=== PATIENT | male | born 1955 | race Caucasian/White ===

== ENCOUNTER 2019-11-26 07:44 | Outpatient (CLI) | payer MEDICARE, SELFPAY ==
--- NOTE | ~2019-11-26 | US_ITS ---
EXAMINATION: US soft tissue abdomen DATE: 11/26/2019 08:52 INDICATION: Right lower quadrant localized swelling. TECHNIQUE: Multiple ultrasound grayscale images of the abdomen were obtained. COMPARISON: CT abdomen and pelvis 11/23/2016 FINDINGS: There is no abdominal wall mass or hernia in the patient's area of concern in the right lower quadran t. IMPRESSION: 1. No abnormal mass or hernia in the patient's area of concern in the right lower quadrant. Reviewed, dictated and finalized at location A. IMPRESSION: 1. No abnormal mass or hernia in the patient's area of concern in the right lo wer quadrant.
== END 2019-11-26 07:45 | disposition home or self-care (01) ==
PROVIDERS: PCP Family Medicine; Visit Provider Family Medicine
DX: R22.9 Localized swelling, mass and lump, unspecified (principal)
CPT/HCPCS: 76705

== ENCOUNTER 2020-06-16 07:50 | Outpatient (CLI) | payer MEDICARE, SELFPAY ==
--- NOTE | 2020-06-21 17:30 | P.PCNPFT_ITS ---
PFT Interpretation PFT Interpretation: DOS: 06/16/2020 REQUESTING: Gracie Vazquez NP REASON FOR TESTING: Dyspnea PULMONARY FUNCTION TESTS The data is reliable and reproducible. Spirometry: FEV1 is 86%, normal. FVC is 92%, normal. Decreased FEV1%. The FEF25- 75% is decreased at 48%, and there is no response to bronchodilator. Lung volumes: TLC 108%, normal. RV is mildly increased 122% consistent with air trapping. increasd airway resistance. Diffusion: DLCO is 80%, normal. Flow volume loop: Scooping of the expiratory limb, small overall size. IMPRESSION: Mild ventilatory impairment, severe in the small airways, with mild air trapping, and increased airway resistance. normal diffusion. No change with response to bronchodilator. Lack of response to bronchodilator should not preclude use if clinically indicated. Carly Call MD
== END 2020-06-16 07:51 | disposition home or self-care (01) ==
PROVIDERS: PCP Family Medicine; Visit Provider Nurse Practitioner Family
DX: R06.00 Dyspnea, unspecified (principal); R94.2 Abnormal results of pulmonary function studies
CPT/HCPCS: 94060; 94726; 94729

== ENCOUNTER 2020-06-17 07:42 | Outpatient (CLI) | payer MEDICARE, SELFPAY ==
--- NOTE | 2020-06-17 07:49 | EST_ITS ---
Patient Info Name: Abel Sommer Age: 64 years : 1955 Gender: Male Ht: 70 in Wt: 200 lbs BSA: 2.14 m2 HR: 56 bpm Exam Date: 06/17/2020 8:43 AM [facility] Patient Status: Outpatient Admit Date: 06/17/2020 Staff Ordering Physician: Aaron Cadet DO Dry Sander: GABRIELLA Attending Provider: Aaron Cadet DO Referring Physician: Helio ELLISON; Exam Type: CA stress echo Study Info Indications R06.00 - Dyspnea, unspecified Treadmill exercise stress echocardiogram is performed. Summary 1. 1. Negative Kayode exercise stress test for ischemic ST changes by ECG criteria. 2. 2. Good functional capacity, achieving 10 METs of workload. 3. 3. Baseline hypertension. 4. 4. Appropriate HR response to exercise. 5. 5. Appropriate HR recovery at 1 minute post exercise. 6. 6. Negative stress echocardiogram for ischemia by wall motion analysis. 7. 7. Patient informed of the above results. Stress Echo Findings Left Ventricle Appropriate increase in LV endocardial thickening with systole. Appropriate augmentation of contractility with systole. No wall motion abnormality. Left Ventricle Normal LV systolic function, no wall motion abnormality. Protocol: Kayode Stress ECG Details Stage: REST Duration (min): 6 min : 3 sec Speed (mph): 0.0 Grade (%): 0 HR (bpm): 59 SBP (mmHg): 146 DBP (mmHg): 90 METS: --- Stage: REST Duration (min): 23 min : 21 sec Speed (mph): 0.0 Grade (%): 0 HR (bpm): 60 SBP (mmHg): 146 DBP (mmHg): 90 METS: --- Stage: STAGE 1 Duration (min): 1 min : 0 sec Speed (mph): 1.7 Grade (%): 10 HR (bpm): 96 SBP (mmHg): 146 DBP (mmHg): 90 METS: --- Stage: STAGE 1 Duration (min): 2 min : 0 sec Speed (mph): 1.7 Grade (%): 10 HR (bpm): 97 SBP (mmHg): 146 DBP (mmHg): 90 METS: --- Stage: STAGE 1 Duration (min): 3 min : 0 sec Speed (mph): 1.7 Grade (%): 10 HR (bpm): 95 SBP (mmHg): 185 DBP (mmHg): 69 METS: --- Stage: STAGE 2 Duration (min): 1 min : 0 sec Speed (mph): 2.5 Grade (%): 12 HR (bpm): 102 SBP (mmHg): 185 DBP (mmHg): 69 METS: --- Stage: STAGE 2 Duration (min): 2 min : 0 sec Speed (mph): 2.5 Grade (%): 12 HR (bpm): 110 SBP (mmHg): 188 DBP (mmHg): 69 METS: --- Stage: STAGE 2 Duration (min): 3 min : 0 sec Speed (mph): 2.5 Grade (%): 12 HR (bpm): 115 SBP (mmHg): 188 DBP (mmHg): 69 METS: --- Stage: STAGE 3 Duration (min): 1 min : 0 sec Speed (mph): 3.4 Grade (%): 14 HR (bpm): 124 SBP (mmHg): 216 DBP (mmHg): 74 METS: --- Stage: STAGE 3 Duration (min): 2 min : 0 sec Speed (mph): 3.4 Grade (%): 14 HR (bpm): 132 SBP (mmHg): 216 DBP (mmHg): 74 METS: --- Stage: STAGE 3 Duration (min): 2 min : 1 sec Speed (mph): 0.0 Grade (%): 0 HR (bpm): 132 SBP (mmHg): 216 DBP (mmHg): 74 MET
--- NOTE | 2020-06-17 07:49 | ECHO_ITS ---
Patient Info Name: Abel Sommer Age: 64 years : 1955 Gender: Male Ht: 70 in Wt: 200 lbs BSA: 2.14 m2 HR: 56 bpm Heart Rhythm: Sinus Rhythm Exam Date: 06/17/2020 8:04 AM Exam Location: [facility] Patient Status: Outpatient Admit Date: 06/17/2020 Staff Ordering Physician: Aaron Cadet DO Loftsman: Gege Ballesteros RDCS Attending Provider: Aaron Cadet DO Referring Physician: Helio ELLISON; Exam Type: CA echo doppler color flow Study Info Indications R06.00 - Dyspnea, unspecified Complete two-dimensional, color flow and Doppler transthoracic echocardiogram is performed. Summary 1. Complete two-dimensional, color flow and Doppler transthoracic echocardiogram is performed. 2. Left ventricular chamber dimension is normal. 3. Ventricular septum is sigmoid shaped. No LVOT obstruction. 4. Left ventricular systolic function is normal, estimated at 60-65%. 5. There is mildly increased left ventricular wall thickness. 6. The left ventricular diastolic function is grade I diastolic dysfunction. 7. E/e' 16 is elevated. 8. Global longitudinal strain is abnormal at -12.8%. 9. Left atrial chamber dimension is mildly enlarged. 10. There is mild aortic valve sclerosis. 11. There is mild to moderate aortic valve regurgitation. 12. There is trace mitral valve regurgitation. 13. There is mild tricuspid valve regurgitation. 14. No pulmonary hypertension, estimated pulmonary arterial systolic pressure is 34 mmHg. 15. The aortic root size at the sinus of Valsalva is moderately dilated at 4.5 cm. Left Ventricle Ventricular septum is sigmoid shaped. No LVOT obstruction. E/e' 16 is elevated. Global longitudinal strain is abnormal at -12.8%. Left ventricular chamber dimension is normal. Left ventricular systolic function is normal, estimated at 60-65%. There is mildly increased left ventricular wall thickness. The left ventricular diastolic function is grade I diastolic dysfunction. Right Ventricle Right ventricular chamber dimension is normal. Right ventricular systolic function is normal. Left Atria Left atrial chamber dimension is mildly enlarged. Right Atria Right atrial chamber dimension is normal. Aortic Valve The aortic valve is trileaflet. There is mild aortic valve sclerosis. There is no aortic valve stenosis. There is mild to moderate aortic valve regurgitation. Pulmonic Valve There is no pulmonic regurgitation. Mitral Valve There is no mitral valve stenosis. There is trace mitral valve regurgitation. Tricuspid Valve There is mild tricuspid valve regurgitation. No pulmonary hypertension, estimated pulmonary arterial systolic pressure is 34 mmHg. Pericardium/Pleural There is no pericardial effusion. Inferior Vena Cava Normal inferior vena cava with >50% collapse upon inspiration consistent with normal right atrial pressure, 5 mmHg. Aorta The aortic root size at the sinus of Valsalva is moderately dilated at 4.5 cm. Left Ventricular Outflow Tract Name Value Normal LVOT 2D LVOT Diameter 2.0 cm LVOT Doppler LVOT Peak Gradient 3 mmHg LV
== END 2020-06-17 07:43 | disposition home or self-care (01) ==
PROVIDERS: PCP Family Medicine; Visit Provider Internal Medicine Cardiovascular Disease
DX: R06.00 Dyspnea, unspecified (principal); I35.1 Nonrheumatic aortic (valve) insufficiency; I36.1 Nonrheumatic tricuspid (valve) insufficiency
CPT/HCPCS: 93306; 93351

== ENCOUNTER 2020-07-01 14:38 | Outpatient (CLI) | payer MEDICARE, SELFPAY ==
--- NOTE | ~2020-07-01 | CT_ITS ---
EXAMINATION: CTA chest PE protocol EXAM DATE: 07/01/2020 15:35 INDICATION: Dyspnea on exertion. TECHNIQUE: Spiral CTA of the chest (pulmonary arteries) was performed with 100 cc Omnipaque 350 intr avenous contrast injection. Images were acquired during the pulmonary arterial phase. Coronal maxi mum intensity projection 3D-reconstructions were created by the technologist on dedicated workstation . Axial, coronal and sagittal reformatted images were reviewed. The dose-length product (DLP) for t his examination was 595.17 mGy-cm. The exposure was tailored according to patient size (auto mA exp osure control), and iterative reconstruction (ASIR) was used as additional dose reduction technique. Comparison is made to prior examination from 09/14/2014. FINDINGS: Pulmonary arteries are well opacified and without intraluminal filling defects. The aortic root measures 4.2 cm, mildly dilated, but not appreciably changed compared to 2013. The ascending ao rta measures 3.8 cm, normal in caliber. No thoracic aortic dissection. The lungs are clear. There are no pleural or pericardial effusions. Tracheobronchial tree is patent. There is no mediastinal , hilar or axillary lymphadenopathy. There is no pneumothorax. Heart normal in size. There is m ild coronary arterial calcification, arterial sclerosis. Mild colonic diverticulosis. Multiple mild thoracic compression fractures with sizable Schmorl's nodes at superior endplates. IMPRESSION: 1. Limited segmental evaluation, but no pulmonary emboli are suspected. 2. Mildly dilated aortic root at 4.2 cm, stable. Reviewed, dictated and finalized at location A.
[2020-07-01 15:18] LABS: Estimated Glomerular Filt Rate 55
== END 2020-07-01 14:39 | disposition home or self-care (01) ==
LOC: ANHIMG 14:42
PROVIDERS: PCP Family Medicine; Visit Provider Internal Medicine Cardiovascular Disease
DX: R06.00 Dyspnea, unspecified (principal)
CPT/HCPCS: 71275; Q9967

== ENCOUNTER 2021-11-28 14:32 | Emergency (ER) | payer MEDICARE, SELFPAY ==
--- NOTE | ~2021-11-28 | XR_ITS ---
EXAMINATION: XR knee LT min 4V DATE: 11/28/2021 15:11 INDICATION: Left knee injury. TECHNIQUE: 5 views of left knee were obtained. COMPARISON: None. FINDINGS: Bone alignment is normal. No fracture. There is moderate osteoarthritis of medial compartme nt and mild osteoarthritis of lateral and patellofemoral compartments. No knee joint effusion. There is a loose body in suprapatellar bursa. IMPRESSION: 1. Moderate left knee osteoarthritis. 2. Loose body in suprapatellar bursa. Reviewed, dictated and finalized at location A.
[2021-11-28 14:35] VITALS: BP 148/71; PULSE 77; RESP 15; TEMP 36.6; O2SAT 98
--- NOTE | 2021-11-28 14:52 | ED.FALL ---
HPI - Fall General Chief Complaint: Extremity Injury, Lower Stated Complaint: L knee pain/injury Time Seen by Provider: 11/28/21 14:47 Source: RN notes reviewed History of Present Illness HPI Narrative: Patient presents emergency department from home via EMS for left knee pain. Patient states just prior to arrival he had slipped on some wet mud on the ground and fell to the ground he states that he is feeling her head or his left knee pop he said pain in his left knee since that time he notes deformity when he tries to bend it he denies striking his head or loss of consciousness he denies any other injury at this time he denies any numbness or tingling in the extremities denies any ankle or hip pain Related Data Home Medications Medication Instructions Recorded Confirmed metformin 1,000 mg tablet 1,000 mg PO BID 11/11/19 10/10/21 simvastatin 40 mg tablet 40 mg PO QPM tablet 11/11/19 10/10/21 testosterone 6 pump TRANSDERM QAM gm 11/11/19 10/10/21 levothyroxine 88 mcg tablet 88 mcg PO DAILY 04/05/21 10/10/21 pantoprazole 40 mg tablet,delayed 40 mg PO DAILY tablet 10/10/21 10/10/21 release Allergies Allergy/AdvReac Type Severity Reaction Status Date / Time No Known Allergies Allergy Verified 10/10/21 11:27 Review of Systems Review of Systems: Gen.: Denies fevers or chills Eyes: Denies eye pain or visual change ENT: Denies congestion Respiratory: Denies shortness of breath or cough CV: Denies chest pain GI: Denies abdominal pain nausea, emesis or diarrhea Musculoskeletal: See HPI Neuro: Denies numbness, tingling, weakness or focal weakness Skin: Denies rash Except as documented, all other systems reviewed and negative [facility] Past Medical History Medical History Biceps muscle tear s/p repair 1999 Chronic neck pain Environmental allergies Erectile dysfunction NIESHA (generalized anxiety disorder) GERD without esophagitis Gout History of non-Hodgkin's lymphoma History of pituitary tumor Hyperlipidemia Hypertension Hypogonadism in male Hypopituitarism Hypothyroidism (acquired) Insomnia Seizure Type 2 diabetes mellitus Surgical History Surgical History History of rotator cuff surgery right 2000 History of tonsillectomy when he was 9 years Status post transsphenoidal pituitary resection 01/31 [place] teeth removed (Unknown) Family History Family History Mother Asthma Father Family history of alcoholism Grandparent Acute myocardial infarction Other Diabetes mellitus Social History Social History Second hand tobacco smoke exposure: No Smoking end date: 09/17/88 Alcohol intake: current Alcohol use details: Rarely Substance use: never Substance use type: does not use Gender identity (if verbalized by the patient): Male Spiritual care concerns: Yes Agree to blood products: Yes Exam Narrative: APPEARANCE: No acute distress, nontoxic, resting in bed Eyes: EOMI HEENT: Normocephalic, atraumatic, RESPIRATORY: No respiratory distress MUSCULOSKELETAl: The left knee has no tenderness over the anterior medial lateral posterior knee, no tenderness of the right ankle or hip., Dorsalis pedis pulse 2+, with flexion of the left knee patient with deformity over the superior patellar region and unable to extend the lower extremity at the knee NEURO: Awake and alert. Following commands, speech normal, no focal deficits SKIN:: Warm, dry. Normal Color no rash or lesions Course Course Emergency Course: Discussed with Dr. Christy presentation work-up suspects quadricep tendon rupture request patient placed in knee immobilizer with follow-up as an outpatient may walk with crutches or walker Discussed with patient results of workup and diagnosis. Discussed need for f
[2021-11-28 16:08] VITALS: BP 157/72; PULSE 74; RESP 20; TEMP 36.6; O2SAT 98
== END 2021-11-28 16:33 | disposition home or self-care (01) ==
PROVIDERS: Emergency Provider Emergency Medicine; PCP Family Medicine
DX: S76.112A Strain of left quadriceps muscle, fascia and tendon, initial encounter (principal); E78.5 Hyperlipidemia, unspecified; I10 Essential (primary) hypertension; E23.0 Hypopituitarism; E03.9 Hypothyroidism, unspecified; K21.9 Gastro-esophageal reflux disease without esophagitis; M10.9 Gout, unspecified; Z79.84 Long term (current) use of oral hypoglycemic drugs; Z87.891 Personal history of nicotine dependence; M17.12 Unilateral primary osteoarthritis, left knee; W01.0XXA Fall on same level from slipping, tripping and stumbling without subsequent striking against object, initial encounter
CPT/HCPCS: 73564; 99283

== ENCOUNTER → 2022-02-28 00:18 | Outpatient (CLI) | payer MEDICARE, SELFPAY ==
[2022-02-28 16:55] LABS: SARS-CoV-2 RNA PCR Negative
== END ==
PROVIDERS: PCP Nurse Practitioner Family; Visit Provider Nurse Practitioner Family
DX: R68.89 Other general symptoms and signs (principal); Z20.822 Contact with and (suspected) exposure to COVID-19
CPT/HCPCS: C9803; U0003; U0005

== ENCOUNTER → 2023-05-28 14:17 | Outpatient (CLI) | payer MEDICARE, SELFPAY ==
--- NOTE | ~2023-05-28 | XR_ITS ---
Left Knee Technique: AP, lateral, and sunrise views were obtained. Clinical History: Pain Findings: There is a probable large bipartite patella rather than patellar fracture. Questionable giovanni ency at the medial femoral condyle which could reflect an osteochondral lesion. There is a large join t effusion with a 1 cm loose body at the suprapatellar region. Impression: Probable bipartite patella, less likely patellar fracture. Suspected osteochondral lesion at the medial femoral condyle. MR imaging should be strongly considered to better evaluate for osteochondral lesion, as well as to a ssess for acute patellar injury. Large joint effusion with 1 cm loose body. Reviewed, dictated and finalized at location . Impression: Probable bipartite patella, less likely patellar fracture. Suspected osteochondral lesion at the medial femoral condyle. MR imaging should be strongly considered to better evaluate for osteochondral l esion, as well as to assess for acute patellar injury. Large joint effusion with 1 cm loose body.
== END ==
PROVIDERS: PCP Family Medicine; Visit Provider Family Medicine
DX: M79.89 Other specified soft tissue disorders (principal); M25.462 Effusion, left knee
CPT/HCPCS: 73564

== ENCOUNTER → 2023-06-01 09:24 | Outpatient (CLI) | payer MEDICARE, SELFPAY ==
--- NOTE | ~2023-06-01 | MR_ITS ---
MRI of the left knee Clinical history: Pain Technique: Coronal proton density and proton density-weighted images, sagittal proton-density and T2 fat-sat images, and axial proton-density fat-saturated images were acquired. Findings: Anterior and posterior cruciate ligaments are intact. Medial collateral ligament and the la teral collateral ligament complex are intact. Popliteus tendon is intact with marked tendinosis near its femoral insertion. There is complex tearing of the posterior horn and body of the medial meniscus. There is irregular fr aying/tearing of the posterior horn of the lateral meniscus. There is a longitudinally oriented, minimally displaced fracture through the lateral aspect of the pa tella (coronal images 3-4). There is no significant marrow edema present, and the age of this fractur e is somewhat indeterminate. There is high-grade chondromalacia the medial femoral condyle, with subjacent subchondral reactive ma rrow edema. No king osteochondral lesion/fragment evident.. There is focal mild chondromalacia of th e lateral femoral condyle. There is patchy mild chondromalacia patella. There is high-grade chondroma lacia focally at the central aspect of the femoral trochlea. There is probable postoperative change of the distal quadriceps tendon. Patellar tendon is intact. Large joint effusion is present with moderate multiseptated Cardoso's cyst. Impression: Longitudinally oriented, minimally displaced fracture through the lateral aspect of the patella, as d etailed above. No significant marrow edema present. Correlate clinically estimated age of the fractur e. Patchy tricompartmental chondromalacia, as detailed above. Complex tearing extensively involving the posterior horn and body of the medial meniscus. Probable mild irregular fraying/tearing of the posterior horn of the lateral meniscus. Large joint effusion with moderate Cardoso's cyst. Postoperative changes the distal quadriceps tendon. Reviewed, dictated and finalized at location M. Impression: Longitudinally oriented, minimally displaced fracture through the lateral aspec t of the patella, as detailed above. No significant marrow edema present. Corre late clinically estimated age of the fracture. Patchy tricompartmental chondromalacia, as detailed above. Complex tearing extensively involving the posterior horn and body of the medial meniscus. Probable mild irregular fraying/tearing of the posterior horn of the lateral me niscus. Large joint effusion with moderate Cardoso's cyst. Postoperative changes the distal quadriceps tendon.
== END ==
PROVIDERS: Visit Provider Family Medicine
DX: M25.462 Effusion, left knee (principal); S83.232A Complex tear of medial meniscus, current injury, left knee, initial encounter; X58.XXXA Exposure to other specified factors, initial encounter
CPT/HCPCS: 73721

== ENCOUNTER 2023-08-24 08:04 | Outpatient (CLI) | payer MEDICARE, SELFPAY ==
--- NOTE | 2023-08-24 08:00 | ECG_ITS ---
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
== END 2023-08-24 08:05 | disposition home or self-care (01) ==
PROVIDERS: PCP Family Medicine; Visit Provider Orthopaedic Surgery
DX: I10 Essential (primary) hypertension (principal); Z01.818 Encounter for other preprocedural examination; I45.10 Unspecified right bundle-branch block
CPT/HCPCS: 93005

== ENCOUNTER 2023-08-29 02:07 | Day surgery (SDC) | payer MEDICARE, SELFPAY ==
--- NOTE | 2023-08-23 12:13 | PM.IMHP ---
H&P: HPI History of Present Illness Date/Time: 08/23/23 12:13 Chief Complaint: Medial meniscal tear left knee. Narrative: Patient a twisting injury to his knee is that pain on the left knee primarily medially. He has mechanical symptoms of catching locking and pain. And has been unresponsive to conservative treatment to date. Review of Systems Musculoskeletal: Musculoskeletal: Reports arthralgias and Reports joint swelling PMFSH Past Medical History Medical History Biceps muscle tear s/p repair 1999 Chronic neck pain Environmental allergies Erectile dysfunction NIESHA (generalized anxiety disorder) GERD without esophagitis Gout History of non-Hodgkin's lymphoma History of pituitary tumor Hyperlipidemia Hypertension Hypogonadism in male Hypopituitarism Hypothyroidism (acquired) Insomnia Seizure Type 2 diabetes mellitus Surgical History Surgical History H/O left knee surgery (~11/2021) Quadriceps tendon rupture repair History of rotator cuff surgery (~1999) right 2000 History of tonsillectomy (~1963) when he was 9 years Status post transsphenoidal pituitary resection (~01/2017) 01/31 [place] teeth removed (Unknown) Family History Family History Mother Asthma Father Family history of alcoholism Grandparent Acute myocardial infarction Other Diabetes mellitus Social History Social History Social History: Caffeine-iced tea Smoking status: Former smoker Second hand tobacco smoke exposure: No Smoking end date: 09/17/79 Alcohol intake: current Alcohol use details: Rarely Substance use: never Substance use type: does not use Lack of Transportation: No Lack of Food: Never True Current Housing: I Have Housing Concerned About Future Housing: No Difficulty Paying Gas/Electric Bills: No Difficulty Paying for Meds: No Currently Unemployed: No Education: High School Diploma/GED Difficulty w/ Childcare or Family Care: No Living arrangements: with family Occupation/Education: retired Gender identity (if verbalized by the patient): Male Sexual Orientation (if Verbalized by the Patient): Straight or Heterosexual Spiritual care concerns: Yes Agree to blood products: Yes Meds Home Medications and Allergies Home Medications Medication Instructions Recorded Confirmed Type simvastatin 40 mg tablet 40 mg PO QPM 11/11/19 08/08/23 History testosterone 10 mg/0.5 6 pump transdermal QAM 11/11/19 08/08/23 History gram/actuation transdermal gel pump prednisone 5 mg tablet 5 mg PO DAILY #90 tabs 09/09/20 08/08/23 Rx allopurinol 100 mg tablet 100 mg PO DAILY #100 tabs 06/22/22 08/08/23 Rx fluticasone propionate 50 1 spray intranasal BID #48 mL 06/22/22 08/08/23 Rx mcg/actuation nasal spray,suspension lisinopril 40 mg tablet 40 mg PO DAILY #100 tabs 12/25/22 08/08/23 Rx tizanidine 4 mg capsule 4 mg PO TID PRN muscle spasticity 12/29/22 08/08/23 Rx #30 caps hydroxyzine HCl 25 mg tablet 25 mg PO TID PRN anxiety #100 tabs 02/13/23 08/08/23 Rx pantoprazole 40 mg tablet,delayed 40 mg PO BID #180 tabs 04/16/23 08/08/23 Rx release levothyroxine 75 mcg tablet 75 mcg PO DAILY #30 tabs 04/19/23 08/08/23 Rx sitagliptin phosphate 50 mg tablet 50 mg PO DAILY #30 tabs 04/19/23 08/08/23 Rx (Januvia) albuterol sulfate 90 mcg/actuation 2 puff inhalation Q4H PRN 06/13/23 08/08/23 Rx aerosol inhaler shortness of breath or wheezing #8.5 grams trazodone 100 mg tablet 100 mg PO QHS #90 tabs 07/02/23 08/08/23 Rx prednisone 10 mg tablet 10 mg PO BID #20 tabs 07/11/23 08/08/23 Rx sildenafil 100 mg tablet (Viagra) 100 mg PO DAILY PRN sexual 07/17/23 08/08/23 Rx activity #30 tabs fenofibrate 160 mg tablet 160 mg PO DAILY #90 tabs 08/03/23 08/08/23 Rx
--- NOTE | 2023-08-23 13:42 | PC.NURSE ---
Report to the Outpatient Waiting Room, entrance under the green pavilion located off [facility], at time __0600 on date __08/29/23 . Planned Procedure Time: _0730 . Time changes happen often and if your time is changed the preop area will call you the afternoon before. - You and your visitor will be asked to self-screen and do not enter if you have any COVID symptoms. - A mask is optional within the hospital at this time. Patients may have clear liquids (water, carbonated beverages, clear teas, apple juice) until 3 hours prior to surgery(4:30 AM) with a maximum of 20 ounces. - No food from midnight until time of surgery - Take the following medications with a SIP of water the morning of surgery: ___LEVOTHYROXINE,PREDNISONE, DO NOT STOP ANY OF YOUR OTHER PRESCRIPTION MEDICATIONS PRIOR TO SURGERY ?EXCEPT THE FOLLOWING Medications to discontinue per physician __ALL VITAMINS 3 DAYS PRE OP LAST DOSE 08/25/23 Please no make-up, nail [place]rit[place] islander, hairspray, perfume, deodorant, or body powder the day of surgery. No jewelry (including any body piercings) or valuables the day of surgery, leave them at home. Please take a shower or bath the night before, or the morning of, surgery with an antibacterial soap. Wear comfortable, loose fitting clothing. Children are encouraged to wear pajamas. - Jewelry must be removed prior to entering the operating room. Rings and piercings that are not removed may be cut off. - The hospital will not accept responsibility for valuables. - Please leave all valuables, including medications, at home the day of surgery. If you are going home after surgery, a licensed tractor sweeper driver must drive you home. - NO public transportation without another adult if you receive anesthesia. - We recommend that an adult stay with you for 24 hours following discharge. - We also recommend that you do not drive, make important decision, drink alcoholic beverages, or take any drugs that were not prescribed by your health care provider for at least 24 hours after your discharge time. For Pediatric surgeries, we recommend two adults accompany the child home. Follow any additional instructions given to you from your surgeon. If you or anyone in your household have experienced Covid symptoms in the past week, please notify your surgeon or the nurse liaison at the phone number below for possible testing. Telephone instructions given to _PATIENT and asked if any additional questions and then verbalized understanding. Patient advised to call surgeon office or pre surgery nurse liaison [phone] if any additional questions.
[2023-08-23 13:53] VITALS: BMI 25.9
[2023-08-29] VITALS (8 sets, daily range): BP systolic 98–140; BP diastolic 58–77; PULSE 48–64; RESP 10–20; TEMP 36.3–36.4; O2SAT 96–100
[2023-08-29] MEDS: ACETAMINOPHEN 500 MG TABLET 1000 MG PO (06:36)
[2023-08-29] MEDS: KETOROLAC 15 MG/ML VIAL (*BKC) IV PUSH (06:36)
[2023-08-29 06:38] LABS: Glucose Point of Care 86 mg/dl (65-105)
--- NOTE | 2023-08-29 06:42 | WPDANESEPPF ---
Anes - Initial Pre Proc Eval Procedure: Operation Date: 08/29/23 07:30 Proposed Procedures p Left Knee Arthroscopy with Partial Medial Meniscectomy - Sanya Christy MD Date/Time: 08/29/23 06:42 Surgeon: Sanya Christy MD Pre Op Diagnosis: Lt Medial Meniscus Tear Patient Data Age: 67 Gender: M Height: 1.79 m Weight: 83.05 kg Allergies Allergy/AdvReac Type Severity Reaction Status Date / Time covid vaccine Allergy Other Uncoded 08/23/23 13:19 Home Medications Medication Instructions Recorded Confirmed Type testosterone 10 mg/0.5 6 pump transdermal QAM 11/11/19 08/23/23 History gram/actuation transdermal gel pump prednisone 5 mg tablet 5 mg PO DAILY #90 tabs 09/09/20 08/23/23 Rx allopurinol 100 mg tablet 100 mg PO DAILY #100 tabs 06/22/22 08/23/23 Rx lisinopril 40 mg tablet 40 mg PO DAILY #100 tabs 12/25/22 08/23/23 Rx tizanidine 4 mg capsule 4 mg PO TID PRN muscle spasticity 12/29/22 08/23/23 Rx #30 caps pantoprazole 40 mg tablet,delayed 40 mg PO BID #180 tabs 04/16/23 08/23/23 Rx release levothyroxine 75 mcg tablet 75 mcg PO DAILY #30 tabs 04/19/23 08/23/23 Rx sitagliptin phosphate 50 mg tablet 50 mg PO DAILY #30 tabs 04/19/23 08/23/23 Rx (Januvia) albuterol sulfate 90 mcg/actuation 2 puff inhalation Q4H PRN 06/13/23 08/23/23 Rx aerosol inhaler shortness of breath or wheezing #8.5 grams trazodone 100 mg tablet 100 mg PO QHS #90 tabs 07/02/23 08/23/23 Rx sildenafil 100 mg tablet (Viagra) 100 mg PO DAILY PRN sexual 07/17/23 08/23/23 Rx activity #30 tabs cetirizine 10 mg tablet (Zyrtec) 10 mg PO DAILY 08/23/23 08/23/23 History fluticasone propionate 50 1 spray intranasal PRN PRN Allergy 08/23/23 08/23/23 History mcg/actuation nasal Symptoms spray,suspension hydroxyzine HCl 25 mg tablet 25 mg PO PRN PRN anxiety 08/23/23 08/23/23 History multivit,Ca,min-iron 8 mg-folic 1 tablet PO DAILY 08/23/23 08/23/23 History acid 200 mcg-lycopene 600 mcg tablet (Centrum Men) Laboratory Tests 08/29/23 06:32 POC Capillary Glucose 86 mg/dl (65-105) Patient hx anesthesia problems: none Family hx anesthesia problems: none Results Review: All pre-operative results and documents have been reviewed as part of the pre-operative evaluation. [facility] Past Medical History Medical History Biceps muscle tear s/p repair 1999 Chronic neck pain Environmental allergies Erectile dysfunction NIESHA (generalized anxiety disorder) GERD without esophagitis Gout History of non-Hodgkin's lymphoma History of pituitary tumor Hyperlipidemia Hypertension Hypogonadism in male Hypopituitarism Hypothyroidism (acquired) Insomnia Seizure Type 2 diabetes mellitus Surgical History Surgical History H/O left knee surgery (~11/2021) Quadriceps tendon rupture repair History of rotator cuff surgery (~1999) right 2000 History of tonsillectomy (~1963) when he was 9 years Status post transsphenoidal pituitary resection (~01/2017) 01/31 [place] teeth removed (Unknown) Family History Family History Mother Asthma Father Family history of alcoholism Grandparent Acute myocardial infarction Other Diabetes mellitus Social History Social History Social History: Caffeine-iced tea Smoking packs per day: 1.5 Smoking cigarettes per day: 30.0 Years smoked: 30 Smoking pack-years: 45.00 Smoking status: Former smoker Tobacco type: cigarettes Second hand tobacco smoke exposure: No Smoking end date: 09/17/79 Alcohol intake: current Alcohol use details: Rarely Substance use: never Substance use type: does not use Lack of Transportation: No Lack of Food: Never True Current Housing: I Have Housing Concerned About Future Shobha
--- NOTE | 2023-08-29 06:59 | WPDHPUPDATE1 ---
History and Physical Update Update Date/Time: 08/29/23 06:59 History and Physical has been reviewed, including an updated exam of the patient. There are NO changes in the patient's condition. Risks, benefits, and alternatives have been discussed and questions answered. Patient agrees to proceed with procedure.
[2023-08-29] MEDS: ceFAZolin 2 GM/D5W 50 ML 2 GM/50 ML BAG IVPB (07:27)
[2023-08-29] MEDS: LIDO 1%/EPINEPHRINE 1:100,000 20 ML VIAL INFILTRATE (07:49)
--- NOTE | 2023-08-29 08:00 | W.PM.PROC2 ---
Procedure Note - Detailed Date of Procedure 08/29/23 Pre-op Diagnosis Left Medial Meniscus Tear Post-op Diagnosis Same Procedure Performed Arthroscopy partial medial meniscectomy Surgeon Sanya Christy MD Anesthesia General Description of Procedure Patient brought to operating room #7, and a general anesthetic was administered. The knee was steriley prepped and draped in the usual manner. Standard portals were used. Superior medial portal was used for the outflow cannula, inferior lateral portal was used for the scope, inferior medial portal was used for the instruments. Arthroscopy was performed, the patellar femoral joint showed degenerative changes. The medial compartment showed a complex tear. The lateral compartment showed fraying. The ACL was intact. Using baskets and mariana the meniscal tear was trimmed back to a stable base so the nothing further could be pulled into the joint. Any loose or delaminated fragments were gently trimmed to a stable base. At this point the instruments were withdrawn, sutures placed and patient left the operating room in satisfactory condition. I purposely stayed away from the quad repair that he has had previously. Estimated Blood Loss 10 Drains No Packing No Pathology None sent Complications No immediate complications Condition Stable Disposition PACU [facility] Billing Surgery - Charge Forward: Surgery Billing (CPT 74017 Arthroscopy partial menisectomy medial)
[2023-08-29] MEDS: LACTATED RINGERS 1,000 ML 30 ML IV CONT (08:07)
[2023-08-29] MEDS: oxyCODONE HCL (*CRX) 5 MG TAB IR PO (09:14)
== END 2023-08-29 09:58 | disposition home or self-care (01) ==
PROVIDERS: PCP Family Medicine; Visit Provider Orthopaedic Surgery
PROC: (CPT 29870; principal; 2023-08-29 07:30)
DX: S83.232A Complex tear of medial meniscus, current injury, left knee, initial encounter (principal); X50.0XXA Overexertion from strenuous movement or load, initial encounter; K21.9 Gastro-esophageal reflux disease without esophagitis; F41.1 Generalized anxiety disorder; I10 Essential (primary) hypertension; E78.5 Hyperlipidemia, unspecified; M10.9 Gout, unspecified; E03.9 Hypothyroidism, unspecified; E23.0 Hypopituitarism; E11.9 Type 2 diabetes mellitus without complications; Z79.890 Hormone replacement therapy; Z85.72 Personal history of non-Hodgkin lymphomas; Z79.84 Long term (current) use of oral hypoglycemic drugs; Z79.51 Long term (current) use of inhaled steroids; Z87.891 Personal history of nicotine dependence
CPT/HCPCS: 29881; 82948; 93005; A9270; J0690; J1100; J1170; J1885; J2250; J2405; J2704; J3010; J7120

== ENCOUNTER → 2023-09-05 07:38 | Outpatient (CLI) | payer MEDICARE, SELFPAY ==
--- NOTE | ~2023-09-05 | US_ITS ---
Renal-Bladder ultrasound Clinical History: Abnormal renal function Technique: Real-time sonographic imaging of the kidneys and urinary bladder was performed. Findings: The right kidney measures 10.8 cm in length and the left kidney measures 11.3 cm. There is no hydronephrosis or renal calculus identified. Renal cortical echogenicity is within normal limits. No renal mass lesion is identified. The urinary bladder is partially distended at the time of this exam. No intraluminal echoes are ident ified. No abnormal wall thickening is seen. Impression: Unremarkable ultrasound of the kidneys and urinary bladder. Reviewed, dictated and finalized at location M. E WORKER Impression: Unremarkable ultrasound of the kidneys and urinary bladder.
== END ==
PROVIDERS: PCP Family Medicine; Visit Provider Internal Medicine Nephrology
DX: R94.4 Abnormal results of kidney function studies (principal)
CPT/HCPCS: 76775

== ENCOUNTER 2023-09-05 11:43 | Inpatient (IN) | payer MEDICARE, SELFPAY ==
[2023-09-05] VITALS (36 sets, daily range): BP systolic 116–169; BP diastolic 40–131; PULSE 65–76; RESP 12–21; TEMP 36.9–38; O2SAT 87–100
--- NOTE | ~2023-09-05 | CT_ITS ---
CT scan of the left knee CLINICAL HISTORY: Pain and swelling, 1 week status post meniscus repair TECHNIQUE: Following intravenous administration of 100 cc of Omnipaque 350 contrast, axial imaging of the left knee was performed. Sagittal and coronal reformatted images were constructed. Dose reductio n technique was used on this scan by utilizing automated exposure control and iterative reconstructio n technique. The dose-length product (DLP) was 613.36 mGy-cm. Correlation made with MRI of the knee dated 06/01/2023 Findings: There is a longitudinally oriented fracture through the lateral aspect of the patella, whic h correlates with that seen on prior MR, however there is now significantly increased distraction of the fracture fragments by approximately 1.5 cm. No other fracture or dislocation seen. There is probable mild medial compartment narrowing with probable focal subchondral cystic change in the medial femoral condyle. Lateral and patellofemoral compartments appear preserved. There is large joint effusion with probable mild enhancement of the synovial lining, no definite path ologic synovial thickening. Distal quadriceps tendon is grossly intact. Patellar tendon is intact. Sm all Cardoso's cyst present. IMPRESSION: Longitudinally oriented fracture of the lateral aspect of the patella. This correlates with the fract ure seen on prior MR from 06/01/2023, however there is significantly increased distraction of the frac ture fragments as compared to that exam, now with distraction of 1.5 cm. Correlate for reinjury. Large joint effusion with small Cardoso's cyst. Mild to moderate degenerative change of the medial compartment. Reviewed, dictated and finalized at [facility]. CIPAL GIFTS OFFICER IMPRESSION: Longitudinally oriented fracture of the lateral aspect of the patella. This cor relates with the fracture seen on prior MR from 06/01/2023, however there is sig nificantly increased distraction of the fracture fragments as compared to that exam, now with distraction of 1.5 cm. Correlate for reinjury. Large joint effusion with small Cardoso's cyst. Mild to moderate degenerative change of the medial compartment.
--- NOTE | ~2023-09-05 | US_ITS ---
EXAMINATION: US venous doppler [facility] DATE: 09/05/2023 22:42 INDICATION: Left lower limb pain. TECHNIQUE: Grayscale ultrasound images without and with compression and Doppler ultrasound images of the left lower extremity veins were obtained. COMPARISON: None. FINDINGS: The visualized portions of left common femoral vein, profunda (deep) femoral vein, femoral vein, popl iteal vein, peroneal veins, posterior tibial veins, and greater saphenous vein outflow are patent. IMPRESSION: 1. No deep venous thrombosis. Reviewed, dictated and finalized at location E. OPERATOR
--- NOTE | ~2023-09-05 | XR_ITS ---
EXAMINATION: XR chest PICC line DATE: 09/07/2023 11:34 INDICATION: PICC line placement TECHNIQUE: frontal view of the chest was obtained. COMPARISON: Chest radiograph dated 10/08/2017 FINDINGS: Right upper extremity peripherally inserted central venous catheter (PICC) tip at the caudal superio r vena cava. Minimal atelectasis at the right costophrenic angle. No other airspace opacities, pulmon rafat edema, pleural effusion or pneumothorax. The cardiomediastinal silhouette is normal. Suture ancho rs at the right humeral head likely related to prior rotator cuff repair. IMPRESSION: 1. Right PICC line tip at the caudal superior vena cava. 2. Minimal right basilar atelectasis. No other acute cardiopulmonary disease. Reviewed, dictated and finalized at location A. NT PROJECT COORDINATOR
--- NOTE | ~2023-09-05 | US_ITS ---
EXAMINATION: US knee asp inj w image LT DATE: 09/05/2023 20:15 INDICATION: Large left knee joint effusion post recent surgery TECHNIQUE: The procedure including the risks and benefits was discussed with the patient. Risks discu ssed included bleeding and infection. The patient understood the risks and agreed to proceed. The sk in overlying the lateral side of the suprapatellar pouch of the left knee was prepped and draped in u sual sterile fashion. Anesthetic was administered with 1% lidocaine subcutaneously. An 18 gauge nee dle was advanced into the suprapatellar pouch. 55 mL of cloudy yellowish fluid was aspirated from the knee. The needle was removed and the entry site was cleaned and dressed. Post procedure ultrasound demonstrated no hemorrhage. FINDINGS: Ultrasound images demonstrate the aspiration needle within the large left knee joint effusi on. Final images demonstrate the needle prior to withdrawal within the decompressed suprapatellar meagan ch. IMPRESSION: 1. Successful Ultrasound-guided left knee joint aspiration. Reviewed, dictated and finalized at location A. CAL BILLING COORDINATOR
[2023-09-05 12:27] LABS: Basophils Absolute Auto 0.1 K/mm3 (0.0-0.1); Basophils Percent Auto 0.4 % (0.2-1.2); Eosinophils Absolute Auto 0.1 K/mm3 (0-0.3); Eosinophils Percent Auto 0.5 % (0-4.4); Hematocrit 38.9 % (42.0-52.0); Hemoglobin 12.5 g/dL (14.0-18.0); Immature Granulocyte Absolute 0.23 K/mm3 (0.00-0.031); Immature Granulocyte Percent A 1.9 % (0-0.5); Immature Platelet Fraction Pct 4.1 % (0.9-11.2); Lymphocytes Absolute Auto 0.89 K/mm3 (0.9-3.2); Lymphocytes Percent Auto 7.3 % (18.3-44.2); Mean Corpuscular HGB Conc 32.1 g/dl (32-36); Mean Corpuscular Hemoglobin 30.5 pg (26-34); Mean Corpuscular Volume 94.9 fl (80-100); Mean Platelet Volume 10.1 fl (7.4-10.4); Monocytes Absolute Auto 0.7 K/mm3 (0.1-0.6); Neutrophils Absolute Auto 10.3 K/mm3 (1.3-6.7); Neutrophils Percent Auto 83.9 % (45.5-73.1); Platelet Count Result 132 k/mm3 (150-375); White Blood Count 12.2 K/mm3 (4.5-10.0)
[2023-09-05 12:39] LABS: Alanine Aminotransferase 30 U/L (6-50); Albumin Level 4.8 g/dL (3.5-5.1); Alkaline Phosphatase 50 U/L (38-126); Anion Gap 11 mmol/L (8-16); Aspartate Amino Transferase 41 U/L (17-59); Bilirubin,Total 0.9 mg/dL (0.2-1.3); Blood Urea Nitrogen 23 mg/dL (9-20); Calcium 9.3 mg/dL (8.4-10.2); Carbon Dioxide 25 mmol/L (22-30); Chloride 96 mmol/L (98-107); Estimated Glomerular Filt Rate 60; Glucose 125 mg/dL (65-110); Potassium 3.9 mmol/L (3.4-5.0); Sodium 132 mmol/L (137-145)
--- NOTE | 2023-09-05 13:10 | ED.EXTPRO ---
HPI - Extremity Problem General Chief complaint: Extremity Problem,Nontraumatic Stated complaint: post op complications Time Seen by Provider: 09/05/23 12:10 History of Present Illness HPI Narrative: 67-year-old male presented to emergency department for evaluation of worsening left knee pain. Patient reports last Sunday he did have meniscus repair by Dr. Christy. Patient reports he was having some minor pain yesterday, denies any falls or injuries but states when he woke up this morning he had significant worsening of the left leg swelling and pain. Related Data Home Medications Medication Instructions Recorded Confirmed testosterone 10 mg/0.5 6 pump transdermal QAM 11/11/19 09/05/23 gram/actuation transdermal gel pump cetirizine 10 mg tablet (Zyrtec) 10 mg PO DAILY 08/23/23 09/05/23 fluticasone propionate 50 1 spray intranasal PRN PRN Allergy 08/23/23 09/05/23 mcg/actuation nasal Symptoms spray,suspension hydroxyzine HCl 25 mg tablet 25 mg PO PRN PRN anxiety 08/23/23 09/05/23 multivit,Ca,min-iron 8 mg-folic 1 tablet PO DAILY 08/23/23 09/05/23 acid 200 mcg-lycopene 600 mcg tablet (Centrum Men) Allergies Allergy/AdvReac Type Severity Reaction Status Date / Time COVID-19 (SARS-CoV-2) Allergy Unknown FLU Verified 09/05/23 18:16 vaccine, elsy SYMPTOMS Review of Systems Review of Systems: All systems reviewed & are unremarkable except as noted in HPI and below PMFSH Past Medical History Medical History Chronic neck pain Environmental allergies Erectile dysfunction GERD without esophagitis Gout History of non-Hodgkin's lymphoma (2007) History of pituitary tumor (2016) Hyperlipidemia Hypertension Hypogonadism in male Hypopituitarism Hypothyroidism (acquired) Insomnia Seizure Type 2 diabetes mellitus Surgical History Surgical History History of repair of right rotator cuff (1999) History of tonsillectomy (1963) Status post arthroscopic partial medial meniscectomy of right knee (08/29/23) Status post tendon repair Repair left quadriceps tendon rupture 12/06. Repair biceps tendon tear. Status post transsphenoidal pituitary resection (01/2017) [place] teeth removed (Unknown) Family History Family History Mother Asthma Father Family history of alcoholism Grandparent Acute myocardial infarction Other Diabetes mellitus Social History Social History (Updated 09/05/23 @ 20:15 by Shanita Huang PA-C) Social History: Surrogate medical decision maker: Katharina Sommer, jami. Code status: Smoking packs per day: 1.5 Smoking cigarettes per day: 30.0 Years smoked: 45 Smoking pack-years: 67.50 Smoking status: Former smoker Tobacco type: cigarettes Second hand tobacco smoke exposure: Yes Smoking end date: 09/17/79 Alcohol intake: never Alcohol use details: Rarely Substance use: never Substance use type: does not use Do You Feel Safe in your Home?: Yes Lack of Transportation: No Lack of Food: Never True Current Housing: I Have Housing Concerned About Future Housing: No Difficulty Paying Gas/Electric Bills: No Difficulty Paying for Meds: No Currently Unemployed: No Education: High School Diploma/GED Difficulty w/ Childcare or Family Care: No Living arrangements: with family Occupation/Education: retired Spiritual care concerns: No Agree to blood products: Yes Exam Narrative: APPEARANCE: Well appearing, no pain, no distress, well-nourished. HEAD: normocephalic, atraumatic. EYES: PERRLA/EOMI, conjunctivae clear. NOSE: Normal no drainage EARS:TMS clear with good light reflex. THROAT: Pharynx clear, no exudate. NECK: Supple. No adenopathy, no masses. RESPIRATORY: Airway patent, respirations nonlabored. Clear to auscultation bilaterally, no rales, rhonchi, wh
[2023-09-05] MEDS: HYDROmorphone HCL INJ (*CRX) 1 MG/ML SYR IV PUSH ×4 (13:11→22:31)
[2023-09-05 13:28] LABS: Prothrombin Time 13.1 Seconds (11.1-14.7)
[2023-09-05 13:29] LABS: Partial Thromboplastin Time 25.9 SECONDS (22.3-36.8)
[2023-09-05 14:05] LABS: CRP 2.5 mg/dL (<1.0)
[2023-09-05 14:18] LABS: Erythrocyte Sedimentation Rate 12 mm/hr (0-20)
--- NOTE | 2023-09-05 15:13 | PC.NURSE ---
per ultrasound interventional radiologist is behind. states will be awhile until they can do the joint aspiration.
[2023-09-05] MEDS: ACETAMINOPHEN 500 MG TABLET 1000 MG PO (16:00)
[2023-09-05] MEDS: SODIUM CHLORIDE 0.9% IV 1,000 ML 125 ML IV CONT ×2 (16:00→18:27)
--- NOTE | 2023-09-05 17:29 | PM.IMHP ---
H&P: HPI History of Present Illness Date/Time: 09/05/23 18:30 Chief Complaint: Left knee pain and swelling following surgery last week. Narrative: This is a very pleasant 67-year-old gentleman with hypertension, hyperlipidemia, hypothyroidism, gastroesophageal reflux disease, arthritis, type 2 diabetes mellitus, pituitary tumor status post transsphenoidal resection, and non-Hodgkin lymphoma in 2007 who presented to the emergency department via private vehicle from home for evaluation of left knee pain and swelling following surgery last week. The patient provides the following history. He had an arthroscopic partial medial meniscectomy on 08/29/[address] Christy and he had been doing well up until yesterday when he developed minor pain of the knee. This morning he awoke with significant pain and swelling in the left knee and he came in for evaluation. He describes a pretty severe, deep aching pain in the anterior knee and up the thigh posteriorly. He denies fall and trauma to the area. He has known history of MRSA. Appetite has been okay and he denies nausea and vomiting. He denies chills and sweats. Temperature in the ED was 100.4? with stable vital signs. Labs were significant for WBC count of 12.2, hemoglobin 12.5, platelet 132, sodium 132, chloride 96, BUN 23, glucose 125, CRP 2.5. CT of the left knee showed a longitudinally oriented fracture of the lateral aspect of the patella with significantly increased distraction of the fracture fragments compared to prior exam and a large joint effusion with small Cardoso's cyst. He is status post arthrocentesis per Interventional Radiology and he has been started on vancomycin and Dr. Christy's request. He is being admitted in this setting for further treatment and orthopedic consultation. Review of Systems Review of Systems: 12 systems were reviewed and are negative except for as per HPI. [facility] Past Medical History Medical History Chronic neck pain Environmental allergies Erectile dysfunction GERD without esophagitis Gout History of non-Hodgkin's lymphoma (2008) History of pituitary tumor (2017) Hyperlipidemia Hypertension Hypogonadism in male Hypopituitarism Hypothyroidism (acquired) Insomnia Seizure Type 2 diabetes mellitus Surgical History Surgical History History of repair of right rotator cuff (1999) History of tonsillectomy (1963) Status post arthroscopic partial medial meniscectomy of right knee (08/29/23) Status post tendon repair Repair left quadriceps tendon rupture 12/06. Repair biceps tendon tear. Status post transsphenoidal pituitary resection (01/2017) [place] teeth removed (Unknown) Family History Family History Mother Asthma Father Family history of alcoholism Grandparent Acute myocardial infarction Other Diabetes mellitus Social History Social History (Updated 09/05/23 @ 20:15 by Shanita Huang PA-C) Social History: Surrogate medical decision maker: Katharina Sommer, jami. Code status: Smoking packs per day: 1.5 Smoking cigarettes per day: 30.0 Years smoked: 45 Smoking pack-years: 67.50 Smoking status: Former smoker Tobacco type: cigarettes Second hand tobacco smoke exposure: Yes Smoking end date: 09/17/79 Alcohol intake: never Alcohol use details: Rarely Substance use: never Substance use type: does not use Do You Feel Safe in your Home?: Yes Lack of Transportation: No Lack of Food: Never True Current Housing: I Have Housing Concerned About Future Housing: No Difficulty Paying Gas/Electric Bills: No Difficulty Paying for Meds: No Currently Unemployed: No Education: High School Diploma/GED Difficulty w/ Childcare or Family Care: No Living arrangements: with family Occupation/Education: retired Spiritual care concerns: N
--- NOTE | 2023-09-05 17:58 | ADMGEN ---
This patient, Abel Sommer Jr., was admitted to Medical Room 251-01. Patient/family oriented to hospital policies and general routines including ID bracelet, bed and alarms, visiting hours, pain management, procedures, bathroom and other care routines, personal items, smoking policy, room service/diet, and visiting hours. Information on how to activate the Rapid Response Team has been discussed. Patient/Family are encouraged to report perceived risks to care and to ask questions if they do not understand what they are told or what they should do.
[2023-09-05] MEDS: VANCOMYCIN 2,000 MG/NS 500 ML 2,000 MG/500 ML BAG 250 MG IVPB (18:32)
[2023-09-05 20:48] LABS: Appearance Synovial Fluid Cloudy (Clear); Color Synovial Fluid Yellow (Colorless); Source Synovial Fluid Synovial fluid
[2023-09-05 20:49] LABS: Monocytes Synovial Fluid 8 %; Neutrophils Synovial Fluid 92 % (0-25)
[2023-09-05 20:52] LABS: Crystals Synovial Fluid None Seen (None Seen)
[2023-09-05] MEDS: PANTOPRAZOLE 40 MG TABLET PO (21:03)
[2023-09-05] MEDS: traZODone HCL 50 MG TABLET 100 MG PO (21:03)
[2023-09-05 21:09] LABS: Glucose Point of Care 94 mg/dl (65-105)
[2023-09-06] VITALS (11 sets, daily range): BP systolic 118–167; BP diastolic 54–84; PULSE 66–98; RESP 16–23; TEMP 36.5–37.4; O2SAT 92–100
[2023-09-06] MEDS: HYDROcodone/acetaminophen (*CRX) 5-325 MG TABLET 1 TAB PO (02:14)
[2023-09-06] MEDS: SODIUM CHLORIDE 0.9% IV 1,000 ML 125 ML IV CONT ×2 (03:16→12:01)
[2023-09-06 04:54] LABS: Hematocrit 33.5 % (42.0-52.0); Hemoglobin 11.3 g/dL (14.0-18.0); Mean Corpuscular HGB Conc 33.7 g/dl (32-36); Mean Corpuscular Hemoglobin 31.2 pg (26-34); Mean Corpuscular Volume 92.5 fl (80-100); Mean Platelet Volume 10.6 fl (7.4-10.4); Platelet Count Result 101 k/mm3 (150-375); Red Blood Count 3.62 M/mm3 (4.6-6.20); White Blood Count 8.4 K/mm3 (4.5-10.0)
[2023-09-06 05:07] LABS: Anion Gap 6 mmol/L (8-16); Blood Urea Nitrogen 20 mg/dL (9-20); Calcium 8.3 mg/dL (8.4-10.2); Carbon Dioxide 24 mmol/L (22-30); Chloride 97 mmol/L (98-107); Estimated Glomerular Filt Rate > 60; Glucose 81 mg/dL (65-110); Magnesium 1.6 mg/dL (1.6-2.3); Potassium 4.1 mmol/L (3.4-5.0); Sodium 127 mmol/L (137-145)
[2023-09-06] MEDS: LEVOTHYROXINE SODIUM 75 MCG TABLET PO (05:57)
--- NOTE | 2023-09-06 07:23 | PM.CNOR ---
Assessment and Plan Assessment and plan (1) Effusion of knee: Code(s): M25.469 - Effusion, unspecified knee Status: Acute Assessment and Plan: Patient has increased dramatically true swelling of the left knee status post arthroscopy. He was doing well until 2 days ago. He did has had some fevers and chills. Is not a lot of erythema about the knee at this time. We will wait for cultures however he may very well need to have his knee washed out discussed. He has not been running a temperature in the hospital. His Gram stain shows white blood cells but no organisms. No cultures are available at this time. His sed rate is normal. However he does have a number of a large number of white cells. Will consider arthroscopic I & D, discussed. History of Present Illness HPI Consult date: 09/06/23 Chief complaint: Left Knee Effusion, Septic Knee Narrative: Patient had arthroscopic intervention left knee August 29, 2023 he did well until 2 days ago in the knee started hurt swell. He denies any falls on the knee. Review of Systems Musculoskeletal: Musculoskeletal: Reports arthralgias and Reports joint swelling PMFSH Past Medical History Medical History Chronic neck pain Environmental allergies Erectile dysfunction GERD without esophagitis Gout History of non-Hodgkin's lymphoma (2007) History of pituitary tumor (2016) Hyperlipidemia Hypertension Hypogonadism in male Hypopituitarism Hypothyroidism (acquired) Insomnia Seizure Type 2 diabetes mellitus Surgical History Surgical History History of repair of right rotator cuff (1999) History of tonsillectomy (1963) Status post arthroscopic partial medial meniscectomy of right knee (08/29/23) Status post tendon repair Repair left quadriceps tendon rupture 12/06. Repair biceps tendon tear. Status post transsphenoidal pituitary resection (01/2017) [place] teeth removed (Unknown) Family History Family History Mother Asthma Father Family history of alcoholism Grandparent Acute myocardial infarction Other Diabetes mellitus Social History Social History (Updated 09/05/23 @ 20:15 by Shanita Huang PA-C) Social History: Surrogate medical decision maker: Katharina Sommer, son. Code status: Smoking packs per day: 1.5 Smoking cigarettes per day: 30.0 Years smoked: 45 Smoking pack-years: 67.50 Smoking status: Former smoker Tobacco type: cigarettes Second hand tobacco smoke exposure: Yes Smoking end date: 09/17/79 Alcohol intake: never Alcohol use details: Rarely Substance use: never Substance use type: does not use Do You Feel Safe in your Home?: Yes Lack of Transportation: No Lack of Food: Never True Current Housing: I Have Housing Concerned About Future Housing: No Difficulty Paying Gas/Electric Bills: No Difficulty Paying for Meds: No Currently Unemployed: No Education: High School Diploma/GED Difficulty w/ Childcare or Family Care: No Living arrangements: with family Occupation/Education: retired Spiritual care concerns: No Agree to blood products: Yes Meds Home Medications and Allergies Home Medications Medication Instructions Recorded Confirmed Type testosterone 10 mg/0.5 6 pump transdermal QAM 11/11/19 09/05/23 History gram/actuation transdermal gel pump prednisone 5 mg tablet 5 mg PO DAILY #90 tabs 09/09/20 09/05/23 Rx allopurinol 100 mg tablet 100 mg PO DAILY #100 tabs 06/22/22 09/05/23 Rx lisinopril 40 mg tablet 40 mg PO DAILY #100 tabs 12/25/22 09/05/23 Rx tizanidine 4 mg capsule 4 mg PO TID PRN muscle spasticity 12/29/22 09/05/23 Rx #30 caps pantoprazole 40 mg tablet,delayed 40 mg PO BID #180 tabs 04/16/23 09/05/23 Rx release levothyroxine 75 mcg tablet 75 mcg PO DAILY #30 tabs 04/19/23
--- NOTE | 2023-09-06 07:33 | PM.CNOR ---
History of Present Illness HPI Consult date: 09/06/23 Chief complaint: Left Knee Effusion, Septic Knee PMFSH Past Medical History Medical History Chronic neck pain Environmental allergies Erectile dysfunction GERD without esophagitis Gout History of non-Hodgkin's lymphoma (2007) History of pituitary tumor (2016) Hyperlipidemia Hypertension Hypogonadism in male Hypopituitarism Hypothyroidism (acquired) Insomnia Seizure Type 2 diabetes mellitus Surgical History Surgical History History of repair of right rotator cuff (1999) History of tonsillectomy (1963) Status post arthroscopic partial medial meniscectomy of right knee (08/29/23) Status post tendon repair Repair left quadriceps tendon rupture 12/06. Repair biceps tendon tear. Status post transsphenoidal pituitary resection (01/2017) [place] teeth removed (Unknown) Family History Family History Mother Asthma Father Family history of alcoholism Grandparent Acute myocardial infarction Other Diabetes mellitus Social History Social History (Updated 09/05/23 @ 20:15 by Shanita Huang PA-C) Social History: Surrogate medical decision maker: Katharina Sommer, jami. Code status: Smoking packs per day: 1.5 Smoking cigarettes per day: 30.0 Years smoked: 45 Smoking pack-years: 67.50 Smoking status: Former smoker Tobacco type: cigarettes Second hand tobacco smoke exposure: Yes Smoking end date: 09/17/79 Alcohol intake: never Alcohol use details: Rarely Substance use: never Substance use type: does not use Do You Feel Safe in your Home?: Yes Lack of Transportation: No Lack of Food: Never True Current Housing: I Have Housing Concerned About Future Housing: No Difficulty Paying Gas/Electric Bills: No Difficulty Paying for Meds: No Currently Unemployed: No Education: High School Diploma/GED Difficulty w/ Childcare or Family Care: No Living arrangements: with family Occupation/Education: retired Spiritual care concerns: No Agree to blood products: Yes Meds Home Medications and Allergies Home Medications Medication Instructions Recorded Confirmed Type testosterone 10 mg/0.5 6 pump transdermal QAM 11/11/19 09/05/23 History gram/actuation transdermal gel pump prednisone 5 mg tablet 5 mg PO DAILY #90 tabs 09/09/20 09/05/23 Rx allopurinol 100 mg tablet 100 mg PO DAILY #100 tabs 06/22/22 09/05/23 Rx lisinopril 40 mg tablet 40 mg PO DAILY #100 tabs 12/25/22 09/05/23 Rx tizanidine 4 mg capsule 4 mg PO TID PRN muscle spasticity 12/29/22 09/05/23 Rx #30 caps pantoprazole 40 mg tablet,delayed 40 mg PO BID #180 tabs 04/16/23 09/05/23 Rx release levothyroxine 75 mcg tablet 75 mcg PO DAILY #30 tabs 04/19/23 09/05/23 Rx sitagliptin phosphate 50 mg tablet 50 mg PO DAILY #30 tabs 04/19/23 09/05/23 Rx (Januvia) albuterol sulfate 90 mcg/actuation 2 puff inhalation Q4H PRN 06/13/23 09/05/23 Rx aerosol inhaler shortness of breath or wheezing #8.5 grams trazodone 100 mg tablet 100 mg PO QHS #90 tabs 07/02/23 09/05/23 Rx sildenafil 100 mg tablet (Viagra) 100 mg PO DAILY PRN sexual 07/17/23 09/05/23 Rx activity #30 tabs cetirizine 10 mg tablet (Zyrtec) 10 mg PO DAILY 08/23/23 09/05/23 History fluticasone propionate 50 1 spray intranasal PRN PRN Allergy 08/23/23 09/05/23 History mcg/actuation nasal Symptoms spray,suspension hydroxyzine HCl 25 mg tablet 25 mg PO PRN PRN anxiety 08/23/23 09/05/23 History multivit,Ca,min-iron 8 mg-folic 1 tablet PO DAILY 08/23/23 09/05/23 History acid 200 mcg-lycopene 600 mcg tablet (Centrum Men) hydrocodone 5 mg-acetaminophen 325 1 tablet PO HS PRN pain #30 tabs 08/29/23 09/05/23 Rx mg tablet Allergies Allergy/AdvReac Type Severity Reaction Status Date / Time COVID-19 (SARS-CoV-2
[2023-09-06 07:47] LABS: Glucose Point of Care 85 mg/dl (65-105)
[2023-09-06] MEDS: predniSONE 5 MG TABLET PO (10:31)
[2023-09-06 11:51] LABS: Glucose Point of Care 68 mg/dl (65-105)
[2023-09-06] MEDS: DEXTROSE 50% 25 GM/50 ML SYRINGE IV PUSH ×2 (11:56→15:00)
[2023-09-06 12:19] LABS: Glucose Point of Care 107 mg/dl (65-105)
--- NOTE | 2023-09-06 13:57 | WPDANESEPPF ---
Anes - Initial Pre Proc Eval Procedure: Operation Date: 09/06/23 15:30 Proposed Procedures p Arthroscopic Washout Left Knee - Sanya Christy MD Date/Time: 09/06/23 13:57 Surgeon: Christine Phillips MD Pre Op Diagnosis: Left Knee Effusion, Septic Knee Patient Data Age: 67 Gender: M Height: Weight: 90.2 kg Last Vital Signs Temp 37.4 C 09/06/23 03:15 Pulse 66 09/06/23 03:15 Resp 16 09/06/23 03:15 BP 119/57 L 09/06/23 03:15 Pulse Ox 97 09/06/23 03:15 O2 Del Method Room Air 09/06/23 10:30 Allergies Allergy/AdvReac Type Severity Reaction Status Date / Time COVID-19 (SARS-CoV-2) Allergy Unknown FLU Verified 09/05/23 18:16 vaccine, elsy SYMPTOMS Home Medications Medication Instructions Recorded Confirmed Type testosterone 10 mg/0.5 6 pump transdermal QAM 11/11/19 09/05/23 History gram/actuation transdermal gel pump prednisone 5 mg tablet 5 mg PO DAILY #90 tabs 09/09/20 09/05/23 Rx allopurinol 100 mg tablet 100 mg PO DAILY #100 tabs 06/22/22 09/05/23 Rx lisinopril 40 mg tablet 40 mg PO DAILY #100 tabs 12/25/22 09/05/23 Rx tizanidine 4 mg capsule 4 mg PO TID PRN muscle spasticity 12/29/22 09/05/23 Rx #30 caps pantoprazole 40 mg tablet,delayed 40 mg PO BID #180 tabs 04/16/23 09/05/23 Rx release levothyroxine 75 mcg tablet 75 mcg PO DAILY #30 tabs 04/19/23 09/05/23 Rx sitagliptin phosphate 50 mg tablet 50 mg PO DAILY #30 tabs 04/19/23 09/05/23 Rx (Januvia) albuterol sulfate 90 mcg/actuation 2 puff inhalation Q4H PRN 06/13/23 09/05/23 Rx aerosol inhaler shortness of breath or wheezing #8.5 grams trazodone 100 mg tablet 100 mg PO QHS #90 tabs 07/02/23 09/05/23 Rx sildenafil 100 mg tablet (Viagra) 100 mg PO DAILY PRN sexual 07/17/23 09/05/23 Rx activity #30 tabs cetirizine 10 mg tablet (Zyrtec) 10 mg PO DAILY 08/23/23 09/05/23 History fluticasone propionate 50 1 spray intranasal PRN PRN Allergy 08/23/23 09/05/23 History mcg/actuation nasal Symptoms spray,suspension hydroxyzine HCl 25 mg tablet 25 mg PO PRN PRN anxiety 08/23/23 09/05/23 History multivit,Ca,min-iron 8 mg-folic 1 tablet PO DAILY 08/23/23 09/05/23 History acid 200 mcg-lycopene 600 mcg tablet (Centrum Men) hydrocodone 5 mg-acetaminophen 325 1 tablet PO HS PRN pain #30 tabs 08/29/23 09/05/23 Rx mg tablet Laboratory Tests 09/05/23 09/05/23 09/05/23 12:16 12:19 19:37 WBC RBC Hgb Hct MCV MCH MCHC RDW Plt Count MPV ESR 12 mm/hr (0-20) Sodium Potassium Chloride Carbon Dioxide Anion Gap BUN Creatinine Estim Creat Clear Calc Estimated GFR Glucose POC Capillary Glucose Calcium Magnesium C-Reactive Protein 2.5 H mg/dL (<1.0) Synovial Source Synovial fluid Synovial Color Yellow (Colorless) Synovial Appearance Cloudy A (Clear) Synovial RBC < 2000 H /uL (0-0) Synovial Nuc Cells 39272 H /uL (0-200) Synovial Neutrophils 92 H % (0-25) Synovial Monocytes 8 % Synovial Crystals None seen (None Seen) Synovial Glucose Pending Synovial Total Protein Pending 09/05/23 09/06/23 09/06/23 21:02 04:29 07:43 WBC 8.4 K/mm3 (4.5-10.0) RBC 3.62 L M/mm3 (4.6-6.20) Hgb 11.3 L g/dL (14.0-18.0) Hct 33.5 L % (42.0-52.0) MCV 92.5 fl (80-100) MCH 31.2 pg (26-34) MCHC 33.7 g/dl (32-36) RDW 15.0 H % (11.5-14.5) Plt Count 101 L k/mm3 (150-375) MPV 10.6 H fl (7.4-10.4) ESR Sodium 127 L mmol/L (137-145) Potassium 4.1 mmol/L (3.4-5.
--- NOTE | 2023-09-06 14:14 | PM.IMPN ---
Progress Note: A&P Assessment and Plan (1) Postoperative infection of knee: Code(s): T81.49XA - Infection following a procedure, other surgical site, initial encounter; M00.9 - Pyogenic arthritis, unspecified Status: Acute Assessment and Plan: Postoperative day 7 status post right partial medial meniscectomy as detailed in HPI. Status post arthrocentesis per interventional radiology. Gram stain and culture are pending. Continue empiric vancomycin and add ceftriaxone pending Gram stain. I&D with ortho Dr. Christy this afternoon scheduled for 15:30 (2) Hypertension: Qualifiers: Hypertension type: essential hypertension Qualified Code(s): I10 - Essential (primary) hypertension Code(s): I10 - Essential (primary) hypertension Status: Acute Assessment and Plan: Blood pressures were reviewed and they have been stable. Continue lisinopril 40 mg daily. (3) Type 2 diabetes mellitus: Qualifiers: Diabetes mellitus custodial insulin use: without custodial use Diabetes mellitus complication status: without complication Qualified Code(s): E11.9 - Type 2 diabetes mellitus without complications Code(s): E11.9 - Type 2 diabetes mellitus without complications Status: Acute Assessment and Plan: Hemoglobin A1c was 5.4% in April 2023. Continue sitagliptin. Initiate sliding scale insulin, Accu-Cheks, and hypoglycemic protocol. 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 Continue levothyroxine and prednisone 5 mg daily. Subjective Date/time seen: 09/06/23 14:14 Interval history: Patient lying in bed, in discomfort but no acute distress this morning. Dr. Christy with ortho is following. Arthrocentesis done yesterday, cultures on fluid pending. He will be going for an I&D this afternoon. Continue vancomycin and Rocephin for AB coverage for the time being. Review of Systems Review of Systems: All systems reviewed & are unremarkable except as noted in HPI and below Exam Narrative: General: Well-developed, nontoxic-appearing gentleman in the semi-[place] position in bed. HEENT: PERRL, EOMI. Neck: Supple. Respiratory: Lungs are clear to auscultation bilaterally. Cardiovascular: RRR with S1-S2. Gastrointestinal: Abdomen is soft, nontender, and nondistended with positive bowel sounds. No organomegaly. Skin: Warm and dry. No rash or lesions other than left knee incisions. Musculoskeletal: Left knee is swollen. Arthrocentesis site is intact. The swelling extends up the distal thigh. The area is warm and tender to touch. Extremities: No cyanosis, clubbing, or edema. Radial and pedal pulses intact. Neurological: A&Ox3. Cranial nerves 2-12 are grossly intact. No gross focal deficits to casual conversation. Psychiatric: Pleasant and cooperative with normal mood and affect. Judgment and insight intact. Objective Data Vital Signs Vital Signs: Vital Signs - 24 hr 09/05/23 14:15 09/05/23 14:16 09/05/23 14:30 Temperature Pulse Rate Respiratory Rate Blood Pressure 143/68 H Pulse Oximetry 94 95 95 Oxygen Delivery 09/05/23 14:31 09/05/23 14:45 09/05/23 14:46 Temperature Pulse Rate Respiratory Rate Blood Pressure 153/73 H 143/76 H Pulse Oximetry 94 94 95 Oxygen Delivery 09/05/23 15:00 09/05/23 15:01 09/05/23 15:37 Temperature 100.4 F H Pulse Rate Respiratory Rate 16 Blood Pressure 129/65 125/61 Pulse Oximetry 98 98 Oxygen Delivery 09/05/23 15:16 09/05/23 15:31 09/05/23 15:46 Temperature Pulse Rate Respiratory Rate Blood Pressure 116/43 L 125/61 128/64 Pulse Oximetry Oxygen Delivery 09/05/23 16:01 09/05/23 16:16 09/05/23 16:31 Temperature Pulse Rate Respiratory Rate Blood Pressure 135/69 141/116 H 119/46 L
[2023-09-06 14:57] LABS: Glucose Point of Care 70 mg/dl (65-105)
--- NOTE | 2023-09-06 14:59 | WPDHPUPDATE1 ---
History and Physical Update Update Date/Time: 09/06/23 14:59 History and Physical has been reviewed, including an updated exam of the patient. There are NO changes in the patient's condition. Risks, benefits, and alternatives have been discussed and questions answered. Patient agrees to proceed with procedure.
[2023-09-06] MEDS: LACTATED RINGERS 1,000 ML 30 ML IV CONT (15:00)
--- NOTE | 2023-09-06 16:00 | SUR.OPER ---
STAT AEROBIC/ANAEROBIC CX SENT (2 SPECIMENS) ROUTINE AEROBIC/ANAEROBIC CX SENT (1 SPECIMEN) LAB NOTIFIED OF SPECIMENS BEING SENT TO THEM, ONE STAT AND ONE ROUTINE. DELIVERED TO LAB PER ROSI, PCT.
[2023-09-06] MEDS: LIDO 1%/EPINEPHRINE 1:100,000 50 ML VIAL INFILTRATE (16:08)
--- NOTE | 2023-09-06 16:08 | W.PM.PROC2 ---
Procedure Note - Detailed Date of Procedure 09/06/23 Pre-op Diagnosis Left Knee Effusion, Septic Knee Post-op Diagnosis Same Procedure Performed Arthroscopy, debridement, synovectomy Surgeon Sanya Christy MD Anesthesia General Indications Septic arthritisi Description of Procedure Patient brought to operating room 7. General anesthetic was administered. He was sterilely prepped and draped in the usual manner. Cultures were taken from the superiormedial portal. The only place look red was a superior medial portal which was purulent cultures taken I then inserted the outflow cannula the purulent type fluid appeared come out the cultures were taken of this as well. This is the inflow cannula placed in the inferomedial inferolateral portal and the instrument placed inferomedial portal. 6 liters of fluid were the did the washer the knee is doing a synovectomy to remove any loose delaminated her any debris. That there is into the procedure the knee looked fairly clean. At this point is which is drawn 4 sutures placed to the superomedial area and 1 in each of the others and then a sterile dressing and Bryan wrap were applied patient tolerated procedure well left the operating room satisfactory condition. Estimated Blood Loss 50 Urine Output 300 Drains No Packing No Complications No immediate complications Condition Stable Disposition PACU [facility] Billing Surgery - Charge Forward: Surgery Billing (63682 CPT arthroscopic symovectomy)
[2023-09-06] MEDS: fentaNYL CITRATE INJ (*CRX) 100 MCG/2 ML VIAL 25 MCG IV PUSH ×6 (16:25→16:50)
[2023-09-06 16:37] LABS: Glucose Point of Care 103 mg/dl (65-105)
--- NOTE | 2023-09-06 17:39 | SUR.PHASEI ---
171-pt states he will make call to his son to update-offered to call son, pt states no, he will call him later.
[2023-09-06 17:42] LABS: Glucose Point of Care 141 mg/dl (65-105)
[2023-09-06] MEDS: lisinopriL 20 MG TABLET 40 MG PO (19:00)
[2023-09-06] MEDS: LORATADINE 10 MG TABLET PO (19:01)
[2023-09-06] MEDS: PANTOPRAZOLE 40 MG TABLET PO (19:01)
[2023-09-06] MEDS: allopurinoL 100 MG TABLET PO (19:01)
[2023-09-06] MEDS: THERAPEUTIC MULTIVITAMINS/MINERALS TAB (*BKC) 1 TABLET PO (19:01)
[2023-09-06 20:30] LABS: Glucose Point of Care 218 mg/dl (65-105)
[2023-09-06] MEDS: traZODone HCL 50 MG TABLET 100 MG PO (21:50)
[2023-09-07 05:55] LABS: Glucose Point of Care 149 mg/dl (65-105)
[2023-09-07 06:20] LABS: Anion Gap 7 mmol/L (8-16); Blood Urea Nitrogen 15 mg/dL (9-20); Calcium 9.1 mg/dL (8.4-10.2); Carbon Dioxide 25 mmol/L (22-30); Chloride 96 mmol/L (98-107); Estimated Glomerular Filt Rate > 60; Glucose 170 mg/dL (65-110); Potassium 4.7 mmol/L (3.4-5.0); Sodium 128 mmol/L (137-145)
[2023-09-07 06:26] LABS: Basophils Percent Auto 0.1 % (0.2-1.2); Hematocrit 33.5 % (42.0-52.0); Hemoglobin 11.5 g/dL (14.0-18.0); Immature Granulocyte Absolute 0.08 K/mm3 (0.00-0.031); Lymphocytes Absolute Auto 0.23 K/mm3 (0.9-3.2); Lymphocytes Percent Auto 2.8 % (18.3-44.2); Mean Corpuscular HGB Conc 34.3 g/dl (32-36); Mean Corpuscular Hemoglobin 31.3 pg (26-34); Mean Platelet Volume 10.5 fl (7.4-10.4); Monocytes Absolute Auto 0.6 K/mm3 (0.1-0.6); Monocytes Percent Auto 6.8 % (2.6-8.5); Neutrophils Absolute Auto 7.4 K/mm3 (1.3-6.7); Neutrophils Percent Auto 89.3 % (45.5-73.1); Platelet Count Result 123 k/mm3 (150-375); Red Blood Count 3.68 M/mm3 (4.6-6.20); Red Cell Distribution Width 14.4 % (11.5-14.5); White Blood Count 8.3 K/mm3 (4.5-10.0)
[2023-09-07] MEDS: LEVOTHYROXINE SODIUM 75 MCG TABLET PO (07:01)
--- NOTE | 2023-09-07 07:10 | PM.PNORT ---
Progress Note: A&P Assessment and Plan (1) Septic arthritis: Code(s): M00.9 - Pyogenic arthritis, unspecified Status: Acute Assessment and Plan: Septic arthritis. Awaiting cultures. Difficult IV access. Will need longer term antibiotics. ?6 weeks. Subjective Subjective Date/Time Seen: 09/07/23 07:10 Post Op day: 1 Principal diagnosis: Septic arthritis Interval history: S/P I&D with synovectomy. Review of Systems Musculoskeletal: Musculoskeletal: Reports arthralgias and Reports joint swelling Exam Narrative: Pain better. Much improved. Objective Data Vital Signs Vital Signs: Vital Signs - 24 hr 09/06/23 10:30 09/06/23 14:35 09/06/23 16:17 Temperature 98.4 F 97.7 F Pulse Rate 66 98 Respiratory Rate 18 18 Blood Pressure 148/64 H 143/83 H Pulse Oximetry 96 98 Oxygen Delivery Room Air Simple Face Mask Oxygen Flow Rate 6 09/06/23 16:30 09/06/23 16:45 09/06/23 17:00 Temperature Pulse Rate 84 92 77 Respiratory Rate 19 23 H 16 Blood Pressure 159/83 H 167/78 H 151/78 H Pulse Oximetry 96 100 92 Oxygen Delivery Simple Face Mask Room Air Room Air Oxygen Flow Rate 6 09/06/23 17:15 09/06/23 17:34 09/06/23 17:47 Temperature 98.4 F 98.1 F Pulse Rate 84 77 77 Respiratory Rate 18 17 17 Blood Pressure 118/54 L 148/76 H 160/79 H Pulse Oximetry 97 95 97 Oxygen Delivery Room Air Oxygen Flow Rate 09/06/23 18:28 09/06/23 19:11 09/06/23 20:00 Temperature 98.2 F 98.6 F Pulse Rate 78 70 Respiratory Rate 17 20 Blood Pressure 152/84 H 151/69 H Pulse Oximetry 98 97 Oxygen Delivery Room Air Oxygen Flow Rate Intake/Output Intake/Output: Intake & Output 09/04/23 09/05/23 09/06/23 09/07/23 23:59 23:59 23:59 23:59 Intake Total 1050 2590 200 Output Total 2800 1300 Balance 1050 -210 -1100 Meds/Results Medications: Active Medications Generic Name Dose Route Start Last Admin Trade Name Freq PRN Reason Stop Dose Admin Acetaminophen 650 mg 09/05/23 15:58 Acetaminophen 325 Mg Tablet PO Q4H PRN Mild Pain (1-3) or Fever Hydrocodone Bitart/Acetaminophen 1 tab 09/05/23 20:23 09/06/23 02:14 Hydrocodone/Acetaminophen (*Crx) 5-325 Mg Tablet PO 1 tab HS PRN Administration pain 4-6 Hydrocodone Bitart/Acetaminophen 1 tab 09/06/23 17:22 Hydrocodone/Acetaminophen (*Crx) 7.5-325 Mg Tablet PO Q4H PRN Pain Rated 7-10 Albuterol 2 puff 09/05/23 20:23 Albuterol Sulfate (*Sp) Aerosol 1 Puff INHALATION Q4H PRN shortness of breath or wheezing Allopurinol 100 mg 09/06/23 09:00 09/06/23 19:01 Allopurinol 100 Mg Tablet PO 100 mg DAILY GOLDY Administration Dextrose 12.5 gm 09/05/23 20:22 09/06/23 15:00 Dextrose 50% 25 Gm/50 Ml Syringe IV PUSH 12.5 gm PRN PRN Administration Hypoglycemia Protocol Fentanyl Citrate 25 mcg 09/06/23 13:58 09/06/23 16:50 Fentanyl Citrate Inj (*Crx) 100 Mcg/2 Ml Vial IV PUSH 25 mcg Q2M PRN Administration Pain Fluticasone Propionate 1 spray 09/06/23 12:59 Fluticasone Propionate 0.05% Na Spr 16 Gm Btl (*Bkc) NASAL QAM PRN Allergy Symptoms Glucagon 1 mg 09/05/23 20:22 Glucagon For Inj 1 Mg Vial IM PRN PRN Hypoglycemia Protocol Glucose 15 gm 09/05/23 20:22 Glucose Oral Gel 15 Gm Of Glucse In 37.5 Gm Tube PO PRN PRN Hypoglycemia Protocol Hydromorphone HCl 1 mg 09/05/23 15:58 09/05/23 22:31 Hydromorphone Hcl Inj (*Crx) 1 Mg/Ml Syr IV PUSH 1 mg Q4H PRN Administration Pain Rated 7-10 Hydroxyzine HCl 25 mg 09/06/23 12:59 Hydroxyzine Hcl 25 Mg Tablet PO HS PRN anxiety Vancomycin HCl 1,500 mg in 500 mls @ 250 mls/hr 09/06/23 18:00 Vancomycin 1,500 Mg/Ns 500 Ml IVPB Q24H GOLDY Sodium Chloride 1,000 mls @ 125 mls/hr 09/05/23 16:00 12/21/23 12:01 Normal Saline Iv IV CONT 125 mls/hr .Q8H GOLDY Administration Dextrose 1,
[2023-09-07 08:30] VITALS: BP 112/65; PULSE 68; RESP 18; TEMP 36.4; O2SAT 98
[2023-09-07 08:52] LABS: Glucose Point of Care 156 mg/dl (65-105)
[2023-09-07] MEDS: allopurinoL 100 MG TABLET PO (09:17)
[2023-09-07] MEDS: lisinopriL 20 MG TABLET 40 MG PO (09:17)
[2023-09-07] MEDS: THERAPEUTIC MULTIVITAMINS/MINERALS TAB (*BKC) 1 TABLET PO (09:18)
[2023-09-07] MEDS: predniSONE 5 MG TABLET PO (09:19)
[2023-09-07] MEDS: PANTOPRAZOLE 40 MG TABLET PO ×2 (09:19→16:16)
--- NOTE | 2023-09-07 10:33 | WPDANESPN ---
Anes - Prog Note Post-Op Date/Time: 09/07/23 10:33 Cardiovascular status: normal Respiratory status: normal Airway patency: baseline Mental status: baseline Post-Op hydration status: normal Vital Signs: Last Vital Signs Temp 97.6 F 09/07/23 08:30 Pulse 68 09/07/23 08:30 Resp 18 09/07/23 08:30 BP 112/65 09/07/23 08:30 Pulse Ox 98 09/07/23 08:30 O2 Del Method Room Air 09/06/23 20:00 O2 Flow Rate 6 09/06/23 16:30 Pain Score (VAS): 0/10 I/O: Intake & Output 09/06/23 09/07/23 09/07/23 23:59 07:59 15:59 Intake Total 340 200 240 Output Total 2100 7365 725 Balance -1760 -1525 -485 Laboratory Tests 09/07/23 05:45 09/07/23 05:45 09/06/23 09/06/23 09/06/23 11:47 12:17 14:55 WBC RBC Hgb Hct MCV MCH MCHC RDW Plt Count MPV Immature Gran % (Auto) Neut % (Auto) Lymph % (Auto) [place] % (Auto) Eos % (Auto) Baso % (Auto) Lymph # (Auto) [place] # (Auto) Eos # (Auto) Baso # (Auto) Abs Immat Gran (auto) Absolute Neuts (auto) Absolute Nucleated RBC Nucleated RBC % Sodium Potassium Chloride Carbon Dioxide Anion Gap BUN Creatinine Estim Creat Clear Calc Estimated GFR Glucose POC Capillary Glucose 68 107 H 70 Calcium 09/06/23 09/06/23 09/06/23 16:33 17:38 20:27 WBC RBC Hgb Hct MCV MCH MCHC RDW Plt Count MPV Immature Gran % (Auto) Neut % (Auto) Lymph % (Auto) [place] % (Auto) Eos % (Auto) Baso % (Auto) Lymph # (Auto) [place] # (Auto) Eos # (Auto) Baso # (Auto) Abs Immat Gran (auto) Absolute Neuts (auto) Absolute Nucleated RBC Nucleated RBC % Sodium Potassium Chloride Carbon Dioxide Anion Gap BUN Creatinine Estim Creat Clear Calc Estimated GFR Glucose POC Capillary Glucose 103 141 H 218 H Calcium 09/07/23 09/07/23 09/07/23 05:45 05:52 08:46 WBC 8.3 RBC 3.68 L Hgb 11.5 L Hct 33.5 L MCV 91.0 MCH 31.3 MCHC 34.3 RDW 14.4 Plt Count 123 L MPV 10.5 H Immature Gran % (Auto) 1.0 H Neut % (Auto) 89.3 H Lymph % (Auto) 2.8 L [place] % (Auto) 6.8 Eos % (Auto) 0.0 Baso % (Auto) 0.1 L Lymph # (Auto) 0.23 L [place] # (Auto) 0.6 Eos # (Auto) 0.0 Baso # (Auto) 0.0 Abs Immat Gran (auto) 0.08 H Absolute Neuts (auto) 7.4 H Absolute Nucleated RBC 0.0 Nucleated RBC % 0.0 Sodium 128 L Potassium 4.7 Chloride 96 L Carbon Dioxide 25 Anion Gap 7 L BUN 15 D Creatinine 1.10 Estim Creat Clear Calc Not Reportable Estimated GFR > 60 Glucose 170 H POC Capillary Glucose 149 H 156 H Calcium 9.1 Microbiology 09/06/23 15:38 Knee Left Gram Stain - Final 09/05/23 15:00 Blood Blood Culture - Preliminary 09/05/23 15:00 Blood Blood Culture - Preliminary Post-procedural complaints: none Patient Feedback: Patient satisfied with anesthetic care.
--- NOTE | 2023-09-07 11:27 | PHA.ABX.ID ---
Pharmacy ID Consult - Stewardship Interventions Type of Interventions: Dose Change Pharmacy ID Note: Subjective Pharmacy was consulted by Jael Christy regarding infectious diseases for Abel Sommer Jr. is a 68 year old M with concerns regarding likely septic arthritis of [place] left knee Background The patient is currently receiving Vancomycin PTD and ceftriaxone 1g - day 3. The patient's PMH includes recent scop with swelling noted. A washout was done by provider on 09/05 and synovial fluid was cultured (pending) with initial fluid analysis showing high amounts of WBC and neutrophils but no organisms on gram stain. Aspiration done 09/06 and per provider patient appears a lot better since - this gram stain is showing gram positive cocci. Microbiology 09/05/23 15:00 Blood Blood Culture - Preliminary 09/05/23 15:00 Blood Blood Culture - Preliminary 09/06/23 15:38 Knee Left Gram Stain - Final 09/05/23 19:37 Synovial Fluid Left Knee Gram Stain - Final Laboratory Tests 09/05/23 09/05/23 12:16 19:37 ESR 12 Synovial Source Synovial fluid Synovial Color Yellow Synovial Appearance Cloudy A Synovial Nuc Cells 07174 H Synovial Neutrophils 92 H Synovial Crystals None seen Assessment/Recommendation/Discussion Spoke briefly with provider regarding this patient. Currently, with the gram - stain - therapy choices targeting staphylococcus, enterococcus, and streptococcus is appropriate - increase dose of ceftriaxone to 2 grams daily. Follow culture results and for patient improvement. Likely duration is 2-4 weeks in this initial phase depending on pathogen, resistance profile, and presence of bloodstream infection. Can consider a potential IV and PO combination for this full course of treatment, likely beta-lactam heavy for Streptococci, enterococcus (non faecium), and MSSA. Will continue to follow - but will be out of the office over the holidays and return 09/18/2023. Informed provider of this. Please consider reaching out via my cell if more information comes to light or additional recommendations are needed. Thank you for the interesting consult. Zaheer Hernandez, PharmD Infectious Disease/Antimicrobial Stewardship Pharmacist 09/07/23; 1127 WBC 8.3 K/mm3 (4.5-10.0) 09/07/23 05:45 Creatinine 1.10 mg/dL (0.7-1.3) 09/07/23 05:45 Estim Creat Clear Calc Not Reportable 09/07/23 05:45
[2023-09-07] MEDS: cefTRIAXone 2 GM/NS 100 ML 2 GM/100 ML BAG IVPB (12:29)
[2023-09-07 12:38] LABS: Glucose Point of Care 149 mg/dl (65-105)
[2023-09-07] MEDS: VANCOMYCIN 2,000 MG/NS 500 ML 2,000 MG/500 ML BAG 250 MG IVPB (13:18)
[2023-09-07] MEDS: SODIUM CHLORIDE 500 MG TABLET PO (13:19)
[2023-09-07] MEDS: CENTRAL LINE FLUSH 10 ML IV PUSH ×2 (13:19→21:08)
--- NOTE | 2023-09-07 14:29 | PM.IMPN ---
Progress Note: A&P Assessment and Plan (1) Postoperative infection of knee: Code(s): T81.49XA - Infection following a procedure, other surgical site, initial encounter; M00.9 - Pyogenic arthritis, unspecified Status: Acute Assessment and Plan: Postoperative day 7 status post right partial medial meniscectomy as detailed in HPI. Status post arthrocentesis per interventional radiology. Gram stain and culture are pending. Continue vancomycin and increase ceftriaxone to 2 g. I&D Pharm consulted I&D with ortho Dr. Christy yesterday Will need 2-3 weeks of IV AB at d/c. (2) Hypertension: Qualifiers: Hypertension type: essential hypertension Qualified Code(s): I10 - Essential (primary) hypertension Code(s): I10 - Essential (primary) hypertension Status: Acute Assessment and Plan: Blood pressures were reviewed and they have been stable. Continue lisinopril 40 mg daily. (3) Type 2 diabetes mellitus: Qualifiers: Diabetes mellitus complication status: without complication Diabetes mellitus research software engineer insulin use: without research software engineer use Qualified Code(s): E11.9 - Type 2 diabetes mellitus without complications Code(s): E11.9 - Type 2 diabetes mellitus without complications Status: Acute Assessment and Plan: Hemoglobin A1c was 5.4% in April 2023. Continue sitagliptin, sliding scale insulin, Accu-Cheks, and hypoglycemic protocol. 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 Continue levothyroxine and prednisone 5 mg daily. sodium low at 127 - will replete with PO and recheck in am Subjective Date/time seen: 09/07/23 14:30 Interval history: Patient lying in bed, no acute distress. Knee is wrapped and his pain is under control. Dr. Christy with ortho is following. Arthrocentesis cultures on fluid pending. I&D yesterday. Continue vancomycin and Rocephin for AB coverage for the time being. I&D consulted for input. Patient will have to discharge with IV antibiotics for 2-3 weeks. PICC line placed today. Review of Systems Review of Systems: 12 systems were reviewed and are negative except for as per HPI. Exam Narrative: General: Well-developed, nontoxic-appearing gentleman in the semi-De La Rosa position in bed. HEENT: PERRL, EOMI. Neck: Supple. Respiratory: Lungs are clear to auscultation bilaterally. Cardiovascular: RRR with S1-S2. Gastrointestinal: Abdomen is soft, nontender, and nondistended with positive bowel sounds. No organomegaly. Skin: Warm and dry. No rash or lesions. Left knee wrapped in shadi bandage. Musculoskeletal: Left knee is swollen. SHADI bandage in place and clean, dry and intact. Extremities: No cyanosis, clubbing, or edema. Radial and pedal pulses intact. Neurological: A&Ox3. Cranial nerves 2-12 are grossly intact. No gross focal deficits to casual conversation. Psychiatric: Pleasant and cooperative with normal mood and affect. Judgment and insight intact. Objective Data Vital Signs Vital Signs: Vital Signs - 24 hr 09/06/23 14:35 09/06/23 16:17 09/06/23 16:30 Temperature 98.4 F 97.7 F Pulse Rate 66 98 84 Respiratory Rate 18 18 19 Blood Pressure 148/64 H 143/83 H 159/83 H Pulse Oximetry 96 98 96 Oxygen Delivery Simple Face Mask Simple Face Mask Oxygen Flow Rate 6 6 09/06/23 16:45 09/06/23 17:00 09/06/23 17:15 Temperature Pulse Rate 92 77 84 Respiratory Rate 23 H 16 18 Blood Pressure 167/78 H 151/78 H 118/54 L Pulse Oximetry 100 92 97 Oxygen Delivery Room Air Room Air Room Air Oxygen Flow Rate 09/06/23 17:34 09/06/23 17:47 09/06/23 18:28 Temperature 98.4 F 98.1 F 98.2 F Pulse Rate 77 77 78 Respiratory Rate 17 17 17 Blood Pressure 148/76 H 160/79 H 152/84 H Pulse Oximetry 95 97 98 Oxygen Delivery Oxygen Flow Rate 09/06/23 19:
[2023-09-07 16:19] VITALS: BP 121/64; PULSE 67; RESP 18; TEMP 36.6; O2SAT 98
[2023-09-07 17:25] LABS: Glucose Point of Care 155 mg/dl (65-105)
[2023-09-07 19:09] VITALS: BP 122/62; PULSE 69; RESP 20; TEMP 36.4; O2SAT 97
[2023-09-07 20:08] LABS: Glucose Point of Care 177 mg/dl (65-105)
[2023-09-07] MEDS: traZODone HCL 50 MG TABLET 100 MG PO (22:58)
[2023-09-08] MEDS: HYDROcodone/acetaminophen (*CRX) 7.5-325 MG TABLET 1 TAB PO ×2 (01:28→12:23)
[2023-09-08 05:46] VITALS: BP 129/76; PULSE 57; RESP 20; TEMP 36.4; O2SAT 97
[2023-09-08] MEDS: CENTRAL LINE FLUSH 10 ML IV PUSH ×3 (06:49→22:40)
[2023-09-08] MEDS: LEVOTHYROXINE SODIUM 75 MCG TABLET PO (06:49)
[2023-09-08 06:59] LABS: Basophils Percent Auto 0.3 % (0.2-1.2); Eosinophils Percent Auto 0.5 % (0-4.4); Hematocrit 31.4 % (42.0-52.0); Hemoglobin 10.3 g/dL (14.0-18.0); Immature Granulocyte Absolute 0.07 K/mm3 (0.00-0.031); Immature Granulocyte Percent A 0.9 % (0-0.5); Lymphocytes Absolute Auto 0.65 K/mm3 (0.9-3.2); Lymphocytes Percent Auto 8.7 % (18.3-44.2); Mean Corpuscular HGB Conc 32.8 g/dl (32-36); Mean Corpuscular Volume 94.6 fl (80-100); Monocytes Absolute Auto 0.5 K/mm3 (0.1-0.6); Monocytes Percent Auto 6.5 % (2.6-8.5); Neutrophils Absolute Auto 6.2 K/mm3 (1.3-6.7); Neutrophils Percent Auto 83.1 % (45.5-73.1); Platelet Count Result 131 k/mm3 (150-375); Red Blood Count 3.32 M/mm3 (4.6-6.20); Red Cell Distribution Width 15.1 % (11.5-14.5); White Blood Count 7.4 K/mm3 (4.5-10.0)
[2023-09-08 07:47] LABS: Anion Gap 10 mmol/L (8-16); Blood Urea Nitrogen 21 mg/dL (9-20); Calcium 8.9 mg/dL (8.4-10.2); Carbon Dioxide 24 mmol/L (22-30); Chloride 98 mmol/L (98-107); Estimated CRCL calculation 58 ml/min; Estimated Glomerular Filt Rate > 60; Glucose 118 mg/dL (65-110); Potassium 4.1 mmol/L (3.4-5.0); Sodium 132 mmol/L (137-145)
[2023-09-08 08:01] LABS: Glucose Point of Care 111 mg/dl (65-105)
--- NOTE | 2023-09-08 08:24 | PM.PNORT ---
Progress Note: A&P Assessment and Plan (1) Septic arthritis: Code(s): M00.9 - Pyogenic arthritis, unspecified Status: Acute Assessment and Plan: Cultures have come back showing Staph aureus. Sensitivities are not available. Will continue present antibiotic treatment until sensitivities are available. Anticipate probably at least 4 weeks of IV antibiotics. He has a PICC line and now. I have discussed this with the patient. Subjective Subjective Date/Time Seen: 09/08/23 08:24 Principal diagnosis: Septic arthritis Interval history: Patient is status post synovectomy washout left knee. Latest cultures come back showing Staph aureus no sensitivities. Exam Narrative: Patient has pain with manipulation of his knee. He is able to walk on it. Hs incision is clean. Objective Data Vital Signs Vital Signs: Vital Signs - 24 hr 09/07/23 08:30 09/07/23 09:12 09/07/23 16:19 Temperature 97.6 F 97.9 F Pulse Rate 68 67 Respiratory Rate 18 18 Blood Pressure 112/65 121/64 Pulse Oximetry 98 98 Oxygen Delivery Room Air 09/07/23 19:09 09/07/23 20:00 09/08/23 05:46 Temperature 97.6 F 97.5 F L Pulse Rate 69 57 L Respiratory Rate 20 20 Blood Pressure 122/62 129/76 Pulse Oximetry 97 97 Oxygen Delivery Room Air Intake/Output Intake/Output: Intake & Output 09/05/23 09/06/23 09/07/23 09/08/23 23:59 23:59 23:59 23:59 Intake Total 1050 2590 2270 100 Output Total 2800 4575 1100 Balance 1050 210 -2305 -1000 Meds/Results Medications: Active Medications Generic Name Dose Route Start Last Admin Trade Name Freq PRN Reason Stop Dose Admin Acetaminophen 650 mg 09/05/23 15:58 Acetaminophen 325 Mg Tablet PO Q4H PRN Mild Pain (1-3) or Fever Hydrocodone Bitart/Acetaminophen 1 tab 09/05/23 20:23 09/06/23 02:14 Hydrocodone/Acetaminophen (*Crx) 5-325 Mg Tablet PO 1 tab HS PRN Administration pain 4-6 Hydrocodone Bitart/Acetaminophen 1 tab 09/06/23 17:22 09/08/23 01:28 Hydrocodone/Acetaminophen (*Crx) 7.5-325 Mg Tablet PO 1 tab Q4H PRN Administration Pain Rated 7-10 Albuterol 2 puff 09/05/23 20:23 Albuterol Sulfate (*Sp) Aerosol 1 Puff INHALATION Q4H PRN shortness of breath or wheezing Allopurinol 100 mg 09/06/23 09:00 09/07/23 09:17 Allopurinol 100 Mg Tablet PO 100 mg DAILY GOLDY Administration Dextrose 12.5 gm 09/05/23 20:22 09/06/23 15:00 Dextrose 50% 25 Gm/50 Ml Syringe IV PUSH 12.5 gm PRN PRN Administration Hypoglycemia Protocol Fentanyl Citrate 25 mcg 09/06/23 13:58 09/06/23 16:50 Fentanyl Citrate Inj (*Crx) 100 Mcg/2 Ml Vial IV PUSH 25 mcg Q2M PRN Administration Pain Fluticasone Propionate 1 spray 09/06/23 12:59 Fluticasone Propionate 0.05% Na Spr 16 Gm Btl (*Bkc) NASAL QAM PRN Allergy Symptoms Glucagon 1 mg 09/05/23 20:22 Glucagon For Inj 1 Mg Vial IM PRN PRN Hypoglycemia Protocol Glucose 15 gm 09/05/23 20:22 Glucose Oral Gel 15 Gm Of Glucse In 37.5 Gm Tube PO PRN PRN Hypoglycemia Protocol Hydromorphone HCl 1 mg 09/05/23 15:58 09/05/23 22:31 Hydromorphone Hcl Inj (*Crx) 1 Mg/Ml Syr IV PUSH 1 mg Q4H PRN Administration Pain Rated 7-10 Hydroxyzine HCl 25 mg 09/06/23 12:59 Hydroxyzine Hcl 25 Mg Tablet PO HS PRN anxiety Dextrose 1,000 mls @ 100 mls/hr 09/05/23 20:22 Dextrose 5% 1,000 Ml IVPB PRN PRN Hypoglycemia Protocol Ceftriaxone Sodium 2 gm in 100 mls @ 200 mls/hr 09/07/23 12:00 09/07/23 12:59 Rocephin 2 Gm/Ns 100 Ml IVPB Infused DAILY GOLDY Infusion Vancomycin HCl 1,500 mg in 500 mls @ 250 mls/hr 09/08/23 12:00 Vancomycin 1,500 Mg/Ns 500 Ml IVPB Q24H GOLDY Insulin Aspart 2 - 5 units 09/06/23 08:00 09/07/23 17:30 Insulin Aspart (*Bkc) 100 Units/Ml SUB-Q Not Given TIDWM GOLDY Protocol Insulin Aspart 1 - 2 units 12/
[2023-09-08] MEDS: THERAPEUTIC MULTIVITAMINS/MINERALS TAB (*BKC) 1 TABLET PO (08:34)
[2023-09-08] MEDS: PANTOPRAZOLE 40 MG TABLET PO ×2 (08:35→16:55)
[2023-09-08] MEDS: lisinopriL 20 MG TABLET 40 MG PO (08:35)
[2023-09-08] MEDS: allopurinoL 100 MG TABLET PO (08:35)
[2023-09-08] MEDS: predniSONE 5 MG TABLET PO (08:35)
[2023-09-08] MEDS: cefTRIAXone 2 GM/NS 100 ML 2 GM/100 ML BAG IVPB (08:36)
[2023-09-08] MEDS: SODIUM CHLORIDE 500 MG TABLET PO (08:37)
[2023-09-08 12:08] LABS: Glucose Point of Care 88 mg/dl (65-105)
[2023-09-08] MEDS: calcium polycarbophiL 625 MG TABLET PO (12:22)
[2023-09-08] MEDS: VANCOMYCIN 1,500 MG/NS 500 ML 1,500 MG/500 ML BAG 250 MG IVPB (12:24)
--- NOTE | 2023-09-08 13:59 | PM.IMPN ---
Progress Note: A&P Assessment and Plan (1) Postoperative infection of knee: Code(s): T81.49XA - Infection following a procedure, other surgical site, initial encounter; M00.9 - Pyogenic arthritis, unspecified Status: Acute Assessment and Plan: status post right partial medial meniscectomy as detailed in HPI. Status post arthrocentesis per interventional radiology. Gram stain and culture are pending. Continue vancomycin and ceftriaxone 2 g. ID Pharm consulted I&D with ortho Dr. Christy Will need 4 weeks of IV AB at d/c. (2) Hypertension: Qualifiers: Hypertension type: essential hypertension Qualified Code(s): I10 - Essential (primary) hypertension Code(s): I10 - Essential (primary) hypertension Status: Acute Assessment and Plan: Blood pressures were reviewed and they have been stable. Continue lisinopril 40 mg daily. (3) Type 2 diabetes mellitus: Qualifiers: Diabetes mellitus complication status: without complication Diabetes mellitus extermination inspector insulin use: without assisted use Qualified Code(s): E11.9 - Type 2 diabetes mellitus without complications Code(s): E11.9 - Type 2 diabetes mellitus without complications Status: Acute Assessment and Plan: Hemoglobin A1c was 5.4% in April 2023. Continue sitagliptin, sliding scale insulin, Accu-Cheks, and hypoglycemic protocol. 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 Continue levothyroxine and prednisone 5 mg daily. sodium improved to 132 - will replete as needed Subjective Date/time seen: 09/08/23 13:59 Interval history: Patient lying in bed, no acute distress. Knee is wrapped and his pain is under control. Dr. Christy with ortho is following. Arthrocentesis cultures on fluid pending. Continue vancomycin and Rocephin for AB coverage for the time being. ID pharm consulted for input. Patient will have to discharge with IV antibiotics for 4 weeks. Sodium improved, will continue to monitor and replete as needed. Review of Systems Review of Systems: All systems reviewed & are unremarkable except as noted in HPI and below Exam Narrative: General: Well-developed, nontoxic-appearing gentleman in the semi-[place] Rosa position in bed. HEENT: PERRL, EOMI. Neck: Supple. Respiratory: Lungs are clear to auscultation bilaterally. Cardiovascular: RRR with S1-S2. Gastrointestinal: Abdomen is soft, nontender, and nondistended with positive bowel sounds. No organomegaly. Skin: Warm and dry. No rash or lesions. Left knee wrapped in shadi bandage. Musculoskeletal: Left knee is swollen. SHADI bandage in place and clean, dry and intact. Extremities: No cyanosis, clubbing, or edema. Radial and pedal pulses intact. Neurological: A&Ox3. Cranial nerves 2-12 are grossly intact. No gross focal deficits to casual conversation. Psychiatric: Pleasant and cooperative with normal mood and affect. Judgment and insight intact. Objective Data Vital Signs Vital Signs: Vital Signs - 24 hr 09/07/23 16:19 09/07/23 19:09 09/07/23 20:00 Temperature 97.9 F 97.6 F Pulse Rate 67 69 Respiratory Rate 18 20 Blood Pressure 121/64 122/62 Pulse Oximetry 98 97 Oxygen Delivery Room Air 09/08/23 05:46 09/08/23 08:32 Temperature 97.5 F L Pulse Rate 57 L Respiratory Rate 20 Blood Pressure 129/76 Pulse Oximetry 97 Oxygen Delivery Room Air Intake/Output Intake/Output: Intake & Output 09/05/23 09/06/23 09/07/23 09/08/23 23:59 23:59 23:59 23:59 Intake Total 1050 2590 2270 440 Output Total 2800 4575 1100 Balance 1050 -210 -2305 -660 Meds/Results Medications: Active Medications Generic Name Dose Route Start Last Admin Trade Name Freq PRN Reason Stop Dose Admin Acetaminophen 650 mg 09/05/23 15:58 Acetaminophen 325 Mg Tablet PO
[2023-09-08 14:41] LABS: Basophils Percent Auto 0.2 % (0.2-1.2); Eosinophils Absolute Auto 0.1 K/mm3 (0-0.3); Hematocrit 31.3 % (42.0-52.0); Hemoglobin 10.3 g/dL (14.0-18.0); Immature Granulocyte Absolute 0.05 K/mm3 (0.00-0.031); Immature Granulocyte Percent A 0.6 % (0-0.5); Lymphocytes Absolute Auto 0.52 K/mm3 (0.9-3.2); Lymphocytes Percent Auto 6.3 % (18.3-44.2); Mean Corpuscular HGB Conc 32.9 g/dl (32-36); Mean Corpuscular Volume 94.3 fl (80-100); Monocytes Absolute Auto 0.5 K/mm3 (0.1-0.6); Monocytes Percent Auto 5.8 % (2.6-8.5); Neutrophils Absolute Auto 7.1 K/mm3 (1.3-6.7); Neutrophils Percent Auto 86.1 % (45.5-73.1); Platelet Count Result 137 k/mm3 (150-375); Red Blood Count 3.32 M/mm3 (4.6-6.20); White Blood Count 8.2 K/mm3 (4.5-10.0)
[2023-09-08 17:19] LABS: Glucose Point of Care 146 mg/dl (65-105)
[2023-09-08 17:49] VITALS: BP 126/76; PULSE 59; RESP 16; TEMP 37.1; O2SAT 97
[2023-09-08 19:25] VITALS: BP 119/68; PULSE 67; RESP 20; TEMP 36.5; O2SAT 97
[2023-09-08 21:28] LABS: Glucose Point of Care 185 mg/dl (65-105)
[2023-09-08] MEDS: HEPARIN SODIUM 5,000 UNITS/ML VIAL 5000 UNITS SUB-Q (22:40)
[2023-09-08] MEDS: traZODone HCL 50 MG TABLET 100 MG PO (22:40)
[2023-09-09 03:56] VITALS: BP 137/76; PULSE 70; RESP 18; TEMP 36.9; O2SAT 96
[2023-09-09 06:48] LABS: Basophils Percent Auto 0.5 % (0.2-1.2); Eosinophils Absolute Auto 0.1 K/mm3 (0-0.3); Eosinophils Percent Auto 1.9 % (0-4.4); Hematocrit 31.9 % (42.0-52.0); Hemoglobin 10.5 g/dL (14.0-18.0); Immature Granulocyte Absolute 0.06 K/mm3 (0.00-0.031); Lymphocytes Absolute Auto 1.11 K/mm3 (0.9-3.2); Lymphocytes Percent Auto 17.6 % (18.3-44.2); Mean Corpuscular HGB Conc 32.9 g/dl (32-36); Mean Corpuscular Hemoglobin 31.2 pg (26-34); Mean Corpuscular Volume 94.7 fl (80-100); Mean Platelet Volume 9.8 fl (7.4-10.4); Monocytes Absolute Auto 0.5 K/mm3 (0.1-0.6); Monocytes Percent Auto 7.4 % (2.6-8.5); Neutrophils Absolute Auto 4.5 K/mm3 (1.3-6.7); Neutrophils Percent Auto 71.6 % (45.5-73.1); Platelet Count Result 145 k/mm3 (150-375); Red Blood Count 3.37 M/mm3 (4.6-6.20); Red Cell Distribution Width 14.9 % (11.5-14.5); White Blood Count 6.3 K/mm3 (4.5-10.0)
[2023-09-09] MEDS: LEVOTHYROXINE SODIUM 75 MCG TABLET PO (06:53)
[2023-09-09] MEDS: hydrOXYzine HCL 25 MG TABLET PO (06:53)
[2023-09-09] MEDS: CENTRAL LINE FLUSH 10 ML IV PUSH ×3 (06:53→23:22)
--- NOTE | 2023-09-09 07:34 | PM.PNORT ---
Progress Note: A&P Assessment and Plan (1) Septic arthritis: Code(s): M00.9 - Pyogenic arthritis, unspecified Status: Acute Assessment and Plan: Awaiting sensitivities. Continue present regimen. Subjective Subjective Date/Time Seen: 09/09/23 07:34 Principal diagnosis: Septic arthritis Interval history: S/P arthroscopic debridement. Growing Staph Aureus Exam Narrative: Some pain with motion. NVI Objective Data Vital Signs Vital Signs: Vital Signs - 24 hr 09/08/23 08:32 09/08/23 17:49 09/08/23 19:25 Temperature 98.8 F 97.7 F Pulse Rate 59 L 67 Respiratory Rate 16 20 Blood Pressure 126/76 119/68 Pulse Oximetry 97 97 Oxygen Delivery Room Air 09/08/23 20:00 09/09/23 03:56 Temperature 98.4 F Pulse Rate 70 Respiratory Rate 18 Blood Pressure 137/76 Pulse Oximetry 96 Oxygen Delivery Room Air Intake/Output Intake/Output: Intake & Output 09/06/23 09/07/23 09/08/23 09/09/23 23:59 23:59 23:59 23:59 Intake Total 2590 2270 1830 150 Output Total 2800 4575 2100 Balance -210 -2194 -270 150 Meds/Results Medications: Active Medications Generic Name Dose Route Start Last Admin Trade Name Freq PRN Reason Stop Dose Admin Acetaminophen 650 mg 09/05/23 15:58 Acetaminophen 325 Mg Tablet PO Q4H PRN Mild Pain (1-3) or Fever Hydrocodone Bitart/Acetaminophen 1 tab 09/05/23 20:23 09/06/23 02:14 Hydrocodone/Acetaminophen (*Crx) 5-325 Mg Tablet PO 1 tab HS PRN Administration pain 4-6 Hydrocodone Bitart/Acetaminophen 1 tab 09/06/23 17:22 09/08/23 12:23 Hydrocodone/Acetaminophen (*Crx) 7.5-325 Mg Tablet PO 1 tab Q4H PRN Administration Pain Rated 7-10 Albuterol 2 puff 09/05/23 20:23 Albuterol Sulfate (*Sp) Aerosol 1 Puff INHALATION Q4H PRN shortness of breath or wheezing Allopurinol 100 mg 09/06/23 09:00 09/08/23 08:35 Allopurinol 100 Mg Tablet PO 100 mg DAILY GOLDY Administration Calcium Polycarbophil 625 mg 09/08/23 10:05 09/08/23 12:22 Calcium Polycarbophil 625 Mg Tablet PO 625 mg QAM GOLDY Administration Dextrose 12.5 gm 09/05/23 20:22 09/06/23 15:00 Dextrose 50% 25 Gm/50 Ml Syringe IV PUSH 12.5 gm PRN PRN Administration Hypoglycemia Protocol Docusate Sodium 100 mg 09/08/23 09:48 Docusate Sodium 100 Mg Capsule PO Q12H PRN Constipation Fentanyl Citrate 25 mcg 09/06/23 13:58 09/06/23 16:50 Fentanyl Citrate Inj (*Crx) 100 Mcg/2 Ml Vial IV PUSH 25 mcg Q2M PRN Administration Pain Fluticasone Propionate 1 spray 09/06/23 12:59 Fluticasone Propionate 0.05% Na Spr 16 Gm Btl (*Bkc) NASAL QAM PRN Allergy Symptoms Glucagon 1 mg 09/05/23 20:22 Glucagon For Inj 1 Mg Vial IM PRN PRN Hypoglycemia Protocol Glucose 15 gm 09/05/23 20:22 Glucose Oral Gel 15 Gm Of Glucse In 37.5 Gm Tube PO PRN PRN Hypoglycemia Protocol Heparin Sodium (Porcine) 5,000 units 09/08/23 21:00 09/08/23 22:40 Heparin Sodium 5,000 Units/Ml Vial SUB-Q 5,000 units Q12HR GOLDY Administration Hydromorphone HCl 1 mg 09/05/23 15:58 09/05/23 22:31 Hydromorphone Hcl Inj (*Crx) 1 Mg/Ml Syr IV PUSH 1 mg Q4H PRN Administration Pain Rated 7-10 Hydroxyzine HCl 25 mg 09/06/23 12:59 09/09/23 06:53 Hydroxyzine Hcl 25 Mg Tablet PO 25 mg HS PRN Administration anxiety Dextrose 1,000 mls @ 100 mls/hr 09/05/23 20:22 Dextrose 5% 1,000 Ml IVPB PRN PRN Hypoglycemia Protocol Ceftriaxone Sodium 2 gm in 100 mls @ 200 mls/hr 09/07/23 12:00 09/08/23 09:06 Rocephin 2 Gm/Ns 100 Ml IVPB Infused DAILY GOLDY Infusion Vancomycin HCl 1,500 mg in 500 mls @ 250 mls/hr 09/08/23 12:00 09/08/23 14:24 Vancomycin 1,500 Mg/Ns 500 Ml IVPB Infused Q24H GOLDY Infusion Insulin Aspart 2 - 5 units 09/06/23 08:00 09/08/23 18:19 Insulin Aspart (*Bkc) 100 Units/Ml SUB-Q Not Gi
[2023-09-09 08:30] LABS: Glucose Point of Care 81 mg/dl (65-105)
[2023-09-09] MEDS: HEPARIN SODIUM 5,000 UNITS/ML VIAL 5000 UNITS SUB-Q ×2 (08:36→23:22)
[2023-09-09] MEDS: calcium polycarbophiL 625 MG TABLET PO (08:36)
[2023-09-09] MEDS: cefTRIAXone 2 GM/NS 100 ML 2 GM/100 ML BAG IVPB (08:36)
[2023-09-09] MEDS: allopurinoL 100 MG TABLET PO (08:36)
[2023-09-09] MEDS: lisinopriL 20 MG TABLET 40 MG PO (08:38)
[2023-09-09] MEDS: THERAPEUTIC MULTIVITAMINS/MINERALS TAB (*BKC) 1 TABLET PO (08:38)
[2023-09-09] MEDS: PANTOPRAZOLE 40 MG TABLET PO ×2 (08:39→17:49)
[2023-09-09] MEDS: predniSONE 5 MG TABLET PO (08:39)
[2023-09-09 09:15] LABS: Albumin Level 3.8 g/dL (3.5-5.1); Anion Gap 12 mmol/L (8-16); Blood Urea Nitrogen 23 mg/dL (9-20); Carbon Dioxide 20 mmol/L (22-30); Chloride 100 mmol/L (98-107); Estimated CRCL calculation 64 ml/min; Estimated Glomerular Filt Rate > 60; Glucose 94 mg/dL (65-110); Sodium 132 mmol/L (137-145)
[2023-09-09] MEDS: SODIUM CHLORIDE 500 MG TABLET PO (11:18)
[2023-09-09 12:05] LABS: Glucose Point of Care 120 mg/dl (65-105)
[2023-09-09 12:37] LABS: Vancomycin Trough 6.4 ug/mL (10.0-20.0)
--- NOTE | 2023-09-09 13:29 | PM.IMPN ---
Progress Note: A&P Assessment and Plan (1) Postoperative infection of knee: Code(s): T81.49XA - Infection following a procedure, other surgical site, initial encounter; M00.9 - Pyogenic arthritis, unspecified Status: Acute Assessment and Plan: status post right partial medial meniscectomy as detailed in HPI. Status post arthrocentesis per interventional radiology. Gram stain and culture are pending. Continue vancomycin and ceftriaxone 2 g. ID Pharm consulted I&D with ortho Dr. Christy Will need 4 weeks of IV AB at d/c. (2) Hypertension: Qualifiers: Hypertension type: essential hypertension Qualified Code(s): I10 - Essential (primary) hypertension Code(s): I10 - Essential (primary) hypertension Status: Acute Assessment and Plan: Blood pressures were reviewed and they have been stable. Continue lisinopril 40 mg daily. (3) Type 2 diabetes mellitus: Qualifiers: Diabetes mellitus continuous churn buttermaker insulin use: without half-way use Diabetes mellitus complication status: without complication Qualified Code(s): E11.9 - Type 2 diabetes mellitus without complications Code(s): E11.9 - Type 2 diabetes mellitus without complications Status: Acute Assessment and Plan: Hemoglobin A1c was 5.4% in April 2023. Continue sitagliptin, sliding scale insulin, Accu-Cheks, and hypoglycemic protocol. 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 Continue levothyroxine and prednisone 5 mg daily. sodium still 132 - will replete as needed Subjective Date/time seen: 09/09/23 13:29 Interval history: Patient lying in bed, no acute distress. Knee is wrapped and his pain is under control. Dr. Christy with ortho is following. Arthrocentesis cultures on fluid pending. Continue vancomycin and Rocephin for AB coverage for the time being. ID pharm consulted for input. Patient will have to discharge with IV antibiotics for 4 weeks. Sodium 132, will increase tab to 1 gram and continue to monitor. Patient reporting cold sores on lower lip this morning, will older topical. Review of Systems Review of Systems: All systems reviewed & are unremarkable except as noted in HPI and below Exam Narrative: General: Well-developed, nontoxic-appearing gentleman in the semi-[place] position in bed. HEENT: PERRL, EOMI. Neck: Supple. Respiratory: Lungs are clear to auscultation bilaterally. Cardiovascular: RRR with S1-S2. Gastrointestinal: Abdomen is soft, nontender, and nondistended with positive bowel sounds. No organomegaly. Skin: Warm and dry. No rash or lesions. Left knee wrapped in shadi bandage. Musculoskeletal: Left knee is swollen. SHADI bandage in place and clean, dry and intact. Extremities: No cyanosis, clubbing, or edema. Radial and pedal pulses intact. Neurological: A&Ox3. Cranial nerves 2-12 are grossly intact. No gross focal deficits to casual conversation. Psychiatric: Pleasant and cooperative with normal mood and affect. Judgment and insight intact. Objective Data Vital Signs Vital Signs: Vital Signs - 24 hr 09/08/23 17:49 09/08/23 19:25 09/08/23 20:00 Temperature 98.8 F 97.7 F Pulse Rate 59 L 67 Respiratory Rate 16 20 Blood Pressure 126/76 119/68 Pulse Oximetry 97 97 Oxygen Delivery Room Air 09/09/23 03:56 09/09/23 08:33 Temperature 98.4 F Pulse Rate 70 Respiratory Rate 18 Blood Pressure 137/76 Pulse Oximetry 96 Oxygen Delivery Room Air Intake/Output Intake/Output: Intake & Output 09/06/23 09/07/23 09/08/23 09/09/23 23:59 23:59 23:59 23:59 Intake Total 2590 2270 1830 370 Output Total 2800 2300 [id number] [facility] -457 [phone] -420 370 Meds/Results Medications: Active Medications Generic Name Dose Route Start Last Admin Trade Name Freq PRN Reason Stop Dose Admin Acet
[2023-09-09] MEDS: VANCOMYCIN 1,500 MG/NS 500 ML 1,500 MG/500 ML BAG 250 MG IVPB (13:35)
[2023-09-09 14:24] VITALS: BP 131/66; PULSE 68; RESP 14; TEMP 36.4; O2SAT 97
[2023-09-09] MEDS: DOCOSANOL 10% CREAM 2 GM 1 APPLIC TOPICAL ×3 (15:16→23:23)
[2023-09-09 17:04] LABS: Glucose Point of Care 123 mg/dl (65-105)
[2023-09-09] MEDS: HYDROcodone/acetaminophen (*CRX) 7.5-325 MG TABLET 1 TAB PO (20:25)
[2023-09-09 22:58] VITALS: BP 140/70; PULSE 72; RESP 16; TEMP 36.8; O2SAT 96
[2023-09-09 23:05] LABS: Glucose Point of Care 122 mg/dl (65-105)
[2023-09-09] MEDS: traZODone HCL 50 MG TABLET 100 MG PO (23:22)
[2023-09-10 01:43] VITALS: BP 131/84; PULSE 67; RESP 14; TEMP 36.6; O2SAT 97
[2023-09-10] MEDS: VANCOMYCIN 1,500 MG/NS 500 ML 1,500 MG/500 ML BAG 250 MG IVPB (02:40)
[2023-09-10] MEDS: LEVOTHYROXINE SODIUM 75 MCG TABLET PO (07:08)
[2023-09-10 07:30] VITALS: BP 140/76; PULSE 66; RESP 16; TEMP 36.4; O2SAT 97
[2023-09-10] MEDS: CENTRAL LINE FLUSH 10 ML IV PUSH ×3 (07:34→20:56)
[2023-09-10 07:59] LABS: Basophils Percent Auto 0.7 % (0.2-1.2); Eosinophils Absolute Auto 0.1 K/mm3 (0-0.3); Eosinophils Percent Auto 2.5 % (0-4.4); Hematocrit 31.9 % (42.0-52.0); Hemoglobin 10.6 g/dL (14.0-18.0); Immature Granulocyte Absolute 0.09 K/mm3 (0.00-0.031); Immature Granulocyte Percent A 1.6 % (0-0.5); Mean Corpuscular HGB Conc 33.2 g/dl (32-36); Mean Corpuscular Hemoglobin 31.1 pg (26-34); Mean Corpuscular Volume 93.5 fl (80-100); Mean Platelet Volume 9.9 fl (7.4-10.4); Monocytes Absolute Auto 0.5 K/mm3 (0.1-0.6); Monocytes Percent Auto 8.8 % (2.6-8.5); Neutrophils Absolute Auto 3.6 K/mm3 (1.3-6.7); Neutrophils Percent Auto 63.4 % (45.5-73.1); Platelet Count Result 150 k/mm3 (150-375); Red Blood Count 3.41 M/mm3 (4.6-6.20); Red Cell Distribution Width 14.7 % (11.5-14.5); White Blood Count 5.7 K/mm3 (4.5-10.0)
[2023-09-10 08:02] LABS: Anion Gap 7 mmol/L (8-16); Blood Urea Nitrogen 23 mg/dL (9-20); Calcium 8.8 mg/dL (8.4-10.2); Carbon Dioxide 26 mmol/L (22-30); Chloride 97 mmol/L (98-107); Estimated CRCL calculation 64 ml/min; Estimated Glomerular Filt Rate > 60; Glucose 91 mg/dL (65-110); Potassium 3.7 mmol/L (3.4-5.0); Sodium 130 mmol/L (137-145)
[2023-09-10 08:34] LABS: Glucose Point of Care 91 mg/dl (65-105)
[2023-09-10] MEDS: THERAPEUTIC MULTIVITAMINS/MINERALS TAB (*BKC) 1 TABLET PO (09:00)
[2023-09-10] MEDS: calcium polycarbophiL 625 MG TABLET PO (09:00)
[2023-09-10] MEDS: lisinopriL 20 MG TABLET 40 MG PO (09:01)
[2023-09-10] MEDS: SODIUM CHLORIDE 500 MG TABLET PO (09:01)
[2023-09-10] MEDS: allopurinoL 100 MG TABLET PO (09:01)
[2023-09-10] MEDS: PANTOPRAZOLE 40 MG TABLET PO ×2 (09:01→17:32)
[2023-09-10] MEDS: predniSONE 5 MG TABLET PO (09:01)
[2023-09-10] MEDS: SODIUM CHLORIDE 1 GM TABLET PO (09:01)
[2023-09-10] MEDS: ACETAMINOPHEN 325 MG TABLET 650 MG PO (09:02)
[2023-09-10] MEDS: HEPARIN SODIUM 5,000 UNITS/ML VIAL 5000 UNITS SUB-Q ×2 (09:02→20:55)
[2023-09-10] MEDS: cefTRIAXone 2 GM/NS 100 ML 2 GM/100 ML BAG IVPB (09:03)
[2023-09-10] MEDS: DOCOSANOL 10% CREAM 2 GM 1 APPLIC TOPICAL ×5 (09:08→20:56)
--- NOTE | 2023-09-10 09:13 | PM.PNORT ---
Progress Note: A&P Assessment and Plan (1) Septic arthritis: Code(s): M00.9 - Pyogenic arthritis, unspecified Status: Acute Assessment and Plan: Susceptibilities are back. He has oxacillin sensitive Staph. He can be sent home either on ceftriaxone 2 grams daily or nafcillin/oxacillin 12 grams IV with a running pump. Discussed with the Dr. Hernandez in pharmacy. Subjective Subjective Date/Time Seen: 09/10/23 09:13 Principal diagnosis: Septic Arthritis Interval history: Patient is status post I and D washout for septic bursitis with synovectomy Exam Narrative: Continued pain with motion the incisions clean. Objective Data Vital Signs Vital Signs: Vital Signs - 24 hr 09/09/23 14:24 09/09/23 20:00 09/09/23 22:58 Temperature 97.6 F 98.3 F Pulse Rate 68 72 Respiratory Rate 14 16 Blood Pressure 131/66 140/70 Pulse Oximetry 97 96 Oxygen Delivery Room Air 09/10/23 01:43 09/10/23 07:30 Temperature 97.9 F 97.6 F Pulse Rate 67 66 Respiratory Rate 14 16 Blood Pressure 131/84 140/76 Pulse Oximetry 97 97 Oxygen Delivery Intake/Output Intake/Output: Intake & Output 09/07/23 09/08/23 09/09/23 09/10/23 23:59 23:59 23:59 23:59 Intake Total 2270 1830 2220 300 Output Total 4575 2100 2500 550 [facility] -2305 -270 -280 -250 Meds/Results Medications: Active Medications Generic Name Dose Route Start Last Admin Trade Name Freq PRN Reason Stop Dose Admin Acetaminophen 650 mg 09/05/23 15:58 09/10/23 09:02 Acetaminophen 325 Mg Tablet PO 650 mg Q4H PRN Administration Mild Pain (1-3) or Fever Hydrocodone Bitart/Acetaminophen 1 tab 09/05/23 20:23 09/06/23 02:14 Hydrocodone/Acetaminophen (*Crx) 5-325 Mg Tablet PO 1 tab HS PRN Administration pain 4-6 Hydrocodone Bitart/Acetaminophen 1 tab 09/06/23 17:22 09/09/23 20:25 Hydrocodone/Acetaminophen (*Crx) 7.5-325 Mg Tablet PO 1 tab Q4H PRN Administration Pain Rated 7-10 Albuterol 2 puff 09/05/23 20:23 Albuterol Sulfate (*Sp) Aerosol 1 Puff INHALATION Q4H PRN shortness of breath or wheezing Allopurinol 100 mg 09/06/23 09:00 09/10/23 09:01 Allopurinol 100 Mg Tablet PO 100 mg DAILY GOLDY Administration Calcium Polycarbophil 625 mg 09/08/23 10:05 09/10/23 09:00 Calcium Polycarbophil 625 Mg Tablet PO 625 mg QAM GOLDY Administration Dextrose 12.5 gm 09/05/23 20:22 09/06/23 15:00 Dextrose 50% 25 Gm/50 Ml Syringe IV PUSH 12.5 gm PRN PRN Administration Hypoglycemia Protocol Docosanol 1 applic 09/09/23 12:00 09/10/23 09:08 Docosanol 10% Cream 2 Gm TOPICAL 1 applic 5 TIMES DAILY GOLDY Administration Docusate Sodium 100 mg 09/08/23 09:48 Docusate Sodium 100 Mg Capsule PO Q12H PRN Constipation Fentanyl Citrate 25 mcg 09/06/23 13:58 09/06/23 16:50 Fentanyl Citrate Inj (*Crx) 100 Mcg/2 Ml Vial IV PUSH 25 mcg Q2M PRN Administration Pain Fluticasone Propionate 1 spray 09/06/23 12:59 Fluticasone Propionate 0.05% Na Spr 16 Gm Btl (*Bkc) NASAL QAM PRN Allergy Symptoms Glucagon 1 mg 09/05/23 20:22 Glucagon For Inj 1 Mg Vial IM PRN PRN Hypoglycemia Protocol Glucose 15 gm 09/05/23 20:22 Glucose Oral Gel 15 Gm Of Glucse In 37.5 Gm Tube PO PRN PRN Hypoglycemia Protocol Heparin Sodium (Porcine) 5,000 units 09/08/23 21:00 09/10/23 09:02 Heparin Sodium 5,000 Units/Ml Vial SUB-Q 5,000 units Q12HR GOLDY Administration Hydromorphone HCl 1 mg 09/05/23 15:58 09/05/23 22:31 Hydromorphone Hcl Inj (*Crx) 1 Mg/Ml Syr IV PUSH 1 mg Q4H PRN Administration Pain Rated 7-10 Hydroxyzine HCl 25 mg 09/06/23 12:59 09/09/23 06:53 Hydroxyzine Hcl 25 Mg Tablet PO 25 mg HS PRN Administration anxiety Dextrose 1,000 mls @ 100 mls/hr 09/05/23 20:22 Dextrose 5% 1,000 Ml IVPB PRN PRN Hypoglycemia Protocol Ceftriaxone [place]
--- NOTE | 2023-09-10 11:15 | PM.IMPN ---
Progress Note: A&P Assessment and Plan (1) Postoperative infection of knee: Code(s): T81.49XA - Infection following a procedure, other surgical site, initial encounter; M00.9 - Pyogenic arthritis, unspecified Status: Acute Assessment and Plan: status post right partial medial meniscectomy as detailed in HPI. Status post arthrocentesis per interventional radiology. I&D with ortho Dr. Christy Gram stain and culture - oxacillin sensitive Staph. He can be sent home either on ceftriaxone 2 grams daily or nafcillin/oxacillin 12 grams IV with a running pump Continue vancomycin and ceftriaxone 2 g. ID Pharm consulted Will need 4 weeks of IV AB at d/c - care coordination following for d/c planning (2) Hypertension: Qualifiers: Hypertension type: essential hypertension Qualified Code(s): I10 - Essential (primary) hypertension Code(s): I10 - Essential (primary) hypertension Status: Acute Assessment and Plan: Blood pressures were reviewed and they have been stable. Continue lisinopril 40 mg daily. 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 Continue sitagliptin, sliding scale insulin, Accu-Cheks, and hypoglycemic protocol. 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 Continue levothyroxine and prednisone 5 mg daily. sodium 130 - will replete as needed Subjective Date/time seen: 09/10/23 11:15 Interval history: Patient lying in bed, no acute distress. Knee is wrapped and his pain is under control. Dr. Christy with ortho is following. Arthrocentesis cultures on fluid showed oxacillin sensitive Staph. Per ortho, can be sent home either on ceftriaxone 2 grams daily or nafcillin/oxacillin 12 grams IV with a running pump. Continue vancomycin and Rocephin for AB coverage for the time being. Patient will have to discharge with IV antibiotics for 4 weeks, care coordination following. Plan for d/c when arranged, likely tomorrow due to holiday. Review of Systems Review of Systems: All systems reviewed & are unremarkable except as noted in HPI and below Exam Narrative: General: Well-developed, nontoxic-appearing gentleman in the semi-[place] position in bed. HEENT: PERRL, EOMI. Neck: Supple. Respiratory: Lungs are clear to auscultation bilaterally. Cardiovascular: RRR with S1-S2. Gastrointestinal: Abdomen is soft, nontender, and nondistended with positive bowel sounds. No organomegaly. Skin: Warm and dry. No rash or lesions. Left knee wrapped in shadi bandage. Musculoskeletal: Left knee is swollen. SHADI bandage in place and clean, dry and intact. Extremities: No cyanosis, clubbing, or edema. Radial and pedal pulses intact. Neurological: A&Ox3. Cranial nerves 2-12 are grossly intact. No gross focal deficits to casual conversation. Psychiatric: Pleasant and cooperative with normal mood and affect. Judgment and insight intact. Objective Data Vital Signs Vital Signs: Vital Signs - 24 hr 09/09/23 14:24 09/09/23 20:00 09/09/23 22:58 Temperature 97.6 F 98.3 F Pulse Rate 68 72 Respiratory Rate 14 16 Blood Pressure 131/66 140/70 Pulse Oximetry 97 96 Oxygen Delivery Room Air 09/10/23 01:43 09/10/23 07:30 09/10/23 08:00 Temperature 97.9 F 97.6 F Pulse Rate 67 66 Respiratory Rate 14 16 Blood Pressure 131/84 140/76 Pulse Oximetry 97 97 Oxygen Delivery Room Air Intake/Output Intake/Output: Intake & Output 09/07/23 09/08/23 09/09/23 09/10/23
[2023-09-10 12:11] LABS: Glucose Point of Care 129 mg/dl (65-105)
[2023-09-10 15:41] VITALS: BP 114/76; PULSE 82; RESP 17; TEMP 36.3; O2SAT 100
[2023-09-10 16:57] LABS: Glucose Point of Care 114 mg/dl (65-105)
[2023-09-10 20:40] LABS: Glucose Point of Care 122 mg/dl (65-105)
[2023-09-10] MEDS: traZODone HCL 50 MG TABLET 100 MG PO (20:56)
[2023-09-10 21:32] VITALS: BP 131/68; PULSE 68; RESP 14; TEMP 36.5; O2SAT 96
[2023-09-11 01:28] LABS: Vancomycin Trough < 5.0 ug/mL (10.0-20.0)
[2023-09-11] MEDS: TIZANIDINE HCL 4 MG TABLET PO (03:28)
[2023-09-11 03:43] VITALS: BP 133/86; PULSE 71; RESP 15; TEMP 36.6; O2SAT 97
[2023-09-11] MEDS: CENTRAL LINE FLUSH 20 ML IV PUSH (05:29)
[2023-09-11] MEDS: CENTRAL LINE FLUSH 10 ML IV PUSH (05:29)
[2023-09-11] MEDS: LEVOTHYROXINE SODIUM 75 MCG TABLET PO (05:30)
[2023-09-11 05:38] LABS: Hematocrit 30.4 % (42.0-52.0); Hemoglobin 10.3 g/dL (14.0-18.0); Mean Corpuscular HGB Conc 33.9 g/dl (32-36); Mean Corpuscular Hemoglobin 31.4 pg (26-34); Mean Corpuscular Volume 92.7 fl (80-100); Mean Platelet Volume 9.7 fl (7.4-10.4); Platelet Count Result 170 k/mm3 (150-375); Red Blood Count 3.28 M/mm3 (4.6-6.20); White Blood Count 7.3 K/mm3 (4.5-10.0)
[2023-09-11 05:50] LABS: Anion Gap 8 mmol/L (8-16); Blood Urea Nitrogen 22 mg/dL (9-20); Calcium 8.7 mg/dL (8.4-10.2); Carbon Dioxide 25 mmol/L (22-30); Chloride 94 mmol/L (98-107); Estimated CRCL calculation 58 ml/min; Estimated Glomerular Filt Rate > 60; Glucose 107 mg/dL (65-110); Potassium 3.8 mmol/L (3.4-5.0); Sodium 127 mmol/L (137-145)
[2023-09-11 08:30] VITALS: BP 109/66; PULSE 74; O2SAT 100
[2023-09-11] MEDS: PANTOPRAZOLE 40 MG TABLET PO (08:32)
[2023-09-11] MEDS: SODIUM CHLORIDE 1 GM TABLET PO (08:32)
[2023-09-11] MEDS: allopurinoL 100 MG TABLET PO (08:32)
[2023-09-11] MEDS: THERAPEUTIC MULTIVITAMINS/MINERALS TAB (*BKC) 1 TABLET PO (08:32)
[2023-09-11] MEDS: calcium polycarbophiL 625 MG TABLET PO (08:32)
[2023-09-11] MEDS: predniSONE 5 MG TABLET PO (08:32)
[2023-09-11] MEDS: lisinopriL 20 MG TABLET 40 MG PO (08:34)
[2023-09-11] MEDS: cefTRIAXone 2 GM/NS 100 ML 2 GM/100 ML BAG IVPB (08:35)
[2023-09-11] MEDS: DOCOSANOL 10% CREAM 2 GM 1 APPLIC TOPICAL ×2 (08:36→12:58)
[2023-09-11 08:59] LABS: Glucose Point of Care 76 mg/dl (65-105)
--- NOTE | 2023-09-11 10:35 | PM.DS ---
DS: Admitting Diagnosis Discharge Date 09/11/23 Admitting Diagnosis Postoperative infection of knee Hypertension Type 2 diabetes mellitus hypopituitarism DS: Discharge Diagnosis Discharge Diagnosis (1) Postoperative infection of knee: Code(s): T81.49XA - Infection following a procedure, other surgical site, initial encounter; M00.9 - Pyogenic arthritis, unspecified Status: Acute (2) Hypertension: Qualifiers: Hypertension type: essential hypertension Qualified Code(s): I10 - Essential (primary) hypertension Code(s): I10 - Essential (primary) hypertension Status: Acute (3) Type 2 diabetes mellitus: Qualifiers: Diabetes mellitus terminal gauger insulin use: without terminal gauger use Diabetes mellitus complication status: without complication Qualified Code(s): E11.9 - Type 2 diabetes mellitus without complications Code(s): E11.9 - Type 2 diabetes mellitus without complications Status: Acute (4) Hypopituitarism: Code(s): E23.0 - Hypopituitarism Status: Acute DS: Summary Hospital Course Reason for hospitalization: Postoperative infection of knee Hospital Course: This is a 68-year-old male who presented to the hospital on 09/05/2023 for evaluation of left knee pain and swelling following a a knee surgery last week. Patient is followed by Dr. Christy who did an arthroscopic partial medial meniscectomy on 08/29/2023. The morning of the patient noted to have worsening pain and swelling. He has a known history of MRSA. On arrival to the hospital patient had a temp of 100.4?, white blood cell count was 12.2. CT of the left knee showed a fracture of the lateral aspect of the patella with significant increased distraction of the fracture fragments compared to prior exam and a large joint effusion with a small Cardoso's cyst. Patient was taken to Interventional Radiology where he had an arthrocentesis. Cultures were sent during that time in her now showing Staph aureus on both final reads. Patient was maintained on vancomycin and Rocephin. Infectious Disease pharmacist was consulted for antibiotic coverage. Plan is for patient to stay on IV Rocephin 2 g for the next 4 weeks and then follow up outpatient with Dr. Christy for continued antibiotics, possibly Keflex once his IV infusions are finished. On examination today patient is alert oriented x3, lying in the bed. Vital signs are stable, he is afebrile, he is currently on room air. Labs today revealed White blood cell count 7.3, sodium 127, potassium 3.8, chloride 94, BUN 22, creatinine 1.1. Patient is stable for discharge at this time. Case management setting up daily infusions. Status at Discharge Cognitive/behavioral status at discharge: He is alert oriented x3 Functional status at discharge: uses cane/walker Overall status at discharge: patient is progressing back to baseline Time Spent with Patient Time attestation: Total time spent providing and/or coordinating discharge services: Time spent: Greater than 30 minutes Exam Narrative: General: In no acute distress, well nourished Head: atraumatic, no encephalopathy Eyes: EOMI, PERRLA, sclera clear ENT: moist mucous membranes, nasal passages clear Neck: supple, no JVD, no adenopathy, trachea midline Cardiac: Normal S1 and S2. No murmur, gallops or friction rubs, peripheral pulses intact. Respiratory: Lungs clear to auscultation, no adventitious lung sounds Gastrointestinal: soft, non-distended, non-tender, normoactive bowel sounds. : voiding without difficulty. Extremities: moves all extremities well, swelling to left knee greater than right. Skin: clean, dry, intact. No wounds or lesions. Neuro: Alert and oriented x4, cranial nerves intact, no neuro deficits. Psych: normal mood, normal affect, interactive DS: Data Data Completed and Pending Completed studies during hospitalization: Chest x-ray Venous Doppler study The CT Renal ultrasound La
[2023-09-11 12:14] LABS: Glucose Point of Care 174 mg/dl (65-105)
[2023-09-11 20:33] LABS: Glucose Synovial Fluid 69 mg/dL
[2023-09-14 07:30] LABS: Total Protein Synovial Fluid 3.2
[2023-11-28 09:59] LABS: RBC Synovial Fluid 4000 /uL (0-0)
== END 2023-09-11 13:05 | disposition home or self-care (01) | DRG 857 ==
LOC: ANHED 12:26 → ANH3MEDSUR 17:04 → ANH2MED 17:11
PROVIDERS: Nurse Practitioner; Orthopaedic Surgery; Physician Assistant; Admitting Provider Hospitalist; Emergency Provider Emergency Medicine; PCP Family Medicine; Visit Provider Nurse Practitioner Acute Care
PROC: (CPT 29870; principal; 2023-09-06 15:30)
DX: T81.40XA Infection following a procedure, unspecified, initial encounter (principal); E23.0 Hypopituitarism; M00.9 Pyogenic arthritis, unspecified; S82.002A Unspecified fracture of left patella, initial encounter for closed fracture; I10 Essential (primary) hypertension; E78.5 Hyperlipidemia, unspecified; E03.9 Hypothyroidism, unspecified; E11.9 Type 2 diabetes mellitus without complications; K21.9 Gastro-esophageal reflux disease without esophagitis; M10.9 Gout, unspecified; B95.61 Methicillin susceptible Staphylococcus aureus infection as the cause of diseases classified elsewhere; Z85.72 Personal history of non-Hodgkin lymphomas; Z87.891 Personal history of nicotine dependence
CPT/HCPCS: 11042; 20611; 36415; 36569; 73701; 80048; 80053; 80069; 80202; 82945; 82948; 83735; 84157; 85025; 85027; 85055; 85610; 85652; 85730; 86140; 87040; 87070; 87075; 87147; 87181; 87186; 87205; 89051; 89060; 93971; 96375; 96376; 99285; A9270; C1751; G0378; J0696; J1170; J1644; J2405; J3010; J3370; J7030; J7120; J7512; Q9967

== ENCOUNTER 2023-09-26 15:06 | Outpatient (NON) | payer MEDICARE, SELFPAY | END 2023-09-26 15:07 | disposition home or self-care (01) | LOC: ANHLAB 15:08 | PROVIDERS: PCP Family Medicine; Visit Provider Orthopaedic Surgery | DX: M00.9 Pyogenic arthritis, unspecified (principal) | CPT/HCPCS: 87070; 87205 ==

== ENCOUNTER 2023-10-04 17:04 | Inpatient (IN) | payer MEDICARE, SELFPAY ==
[2023-10-04] VITALS (12 sets, daily range): BP systolic 107–133; BP diastolic 61–70; PULSE 56–78; RESP 12–18; TEMP 36.4–36.6; O2SAT 98–100; BMI 25.0
--- NOTE | ~2023-10-04 | XR_ITS ---
EXAMINATION: XR chest 1V portable DATE: 10/05/2023 09:03 INDICATION: Central line placement. TECHNIQUE: A single frontal view of the chest was obtained. COMPARISON: Chest single view 09/07/2023 FINDINGS: There is mild atelectasis at left lung base. No pleural effusion or pneumothorax. The heart size is normal. A right upper extremity peripherally inserted central venous catheter (PICC) is seen with tip in the superior vena cava. There are suture anchors in right humeral head. IMPRESSION: 1. PICC tip in the superior vena cava. 2. Mild atelectasis at left lung base. Reviewed, dictated and finalized at location E. MS SERVICE REPRESENTATIVE
--- NOTE | 2023-10-04 17:08 | ECG_ITS ---
Measurements Intervals [place] Rate: 73 P: 53 TX: 153 QRS: -41 QRSD: 153 T: 23 QT: 429 QTc: 473 Interpretive Statements SINUS RHYTHM LEFT AXIS DEVIATION POSSIBLE LEFT ATRIAL ENLARGEMENT RIGHT BUNDLE BRANCH BLOCK POSSIBLE LEFT VENTRICULAR HYPERTROPHY BASELINE ARTIFACT- I, II, III, AVR, AVL, AVF, V2-V6 ABNORMAL ECG COMPARED TO ECG 08/24/2023 08:25:08 SINUS RHYTHM NOW PRESENT Electronically Signed On 10-04-2023 18:54:25 CONTROL CLERK HEAD by Aaron Cadet D.O.
[2023-10-04 17:42] LABS: Basophils Percent Auto 0.8 % (0.2-1.2); Eosinophils Absolute Auto 0.1 K/mm3 (0-0.3); Eosinophils Percent Auto 2.1 % (0-4.4); Hematocrit 31.8 % (42.0-52.0); Hemoglobin 10.6 g/dL (14.0-18.0); Immature Granulocyte Absolute 0.02 K/mm3 (0.00-0.031); Immature Granulocyte Percent A 0.4 % (0-0.5); Lymphocytes Absolute Auto 0.56 K/mm3 (0.9-3.2); Lymphocytes Percent Auto 11.5 % (18.3-44.2); Mean Corpuscular HGB Conc 33.3 g/dl (32-36); Mean Corpuscular Hemoglobin 30.6 pg (26-34); Mean Corpuscular Volume 91.9 fl (80-100); Mean Platelet Volume 9.6 fl (7.4-10.4); Monocytes Absolute Auto 0.4 K/mm3 (0.1-0.6); Monocytes Percent Auto 8.9 % (2.6-8.5); Neutrophils Absolute Auto 3.7 K/mm3 (1.3-6.7); Neutrophils Percent Auto 76.3 % (45.5-73.1); Platelet Count Result 229 k/mm3 (150-375); Red Blood Count 3.46 M/mm3 (4.6-6.20); Red Cell Distribution Width 13.1 % (11.5-14.5); White Blood Count 4.9 K/mm3 (4.5-10.0)
[2023-10-04 17:49] LABS: Alanine Aminotransferase 21 U/L (6-50); Albumin Level 4.5 g/dL (3.5-5.1); Alkaline Phosphatase 82 U/L (38-126); Anion Gap 10 mmol/L (8-16); Aspartate Amino Transferase 35 U/L (17-59); Bilirubin,Total 0.4 mg/dL (0.2-1.3); Blood Urea Nitrogen 12 mg/dL (9-20); Calcium 8.8 mg/dL (8.4-10.2); Carbon Dioxide 24 mmol/L (22-30); Chloride 86 mmol/L (98-107); Estimated CRCL calculation 72 ml/min; Estimated Glomerular Filt Rate > 60; Glucose 104 mg/dL (65-110); Sodium 120 mmol/L (137-145)
--- NOTE | 2023-10-04 18:06 | PC.NURSE ---
Seizure pads applied d/t low NA od 120 and PMH of seizures from Hyponatremia
--- NOTE | 2023-10-04 18:40 | ED.GENADULT ---
HPI - General Adult General Chief complaint: Recheck/Abnormal Lab/Rx Stated complaint: told low sodium level Time Seen by Provider: 10/04/23 18:08 History of Present Illness HPI narrative: Patient is a 68-year-old male who presents the emergency department this afternoon after being called from his outpatient lab center and informed that his sodium level is low at 120. Patient does have a history of hypopituitarism status post pituitary resection in 2017 which was done at [facility]. Patient denies being started on salt tablets mom states that they have been monitoring his pituitary tumor by obtaining serial CT scans and as of last year his scans have been negative. Patient is completely asymptomatic and here only because he was called and informed that this sodium level. Patient denies any chest pain, shortness of breath, nausea, vomiting, abdominal pain, dysuria, hematuria, constipation, diarrhea, melena, hematochezia, fevers or chills. Patient also denies any headaches, dizziness, lightheadedness, blurry visions, focal weakness, numbness and or tingling. There are no other modifying, alleviating, or precipitating factors at this time. Related Data Home Medications Medication Instructions Recorded Confirmed testosterone 10 mg/0.5 6 pump transdermal QAM 11/11/19 10/02/23 gram/actuation transdermal gel pump cetirizine 10 mg tablet (Zyrtec) 10 mg PO DAILY 08/23/23 10/02/23 fluticasone propionate 50 1 spray intranasal PRN PRN Allergy 08/23/23 10/02/23 mcg/actuation nasal Symptoms spray,suspension multivit,Ca,min-iron 8 mg-folic 1 tablet PO DAILY 08/23/23 10/02/23 acid 200 mcg-lycopene 600 mcg tablet (Centrum Men) Allergies Allergy/AdvReac Type Severity Reaction Status Date / Time COVID-19 (SARS-CoV-2) Allergy Unknown FLU Verified 10/02/23 12:27 vaccine, elsy SYMPTOMS Review of Systems Review of Systems: All systems are reviewed and are negative unless stated otherwise in the HPI. [facility] Past Medical History Medical History Chronic neck pain Environmental allergies Erectile dysfunction GERD without esophagitis Gout History of non-Hodgkin's lymphoma (2007) History of pituitary tumor (2016) Hyperlipidemia Hypertension Hypogonadism in male Hypopituitarism Hypothyroidism (acquired) Insomnia Seizure Type 2 diabetes mellitus Surgical History Surgical History History of left knee surgery (~2022) History of repair of right rotator cuff (1999) History of tonsillectomy (1963) Status post arthroscopic partial medial meniscectomy of right knee (08/29/23) Status post tendon repair Repair left quadriceps tendon rupture 12/06. Repair biceps tendon tear. Status post transsphenoidal pituitary resection (01/2017) [place] teeth removed (Unknown) Family History Family History Mother Asthma Father Family history of alcoholism Grandparent Acute myocardial infarction Other Diabetes mellitus Social History Social History Social History: Surrogate medical decision maker: jami Potter. Code status: Smoking packs per day: 1.5 Smoking cigarettes per day: 30.0 Years smoked: 45 Smoking pack-years: 67.50 Smoking status: Former smoker Tobacco type: cigarettes Second hand tobacco smoke exposure: Yes Smoking end date: 09/17/79 Alcohol intake: never Alcohol use details: Rarely Substance use: never Substance use type: does not use Current Housing: Decline to Answer Concerned About Future Housing: Decline to Answer Difficulty Paying Gas/Electric Bills: Decline to Answer Difficulty Paying for Meds: Decline to Answer Currently Unemployed: Decline to Answer Education: Decline to Answer Difficulty w/ Childcare or Family Care: Decline to Answer Living arra
[2023-10-04] MEDS: SODIUM CHLORIDE 0.9% IV 1,000 ML 100 ML IV CONT (19:00)
--- NOTE | 2023-10-04 20:28 | PM.IMHP ---
H&P: HPI History of Present Illness Date/Time: 10/04/23 20:28 Chief Complaint: Abnormal Lab Narrative: 68-year-old male presents here with abnormal sodium level with past medical history of hypopituitarism s/p resection of pituitary tumor with subsequent acquired hypothyroidism, GERD, gout, non-Hodgkin's lymphoma, HLD, HTN, hypogonadism, seizures, diabetes, and GERD. Patient currently receiving treatment for septic bursitis post-left knee post arthroscopy done on 08/29/2023. Return to the ED on 09/05 with left knee pain and swelling. He underwent arthroscopy/debridement/synovectomy on 09/06. Was eventually discharged on 09/11 with PICC line for continued IV antibiotics. Ceftriaxone 2 g IV daily. Currently scheduled to have follow-up at [facility] for ID. Has been having routine lab work done weekly due to current IV antibiotics/infection and was found to be hyponatremic with a sodium of 120. Has had hyponatremia since 09/05/2023 ranging from 127 to 132. Patient does not currently take salt supplements. Currently following with Nephrology for a recent increase in his creatinine, has not been formally diagnosed with CKD and EDL eg is currently unclear but patient does have risk factors of diabetes and HTN. He is currently denying any syncope, dizziness, or confusion. Endorsing mild discomfort to his left knee which continues to have swelling. No recent nausea, vomiting, diarrhea. Review of Systems Review of Systems: All systems reviewed & are unremarkable except as noted in HPI and below PMFSH Past Medical History Medical History Chronic neck pain Environmental allergies Erectile dysfunction GERD without esophagitis Gout History of non-Hodgkin's lymphoma (2007) History of pituitary tumor (2016) Hyperlipidemia Hypertension Hypogonadism in male Hypopituitarism Hypothyroidism (acquired) Insomnia Seizure Type 2 diabetes mellitus Surgical History Surgical History History of left knee surgery (~2022) History of repair of right rotator cuff (1999) History of tonsillectomy (1963) Status post arthroscopic partial medial meniscectomy of right knee (08/29/23) Status post tendon repair Repair left quadriceps tendon rupture 12/06. Repair biceps tendon tear. Status post transsphenoidal pituitary resection (01/2017) [place] teeth removed (Unknown) Family History Family History Mother Asthma Father Family history of alcoholism Grandparent Acute myocardial infarction Other Diabetes mellitus Social History Social History Social History: Surrogate medical decision maker: Katharina Sommer, son. Code status: Smoking packs per day: 1.5 Smoking cigarettes per day: 30.0 Years smoked: 45 Smoking pack-years: 67.50 Smoking status: Former smoker Tobacco type: cigarettes Second hand tobacco smoke exposure: Yes Smoking end date: 09/17/79 Alcohol intake: never Alcohol use details: Rarely Substance use: never Substance use type: does not use Do You Feel Safe in your Home?: Yes Lack of Transportation: No Lack of Food: Never True Current Housing: I Have Housing Concerned About Future Housing: No Difficulty Paying Gas/Electric Bills: No Difficulty Paying for Meds: No Currently Unemployed: No Education: High School Diploma/GED Difficulty w/ Childcare or Family Care: No Living arrangements: with family Occupation/Education: retired Spiritual care concerns: No Agree to blood products: Yes Meds Home Medications and Allergies Home Medications Medication Instructions Recorded Confirmed Type testosterone 10 mg/0.5 6 pump transdermal QAM 11/11/19 10/04/23 History gram/actuation transdermal gel pump prednisone 5 mg tablet 5 mg PO DAILY #90 tabs 09/09/
--- NOTE | 2023-10-04 20:41 | PC.NURSE ---
This RN was just notified of pt bed assignment.
--- NOTE | 2023-10-04 21:24 | ADMGEN ---
This patient, Abel Sommer Jr., was admitted to [facility] Surg Room 327-01. Patient/family oriented to hospital policies and general routines including ID bracelet, bed and alarms, visiting hours, pain management, procedures, bathroom and other care routines, personal items, smoking policy, room service/diet, and visiting hours. Information on how to activate the Rapid Response Team has been discussed. Patient/Family are encouraged to report perceived risks to care and to ask questions if they do not understand what they are told or what they should do.
[2023-10-04 22:38] LABS: Sodium < 90 mmol/L (137-145)
[2023-10-04 22:45] LABS: Creatinine Urine 71.6 mg/dL; Total Protein Urine Random 7 mg/dL
[2023-10-04 22:53] LABS: Sodium Urine Random 63 meq/L
[2023-10-05] VITALS (7 sets, daily range): BP systolic 118–124; BP diastolic 57–65; PULSE 53–65; RESP 16–19; TEMP 36.1–36.8; O2SAT 98–100
[2023-10-05 05:49] LABS: Eosinophils Absolute Auto 0.1 K/mm3 (0-0.3); Eosinophils Percent Auto 3.1 % (0-4.4); Hematocrit 26.8 % (42.0-52.0); Hemoglobin 8.8 g/dL (14.0-18.0); Immature Granulocyte Absolute 0.01 K/mm3 (0.00-0.031); Immature Granulocyte Percent A 0.3 % (0-0.5); Lymphocytes Absolute Auto 0.71 K/mm3 (0.9-3.2); Lymphocytes Percent Auto 24.1 % (18.3-44.2); Mean Corpuscular HGB Conc 32.8 g/dl (32-36); Mean Corpuscular Hemoglobin 30.2 pg (26-34); Mean Corpuscular Volume 92.1 fl (80-100); Mean Platelet Volume 9.4 fl (7.4-10.4); Monocytes Absolute Auto 0.4 K/mm3 (0.1-0.6); Monocytes Percent Auto 12.5 % (2.6-8.5); Neutrophils Absolute Auto 1.7 K/mm3 (1.3-6.7); Platelet Count Result 173 k/mm3 (150-375); Red Blood Count 2.91 M/mm3 (4.6-6.20); Red Cell Distribution Width 13.1 % (11.5-14.5)
[2023-10-05 06:00] LABS: Alanine Aminotransferase 16 U/L (6-50); Albumin Level 3.2 g/dL (3.5-5.1); Alkaline Phosphatase 60 U/L (38-126); Anion Gap 7 mmol/L (8-16); Aspartate Amino Transferase 23 U/L (17-59); Bilirubin,Total 0.3 mg/dL (0.2-1.3); Blood Urea Nitrogen 9 mg/dL (9-20); Calcium 8.1 mg/dL (8.4-10.2); Carbon Dioxide 25 mmol/L (22-30); Chloride 92 mmol/L (98-107); Estimated CRCL calculation 78 ml/min; Estimated Glomerular Filt Rate > 60; Glucose 72 mg/dL (65-110); Magnesium 1.8 mg/dL (1.6-2.3); Phosphorus 3.2 mg/dL (2.5-4.5); Potassium 4.2 mmol/L (3.4-5.0); Sodium 124 mmol/L (137-145)
[2023-10-05 06:32] LABS: Cortisol Random 0.57 ug/dL
[2023-10-05] MEDS: LEVOTHYROXINE SODIUM 75 MCG TABLET PO (07:01)
[2023-10-05 07:05] LABS: Thyroid Stimulating Hormone Reflex 0.414 uIU/mL (0.465-4.68)
[2023-10-05 08:19] LABS: Glucose Point of Care 66 mg/dl (65-105)
[2023-10-05] MEDS: ENOXAPARIN 40 MG/0.4 ML SYRINGE SUB-Q (08:21)
[2023-10-05] MEDS: PANTOPRAZOLE 40 MG TABLET PO ×2 (08:25→20:41)
[2023-10-05] MEDS: predniSONE 5 MG TABLET PO (08:27)
[2023-10-05] MEDS: THERAPEUTIC MULTIVITAMINS/MINERALS TAB (*BKC) 1 TABLET PO (08:27)
[2023-10-05] MEDS: lisinopriL 20 MG TABLET 40 MG PO (08:28)
[2023-10-05] MEDS: allopurinoL 100 MG TABLET PO (08:28)
[2023-10-05 09:08] LABS: Free T4 Free Thyroxine Reflex 1.07 ng/dL (0.78-2.19)
[2023-10-05 09:11] LABS: Glucose Point of Care 83 mg/dl (65-105)
--- NOTE | 2023-10-05 10:01 | PM.CNNEP ---
Assessment and Plan Assessment and plan (1) Hyponatremia: Code(s): E87.1 - Hypo-osmolality and hyponatremia Status: Acute Assessment and Plan: noted/became an issue with last hospitalization (late August 2023) was in normal range on that admission treated with oral salt tablets with some improvement however, does not appear he was discharged on oral salt tabs appears asymptomatic at this time will proceed with further work-up - check TSH, cortisol, SPEP, UPEP, and serum/urine osmolality restart salt tablets follow trend of repeat sodiums (2) Septic arthritis of knee, left: Qualifiers: Septic arthritis organism: staphylococcal Qualified Code(s): M00.062 - Staphylococcal arthritis, left knee Code(s): M00.9 - Pyogenic arthritis, unspecified Status: Acute Assessment and Plan: as noted by last hospitalization a month ago on antibiotic therapy follows with Orthopedic Surgery as an outpatient (3) Hypertension: Qualifiers: Hypertension type: essential hypertension Qualified Code(s): I10 - Essential (primary) hypertension Code(s): I10 - Essential (primary) hypertension Status: Chronic Assessment and Plan: reasonable control at this time follow trend of hemodynamics (4) Type 2 diabetes mellitus: Qualifiers: Diabetes mellitus complication status: without complication Diabetes mellitus detention insulin use: without superintendent 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 Thank you for allowing me to participate in care this patient. History of Present Illness Reason for Consult Consult date: 10/05/23 Reason for consult: hyponatremia Chief Complaint Chief complaint: Hyponitremia History of Present Illness Narrative: The patient is a 68-year-old male with a past medical history as outlined below who presented to [facility] Emergency Room due to abnormal labs. The patient was recently hospitalized here at [facility] for treatment of left knee septic bursitis/arthritis. During that hospital stay, he underwent arthroscopy/debridement/synovectomy by Orthopedic surgery for treatment of this condition along with IV antibiotic therapy. He had a PICC line placed and was discharged to continue IV antibiotic therapy and apparently was to have follow-up with [facility] Infectious Disease. As part of his ongoing IV antibiotic therapy home Health has been doing routine blood tests and apparently he was found to be hyponatremic with a sodium of 120. do this laboratory abnormality, he was instructed to come to the ER for further assessment. Workup and evaluation emergency room demonstrated the patient be hemodynamically stable and in no apparent distress. Repeat labs were done which confirmed his hyponatremia. His only other complaint at that time was some mild discomfort in his left knee as a continues to have some on/ off swelling. He has no other acute symptoms voiced. on further review his records, towards the latter part of his hospitalization in August, he did have issues with hyponatremia but they had improved by the time of discharge. Given this electrolyte abnormality, he was admitted the hospital for further evaluation and therapy. Renal consultation was requested due to his hyponatremia. As mentioned, from review his records, during the latter part of his hospitalization he developed hyponatremia. The etiology of this is not clear but he was treated with salt tablets with slow and steady improvement in his sodium level up to 127 millimoles per L by the time of discharge. However, on di
[2023-10-05 10:02] LABS: Total Triiodothyronine (T3) 0.69 NG/ML (0.97-1.69)
[2023-10-05 10:12] LABS: MRSA (PCR) NOT DETECTED (NOT DETECTE)
[2023-10-05] MEDS: cefTRIAXone 2 GM/NS 100 ML 2 GM/100 ML BAG IVPB (10:39)
[2023-10-05] MEDS: SODIUM CHLORIDE 500 MG TABLET PO (11:51)
[2023-10-05 12:01] LABS: Glucose Point of Care 79 mg/dl (65-105)
[2023-10-05] MEDS: CENTRAL LINE FLUSH 10 ML IV PUSH ×2 (13:23→20:42)
--- NOTE | 2023-10-05 13:41 | P.PNIM_ITS ---
Progress Note: A&P Assessment and Plan (1) Hyponatremia: Code(s): E87.1 - Hypo-osmolality and hyponatremia Status: Acute Assessment and Plan: * Sodium 120 on admission, has ranged from 130-135 * Was supplemented with oral sodium while inpatient in August of 2023. * Nephrology consulted, awaiting recommendations. * NS infusion at 100 mils per hour. No current neuro deficits. * Trend electrolytes daily. * FENa 0.6 (2) Septic arthritis of knee, left: Qualifiers: Septic arthritis organism: staphylococcal Qualified Code(s): M00.062 - Staphylococcal arthritis, left knee Code(s): M00.9 - Pyogenic arthritis, unspecified Status: Acute Assessment and Plan: * Ongoing IV antibiotics through right upper extremity PICC line - ceftriaxone 2 g once daily. * Recent orthopedic visit on 10/02/2023. Knee aspirated with 50 cc of bloody drainage, non-purulent. Some relief with aspiration. * Knee continues to have some swelling, will order cold therapy q.6 hours. * P.r.n. pain medications * Monitor WBC (3) Hypertension: Qualifiers: Hypertension type: essential hypertension Qualified Code(s): I10 - Essential (primary) hypertension Code(s): I10 - Essential (primary) hypertension Status: Acute Assessment and Plan: Will continue home lisinopril 40 mg p.o. daily. Chronic, stable. Continue monitor. (4) Type 2 diabetes mellitus: Qualifiers: Diabetes mellitus complication status: without complication Diabetes mellitus cutter grinder insulin use: without cutter grinder use Qualified Code(s): E11.9 - Type 2 diabetes mellitus without complications Code(s): E11.9 - Type 2 diabetes mellitus without complications Status: Acute Assessment and Plan: * Hypoglycemia protocol * POC blood glucose ACHS * home medication resumed/held - continue sitagliptin * correct regimen ordered - low dose TIDWM and HS * A1C 5.4% in April of 2023 (5) Hypothyroidism (acquired): Code(s): E03.9 - Hypothyroidism, unspecified Status: Acute Assessment and Plan: Continue home levothyroxine 75 mcg p.o. daily. Last TSH 0.210 on 04/2923. TSH with reflex ordered. (6) Hypopituitarism: Code(s): E23.0 - Hypopituitarism Status: Acute Assessment and Plan: S/p transsphenoidal pituitary resection in 2017. Continue prednisone 5 mg p.o. daily. Plan Subjective Date/time seen: 10/05/23 13:41 Interval history: patient states that he was getting lab work done when they found his sodium to be 120. He was not having any symptoms of the time. He has struggled on and off with sodium issues in the past. At 1 point he did have seizures due to low sodium. Does have a history of hypopituitarism. He denies any nausea, vomiting, visual changes, dizziness, lightheadedness, chest pain or shortness of breath. Will continue to monitor sodium closely. Fluids continued. Exam Narrative: GENERAL: Comfortable, no acute distress HENMT: moist mucous membranes EYES: EOM intact b/l NECK: no lymphadenopathy RESPIRATORY: clear to auscultation CARDIO: RRR GI: soft, nontender, bowel sounds present SKIN: no rashes EXTREMITIES: no edema, redness or tenderness Objective Data Vital Signs Vital Signs: Vital Signs - 24 hr 10/04/23 17:18 10/04/23 18:01 10/04/23 18:03 Temperature 97.8 F
--- NOTE | 2023-10-05 13:41 | PM.IMPN ---
Progress Note: A&P Assessment and Plan (1) Hyponatremia: Code(s): E87.1 - Hypo-osmolality and hyponatremia Status: Acute Assessment and Plan: Sodium 120 on admission, has ranged from 130-135 Was supplemented with oral sodium while inpatient in August of 2023. Nephrology consulted, awaiting recommendations. NS infusion at 100 mils per hour. No current neuro deficits. Trend electrolytes daily. FENa 0.6 (2) Septic arthritis of knee, left: Qualifiers: Septic arthritis organism: staphylococcal Qualified Code(s): M00.062 - Staphylococcal arthritis, left knee Code(s): M00.9 - Pyogenic arthritis, unspecified Status: Acute Assessment and Plan: Ongoing IV antibiotics through right upper extremity PICC line - ceftriaxone 2 g once daily. Recent orthopedic visit on 10/02/2023. Knee aspirated with 50 cc of bloody drainage, non-purulent. Some relief with aspiration. Knee continues to have some swelling, will order cold therapy q.6 hours. P.r.n. pain medications Monitor WBC (3) Hypertension: Qualifiers: Hypertension type: essential hypertension Qualified Code(s): I10 - Essential (primary) hypertension Code(s): I10 - Essential (primary) hypertension Status: Acute Assessment and Plan: Will continue home lisinopril 40 mg p.o. daily. Chronic, stable. Continue monitor. (4) Type 2 diabetes mellitus: Qualifiers: Diabetes mellitus complication status: without complication Diabetes mellitus intermediate insulin use: without intermediate use Qualified Code(s): E11.9 - Type 2 diabetes mellitus without complications Code(s): E11.9 - Type 2 diabetes mellitus without complications Status: Acute Assessment and Plan: Hypoglycemia protocol POC blood glucose ACHS home medication resumed/held - continue sitagliptin correct regimen ordered - low dose TIDWM and HS A1C 5.4% in April of 2023 (5) Hypothyroidism (acquired): Code(s): E03.9 - Hypothyroidism, unspecified Status: Acute Assessment and Plan: Continue home levothyroxine 75 mcg p.o. daily. Last TSH 0.210 on 04/2923. TSH with reflex ordered. (6) Hypopituitarism: Code(s): E23.0 - Hypopituitarism Status: Acute Assessment and Plan: S/p transsphenoidal pituitary resection in 2016. Continue prednisone 5 mg p.o. daily. Plan Subjective Date/time seen: 10/05/23 13:41 Interval history: patient states that he was getting lab work done when they found his sodium to be 120. He was not having any symptoms of the time. He has struggled on and off with sodium issues in the past. At 1 point he did have seizures due to low sodium. Does have a history of hypopituitarism. He denies any nausea, vomiting, visual changes, dizziness, lightheadedness, chest pain or shortness of breath. Will continue to monitor sodium closely. Fluids continued. Exam Narrative: GENERAL: Comfortable, no acute distress HENMT: moist mucous membranes EYES: EOM intact b/l NECK: no lymphadenopathy RESPIRATORY: clear to auscultation CARDIO: RRR GI: soft, nontender, bowel sounds present SKIN: no rashes EXTREMITIES: no edema, redness or tenderness Objective Data Vital Signs Vital Signs: Vital Signs - 24 hr 10/04/23 17:18 10/04/23 18:01 10/04/23 18:03 Temperature 97.8 F Pulse Rate 73 78 74 Respiratory Rate 16 14 Blood Pressure 130/67 133/66 133/66 Pulse Oximetry 100 98 100 Oxygen Delivery Room Air 10/04/23 18:21 10/04/23 18:33 10/04/23 18:45 Temperature Pulse Rate 67 63 63 Respiratory Rate 16 18 12 Blood Pressure 113/67 Pulse Oximetry 100 98 99 Oxygen Delivery 10/04/23 18:46 10/04/23 19:00 10/04/23 19:01 Temperature Pulse Rate 60 61 62 Respiratory Rate 12 13 12 Blood Pressure 107/63 Pulse Oximetry 98 99 99 Oxygen Delivery 10/04/23 19:20 10/04/23 20:49 10/04/23 21:05 Te
[2023-10-05 14:55] LABS: Sodium 122 mmol/L (137-145)
[2023-10-05] MEDS: SODIUM CHLORIDE 1 GM TABLET PO (16:27)
[2023-10-05 16:41] LABS: Glucose Point of Care 117 mg/dl (65-105)
[2023-10-05] MEDS: traZODone HCL 50 MG TABLET 100 MG PO (20:41)
[2023-10-05 21:11] LABS: Sodium 123 mmol/L (137-145)
[2023-10-05 21:43] LABS: Glucose Point of Care 107 mg/dl (65-105)
[2023-10-06] VITALS (11 sets, daily range): BP systolic 102–131; BP diastolic 56–65; PULSE 43–59; RESP 18; TEMP 36.6–36.7; O2SAT 98–100
[2023-10-06 02:41] LABS: Sodium 123 mmol/L (137-145)
[2023-10-06] MEDS: TIZANIDINE HCL 4 MG TABLET PO (02:41)
[2023-10-06] MEDS: LEVOTHYROXINE SODIUM 75 MCG TABLET PO (06:18)
[2023-10-06] MEDS: CENTRAL LINE FLUSH 10 ML IV PUSH ×3 (06:18→21:49)
[2023-10-06 06:52] LABS: Hematocrit 26.3 % (42.0-52.0); Hemoglobin 8.9 g/dL (14.0-18.0); Mean Corpuscular HGB Conc 33.8 g/dl (32-36); Mean Corpuscular Hemoglobin 30.8 pg (26-34); Mean Platelet Volume 9.6 fl (7.4-10.4); Platelet Count Result 162 k/mm3 (150-375); Red Blood Count 2.89 M/mm3 (4.6-6.20); White Blood Count 3.3 K/mm3 (4.5-10.0)
[2023-10-06 07:17] LABS: Alanine Aminotransferase 16 U/L (6-50); Albumin Level 3.3 g/dL (3.5-5.1); Alkaline Phosphatase 58 U/L (38-126); Anion Gap 4 mmol/L (8-16); Aspartate Amino Transferase 27 U/L (17-59); Bilirubin,Total 0.3 mg/dL (0.2-1.3); Blood Urea Nitrogen 11 mg/dL (9-20); Calcium 8.2 mg/dL (8.4-10.2); Carbon Dioxide 28 mmol/L (22-30); Chloride 93 mmol/L (98-107); Estimated CRCL calculation 78 ml/min; Estimated Glomerular Filt Rate > 60; Glucose 69 mg/dL (65-110); Potassium 4.4 mmol/L (3.4-5.0); Sodium 125 mmol/L (137-145)
[2023-10-06 07:30] LABS: Glucose Point of Care 72 mg/dl (65-105)
[2023-10-06 07:45] LABS: Cortisol Random 0.53 ug/dL
[2023-10-06] MEDS: lisinopriL 20 MG TABLET 40 MG PO (08:18)
[2023-10-06] MEDS: predniSONE 5 MG TABLET PO (08:22)
[2023-10-06] MEDS: SODIUM CHLORIDE 1 GM TABLET PO ×3 (08:22→21:49)
[2023-10-06] MEDS: PANTOPRAZOLE 40 MG TABLET PO ×2 (08:22→21:48)
[2023-10-06] MEDS: allopurinoL 100 MG TABLET PO (08:22)
[2023-10-06] MEDS: ENOXAPARIN 40 MG/0.4 ML SYRINGE SUB-Q (08:22)
[2023-10-06] MEDS: THERAPEUTIC MULTIVITAMINS/MINERALS TAB (*BKC) 1 TABLET PO (08:22)
[2023-10-06] MEDS: cefTRIAXone 2 GM/NS 100 ML 2 GM/100 ML BAG IVPB (08:25)
--- NOTE | 2023-10-06 10:48 | PM.PNNEP ---
Progress Note: A&P Assessment and Plan (1) Hyponatremia: Code(s): E87.1 - Hypo-osmolality and hyponatremia Status: Acute Assessment and Plan: improvement noted noted/became an issue with last hospitalization (late August 2023) was in normal range on that admission treated with oral salt tablets with some improvement however, does not appear he was discharged on oral salt tabs appears asymptomatic at this time evaluation to date: TSH low but FT4 okay cortisol - check cosyntropin stim test SPEP/UPEP and serum/urine osmo penidng on salt tabs and fluid restriction follow trend of repeat sodiums (2) Septic arthritis of knee, left: Qualifiers: Septic arthritis organism: staphylococcal Qualified Code(s): M00.062 - Staphylococcal arthritis, left knee Code(s): M00.9 - Pyogenic arthritis, unspecified Status: Acute Assessment and Plan: as noted by last hospitalization a month ago on antibiotic therapy follows with Orthopedic Surgery as an outpatient (3) Hypertension: Qualifiers: Hypertension type: essential hypertension Qualified Code(s): I10 - Essential (primary) hypertension Code(s): I10 - Essential (primary) hypertension Status: Chronic Assessment and Plan: reasonable control at this time follow trend of hemodynamics (4) Type 2 diabetes mellitus: Qualifiers: Diabetes mellitus complication status: without complication Diabetes mellitus long-term insulin use: without intermediate designer use Qualified Code(s): E11.9 - Type 2 diabetes mellitus without complications Code(s): E11.9 - Type 2 diabetes mellitus without complications Status: Chronic Assessment and Plan: follow accu-cheks glycemic control per hospitalists Will continue to follow. Subjective Date/time seen: 10/06/23 10:48 Interval history: Follow-up for hyponatremia. Sodium still low but better with combination of fluid restriction and sodium tablets; no apparent distress voiced at the time of my visit; no issues/events overnight or earlier this morning; overall, feels reasonably well. Exam Narrative: General: WD/WN male in NAD Heart: normal S1 and S2; no rub Lungs: clear to auscultation Abdomen: soft, nontender, nondistended, positive bowel sounds Extremities: no cyanosis or clubbing; no edema; left knee swelling Skin: warm and dry Objective Data Vital Signs Vital Signs: Vital Signs Temp Pulse Resp BP Pulse Ox O2 Del Method 10/06/23 10:00 59 L 01/20/24 08:00 56 L 10/06/23 08:20 56 L 120/56 L 10/06/23 04:00 43 L 10/06/23 00:00 52 L 10/05/23 20:00 53 L 10/06/23 06:00 97.8 F 45 L 18 102/58 L 98 10/05/23 20:00 98 Room Air 10/05/23 21:59 98.3 F 53 L 18 124/64 98 Intake/Output Intake/Output: Intake & Output 10/03/23 10/04/23 10/05/23 10/06/23 23:59 23:59 23:59 23:59 Intake Total 1480 1750 Output Total 1275 800 Balance 205 950 Meds/Results Medications: Active Medications Generic Name Dose Route Start Last Admin Trade Name Freq PRN Reason Stop Dose Admin Hydrocodone Bitart/Acetaminophen 1 tab 10/04/23 22:18 Hydrocodone/Acetaminophen (*Crx) 7.5-325 Mg Tablet PO Q4H PRN Pain Rated 7-10 Albuterol 2 puff 10/04/23 22:18 Albuterol Sulfate (*Sp) Aerosol 1 Puff INHALATION Q4H PRN shortness of breath or wheezing Allopurinol 100 mg 10/05/23 09:00 10/06/23 08:22 Allopurinol 100 Mg Tablet PO 100 mg DAILY GOLDY Administration Dextrose 12.5 gm 10/04/23 22:22 Dextrose 50% 25 Gm/50 Ml Syringe IV PUSH PRN PRN Hypoglycemia Protocol Enoxaparin Sodium 40 mg 10/05/23 09:00 10/06/23 08:22 Enoxaparin 40 Mg/0.4 Ml Syringe SUB-Q 40 mg DAILY GOLDY Administration Fluticasone Propionate 1 spray 10/04/23 22:18 Fluticasone Propionate 0.05% Na Spr 16 Gm Btl (*Bk
--- NOTE | 2023-10-06 10:48 | P.PNNP_ITS ---
Progress Note: A&P Assessment and Plan (1) Hyponatremia: Code(s): E87.1 - Hypo-osmolality and hyponatremia Status: Acute Assessment and Plan: * improvement noted * noted/became an issue with last hospitalization (late August 2023) * was in normal range on that admission * treated with oral salt tablets with some improvement * however, does not appear he was discharged on oral salt tabs * appears asymptomatic at this time * evaluation to date: * TSH low but FT4 okay * cortisol - check cosyntropin stim test * SPEP/UPEP and serum/urine osmo penidng * on salt tabs and fluid restriction * follow trend of repeat sodiums (2) Septic arthritis of knee, left: Qualifiers: Septic arthritis organism: staphylococcal Qualified Code(s): M00.062 - Staphylococcal arthritis, left knee Code(s): M00.9 - Pyogenic arthritis, unspecified Status: Acute Assessment and Plan: * as noted by last hospitalization a month ago * on antibiotic therapy * follows with Orthopedic Surgery as an outpatient (3) Hypertension: Qualifiers: Hypertension type: essential hypertension Qualified Code(s): I10 - Essential (primary) hypertension Code(s): I10 - Essential (primary) hypertension Status: Chronic Assessment and Plan: * reasonable control at this time * follow trend of hemodynamics (4) Type 2 diabetes mellitus: Qualifiers: Diabetes mellitus complication status: without complication Diabetes mellitus longterm insulin use: without longterm use Qualified Code(s): E11.9 - Type 2 diabetes mellitus without complications Code(s): E11.9 - Type 2 diabetes mellitus without complications Status: Chronic Assessment and Plan: * follow accu-cheks * glycemic control per hospitalists Will continue to follow. Subjective Date/time seen: 10/06/23 10:48 Interval history: Follow-up for hyponatremia. Sodium still low but better with combination of fluid restriction and sodium tablets; no apparent distress voiced at the time of my visit; no issues/events overnight or earlier this morning; overall, feels reasonably well. Exam Narrative: General: WD/WN male in NAD Heart: normal S1 and S2; no rub Lungs: clear to auscultation Abdomen: soft, nontender, nondistended, positive bowel sounds Extremities: no cyanosis or clubbing; no edema; left knee swelling Skin: warm and dry Objective Data Vital Signs Vital Signs: Vital Signs Temp Pulse Resp BP Pulse Ox O2 Del Method 10/06/23 10:00 59 L 10/06/23 08:00 56 L 10/06/23 08:20 56 L 120/56 L 10/06/23 04:00 43 L 10/06/23 00:00 52 L 10/05/23 20:00 53 L 10/06/23 06:00 97.8 F 45 L 18 102/58 L 98 10/05/23 20:00 98 Room Air 10/05/23 21:59 98.3 F 53 L 18 124/64 98 Intake/Output Intake/Output: Intake & Output 10/03/23 10/04/23 10/05/23 10/06/23 23:59 23:59 23:59 23:59 Intake Total 1480 1750 Output Total 1275 800 Balance 205 950 Meds/Results Medications: Active Medications Generic Name Dose Route Start Last Admin Trade Name Freq PRN Reason Stop Dose Admin
[2023-10-06 11:47] LABS: Glucose Point of Care 97 mg/dl (65-105)
[2023-10-06 12:08] LABS: Sodium 124 mmol/L (137-145)
--- NOTE | 2023-10-06 12:11 | P.PNIM_ITS ---
Progress Note: A&P Assessment and Plan (1) Hyponatremia: Code(s): E87.1 - Hypo-osmolality and hyponatremia Status: Acute Assessment and Plan: * Sodium 120 on admission, has ranged from 130-135. * Was supplemented with oral sodium while inpatient in August of 2023. * Nephrology consulted. * Pt on fluid restriction and salt tabs. * Trend electrolytes daily. * FENa 0.6 (2) Septic arthritis of knee, left: Qualifiers: Septic arthritis organism: staphylococcal Qualified Code(s): M00.062 - Staphylococcal arthritis, left knee Code(s): M00.9 - Pyogenic arthritis, unspecified Status: Acute Assessment and Plan: * Ongoing IV antibiotics through right upper extremity PICC line - ceftriaxone 2 g once daily. * Recent orthopedic visit on 10/02/2023. Knee aspirated with 50 cc of bloody drainage, non-purulent. Some relief with aspiration. * Knee continues to have some swelling, will order cold therapy q.6 hours. * P.r.n. pain medications * Monitor WBC (3) Hypertension: Qualifiers: Hypertension type: essential hypertension Qualified Code(s): I10 - Essential (primary) hypertension Code(s): I10 - Essential (primary) hypertension Status: Chronic Assessment and Plan: Will continue home lisinopril 40 mg p.o. daily. Chronic, stable. Continue monitor. 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 insulin use: without senior care use Diabetes mellitus complication status: without complication Qualified Code(s): E11.9 - Type 2 diabetes mellitus without complications Code(s): E11.9 - Type 2 diabetes mellitus without complications Status: Chronic Assessment and Plan: * Hypoglycemia protocol * POC blood glucose ACHS * home medication resumed/held - continue sitagliptin * correct regimen ordered - low dose TIDWM and HS * A1C 5.4% in April of 2023 (5) Hypothyroidism (acquired): Code(s): E03.9 - Hypothyroidism, unspecified Status: Acute Assessment and Plan: Continue home levothyroxine 75 mcg p.o. daily. Last TSH 0.210 on 04/2923. TSH with reflex ordered. (6) Hypopituitarism: Code(s): E23.0 - Hypopituitarism Status: Acute Assessment and Plan: S/p transsphenoidal pituitary resection in 2017. Continue prednisone 5 mg p.o. daily. Plan Subjective Date/time seen: 10/06/23 12:11 Interval history: Patient doing well today. He has no complaints at this time. He any lighthea dedness, dizziness, visual changes. Patient's sodium is still low and will continue to monitor this. Exam Narrative: GENERAL: Comfortable, no acute distress HENMT: moist mucous membranes EYES: EOM intact b/l NECK: no lymphadenopathy RESPIRATORY: clear to auscultation CARDIO: RRR GI: soft, nontender, bowel sounds present SKIN: no rashes EXTREMITIES: left knee edema Objective Data Vital Signs Vital Signs: Vital Signs - 24 hr 10/05/23 14:00 10/05/23 16:00 10/05/23 21:59 Temperature 97.0 F L 98.3 F Pulse Rate 57 L 56 L 53 L Respiratory Rate 16 18 Blood Pressure 118/65 124/64 Pulse Oximetry 99 98 Oxygen Delivery 10/05/23 20:00 10/06/23 06:00 10/05/23 20:00 Temperature 97.8 F Pulse Rate 45 L 53 L
--- NOTE | 2023-10-06 12:11 | PM.IMPN ---
Progress Note: A&P Assessment and Plan (1) Hyponatremia: Code(s): E87.1 - Hypo-osmolality and hyponatremia Status: Acute Assessment and Plan: Sodium 120 on admission, has ranged from 130-135. Was supplemented with oral sodium while inpatient in August of 2023. Nephrology consulted. Pt on fluid restriction and salt tabs. Trend electrolytes daily. FENa 0.6 (2) Septic arthritis of knee, left: Qualifiers: Septic arthritis organism: staphylococcal Qualified Code(s): M00.062 - Staphylococcal arthritis, left knee Code(s): M00.9 - Pyogenic arthritis, unspecified Status: Acute Assessment and Plan: Ongoing IV antibiotics through right upper extremity PICC line - ceftriaxone 2 g once daily. Recent orthopedic visit on 10/02/2023. Knee aspirated with 50 cc of bloody drainage, non-purulent. Some relief with aspiration. Knee continues to have some swelling, will order cold therapy q.6 hours. P.r.n. pain medications Monitor WBC (3) Hypertension: Qualifiers: Hypertension type: essential hypertension Qualified Code(s): I10 - Essential (primary) hypertension Code(s): I10 - Essential (primary) hypertension Status: Chronic Assessment and Plan: Will continue home lisinopril 40 mg p.o. daily. Chronic, stable. Continue monitor. 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 insulin use: without local company intermodal truck driver use Diabetes mellitus complication status: without complication Qualified Code(s): E11.9 - Type 2 diabetes mellitus without complications Code(s): E11.9 - Type 2 diabetes mellitus without complications Status: Chronic Assessment and Plan: Hypoglycemia protocol POC blood glucose ACHS home medication resumed/held - continue sitagliptin correct regimen ordered - low dose TIDWM and HS A1C 5.4% in April of 2023 (5) Hypothyroidism (acquired): Code(s): E03.9 - Hypothyroidism, unspecified Status: Acute Assessment and Plan: Continue home levothyroxine 75 mcg p.o. daily. Last TSH 0.210 on 04/2923. TSH with reflex ordered. (6) Hypopituitarism: Code(s): E23.0 - Hypopituitarism Status: Acute Assessment and Plan: S/p transsphenoidal pituitary resection in 2017. Continue prednisone 5 mg p.o. daily. Plan Subjective Date/time seen: 10/06/23 12:11 Interval history: Patient doing well today. He has no complaints at this time. He any lightheadedness, dizziness, visual changes. Patient's sodium is still low and will continue to monitor this. Exam Narrative: GENERAL: Comfortable, no acute distress HENMT: moist mucous membranes EYES: EOM intact b/l NECK: no lymphadenopathy RESPIRATORY: clear to auscultation CARDIO: RRR GI: soft, nontender, bowel sounds present SKIN: no rashes EXTREMITIES: left knee edema Objective Data Vital Signs Vital Signs: Vital Signs - 24 hr 10/05/23 14:00 10/05/23 16:00 10/05/23 21:59 Temperature 97.0 F L 98.3 F Pulse Rate 57 L 56 L 53 L Respiratory Rate 16 18 Blood Pressure 118/65 124/64 Pulse Oximetry 99 98 Oxygen Delivery 10/05/23 20:00 10/06/23 06:00 10/05/23 20:00 Temperature 97.8 F Pulse Rate 45 L 53 L Respiratory Rate 18 Blood Pressure 102/58 L Pulse Oximetry 98 98 Oxygen Delivery Room Air 10/06/23 00:00 10/06/23 04:00 10/06/23 08:20 Temperature Pulse Rate 52 L 43 L 56 L Respiratory Rate Blood Pressure 120/56 L Pulse Oximetry Oxygen Delivery 10/06/23 08:00 Temperature Pulse Rate 56 L Respiratory Rate Blood Pressure Pulse Oximetry Oxygen Delivery Intake/Output Intake/Output: Intake & Output 10/03/23 10/04/23 10/05/23 10/06/23 23:59 23:59 23:59 23:59 Intake Total 1480 730 Output Total 1275 800 Balance 205 -70 Meds/Results Medications: Active Medications Generic Name Dose Route S
[2023-10-06 16:55] LABS: Glucose Point of Care 132 mg/dl (65-105)
[2023-10-06 20:33] LABS: Glucose Point of Care 114 mg/dl (65-105)
[2023-10-06] MEDS: traZODone HCL 50 MG TABLET 100 MG PO (21:48)
[2023-10-07] VITALS: PULSE 51
[2023-10-07 04:00] VITALS: PULSE 40
[2023-10-07] MEDS: LEVOTHYROXINE SODIUM 75 MCG TABLET PO (05:30)
[2023-10-07 05:39] LABS: Hematocrit 27.1 % (42.0-52.0); Mean Corpuscular HGB Conc 33.2 g/dl (32-36); Mean Corpuscular Hemoglobin 30.5 pg (26-34); Mean Corpuscular Volume 91.9 fl (80-100); Mean Platelet Volume 9.3 fl (7.4-10.4); Platelet Count Result 156 k/mm3 (150-375); Red Blood Count 2.95 M/mm3 (4.6-6.20); Red Cell Distribution Width 13.1 % (11.5-14.5); White Blood Count 3.7 K/mm3 (4.5-10.0)
[2023-10-07 05:50] LABS: Alanine Aminotransferase 15 U/L (6-50); Albumin Level 3.5 g/dL (3.5-5.1); Alkaline Phosphatase 61 U/L (38-126); Anion Gap 4 mmol/L (8-16); Aspartate Amino Transferase 23 U/L (17-59); Bilirubin,Total 0.4 mg/dL (0.2-1.3); Blood Urea Nitrogen 12 mg/dL (9-20); Calcium 8.3 mg/dL (8.4-10.2); Carbon Dioxide 28 mmol/L (22-30); Chloride 92 mmol/L (98-107); Estimated CRCL calculation 78 ml/min; Estimated Glomerular Filt Rate > 60; Glucose 70 mg/dL (65-110); Potassium 4.4 mmol/L (3.4-5.0); Sodium 124 mmol/L (137-145)
[2023-10-07 06:00] VITALS: BP 135/68; PULSE 51; RESP 20; TEMP 36.6; O2SAT 97
[2023-10-07] MEDS: CENTRAL LINE FLUSH 10 ML IV PUSH (07:21)
[2023-10-07 07:31] LABS: Glucose Point of Care 70 mg/dl (65-105)
[2023-10-07 08:00] VITALS: PULSE 53
[2023-10-07] MEDS: ENOXAPARIN 40 MG/0.4 ML SYRINGE SUB-Q (08:00)
[2023-10-07] MEDS: PANTOPRAZOLE 40 MG TABLET PO (08:01)
[2023-10-07] MEDS: lisinopriL 20 MG TABLET 40 MG PO (08:02)
[2023-10-07] MEDS: THERAPEUTIC MULTIVITAMINS/MINERALS TAB (*BKC) 1 TABLET PO (08:02)
[2023-10-07] MEDS: SODIUM CHLORIDE 1 GM TABLET PO (08:02)
[2023-10-07] MEDS: allopurinoL 100 MG TABLET PO (08:02)
[2023-10-07] MEDS: predniSONE 5 MG TABLET PO (08:04)
[2023-10-07] MEDS: cefTRIAXone 2 GM/NS 100 ML 2 GM/100 ML BAG IVPB (08:05)
[2023-10-07] MEDS: FUROSEMIDE 10 MG TABLET PO (08:57)
[2023-10-07 09:41] VITALS: O2SAT 96
--- NOTE | 2023-10-07 10:01 | PM.PNNEP ---
Progress Note: A&P Assessment and Plan (1) Hyponatremia: Code(s): E87.1 - Hypo-osmolality and hyponatremia Status: Acute Assessment and Plan: improvement noted noted/became an issue with last hospitalization (late August 2023) was in normal range on that admission treated with oral salt tablets with some improvement however, does not appear he was discharged on oral salt tabs appears asymptomatic at this time evaluation to date: TSH low but FT4 okay cortisol - consider cosyntropin stim test (but already on steroids) SPEP/UPEP and serum/urine osmo pending on salt tabs and fluid restriction follow trend of repeat sodiums (2) Septic arthritis of knee, left: Qualifiers: Septic arthritis organism: staphylococcal Qualified Code(s): M00.062 - Staphylococcal arthritis, left knee Code(s): M00.9 - Pyogenic arthritis, unspecified Status: Acute Assessment and Plan: as noted by last hospitalization a month ago on antibiotic therapy follows with Orthopedic Surgery as an outpatient (3) Hypertension: Qualifiers: Hypertension type: essential hypertension Qualified Code(s): I10 - Essential (primary) hypertension Code(s): I10 - Essential (primary) hypertension Status: Chronic Assessment and Plan: reasonable control at this time follow trend of hemodynamics (4) Type 2 diabetes mellitus: Qualifiers: Diabetes mellitus assisted insulin use: without assisted use Diabetes mellitus complication status: without complication Qualified Code(s): E11.9 - Type 2 diabetes mellitus without complications Code(s): E11.9 - Type 2 diabetes mellitus without complications Status: Chronic Assessment and Plan: follow accu-cheks glycemic control per hospitalists Will continue to follow. Subjective Date/time seen: 10/07/23 10:01 Interval history: Follow up for acute hyponatremia (on chronic?). Continues to do well in general in spite of low sodium levels; sodium relatively stable (but better) by AM labs this AM; asymptomatic at this time asking about discharge. Exam Narrative: General: WD/WN male in NAD Heart: normal S1 and S2; no rub Lungs: clear to auscultation Abdomen: soft, nontender, nondistended, positive bowel sounds Extremities: no cyanosis or clubbing; no edema; left knee swelling Skin: warm and intact Objective Data Vital Signs Vital Signs: Vital Signs Temp Pulse Resp BP Pulse Ox O2 Del Method 10/07/23 09:41 96 Room Air 10/07/23 08:00 53 L 10/07/23 06:00 98 F 51 L 20 135/68 97 10/07/23 04:00 40 L 10/07/23 00:00 51 L 10/06/23 20:00 52 L 10/06/23 21:20 98.1 F 50 L 18 131/65 98 10/06/23 19:42 99 Room Air 10/06/23 16:00 51 L Intake/Output Intake/Output: Intake & Output 10/04/23 10/05/23 10/06/23 10/07/23 23:59 23:59 23:59 23:59 Intake Total 1480 1750 830 Output Total 1275 800 Balance 205 950 830 Meds/Results Medications: Active Medications Generic Name Dose Route Start Last Admin Trade Name Freq PRN Reason Stop Dose Admin Hydrocodone Bitart/Acetaminophen 1 tab 10/04/23 22:18 Hydrocodone/Acetaminophen (*Crx) 7.5-325 Mg Tablet PO Q4H PRN Pain Rated 7-10 Albuterol 2 puff 10/04/23 22:18 Albuterol Sulfate (*Sp) Aerosol 1 Puff INHALATION Q4H PRN shortness of breath or wheezing Allopurinol 100 mg 10/05/23 09:00 10/07/23 08:02 Allopurinol 100 Mg Tablet PO 100 mg DAILY GOLDY Administration Dextrose 12.5 gm 10/04/23 22:22 Dextrose 50% 25 Gm/50 Ml Syringe IV PUSH PRN PRN Hypoglycemia Protocol Enoxaparin Sodium 40 mg 10/05/23 09:00 10/07/23 08:00 Enoxaparin 40 Mg/0.4 Ml Syringe SUB-Q 40 mg DAILY GOLDY Administration Fluticasone Propionate 1 spray 10/04/23 22:18 Fluticasone Propionate 0.05% Na Spr 16 Gm Btl (*
--- NOTE | 2023-10-07 10:01 | P.PNNP_ITS ---
Progress Note: A&P Assessment and Plan (1) Hyponatremia: Code(s): E87.1 - Hypo-osmolality and hyponatremia Status: Acute Assessment and Plan: * improvement noted * noted/became an issue with last hospitalization (late August 2023) * was in normal range on that admission * treated with oral salt tablets with some improvement * however, does not appear he was discharged on oral salt tabs * appears asymptomatic at this time * evaluation to date: * TSH low but FT4 okay * cortisol - consider cosyntropin stim test (but already on steroids) * SPEP/UPEP and serum/urine osmo pending * on salt tabs and fluid restriction * follow trend of repeat sodiums (2) Septic arthritis of knee, left: Qualifiers: Septic arthritis organism: staphylococcal Qualified Code(s): M00.062 - Staphylococcal arthritis, left knee Code(s): M00.9 - Pyogenic arthritis, unspecified Status: Acute Assessment and Plan: * as noted by last hospitalization a month ago * on antibiotic therapy * follows with Orthopedic Surgery as an outpatient (3) Hypertension: Qualifiers: Hypertension type: essential hypertension Qualified Code(s): I10 - Essential (primary) hypertension Code(s): I10 - Essential (primary) hypertension Status: Chronic Assessment and Plan: * reasonable control at this time * follow trend of hemodynamics (4) Type 2 diabetes mellitus: Qualifiers: 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 Subjective Date/time seen: 10/07/23 10:01 Interval history: Follow up for acute hyponatremia (on chronic?). Continues to do well in general in spite of low sodium levels; sodium relatively stable (but better) by AM labs this AM; asymptomatic at this time asking about discharge. Exam Narrative: General: WD/WN male in NAD Heart: normal S1 and S2; no rub Lungs: clear to auscultation Abdomen: soft, nontender, nondistended, positive bowel sounds Extremities: no cyanosis or clubbing; no edema; left knee swelling Skin: warm and intact Objective Data Vital Signs Vital Signs: Vital Signs Temp Pulse Resp BP Pulse Ox O2 Del Method 10/07/23 09:41 96 Room Air 10/07/23 08:00 53 L 10/07/23 06:00 98 F 51 L 20 135/68 97 10/07/23 04:00 40 L 10/07/23 00:00 51 L 10/06/23 20:00 52 L 10/06/23 21:20 98.1 F 50 L 18 131/65 98 10/06/23 19:42 99 Room Air 10/06/23 16:00 51 L Intake/Output Intake/Output: Intake & Output 10/04/23 10/05/23 10/06/23 10/07/23 23:59 23:59 23:59 23:59 Intake Total 1480 1750 830 Output Total 1275 800 Balance 205 950 830 Meds/Results Medications: Active Medications Generic Name Dose Route Start Last Admin Trade Name Freq PRN Reason Stop Dose Admin
--- NOTE | 2023-10-07 11:31 | PM.DS ---
DS: Admitting Diagnosis Discharge Date 10/07/22 Admitting Diagnosis hyponatremia DS: Discharge Diagnosis Discharge Diagnosis (1) Hyponatremia: Code(s): E87.1 - Hypo-osmolality and hyponatremia Status: Acute (2) Septic arthritis of knee, left: Qualifiers: Septic arthritis organism: staphylococcal Qualified Code(s): M00.062 - Staphylococcal arthritis, left knee Code(s): M00.9 - Pyogenic arthritis, unspecified Status: Acute (3) Hypertension: Qualifiers: Hypertension type: essential hypertension Qualified Code(s): I10 - Essential (primary) hypertension Code(s): I10 - Essential (primary) hypertension Status: Chronic (4) Type 2 diabetes mellitus: Qualifiers: Diabetes mellitus alf insulin use: without director long term care use Diabetes mellitus complication status: without complication Qualified Code(s): E11.9 - Type 2 diabetes mellitus without complications Code(s): E11.9 - Type 2 diabetes mellitus without complications Status: Chronic (5) Hypothyroidism (acquired): Code(s): E03.9 - Hypothyroidism, unspecified Status: Acute (6) Hypopituitarism: Code(s): E23.0 - Hypopituitarism Status: Acute Plan DS: Summary Hospital Course Hospital Course: A 68-year-old male with a past medical history of 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 He was recently hospitalized in August for septic bursitis post left knee arthroscopy. He has been on ceftriaxone 2 g IV daily with home health and the help of his son. He had routine labs done due to current IV antibiotics and was found have a sodium of 120. He was told to call his PCP for this in his PCP told him to be seen in the hospital. Nephrology was consulted on the case and patient was started on sodium tabs and fluid restriction. Nephrology has treated patient for hyponatremia before the past. Patient's sodium improved to 124 and was stable there for 3 days. Had discussion with certified coatings inspector and due to patient being asymptomatic believes it is okay for patient to return home to continue his IV antibiotics as an outpatient and continue taking daily salt tabs. Will do repeat labs in 1 week with a follow-up with Nephrology. Patient is stable and medically clear for discharge at this time. Time Spent with Patient Time attestation: Total time spent providing and/or coordinating discharge services: Exam Narrative: GENERAL: Comfortable, no acute distress HENMT: moist mucous membranes EYES: EOM intact b/l NECK: no lymphadenopathy RESPIRATORY: clear to auscultation CARDIO: RRR GI: soft, nontender, bowel sounds present SKIN: no rashes EXTREMITIES: left knee edema DS: Data Data Completed and Pending Labs on day of discharge: Labs from last 24 hours 10/07/23 10/07/23 10/06/23 07:23 05:32 20:17 WBC 3.7 L RBC 2.95 L Hgb 9.0 L Hct 27.1 L MCV 91.9 MCH 30.5 MCHC 33.2 RDW 13.1 Plt Count 156 MPV 9.3 Sodium 124 L Potassium 4.4 Chloride 92 L Carbon Dioxide 28 Anion Gap 4 L BUN 12 Creatinine 0.80 Estim Creat Clear Calc 78 Estimated GFR > 60 Glucose 70 POC Capillary Glucose 70 114 H Calcium 8.3 L Total Bilirubin 0.4 AST 23 ALT 15 Alkaline Phosphatase 61 Total Protein 6.0 L Albumin 3.5 10/06/23 10/06/23 10/06/23 16:37 11:47 11:36 WBC RBC Hgb Hct MCV MCH MCHC RDW Plt Count MPV Sodium 124 L Potassium Chloride Carbon Dioxide Anion Gap BUN Creatinine Estim Creat Clear Calc Estimated GFR Glucose POC Capillary Glucose 132 H 97 Calcium Total Bilirubin AST ALT Alkaline Phosp
[2023-10-07 11:51] LABS: Glucose Point of Care 117 mg/dl (65-105)
[2023-10-07 12:00] VITALS: PULSE 79
[2023-10-07 13:43] LABS: Albumin 3.2 g/dL (3.8-4.8); Alpha 1 Globulin 0.3 g/dL (0.2-0.3); Alpha 2 Globulin 0.8 g/dL (0.5-0.9); Beta 1 Globulin 0.3 g/dL (0.4-0.6); Gamma Globulin 0.4 g/dL (0.8-1.7); Interpretation Consistent with; Protein, Total 5.3 g/dL (6.1-8.1)
[2023-10-08 20:05] LABS: Osmolality, Urine 406 mOsm/kg (50-1200)
[2023-10-08 23:43] LABS: Kappa\\Lambda Light Chains 1.62 (0.26-1.65); Lambda Light Chain 7.4 mg/L (5.7-26.3)
[2023-10-10 09:37] LABS: Creatinine, Random Urine 70 mg/dL (20-320)
== END 2023-10-07 14:30 | disposition home or self-care (01) | DRG 641 ==
LOC: ANHED 18:46 → ANH3MEDSUR 10-05 09:42
PROVIDERS: Internal Medicine; Internal Medicine Nephrology; Student in an Organized Health Care Education/Training Program; Admitting Provider Hospitalist; Emergency Provider Emergency Medicine; PCP Family Medicine; Visit Provider Internal Medicine Critical Care Medicine
DX: E87.1 Hypo-osmolality and hyponatremia (principal); E23.0 Hypopituitarism; M00.9 Pyogenic arthritis, unspecified; I10 Essential (primary) hypertension; E78.5 Hyperlipidemia, unspecified; E03.9 Hypothyroidism, unspecified; E11.9 Type 2 diabetes mellitus without complications; K21.9 Gastro-esophageal reflux disease without esophagitis; M10.9 Gout, unspecified; M54.2 Cervicalgia; G89.29 Other chronic pain; Z85.72 Personal history of non-Hodgkin lymphomas; Z87.891 Personal history of nicotine dependence
CPT/HCPCS: 36415; 71045; 80053; 81050; 82533; 82570; 82948; 83735; 83883; 83930; 83935; 84100; 84155; 84156; 84165; 84166; 84295; 84300; 84439; 84443; 84480; 85025; 85027; 87641; 93005; 99285; A9270; J0696; J1650; J7030; J7512

== ENCOUNTER 2023-10-16 18:50 | Inpatient (IN) | payer MEDICARE, SELFPAY ==
[2023-10-16] VITALS (51 sets, daily range): BP systolic 41–125; BP diastolic 18–94; PULSE 51–102; RESP 15–34; TEMP 33.8–35.4; O2SAT 79–100
--- NOTE | ~2023-10-16 | CT_ITS ---
EXAMINATION: CT chest abdomen pelvis wo con DATE: 10/16/2023 23:11 INDICATION: SEPSIS . TECHNIQUE: Computed tomography (CT) of the chest, abdomen, and pelvis was performed without intraveno us contrast. Automated exposure control and iterative reconstruction technique were employed. The dos e-length product was 1482.85 mGy-cm. COMPARISON: X-ray chest, same date; bilateral renal ultrasound 09/05/2023; CTPA 07/01/2020; CT abdome n pelvis 11/23/2016 FINDINGS: Examination mildly limited by motion and beam hardening from arm positioning. CHEST: Thoracic aorta: Mild arch calcification. Lung parenchyma and airways: Minimal dependent atelectasis. Endotracheal tube terminates 4.3 cm above the clare. Thoracic inlet, axillae and chest wall: No thyroid or soft tissue mass. No axillary lymphadenopathy. Mediastinum: No mass or lymphadenopathy. Heart and pericardium: Normal heart size. No pericardial effusion. Coronary artery calcifications: Mild. Pleura: Trace right and small left pleural effusions. Thoracic bones: No acute osseous finding in the chest. Multiple stable thoracic compression fractures and prominent Schmorl's nodes. ABDOMEN/PELVIS: Liver: Normal. Biliary/Gallbladder: Mildly distended gallbladder without inflammatory change. No bile duct dilation. Pancreas: No mass or duct dilation. Spleen: Normal. Adrenals:No mass. Kidneys: No suspicious mass, obstructing stone, or hydronephrosis. Simple right inferior pole cyst. S ymmetric moderate bilateral perinephric stranding, increased with prior study. GI tract: NG tube terminating in the stomach. Mostly fluid-filled colon. No small or large bowel dila tion. Normal appendix. Mild diverticulosis without diverticulitis. Mesentery/Peritoneum: No ascites, mass, or free air. Retroperitoneum: No mass Atherosclerotic abdominal aortic and/or arterial calcifications. Pelvis: Urinary bladder decompressed by Pelayo catheter. Soft Tissues: Right femoral central line, tip terminating in the mid right external femoral vein. Abdominopelvic bones: No acute osseous finding in the abdomen/pelvis. IMPRESSION: Endotracheal tube, NG tube, and right femoral central venous line, all in good position. Trace right and small left pleural effusions. Mild gallbladder hydrops without inflammatory changes. Fluid-filled colon as can be seen with diarrheal illness. Reviewed, dictated and finalized at location K. OGRAPHY TECH
--- NOTE | ~2023-10-16 | XR_ITS ---
Portable chest x-ray Comparison: 10/16/2023 Clinical History: Respiratory failure Findings: Endotracheal tube and NG tube are in satisfactory positions. Probable minimal left pleural effusion present. Right lung clear. Cardiomediastinal silhouette is stable. Bones and soft tissues are unremarkable. Impression: Support tubes, as above. Minimal left pleural effusion. Reviewed, dictated and finalized at location . IDE MACHINIST HELPER Impression: Support tubes, as above. Minimal left pleural effusion.
--- NOTE | ~2023-10-16 | US_ITS ---
EXAMINATION: US knee asp inj w image LT DATE: 10/17/2023 12:06 INDICATION: Left knee joint effusion. TECHNIQUE: The procedure including the risks, benefits, and alternatives was discussed with the patie nt's family member. Risks discussed included bleeding and infection. She understood the risks and agr eed to proceed. The skin overlying the left knee was prepped and draped in usual sterile fashion. An esthetic was administered with 1% lidocaine subcutaneously. An 18 gauge needle was then inserted int o the knee joint under continuous sonographic guidance. Fluid was aspirated. The entry site was clean ed and dressed. There were no immediate complications. FINDINGS: Ultrasound images demonstrate the needle in the knee joint effusion. IMPRESSION: 1. Ultrasound-guided needle aspiration of 44 mL red fluid from the left knee joint. Reviewed, dictated and finalized at location A. ID SUPERINTENDENT IMPRESSION: 1. Ultrasound-guided needle aspiration of 44 mL red fluid from the left knee trina int.
--- NOTE | ~2023-10-16 | XR_ITS ---
EXAM: XR abdomen gastric tube insert DATE: 10/16/2023 22:08 HISTORY: NG placement . COMPARISON: None available. FINDINGS: NG tube, tip and side port over the stomach. Normal bowel gas pattern. No organomegaly. No abnormal abdominal calcification. Lumbar degenerative disc disease. IMPRESSION: NG tube, in good position. Reviewed, dictated and finalized at location K. SILICON PREPARATION WORKER IMPRESSION: NG tube, in good position.
--- NOTE | ~2023-10-16 | XR_ITS ---
EXAMINATION: XR chest 1V portable Exam Date/Time: 10/16/2023 19:20 SENIOR UX DESIGNER HISTORY: SOB Comparison: 10/05/2023. RESULT: Lines, tubes, and devices: Endotracheal tube terminates 5.0 cm above the clare. Lungs and pleura: Streaky left basilar opacities. Left costophrenic angle blunting. Cardiomediastinal silhouette: Stable. Other: No acute osseous or upper abdominal finding. IMPRESSION: Endotracheal tube terminating 5.0 cm above the clare. Streaky subsegmental left basilar atelectasis/ consolidation. Small left pleural effusion Reviewed, dictated and finalized at location K. OR UX DESIGNER IMPRESSION: Endotracheal tube terminating 5.0 cm above the clare. Streaky subsegmental lef t basilar atelectasis/consolidation. Small left pleural effusion
--- NOTE | 2023-10-16 18:44 | ED.SOB ---
HPI - SOB/Dyspnea General Chief Complaint: Shortness of Breath/Dyspnea Stated Complaint: RESPIRATORY DISTRESS Related Data Home Medications Medication Instructions Recorded Confirmed testosterone 10 mg/0.5 6 pump transdermal QAM 11/11/19 10/04/23 gram/actuation transdermal gel pump cetirizine 10 mg tablet (Zyrtec) 10 mg PO DAILY 08/23/23 10/04/23 fluticasone propionate 50 1 spray intranasal PRN PRN Allergy 08/23/23 10/04/23 mcg/actuation nasal Symptoms spray,suspension multivit,Ca,min-iron 8 mg-folic 1 tablet PO DAILY 08/23/23 10/04/23 acid 200 mcg-lycopene 600 mcg tablet (Centrum Men) Allergies Allergy/AdvReac Type Severity Reaction Status Date / Time COVID-19 (SARS-CoV-2) Allergy Unknown FLU Verified 10/02/23 12:27 vaccine, elsy SYMPTOMS PMFSH Past Medical History Medical History Chronic neck pain Environmental allergies Erectile dysfunction GERD without esophagitis Gout History of non-Hodgkin's lymphoma (2007) History of pituitary tumor (2017) Hyperlipidemia Hypertension Hypogonadism in male Hypopituitarism Hypothyroidism (acquired) Insomnia Seizure Type 2 diabetes mellitus Surgical History Surgical History History of left knee surgery (~2022) History of repair of right rotator cuff (1999) History of tonsillectomy (1963) Status post arthroscopic partial medial meniscectomy of right knee (08/29/23) Status post tendon repair Repair left quadriceps tendon rupture 12/06. Repair biceps tendon tear. Status post transsphenoidal pituitary resection (01/2017) [place] teeth removed (Unknown) Family History Family History Mother Asthma Father Family history of alcoholism Grandparent Acute myocardial infarction Other Diabetes mellitus Social History Social History Social History: Surrogate medical decision maker: Katharina Sommer, jami. Code status: Smoking packs per day: 1.5 Smoking cigarettes per day: 30.0 Years smoked: 45 Smoking pack-years: 67.50 Smoking status: Former smoker Tobacco type: cigarettes Second hand tobacco smoke exposure: Yes Smoking end date: 09/17/79 Alcohol intake: never Alcohol use details: Rarely Substance use: never Substance use type: does not use Do You Feel Safe in your Home?: Yes Lack of Transportation: No Lack of Food: Never True Current Housing: I Have Housing Concerned About Future Housing: No Difficulty Paying Gas/Electric Bills: No Difficulty Paying for Meds: No Currently Unemployed: No Education: High School Diploma/GED Difficulty w/ Childcare or Family Care: No Living arrangements: with family Occupation/Education: retired Spiritual care concerns: No Agree to blood products: Yes Course Vital Signs Vital signs: Vital Signs Pulse Rate 98 10/16/23 18:40 Respiratory Rate 28 H 10/16/23 18:40 Blood Pressure 125/94 H 10/16/23 18:40 Pulse Oximetry 90 10/16/23 18:40 Oxygen Delivery BiPAP 10/16/23 18:40 Temperature 33.8 C L 10/16/23 21:54 Pulse Rate 102 H 10/16/23 22:46 Respiratory Rate 15 10/16/23 22:26 Blood Pressure 104/36 L 10/16/23 22:46 Pulse Oximetry 100 10/16/23 22:26 Oxygen Delivery Mechanical Ventilation 10/16/23 19:49 Fraction of Inspired Oxygen 100 10/16/23 19:49 Procedures Central Line Placement Right Femoral: Central Line Date: 10/16/23 Central Line Time: 22:28 Performed Emergently - Given emergent patient condition, temporal constraints may have precluded informed consent.: Yes Time Out Performed: Yes (20) Patient Placed on Monitor/Pulse Ox: Yes Max. Sterile Barrier Technique: Caps, large sterile sheet and hand hygiene Central Line Prep: sterile drapes applied Pam
--- NOTE | 2023-10-16 18:46 | ECG_ITS ---
Measurements Intervals [place] Rate: 83 P: 23 DC: 148 QRS: -10 QRSD: 137 T: 3 QT: 404 QTc: 477 Interpretive Statements SINUS RHYTHM ATRIAL AND VENTRICULAR PREMATURE COMPLEXES RIGHT BUNDLE BRANCH BLOCK BASELINE ARTIFACT- II, III, AVL, AVF, V4-V6 ABNORMAL ECG COMPARED TO ECG 10/04/2023 17:22:53 NO SIGNIFICANT CHANGES Electronically Signed On 10-16-2023 20:17:11 PRINT COLOR OPERATOR by Aaron Cadet D.O.
[2023-10-16 19:09] LABS: Alveolar/Arterial O2 Gradient 249.3 mmHg; Base Excess ABG -19.9 mEq/l (+/-2.0); Carboxyhemoglobin 0.3 % THb (0-2.0); Fractional Inspired Oxygen 100 %; HCO3 ABG 6.2 mEq/l (22.0-26.0); Methemoglobin ABG 0.4 %THb (0-1.5); Oxygen Content ABG 18.8 %vol (16.0-22.0); Oxygen Saturation ABG 99.8 % (95.0-100.0); Oxyhemoglobin 98.7 % THb (90.0-100.0); PO2 ABG 446.8 mmHg (80.0-100.0); PO2 FiO2 Ratio Arterial Blood 4.47 %; Reduced Hemoglobin 0.6 %THb (0-5.0); Total Hemoglobin 12.7 g/dL (12.0-18.0)
[2023-10-16 19:12] LABS: Hematocrit 35.8 % (42.0-52.0); Hemoglobin 11.3 g/dL (14.0-18.0); Mean Corpuscular HGB Conc 31.6 g/dl (32-36); Mean Corpuscular Hemoglobin 29.7 pg (26-34); Mean Corpuscular Volume 94.2 fl (80-100); Mean Platelet Volume 9.6 fl (7.4-10.4); Modified Allen's Test Pass; PCO2 ABG 16.9 mmHg (35.0-45.0); Platelet Count Result 311 k/mm3 (150-375); Red Cell Distribution Width 12.9 % (11.5-14.5); Site Drawn RIGHT RADIAL; pH ABG 7.184 (7.350-7.450)
[2023-10-16 19:13] LABS: Device NON-INVASIVE VENT; Non-Invasive Expiratory Pressure 6 CMH2O; Non-Invasive Inspiratory Pressure 12 CMH2O; Non-Invasive Vent Rate 4 /MIN
[2023-10-16 19:18] LABS: INR 1.7; Partial Thromboplastin Time 44.7 SECONDS (22.3-36.8)
--- NOTE | 2023-10-16 19:24 | PC.NURSE ---
Patiet deteriorates to an unresposive condition with RN at bedside GCS 3 at 1916. EDP made aware. VORB for 4 mg of Versed and 100 mg of Succinycholine; administered at 191. Patient intubated at [address] Tobar with 7.5 and 24 at the lip.
[2023-10-16 19:30] LABS: NT Pro B Type Natriuretic Pept > 30000 pg/mL (19.9-100)
[2023-10-16 19:33] LABS: Band Neutrophils Percent 8 % (0-6); Lymphocytes Absolute Manual 6.38 K/mm3 (1.1-4.5); Monocytes Absolute Manual 2.53 K/mm3 (0.1-0.90); Monocytes Percent Manual 23 % (3-9); Neutrophils Absolute Manual 2.09 K/mm3 (1.3-6.7); Neutrophils Percent Manual 11 % (46-73); Total Cells Counted 100
[2023-10-16 19:34] LABS: Hypochromasia 1+ (NORMAL); Platelet Estimate Adequate (Adequate); Schistocytes None Seen (NORMAL)
--- NOTE | 2023-10-16 19:38 | PC.NURSE ---
VORB for 2 mg of Versed every five minutes if patient becomes agitated.
--- NOTE | 2023-10-16 19:43 | PC.NURSE ---
1941 2 mg of Versed administered for sedation per VORB Dr. Tobar
[2023-10-16 19:44] LABS: Alanine Aminotransferase 44 U/L (6-50); Albumin Level 4.1 g/dL (3.5-5.1); Alkaline Phosphatase 58 U/L (38-126); Anion Gap 32 mmol/L (8-16); Aspartate Amino Transferase 72 U/L (17-59); Bilirubin,Total 1.5 mg/dL (0.2-1.3); Blood Urea Nitrogen 20 mg/dL (9-20); Calcium 8.8 mg/dL (8.4-10.2); Carbon Dioxide 6 mmol/L (22-30); Chloride 87 mmol/L (98-107); Estimated CRCL calculation 19 ml/min; Estimated Glomerular Filt Rate 17; Glucose 53 mg/dL (65-110); Sodium 125 mmol/L (137-145); Troponin I 0.056 ng/mL (0.000-0.034)
[2023-10-16 19:48] LABS: Lactic Acid Reflex 16.2 mmol/L (0.7-2.0)
[2023-10-16 20:04] LABS: CRP 19.9 mg/dL (<1.0)
[2023-10-16] MEDS: NOREPINEPHRINE 8 MG/D5W 250 ML 8 MG/250 ML BAG 9.4 MG (20:10)
[2023-10-16] MEDS: RAPID SEQUENCE INTUBATION KIT 1 EACH (20:13)
[2023-10-16] MEDS: DEXTROSE 50% 25 GM/50 ML SYRINGE IV PUSH ×2 (20:13)
[2023-10-16 20:22] LABS: Appearance Urine Clear (Clear); Bilirubin Urine Negative (Negative); Blood Urine Negative (Negative); Color Urine Yellow (Yellow); Glucose Urine UA Negative (Negative); Ketones Urine Negative (Negative); Leukocyte Esterase Ur Negative LEU/UL (Negative); Nitrate Urine Negative (Negative); Protein Urine Negative (Negative); Specific Grav Ur 1.014 (1.001-1.035); Urobilinogen Urine 0.2 mg/dL (<2.0); pH Urine 5.5 (5.0-9.0)
[2023-10-16 20:22] LABS: Influenza A QL RT-PCR Negative (Negative); Influenza B QL RT-PCR Negative (Negative); RSV RNA, RT-PCR Negative (Negative); SARS-CoV-2 RNA PCR Negative (Negative)
[2023-10-16 20:33] LABS: Add Urine Microscopic? NO
[2023-10-16] MEDS: MIDAZOLAM HCL (*CRX) 2 MG/2 ML VIAL ×3 (20:38→22:34)
[2023-10-16 20:39] LABS: Glucose Point of Care 227 mg/dl (65-105)
[2023-10-16] MEDS: VANCOMYCIN 1,250 MG/NS 250 ML 1,250 MG/250 ML BAG 166.67 MG IVPB (20:45)
[2023-10-16] MEDS: levoFLOXacin 750 MG/D5W 150 ML 750 MG/150 ML BAG 100 MG IVPB (20:57)
[2023-10-16] MEDS: SODIUM BICARBONATE 8.4% 50 MEQ/50 ML SYRINGE IV PUSH ×2 (21:14)
[2023-10-16] MEDS: CEFEPIME 2 GM/NS 50 ML 2 GM/50 ML BAG IVPB (21:29)
[2023-10-16] MEDS: VASOPRESSIN INJ 100 UNITS in DEXTROSE 5% 95 ML IV CONT (21:30)
[2023-10-16 21:31] LABS: MRSA (PCR) NOT DETECTED (NOT DETECTE)
[2023-10-16] MEDS: EPINEPHrine INJ 4 MG in DEXTROSE 5% IN WATER 250 ML 3.81 MG IV CONT (21:31)
[2023-10-16] MEDS: metroNIDAZOLE 500 MG/ISO 100ML 500 MG/100 ML BAG 100 MG IVPB (21:36)
[2023-10-16 21:38] LABS: Alveolar/Arterial O2 Gradient 168.4 mmHg; Base Excess ABG -14.2 mEq/l (+/-2.0); Fractional Inspired Oxygen 50 %; HCO3 ABG 10.7 mEq/l (22.0-26.0); Oxygen Content ABG 16.9 %vol (16.0-22.0); Oxygen Saturation ABG 98.9 % (95.0-100.0); Oxyhemoglobin 97.7 % THb (90.0-100.0); PO2 ABG 161.7 mmHg (80.0-100.0); PO2 FiO2 Ratio Arterial Blood 3.23 %; Total Hemoglobin 12.1 g/dL (12.0-18.0)
[2023-10-16 21:40] LABS: pH ABG 7.278 (7.350-7.450)
[2023-10-16 21:41] LABS: Arterial Blood Gas Ventilator rate 15 /MIN; Device VENTILATOR; Modified Allen's Test Pass; PCO2 ABG 23.5 mmHg (35.0-45.0); Site Drawn RIGHT RADIAL
[2023-10-16 21:42] LABS: Arterial Blood Gas PEEP 5 cmH2O; Arterial Blood Gas Tidal Volume 450 ml; Arterial Blood Gas Vent Mode CMV
[2023-10-16 22:06] LABS: Reflex Lactic Acid Yes or No Add Lactic
[2023-10-16] MEDS: MIDAZOLAM HCL (*CRX) 2 MG/2 ML VIAL 4 MG ×2 (22:40→23:05)
--- NOTE | 2023-10-16 23:35 | PC.NURSE ---
Versed override due to VORB by Dr. Tobar for agitation q 5 minutes
[2023-10-16] MEDS: EPINEPHrine INJ 4 MG in DEXTROSE 5% IN WATER 250 ML 38.1 MG IV CONT (23:40)
[2023-10-16] MEDS: SODIUM BICARBONATE 8.4% 150 MEQ in DEXTROSE 5% 1,000 ML 950 ML IV CONT (23:58)
[2023-10-16] MEDS: SODIUM BICARBONATE 8.4% 50 MEQ/50 ML SYRINGE 100 MEQ IV PUSH (23:59)
[2023-10-17] VITALS (58 sets, daily range): BP systolic 84–145; BP diastolic 29–77; PULSE 74–98; RESP 17–30; TEMP 34.8–36.6; O2SAT 95–100; BMI 27.8; BMI 27.6
--- NOTE | 2023-10-17 00:30 | PC.NURSE ---
Updated Dr. Campbell regarding current drips, medicines received and patient status, relayed patient has had 3600ml per ER nurse of boluses. DC NS, increase Bicarb to 125ml/hr. Start Neosynephrine drip. Okay to take Epi drip to 20mcg max. Give 2 amps bicarb push x1 now. Start Hydrocortisone 100IVPush Q8h, first dose now. PRN ATivan 2mg Q1hr for ventilator Asynchrony
[2023-10-17] MEDS: HYDROCORTISONE SODIUM SUCCINATE 100 MG/2 ML VIAL IV PUSH ×3 (00:38→13:35)
[2023-10-17] MEDS: NOREPINEPHRINE 8 MG/D5W 250 ML 8 MG/250 ML BAG 56.25 MG IV CONT ×3 (01:02→09:41)
[2023-10-17] MEDS: LORazepam INJ (*CRX) 2 MG/ML VIAL IV PUSH ×3 (01:13→06:35)
[2023-10-17] MEDS: SODIUM CHLORIDE 0.9% IV 1,000 ML 999 ML IV CONT (01:25)
--- NOTE | 2023-10-17 01:32 | PM.IMHP ---
H&P: HPI History of Present Illness Date/Time: 10/17/23 01:32 Chief Complaint: Generalized weakness Narrative: This is a 68-year-old male with past medical history significant for gout, COPD/asthma, hypothyroidism, hypertension, GERD, type diabetes mellitus, chronic neck pain, remote history of non-Hodgkin's lymphoma, patient recently treated for infected left knee for septic bursitis after arthroscopy. Presents to the emergency room due to unrelenting diarrhea over the weekend patient very weak fatigue 1 with respiratory distress upon presentation to the emergency room required Ventimask with BiPAP immediately became unresponsive a blood sugar was found to be 40 patient required intubation for airway protection preliminary workup was significant for several electrolyte derangements sodium of 120 chloride of 85 creatinine of 3 lactic acid was 16, ABG showed a pH of 7.1 pCO2 of 16 PO2 of 400 this was while on ventilator support patient received bicarb received 30 mL/kg fluid resuscitation noted to be hypotensive and started on vasopressors. Patient is been admitted to intensive care unit. EXAMINATION: CT chest abdomen pelvis wo con DATE: 10/16/2023 23:11 INDICATION: SEPSIS . TECHNIQUE: Computed tomography (CT) of the chest, abdomen, and pelvis was performed without intravenous contrast. Automated exposure control and iterative reconstruction technique were employed. The dose-length product was 1482.85 mGy-cm. COMPARISON: X-ray chest, same date; bilateral renal ultrasound 09/05/2023; CTPA 07/01/2020; CT abdomen pelvis 11/23/2016 FINDINGS: Examination mildly limited by motion and beam hardening from arm positioning. CHEST: Thoracic aorta: Mild arch calcification. Lung parenchyma and airways: Minimal dependent atelectasis. Endotracheal tube terminates 4.3 cm above the clare. Thoracic inlet, axillae and chest wall: No thyroid or soft tissue mass. No axillary lymphadenopathy. Mediastinum: No mass or lymphadenopathy. Heart and pericardium: Normal heart size. No pericardial effusion. Coronary artery calcifications: Mild. Pleura: Trace right and small left pleural effusions. Thoracic bones: No acute osseous finding in the chest. Multiple stable thoracic compression fractures and prominent Schmorl's nodes. ABDOMEN/PELVIS: Liver: Normal.? Biliary/Gallbladder: Mildly distended gallbladder without inflammatory change. No bile duct dilation. Pancreas: No mass or duct dilation. Spleen: Normal. Adrenals:No mass. Kidneys: No suspicious mass, obstructing stone, or hydronephrosis. Simple right inferior pole cyst. Symmetric moderate bilateral perinephric stranding, increased with prior study. GI tract: NG tube terminating in the stomach. Mostly fluid-filled colon. No small or large bowel dilation. Normal appendix. Mild diverticulosis without diverticulitis. Mesentery/Peritoneum: No ascites, mass, or free air. Retroperitoneum: No mass Atherosclerotic abdominal aortic and/or arterial calcifications. Pelvis: Urinary bladder decompressed by Pelayo catheter. Soft Tissues: Right femoral central line, tip terminating in the mid right external femoral vein. Abdominopelvic bones:? No acute osseous finding in the abdomen/pelvis. IMPRESSION: Endotracheal tube, NG tube, and right femoral central venous line, all in good position. Trace right and small left pleural effusions. Mild gallbladder hydrops without inflammatory changes. Fluid-filled colon as can be seen with diarrheal illness. Review of Systems Review of Systems: ROS unobtainable: Yes unobtainable due to medical condition (On life support) and unobtainable due to mental status (On life support) [facility] Past Medical History Medical History Chronic neck pain Environmental allergies Erectile dysfunction GERD without esophagitis Gout History of non-Hodgkin's lymphoma (2008) History of pituitary tumor (2017) Hyperlipidemia Hypertension Hypog
[2023-10-17 01:36] LABS: Sodium 124 mmol/L (137-145)
[2023-10-17 01:37] LABS: Albumin Level 2.7 g/dL (3.5-5.1); Alkaline Phosphatase 51 U/L (38-126); Anion Gap 24 mmol/L (8-16); Aspartate Amino Transferase 170 U/L (17-59); Bilirubin,Total 0.8 mg/dL (0.2-1.3); Blood Urea Nitrogen 20 mg/dL (9-20); Calcium 6.8 mg/dL (8.4-10.2); Carbon Dioxide 8 mmol/L (22-30); Chloride 92 mmol/L (98-107); Estimated CRCL calculation 21 ml/min; Estimated Glomerular Filt Rate 20; Glucose 251 mg/dL (65-110); Potassium 3.9 mmol/L (3.4-5.0)
--- NOTE | 2023-10-17 01:57 | ADMGEN ---
This patient, Abel Sommer Jr., was admitted to Intensive Care Unit-11. Patient/family oriented to hospital policies and general routines including ID bracelet, bed and alarms, visiting hours, pain management, procedures, bathroom and other care routines, personal items, smoking policy, room service/diet, and visiting hours. Information on how to activate the Rapid Response Team has been discussed. Patient/Family are encouraged to report perceived risks to care and to ask questions if they do not understand what they are told or what they should do.
[2023-10-17 02:03] LABS: Alanine Aminotransferase 68 U/L (6-50); Lactic Acid 15.2 mmol/L (0.7-2.0)
[2023-10-17 03:58] LABS: Hematocrit 35.1 % (42.0-52.0); Hemoglobin 11.6 g/dL (14.0-18.0); Mean Corpuscular Hemoglobin 30.1 pg (26-34); Mean Corpuscular Volume 91.2 fl (80-100); Mean Platelet Volume 9.4 fl (7.4-10.4); Platelet Count Result 305 k/mm3 (150-375); Red Blood Count 3.85 M/mm3 (4.6-6.20); Red Cell Distribution Width 12.8 % (11.5-14.5); White Blood Count 12.8 K/mm3 (4.5-10.0)
[2023-10-17 04:14] LABS: Estimated CRCL calculation 21 ml/min; Estimated Glomerular Filt Rate 20
[2023-10-17 04:26] LABS: Alanine Aminotransferase 74 U/L (6-50); Albumin Level 2.6 g/dL (3.5-5.1); Alkaline Phosphatase 54 U/L (38-126); Anion Gap 25 mmol/L (8-16); Aspartate Amino Transferase 148 U/L (17-59); Bilirubin,Total 0.6 mg/dL (0.2-1.3); Blood Urea Nitrogen 20 mg/dL (9-20); Calcium 6.8 mg/dL (8.4-10.2); Carbon Dioxide 8 mmol/L (22-30); Chloride 89 mmol/L (98-107); Estimated CRCL calculation 22 ml/min; Estimated Glomerular Filt Rate 21; Glucose 359 mg/dL (65-110); Potassium 3.7 mmol/L (3.4-5.0); Sodium 122 mmol/L (137-145)
[2023-10-17] MEDS: EPINEPHrine INJ 4 MG in DEXTROSE 5% IN WATER 250 ML 45.72 MG IV CONT (04:42)
[2023-10-17 04:45] LABS: Total Cells Counted 100
[2023-10-17 04:46] LABS: Band Neutrophils Percent 14 % (0-6); Lymphocytes Absolute Manual 1.66 K/mm3 (1.1-4.5); Lymphocytes Percent Manual 13 % (18-44); Metamyelocytes Percent 4 %; Monocytes Absolute Manual 2.04 K/mm3 (0.1-0.90); Monocytes Percent Manual 16 % (3-9)
[2023-10-17 04:47] LABS: Neutrophils Absolute Manual 8.57 K/mm3 (1.3-6.7); Neutrophils Percent Manual 53 % (46-73); Platelet Estimate Adequate (Adequate)
[2023-10-17 04:48] LABS: Anisocytosis 1+ (NORMAL); Large Platelets Present; Ovalocytes 1+ (NORMAL); Poikilocytosis 1+ (NORMAL); Schistocytes None Seen (NORMAL)
[2023-10-17 04:59] LABS: Alveolar/Arterial O2 Gradient 66.8 mmHg; Base Excess ABG -17.4 mEq/l (+/-2.0); Carboxyhemoglobin 0.3 % THb (0-2.0); Fractional Inspired Oxygen 30 %; HCO3 ABG 8.9 mEq/l (22.0-26.0); Methemoglobin ABG 0.5 %THb (0-1.5); Oxygen Content ABG 17.3 %vol (16.0-22.0); Oxygen Saturation ABG 97.6 % (95.0-100.0); Oxyhemoglobin 96.6 % THb (90.0-100.0); PO2 ABG 119.7 mmHg (80.0-100.0); PO2 FiO2 Ratio Arterial Blood 3.99 %; Reduced Hemoglobin 2.6 %THb (0-5.0); Total Hemoglobin 12.6 g/dL (12.0-18.0)
[2023-10-17 05:01] LABS: pH ABG 7.198 (7.350-7.450)
[2023-10-17 05:02] LABS: Device VENTILATOR; Modified Allen's Test Pass; PCO2 ABG 23.3 mmHg (35.0-45.0); Site Drawn RIGHT RADIAL
[2023-10-17 05:03] LABS: Arterial Blood Gas PEEP 5 cmH2O; Arterial Blood Gas Tidal Volume 450 ml; Arterial Blood Gas Vent Mode CMV; Arterial Blood Gas Ventilator rate 15 /MIN
[2023-10-17] MEDS: metroNIDAZOLE 500 MG/ISO 100ML 500 MG/100 ML BAG 100 MG IVPB ×2 (05:41→13:35)
--- NOTE | 2023-10-17 06:00 | ECG_ITS ---
Measurements Intervals [place] Rate: 83 P: DC: 0 QRS: -36 QRSD: 146 T: -8 QT: 442 QTc: 520 Interpretive Statements SINUS OR ECTOPIC ATRIAL RHYTHM FREQUENT ATRIAL PREMATURE COMPLEXES LEFT AXIS DEVIATION RIGHT BUNDLE BRANCH BLOCK POSSIBLE LEFT VENTRICULAR HYPERTROPHY MINIMAL Q WAVES- HIGH LATERAL LEADS BASELINE WANDER- V2-V3 ABNORMAL ECG COMPARED TO ECG 10/16/2023 18:49:51 LEFT-AXIS DEVIATION NOW PRESENT Electronically Signed On 10-17-2023 8:29:32 MANAGEMENT CONSULTANT by Aaron Cadet D.O.
--- NOTE | 2023-10-17 06:16 | PC.NURSE ---
Updated Dr. Campbell regarding Labs. Change bicarb drip to sterile water, Start Q4h SSI, give 10 units IV insulin Regular x1 now, give 2 amps bicarb.
[2023-10-17] MEDS: INSULIN HUMAN REGULAR (*BKC) 100 UNITS/ML 10 UNITS IV PUSH ×2 (06:23→09:22)
[2023-10-17] MEDS: SODIUM BICARBONATE 8.4% 50 MEQ/50 ML SYRINGE 100 MEQ IV PUSH (06:23)
[2023-10-17] MEDS: SODIUM BICARBONATE 8.4% 150 MEQ in WATER, STERILE FOR INJECTION 1,000 ML 125 MEQ IV CONT ×2 (06:34→14:13)
[2023-10-17 07:29] LABS: Lactic Acid Reflex 16.4 mmol/L (0.7-2.0)
[2023-10-17 07:30] LABS: Glucose Point of Care 376 mg/dl (65-105)
[2023-10-17 07:42] LABS: MRSA (PCR) NOT DETECTED (NOT DETECTE)
[2023-10-17 08:34] LABS: Glucose Point of Care 392 mg/dl (65-105)
[2023-10-17] MEDS: POTASSIUM CHLORIDE 20 MEQ PACKET (FOR LIQUID) FEED TUBE (08:34)
[2023-10-17] MEDS: MIDAZOLAM 100MG/NS 100ML(*CRX) 100 MG/100 ML BAG IV CONT (08:34)
[2023-10-17] MEDS: PANTOPRAZOLE SODIUM IV 40 MG VIAL IV PUSH (08:34)
[2023-10-17] MEDS: LEVOTHYROXINE SODIUM 75 MCG TABLET PO (08:34)
[2023-10-17] MEDS: ALBUMIN HUMAN 5% 25 GM/500 ML BTL IV CONT (08:34)
[2023-10-17] MEDS: SODIUM BICARBONATE TAB 650 MG TABLET FEED TUBE (08:34)
--- NOTE | 2023-10-17 08:56 | PM.CNOR ---
Assessment and Plan Assessment and plan (1) Acute hypoxic respiratory failure: Code(s): J96.01 - Acute respiratory failure with hypoxia Status: Acute Assessment and Plan: Patient had sepsis left knee. This treated with antibiotics IV and sent to [facility] for an ID consult. I had difficult time getting him to go, but [facility] convinced him and he was to be seen last week. He missed his appointment yesterday and presented now to the hospital and he is in the ICU at this point. His knee looks benign however I do think we should aspirated to make sure that is not the source of this issue. I will see will follow along with the patient. Because of his multiple problems that might be helpful to get him to a tertiary care center discussed this. (2) Septic arthritis of knee, left: Qualifiers: Septic arthritis organism: staphylococcal Qualified Code(s): M00.062 - Staphylococcal arthritis, left knee Code(s): M00.9 - Pyogenic arthritis, unspecified Status: Acute History of Present Illness HPI Consult date: 10/17/23 Chief complaint: SEPSIS, HYPOTENSION, DIARRHEA, ACUTE RESPIRATORY F Narrative: Patient did show for his appointment yesterday was found in his garage last night slumped over his pressure is low question whether he has C difficile verses sepsis. Review of Systems Musculoskeletal: Musculoskeletal: Reports joint swelling PMFSH Past Medical History Medical History Chronic neck pain Environmental allergies Erectile dysfunction GERD without esophagitis Gout History of non-Hodgkin's lymphoma (2007) History of pituitary tumor (2016) Hyperlipidemia Hypertension Hypogonadism in male Hypopituitarism Hypothyroidism (acquired) Insomnia Seizure Type 2 diabetes mellitus Surgical History Surgical History History of left knee surgery (~2022) History of repair of right rotator cuff (1999) History of tonsillectomy (1963) Status post arthroscopic partial medial meniscectomy of right knee (08/29/23) Status post tendon repair Repair left quadriceps tendon rupture 12/06. Repair biceps tendon tear. Status post transsphenoidal pituitary resection (01/2017) [place] teeth removed (Unknown) Family History Family History Mother Asthma Father Family history of alcoholism Grandparent Acute myocardial infarction Other Diabetes mellitus Social History Social History Social History: Surrogate medical decision maker: Katharina Sommer, son. Code status: Smoking packs per day: 1.5 Smoking cigarettes per day: 30.0 Years smoked: 45 Smoking pack-years: 67.50 Smoking status: Former smoker Second hand tobacco smoke exposure: Yes Alcohol intake: unknown Alcohol use details: Rarely Substance use: unknown Substance use type: does not use Do You Feel Safe in your Home?: Yes Lack of Transportation: No Lack of Food: Never True Current Housing: I Have Housing Concerned About Future Housing: No Difficulty Paying Gas/Electric Bills: No Difficulty Paying for Meds: No Currently Unemployed: No Education: High School Diploma/GED Difficulty w/ Childcare or Family Care: No Living arrangements: with family Occupation/Education: retired Spiritual care concerns: No Agree to blood products: Yes Meds Home Medications and Allergies Home Medications Medication Instructions Recorded Confirmed Type testosterone 10 mg/0.5 6 pump transdermal QAM 11/11/19 10/17/23 History gram/actuation transdermal gel pump prednisone 5 mg tablet 5 mg PO DAILY #90 tabs 09/09/20 10/17/23 Rx allopurinol 100 mg tablet 100 mg PO DAILY #100 tabs 06/22/22 10/17/23 Rx lisinopril 40 mg tablet 40 mg PO DAILY #100 tabs 12/25/22 10/17/23 Rx pantoprazole 40 mg tablet,delaye
--- NOTE | 2023-10-17 08:58 | WPDCNINT ---
Assessment and Plan Assessment and plan (1) Acute hypoxic respiratory failure: Code(s): J96.01 - Acute respiratory failure with hypoxia Status: Acute Assessment and Plan: Multifactorial acute respiratory failure Chest x-ray ABG and ventilator settings reviewed Weaning will depend on improvement of hemodynamics and multiorgan failure Treatment of metabolic acidosis as below (2) Shock: Code(s): R57.9 - Shock, unspecified Status: Acute Assessment and Plan: Patient appears to have multifactorial shock secondary to dehydration and hypovolemia from diarrhea which could be C diff associated diarrhea, he also has adrenal insufficiency and sepsis He has received more than 3.5 L of fluid and additional IV fluids with bicarb will be continued I will also give albumin Continue hydrocortisone Continue Levophed epinephrine and vasopressin Will give calcium which may help with shock (3) Sepsis: Code(s): A41.9 - Sepsis, unspecified organism Status: Acute Assessment and Plan: Blood cultures have been sent and are pending Will consult IR for aspiration of left knee C diff is pending Continue empiric p.o. vancomycin and IV Flagyl to cover for C diff Continue IV vancomycin and IV cefepime (4) ARCHANA (acute kidney injury): Code(s): N17.9 - Acute kidney failure, unspecified Status: Acute Assessment and Plan: Patient presented with elevated creatinine of 3.5 this is likely prerenal secondary to hypovolemia and dehydration and hypotension CT scan of the abdomen pelvis did not show any stone or hydronephrosis Continue volume resuscitation Monitor urine output electrolytes and creatinine Treatment of the acidosis as below May need renal replacement therapy and if he reaches the point he will need CRRT due to severe shock multiple vasopressors Consult nephrology Monitor urine output electrolytes and creatinine (5) Diarrhea: Code(s): R19.7 - Diarrhea, unspecified Status: Acute Assessment and Plan: Patient presented with history of diarrhea and liquids to was seen in colon on CT scan Patient has been on antibiotics and is at risk of C diff Will send stool for C diff Patient was started empirically on IV Flagyl and I will add per tube vancomycin (6) Metabolic acidosis: Code(s): E87.20 - Acidosis, unspecified Status: Acute Assessment and Plan: Significant metabolic acidosis secondary to diarrhea sepsis acute kidney injury Patient has received multiple doses of bicarbonate and IV fluids with bicarb rate will be continued (7) Chronic hyponatremia: Code(s): E87.1 - Hypo-osmolality and hyponatremia Status: Acute Assessment and Plan: Patient has chronic hyponatremia and is on sodium chloride as an outpatient. His current sodium appears close to baseline He is currently receiving crystalloids with sodium minute Consult nephrology Serial BMP monitoring (8) Type 2 diabetes mellitus: Qualifiers: Diabetes mellitus complication status: without complication Diabetes mellitus silhouette artist insulin use: without detention use Qualified Code(s): E11.9 - Type 2 diabetes mellitus without complications Code(s): E11.9 - Type 2 diabetes mellitus without complications Status: Chronic Assessment and Plan: Uncontrolled. 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
[2023-10-17] MEDS: CALCIUM CHLOR 1,000MG/100ML NS 1,000 MG/100 ML BAG 100 MG IVPB (09:03)
[2023-10-17] MEDS: ENOXAPARIN 30 MG/0.3 ML SYRINGE SUB-Q (09:08)
[2023-10-17] MEDS: INSULIN HUMAN REGULAR (*BKC) 100 UNITS in SODIUM CHLORIDE 0.9% IV 99 ML 8.7 UNITS IV CONT (09:08)
[2023-10-17] MEDS: MINERAL OIL/WHITE PETROLATUM OINTMENT 1 APPLIC EACH EYE (09:09)
[2023-10-17 09:20] LABS: Glucose 503 mg/dL (65-110)
[2023-10-17] MEDS: VANCOMYCIN ORAL 125 MG/2.5 ML SYRUP FEED TUBE ×2 (09:24→12:05)
[2023-10-17] MEDS: CEFEPIME 1 GM/NS 50 ML 1 GM/50 ML BAG IVPB (09:28)
[2023-10-17 09:46] LABS: Beta-Hydroxybutyrate/Acetoacetate 0.11 mmol/L (0.02-0.27)
[2023-10-17 09:51] LABS: Hemoglobin A1C 5.2 % (<5.7)
[2023-10-17 10:03] LABS: Glucose Point of Care 330 mg/dl (65-105)
[2023-10-17 10:11] LABS: Thyroid Stimulating Hormone Reflex 0.066 uIU/mL (0.465-4.68)
[2023-10-17 10:51] LABS: Toxigenic C. Diff NEGATIVE (NEGATIVE)
[2023-10-17 11:06] LABS: Glucose Point of Care 325 mg/dl (65-105)
[2023-10-17 11:06] LABS: Free T4 Free Thyroxine Reflex 0.91 ng/dL (0.78-2.19)
[2023-10-17 12:20] LABS: Total Triiodothyronine (T3) 0.28 NG/ML (0.97-1.69)
[2023-10-17 12:24] LABS: Glucose Point of Care 308 mg/dl (65-105)
--- NOTE | 2023-10-17 12:45 | P.CONNP_ITS ---
Assessment and Plan Assessment and plan (1) ARCHANA (acute kidney injury): Code(s): N17.9 - Acute kidney failure, unspecified Status: Acute Assessment and Plan: * normal renal function/creatinine on previous hospitalization (approximately 10 days ago) * admission creatinine 3.5mg/dl (with some improvement by recent labs) * multifactorial etiology: * prerenal factors * hypotension/hemodynamic instability/shock * sepsis/infection * SHADI-I use prior to admission * other? * CT scan A/P without obstruction * check urine studies and CPK * remains at risk for MECHANICAL SPECIALIST/dialysis -- given his hemodynamic instability and high vasopressor requirement, will likely need CRRT * follow trend of repeat labs and UOP (2) Chronic hyponatremia: Code(s): E87.1 - Hypo-osmolality and hyponatremia Status: Acute Assessment and Plan: * as note since late August 2023 * previous evaluation noted * TSH low but FT4 okay * cortisol low (but known hx of adrenal insufficiency and on steroids) * SPEP and UPEP without paraproteinemia * high urine osmolality and low serum osmolality * further complicated by shock, IVF resuscitation, and hyperglycemia * sodium seems relatively stable * follow repeat sodium levels (3) Shock: Code(s): R57.9 - Shock, unspecified Status: Acute Assessment and Plan: * multifactorial: * hypovolemia/dehydration * diarrhea * worsening of baseline adrenal insufficiency * sepsis * s/p aggressive IVF resuscitation * stress dose steroids * multiple vasopressor therapy (levophed, epinephrine, and vasopressin) * IV albumin for volume expansion * follow trend of hemodynamics (4) Sepsis: Code(s): A41.9 - Sepsis, unspecified organism Status: Acute Assessment and Plan: * potential sources include possible left septic knee and/or infectious diarrhea (possible C. diff colitis) * follow culture data * follow-up on aspiration of left knee * C. diff toxin assay pending * on broad spectrum antibiotics (5) Acute hypoxic respiratory failure: Code(s): J96.01 - Acute respiratory failure with hypoxia Status: Acute Assessment and Plan: * due to shock and sepsis * intubated and on mechanical ventilation * weaning once more stable (6) Metabolic acidosis: Code(s): E87.20 - Acidosis, unspecified Status: Acute Assessment and Plan: * due to GI losses/diarrhea in combination of sepsis, lactic acidosis, and ARCHANA/ARF * on bicarbonate fluids to compensate (7) Septic arthritis of knee, left: Qualifiers: Septic arthritis organism: staphylococcal Qualified Code(s): M00.062 - Staphylococcal arthritis, left knee Code(s): M00.9 - Pyogenic arthritis, unspecified Status: Acute Assessment and Plan: * as noted on August 2023 hospitalization * was suppose to follow-up with Infectious Disease as an outpatient * planning arthrocentesis for re-evaluation (8) Type 2 diabetes mellitus: Qualifiers: Diabetes mellitus complication status: without complication Diabetes mellitus cafeteria server insulin use: without intermediate use Qualified Code(s): E11.9 - Type 2 diabetes mellitus without complications Code(s): E11.9 - Type 2 diabetes mellitus without complications Status: Chronic Assessment and Plan: * suboptimal control * on insulin gtt * glycemic control per machine tack puller/hospitalists Greater than 20 minutes was spent in review of his extens
--- NOTE | 2023-10-17 12:45 | PM.CNNEP ---
Assessment and Plan Assessment and plan (1) ARCHANA (acute kidney injury): Code(s): N17.9 - Acute kidney failure, unspecified Status: Acute Assessment and Plan: normal renal function/creatinine on previous hospitalization (approximately 10 days ago) admission creatinine 3.5mg/dl (with some improvement by recent labs) multifactorial etiology: prerenal factors hypotension/hemodynamic instability/shock sepsis/infection SHADI-I use prior to admission other? CT scan A/P without obstruction check urine studies and CPK remains at risk for TOPOGRAPHICAL ENGINEER/dialysis -- given his hemodynamic instability and high vasopressor requirement, will likely need CRRT follow trend of repeat labs and UOP (2) Chronic hyponatremia: Code(s): E87.1 - Hypo-osmolality and hyponatremia Status: Acute Assessment and Plan: as note since late August 2023 previous evaluation noted TSH low but FT4 okay cortisol low (but known hx of adrenal insufficiency and on steroids) SPEP and UPEP without paraproteinemia high urine osmolality and low serum osmolality further complicated by shock, IVF resuscitation, and hyperglycemia sodium seems relatively stable follow repeat sodium levels (3) Shock: Code(s): R57.9 - Shock, unspecified Status: Acute Assessment and Plan: multifactorial: hypovolemia/dehydration diarrhea worsening of baseline adrenal insufficiency sepsis s/p aggressive IVF resuscitation stress dose steroids multiple vasopressor therapy (levophed, epinephrine, and vasopressin) IV albumin for volume expansion follow trend of hemodynamics (4) Sepsis: Code(s): A41.9 - Sepsis, unspecified organism Status: Acute Assessment and Plan: potential sources include possible left septic knee and/or infectious diarrhea (possible C. diff colitis) follow culture data follow-up on aspiration of left knee C. diff toxin assay pending on broad spectrum antibiotics (5) Acute hypoxic respiratory failure: Code(s): J96.01 - Acute respiratory failure with hypoxia Status: Acute Assessment and Plan: due to shock and sepsis intubated and on mechanical ventilation weaning once more stable (6) Metabolic acidosis: Code(s): E87.20 - Acidosis, unspecified Status: Acute Assessment and Plan: due to GI losses/diarrhea in combination of sepsis, lactic acidosis, and ARCHANA/ARF on bicarbonate fluids to compensate (7) Septic arthritis of knee, left: Qualifiers: Septic arthritis organism: staphylococcal Qualified Code(s): M00.062 - Staphylococcal arthritis, left knee Code(s): M00.9 - Pyogenic arthritis, unspecified Status: Acute Assessment and Plan: as noted on August 2023 hospitalization was suppose to follow-up with Infectious Disease as an outpatient planning arthrocentesis for re-evaluation (8) Type 2 diabetes mellitus: Qualifiers: Diabetes mellitus complication status: without complication Diabetes mellitus superintendent container terminal insulin use: without half-way use Qualified Code(s): E11.9 - Type 2 diabetes mellitus without complications Code(s): E11.9 - Type 2 diabetes mellitus without complications Status: Chronic Assessment and Plan: suboptimal control on insulin gtt glycemic control per cemetery vault installer/hospitalists Greater than 20 minutes was spent in review of his extensive medical records as well as the events that led to his hospitalization and current clinical situation. I will continue follow patient with you while remains hospitalized make further recommendations as needed. Thank you for allowing me to participate in care of this patient. History of Present Illness Reason for Consult Consult date: 10/17/23 Reason for consult: acute renal failure Chief Complaint Chief complaint: SEPSIS, HYPOTENSION, DIARRHEA, ACUTE RESPIRATORY F History of Present
[2023-10-17 13:01] LABS: Glucose Point of Care 210 mg/dl (65-105)
[2023-10-17 13:37] LABS: Anion Gap 17 mmol/L (8-16); Blood Urea Nitrogen 21 mg/dL (9-20); Calcium 7.7 mg/dL (8.4-10.2); Carbon Dioxide 22 mmol/L (22-30); Chloride 85 mmol/L (98-107); Estimated CRCL calculation 30 ml/min; Estimated Glomerular Filt Rate 30; Glucose 257 mg/dL (65-110); Potassium 3.6 mmol/L (3.4-5.0); Sodium 124 mmol/L (137-145)
[2023-10-17] MEDS: NOREPINEPHRINE 8 MG/D5W 250 ML 8 MG/250 ML BAG 48.75 MG IV CONT (14:10)
[2023-10-17] MEDS: CENTRAL LINE FLUSH 10 ML IV PUSH (14:11)
[2023-10-17 14:12] LABS: Glucose Point of Care 210 mg/dl (65-105)
[2023-10-17 14:34] LABS: Glucose Point of Care 203 mg/dl (65-105)
--- NOTE | 2023-10-17 14:52 | PC.NURSE ---
Pt transferred to [facility] room 304 in the ICU. Pt transferred on ventilator with versed infusing for sedation. Levophed, vasopressin, insulin, and bicarb drips sent with pt. Brandi, daughter, aware of transfer. Report called to [facility] @ [phone]. Belongings sent home with daughter.
--- NOTE | 2023-11-15 09:23 | PM.TDS ---
Transfer Discharge Sum: Prov Provider Date of admission: 10/16/23 22:08 Primary care physician: Solo Burr MD Admitting clinician: Oskar Buck MD Attending physician on admission: Oskar Buck Consults: 10/16/23 22:17 Consult to Physician Routine Comment: Consulting Provider: Baljit Campbell Reason for consultation: SEPSIS WITH HYPOTENSION Has provider been notified: Yes 10/17/23 Consult to Physician Routine Comment: Spoke with the Dr and notified him of consult Consulting Provider: Sanya Christy call or contact centre team leader/MD group to consult: Ortho Reason for consultation: Sepsis, Recent Knee Septic Bursitis, Has provider been notified: Yes Consult to Physician Routine Comment: Spoke with the Dr and notified him of consult Consulting Provider: Imelda Urban call or contact centre team leader/MD group to consult: Nephrology Reason for consultation: ARCHANA, Acidosis, Hyponatremia Has provider been notified: Yes 10/17/23 08:32 Consult to Dietitian Routine Reason for Consult:: DKA admission Attending physician on discharge: Lisa Presotn Discharging clinician: Lisa Preston Anticipated date of transfer: 10/17/23 DS: Admitting Diagnosis Discharge Date 10/17/23 Admitting Diagnosis diarrhea DS: Discharge Diagnosis Discharge Diagnosis (1) Diarrhea: Code(s): R19.7 - Diarrhea, unspecified Status: Acute (2) Hypovolemic shock: Code(s): R57.1 - Hypovolemic shock Status: Acute Transfer Discharge Sum: Med Medications Active and Home Medications: Home Medications prednisone 5 mg tablet 5 mg PO DAILY #90 tabs 09/09/20 [Rx Confirmed 11/10/23] allopurinol 100 mg tablet 100 mg PO DAILY #100 tabs 06/22/22 [Rx Confirmed 11/10/23] pantoprazole 40 mg tablet,delayed release 40 mg PO BID #180 tabs 04/16/23 [Rx Confirmed 11/10/23] levothyroxine 75 mcg tablet 75 mcg PO DAILY #30 tabs 04/19/23 [Rx Confirmed 11/10/23] cetirizine 10 mg tablet (Zyrtec) 10 mg PO DAILY 08/23/23 [History Confirmed 11/10/23] fluticasone propionate 50 mcg/actuation nasal spray,suspension 1 spray intranasal PRN PRN Allergy Symptoms 08/23/23 [History Confirmed 11/10/23] multivit,Ca,min-iron 8 mg-folic acid 200 mcg-lycopene 600 mcg tablet (Centrum Men) 1 tablet PO DAILY 08/23/23 [History Confirmed 11/10/23] tizanidine 4 mg capsule 4 mg PO TID PRN muscle spasticity #30 caps 10/02/23 [Rx Confirmed 11/10/23] albuterol sulfate 90 mcg/actuation aerosol inhaler 2 puff inhalation Q4H PRN shortness of breath or wheezing #8.5 grams 11/02/23 [Rx Confirmed 11/10/23] fenofibrate nanocrystallized 145 mg tablet 145 mg PO DAILY 11/06/23 [History Confirmed 11/10/23] hydroxyzine HCl 25 mg tablet 25 mg PO Q8H PRN anxiety 11/06/23 [History Confirmed 11/10/23] lisinopril 40 mg tablet 40 mg PO DAILY 11/06/23 [History Confirmed 11/10/23] melatonin 10 mg capsule 10 mg PO QHS 11/06/23 [History Confirmed 11/10/23] simvastatin 40 mg tablet 40 mg PO DAILY 11/06/23 [History Confirmed 11/10/23] sodium chloride 1,000 mg soluble tablet 1,500 mg PO TID 11/06/23 [History Confirmed 11/10/23] testosterone 10 mg/0.5 gram/actuation transdermal gel pump 3 pump topical DAILY 11/06/23 [History Confirmed 11/10/23] trazodone 100 mg tablet 100 mg PO QHS PRN Insomnia 11/06/23 [History Confirmed 11/10/23] fidaxomicin 200 mg tablet 200 mg PO Q12H c diff 8 days #16 tabs 11/12/23 [Rx] sodium chloride 1,000 mg soluble tablet 1,000 mg PO TID #90 tabs 11/12/23 [Rx] Transfer Discharge Sum: Hosp Hospital Course Hospital course: A 68-year-old male with a history of chronic hyponatremia, hypopituitarism status post resection of pituitary tumor with subsequent acquired hypothyroidism, GERD, gout, non-Hodgkin's lymphoma, hyperlipidemia, hypertension, hypogonadism, seizures, diabetes and GERD who was recently treated for septic bursitis of the left knee.? He was discharged on 10/07 and was on p.o. cephalexin. The patient again presented with complaints of generalized weakness and diarrh
== END 2023-10-17 14:50 | disposition short-term general hospital (02) | DRG 871 ==
LOC: ANHED 20:41 → ANHICU 22:23
PROVIDERS: Admitting Provider Internal Medicine; Emergency Provider Emergency Medicine; PCP Family Medicine; Visit Provider Internal Medicine
DX: A41.9 Sepsis, unspecified organism (principal); J96.01 Acute respiratory failure with hypoxia; R65.21 Severe sepsis with septic shock; R57.1 Hypovolemic shock; M00.062 Staphylococcal arthritis, left knee; N17.9 Acute kidney failure, unspecified; E87.20 Acidosis, unspecified; E87.1 Hypo-osmolality and hyponatremia; E23.0 Hypopituitarism; E87.8 Other disorders of electrolyte and fluid balance, not elsewhere classified; E03.9 Hypothyroidism, unspecified; E78.5 Hyperlipidemia, unspecified; E11.9 Type 2 diabetes mellitus without complications; I10 Essential (primary) hypertension; I95.9 Hypotension, unspecified; J44.9 Chronic obstructive pulmonary disease, unspecified; K21.9 Gastro-esophageal reflux disease without esophagitis; R19.7 Diarrhea, unspecified; M54.2 Cervicalgia; M10.9 Gout, unspecified; G89.29 Other chronic pain; Z20.822 Contact with and (suspected) exposure to COVID-19; Z85.72 Personal history of non-Hodgkin lymphomas; Z87.891 Personal history of nicotine dependence
CPT/HCPCS: 20611; 31500; 36415; 36556; 36600; 71045; 71250; 74176; 80048; 80053; 81003; 82010; 82375; 82565; 82805; 82947; 82948; 83036; 83050; 83605; 83880; 84439; 84443; 84480; 84484; 85025; 85610; 85730; 86140; 87040; 87070; 87075; 87205; 87493; 87637; 87641; 93005; 94002; 94003; 96365; 96366; 96367; 96368; 96375; 99291; A9270; C1751; C9113; J0171; J0330; J0692; J1650; J1720; J1815; J1836; J1956; J2060; J2250; J2371; J3370; J7030; J7060; J7070; P9045

== ENCOUNTER 2023-11-09 13:08 | Observation (INO) | payer MEDICARE, SELFPAY ==
[2023-11-09] VITALS (44 sets, daily range): BP systolic 100–150; BP diastolic 59–87; PULSE 68–93; RESP 10–22; TEMP 36.8; O2SAT 94–100
--- NOTE | ~2023-11-09 | CT_ITS ---
EXAMINATION: CT abdomen pelvis w con DATE: 11/09/2023 20:49 INDICATION: Diarrhea. Periumbilical abdominal pain. TECHNIQUE: Computed tomography (CT) of the abdomen and pelvis was performed with 100 mL Omnipaque 350 intravenous contrast. Automated exposure control and iterative reconstruction technique were employe d. The dose-length product was 448.51 mGy-cm. COMPARISON: CT abdomen and pelvis 10/16/2023 FINDINGS: The visualized portions of the lung bases demonstrate mild atelectasis. There is a 4 mm nod ule in right middle lobe, likely benign. No pleural effusion. The heart size is normal. There are cor onary artery calcifications. No pericardial effusion. There is a focal steatosis in the liver. The ga llbladder is distended. The spleen, pancreas, adrenal glands, and kidneys are normal. The bladder is distended. There is wall thickening throughout the colon, consistent with colitis. There are a few sc attered diverticula in the colon. The appendix is normal. There are no dilated loops of bowel. Aortic atherosclerosis is noted. There are no pathologically enlarged lymph nodes. There is no free intrape ritoneal fluid. There is severe lumbar spondylosis. There is mild chronic height loss of T10 and T11 vertebral bodies. IMPRESSION: 1. Pancolitis. 2. Gallbladder distention, which may be secondary to fasting. Reviewed, dictated and finalized at location E. PHONE DIRECTORY DISTRIBUTOR DRIVER
--- NOTE | ~2023-11-09 | XR_ITS ---
EXAMINATION: XR chest 1V portable DATE: 11/09/2023 18:33 INDICATION: Cough. Dehydration. TECHNIQUE: A single frontal view of the chest was obtained. COMPARISON: Chest single view 10/17/2023, chest CT 10/16/2023 FINDINGS: There is mild atelectasis at the lung bases. No pleural effusion or pneumothorax. The heart size is normal. There are suture anchors in right humeral head. IMPRESSION: 1. Mild atelectasis at the lung bases. Reviewed, dictated and finalized at location E. HAMMER OPERATOR
--- NOTE | 2023-11-09 17:59 | ECG_ITS ---
Measurements Intervals [place] Rate: 77 P: 36 TN: 147 QRS: -31 QRSD: 146 T: -12 QT: 430 QTc: 488 Interpretive Statements SINUS RHYTHM WITH OCCASIONAL SUPRAVENTRICULAR PREMATURE COMPLEXES LEFT AXIS DEVIATION [QRS AXIS < -30] RIGHT BUNDLE BRANCH BLOCK [120+ ms QRS DURATION, UPRIGHT V1, 40+ ms S IN I/aVL/V4/V5/V6] ABNORMAL ECG COMPARED TO ECG 10/17/2023 08:24:39 SINUS RHYTHM NOW PRESENT Electronically Signed On 11-10-2023 14:37:03 MIDDLE SCHOOL COMBINATION TEACHER by Miguel A Frias M.D.
--- NOTE | 2023-11-09 18:00 | ED.GENADULT ---
HPI - General Adult General Chief complaint: Unspecified Stated complaint: r/o dehydration Time Seen by Provider: 11/09/23 17:42 History of Present Illness HPI narrative: 68-year-old male with history of hypopituitarism status post pituitary resection in 2017, chronic hyponatremia, type 2 diabetes, hyperlipidemia, hypothyroidism, CKD stage 3 reports for evaluation for dehydration and diarrhea. Patient states 4 days ago, he began developing stomach cramps and chills. States the following day he developed diarrhea and since then has been having approximately 4-5 episodes of watery diarrhea daily. Denies melena or hematochezia. States he is now feeling lightheadedness concerned he is dehydrated. Reports mild generalized abdominal pain and a cough with chest congestion. He denies chest pain or shortness of breath, fever, rashes or lesions, syncope or seizures, dysuria or hematuria. Patient states he contacted his PCP who ordered a stool sample. Patient gave a stool sample to [facility] today and is waiting for results. Patient has been seen multiple times in our emergency department since August of 2023. On October 16, 2023, he was seen in our emergency department and intubated for sepsis associated hypertension, diarrhea, metabolic acidosis, ARCHANA. He was admitted to the unit and transferred to assess some after requiring multiple vasopressors in ICU. Patient states he was at [facility] for 4 days and is unsure what caused his sepsis. Denies known C diff. Related Data Home Medications Medication Instructions Recorded Confirmed cetirizine 10 mg tablet (Zyrtec) 10 mg PO DAILY 08/23/23 11/06/23 fluticasone propionate 50 1 spray intranasal PRN PRN Allergy 08/23/23 11/06/23 mcg/actuation nasal Symptoms spray,suspension multivit,Ca,min-iron 8 mg-folic 1 tablet PO DAILY 08/23/23 11/06/23 acid 200 mcg-lycopene 600 mcg tablet (Centrum Men) fenofibrate nanocrystallized 145 145 mg PO DAILY 11/06/23 11/06/23 mg tablet hydroxyzine HCl 25 mg tablet 25 mg PO Q8H PRN anxiety 11/06/23 11/06/23 lisinopril 40 mg tablet 40 mg PO DAILY 11/06/23 11/06/23 melatonin 10 mg capsule 10 mg PO QHS 11/06/23 11/06/23 simvastatin 40 mg tablet 40 mg PO DAILY 11/06/23 11/06/23 sodium chloride 1,000 mg soluble 1,500 mg PO TID 11/06/23 11/06/23 tablet testosterone 10 mg/0.5 3 pump topical DAILY 11/06/23 11/06/23 gram/actuation transdermal gel pump trazodone 100 mg tablet 100 mg PO QHS PRN 11/06/23 11/06/23 Allergies Allergy/AdvReac Type Severity Reaction Status Date / Time COVID-19 (SARS-CoV-2) AdvReac Unknown FLU Verified 11/06/23 16:00 vaccine, elsy SYMPTOMS Review of Systems Review of Systems: CONSTITUTIONAL: See HPI EYES: Denies visual changes, redness, or discharge. ENT: Denies rhinorrhea, congestion, sore throat, or otalgia. CARDIOVASCULAR: Denies chest pain, palpitations, or edema. RESPIRATORY: Denies cough or dyspnea. GASTROINTESTINAL: See HPI GENITOURINARY: Denies dysuria or hematuria. SKIN: Denies rash or itching. MUSCULOSKELETAL: Denies back pain, joint pain, or myalgia. NEUROLOGIC: Denies headache, numbness, or weakness. PSYCHIATRIC: Denies anxiety or depression. [facility] Past Medical History Medical History Acute medial meniscus tear of left knee Chronic neck pain Environmental allergies Erectile dysfunction GERD without esophagitis Gout History of non-Hodgkin's lymphoma (2007) History of pituitary tumor (2017) Hyperlipidemia Hypertension Hypogonadism in male Hypopituitarism Hypothyroidism (acquired) Insomnia Seizure Type 2 diabetes mellitus Surgical History Surgical History History of left knee surgery (~2022) History of repair of right rotator cuff (1999) History of tonsillectomy (1963) Status post arthroscopic partial medial meniscectomy of right knee (08/29/23) Status post tendon repair Repair left
[2023-11-09] MEDS: SODIUM CHLORIDE 0.9% IV 1,000 ML 999 ML IV CONT ×2 (18:39→21:54)
--- NOTE | 2023-11-09 18:55 | PC.NURSE ---
Pt aware of need for urine and stool sample, states he is unable to go at this time. Pt has call light, instructed to let RN know when he is able. IV fluids infusing.
[2023-11-09 18:57] LABS: Basophils Absolute Auto 0.1 K/mm3 (0.0-0.1); Basophils Percent Auto 0.4 % (0.2-1.2); Eosinophils Percent Auto 0.2 % (0-4.4); Hematocrit 32.9 % (42.0-52.0); Hemoglobin 10.8 g/dL (14.0-18.0); Immature Granulocyte Absolute 0.17 K/mm3 (0.00-0.031); Immature Granulocyte Percent A 1.3 % (0-0.5); Lymphocytes Absolute Auto 0.81 K/mm3 (0.9-3.2); Lymphocytes Percent Auto 6.2 % (18.3-44.2); Mean Corpuscular HGB Conc 32.8 g/dl (32-36); Mean Corpuscular Volume 91.4 fl (80-100); Mean Platelet Volume 10.8 fl (7.4-10.4); Monocytes Absolute Auto 0.8 K/mm3 (0.1-0.6); Monocytes Percent Auto 6.2 % (2.6-8.5); Neutrophils Absolute Auto 11.3 K/mm3 (1.3-6.7); Neutrophils Percent Auto 85.7 % (45.5-73.1); Platelet Count Result 164 k/mm3 (150-375); Red Cell Distribution Width 15.8 % (11.5-14.5); White Blood Count 13.1 K/mm3 (4.5-10.0)
[2023-11-09 19:11] LABS: Lactic Acid Reflex 1.4 mmol/L (0.7-2.0)
[2023-11-09 19:12] LABS: Alanine Aminotransferase 24 U/L (6-50); Albumin Level 4.3 g/dL (3.5-5.1); Alkaline Phosphatase 105 U/L (38-126); Anion Gap 10 mmol/L (8-16); Aspartate Amino Transferase 33 U/L (17-59); Bilirubin,Total 0.8 mg/dL (0.2-1.3); Blood Urea Nitrogen 15 mg/dL (9-20); Calcium 9.2 mg/dL (8.4-10.2); Carbon Dioxide 23 mmol/L (22-30); Chloride 92 mmol/L (98-107); Estimated CRCL calculation 58 ml/min; Estimated Glomerular Filt Rate > 60; Glucose 119 mg/dL (65-110); Lipase 36 U/L (23-300); Magnesium 1.6 mg/dL (1.6-2.3); Sodium 125 mmol/L (137-145)
[2023-11-09 19:50] LABS: Influenza A QL RT-PCR Negative (Negative); Influenza B QL RT-PCR Negative (Negative); RSV RNA, RT-PCR Negative (Negative); SARS-CoV-2 RNA PCR Negative (Negative)
[2023-11-09 21:33] LABS: Toxigenic C. Diff POSITIVE (NEGATIVE)
--- NOTE | 2023-11-09 22:44 | PM.IMHP ---
H&P: HPI History of Present Illness Date/Time: 11/09/23 22:44 Chief Complaint: diarrhea Narrative: This is a 68-year-old male with past medical history significant for hypertension, gout, degenerative joint disease, septic knee, septic shock, GERD, gout, hypothyroidism, type diabetes mellitus, non-Hodgkin's lymphoma. Patient recently has concluded several course of antibiotics. Presents to the emergency room with profuse diarrhea for several days, abdominal pain, poor per orally intake, generalized malaise, generalized weakness. Preliminary workup was significant for CT of abdomen and pelvis with colitis, C difficile was positive. Patient has been admitted for further evaluation management and treatment. EXAMINATION: XR chest 1V portable DATE: 11/09/2023 18:33 INDICATION: Cough. Dehydration. TECHNIQUE: A single frontal view of the chest was obtained. COMPARISON: Chest single view 10/17/2023, chest CT 10/16/2023 FINDINGS: There is mild atelectasis at the lung bases. No pleural effusion or pneumothorax. The heart size is normal. There are suture anchors in right humeral head. IMPRESSION: 1. Mild atelectasis at the lung bases. EXAMINATION: CT abdomen pelvis w con DATE: 11/09/2023 20:49 INDICATION: Diarrhea. Periumbilical abdominal pain. TECHNIQUE: Computed tomography (CT) of the abdomen and pelvis was performed with 100 mL Omnipaque 350 intravenous contrast. Automated exposure control and iterative reconstruction technique were employed. The dose-length product was 448.51 mGy-cm. COMPARISON: CT abdomen and pelvis 10/16/2023 FINDINGS: The visualized portions of the lung bases demonstrate mild atelectasis. There is a 4 mm nodule in right middle lobe, likely benign. No pleural effusion. The heart size is normal. There are coronary artery calcifications. No pericardial effusion. There is a focal steatosis in the liver. The gallbladder is distended. The spleen, pancreas, adrenal glands, and kidneys are normal. The bladder is distended. There is wall thickening throughout the colon, consistent with colitis. There are a few scattered diverticula in the colon. The appendix is normal. There are no dilated loops of bowel. Aortic atherosclerosis is noted. There are no pathologically enlarged lymph nodes. There is no free intraperitoneal fluid. There is severe lumbar spondylosis. There is mild chronic height loss of T10 and T11 vertebral bodies. IMPRESSION: 1. Pancolitis. 2. Gallbladder distention, which may be secondary to fasting. Review of Systems Review of Systems: diarrhea Constitutional: Constitutional: Reports fatigue, Reports malaise, Reports poor appetite and Reports weakness Eyes: Eyes: Denies change in vision ENT: Denies dysphagia and Denies odynophagia Cardiovascular: Cardiovascular: Denies chest pain, Denies radiating jaw, neck or arm pain and Denies palpitations Respiratory: Respiratory: Denies cough and Denies dyspnea Gastrointestinal: Gastrointestinal: Reports diarrhea Genitourinary: Genitourinary: Denies dysuria Musculoskeletal: Musculoskeletal: Reports muscle weakness Integumentary/Breasts: Skin/Breast: Denies rash Neurologic: Denies focal weakness and Denies Sensory deficit (Neuro) Psychiatric: Psychiatric: Reports no additional psychiatric complaints and Reports as per HPI Endocrine: Endocrine: Denies cold intolerance, Denies flushing, Denies heat intolerance, Denies polyphagia, Denies polydipsia, Denies polyuria and Denies palpitations Hematologic/Lymphatic: Hematologic/Lymphatic: Reports no additional hematologic/lymphatic complaints and Reports as per HPI Allergic/Immunologic: Allergic/Immunologic: Reports no additional allergic/immunologic complaints and Reports as per HPI PMFSH Past Medical History Medical History Acute medial meniscus tear of left knee Chronic neck pain Environmental allergies Erectile dysfunction DORITA
[2023-11-10 00:11] VITALS: BMI 25.1
--- NOTE | 2023-11-10 00:11 | ADMGEN ---
This patient, Abel Sommer Jr., was admitted to Medical Room 348-01. Patient/family oriented to hospital policies and general routines including ID bracelet, bed and alarms, visiting hours, pain management, procedures, bathroom and other care routines, personal items, smoking policy, room service/diet, and visiting hours. Information on how to activate the Rapid Response Team has been discussed. Patient/Family are encouraged to report perceived risks to care and to ask questions if they do not understand what they are told or what they should do.
[2023-11-10] MEDS: VANCOMYCIN HCL 125 MG ORAL CAPSULE PO ×3 (01:00→13:26)
[2023-11-10 02:56] LABS: Appearance Urine Clear (Clear); Bilirubin Urine Negative (Negative); Blood Urine Negative (Negative); Color Urine Yellow (Yellow); Glucose Urine UA Negative (Negative); Ketones Urine Negative (Negative); Leukocyte Esterase Ur Negative LEU/UL (Negative); Nitrate Urine Negative (Negative); Protein Urine Negative (Negative); Specific Grav Ur 1.024 (1.001-1.035); Urobilinogen Urine 0.2 mg/dL (<2.0); pH Urine 5.5 (5.0-9.0)
[2023-11-10 02:57] LABS: Add Urine Microscopic? NO
[2023-11-10] MEDS: LEVOTHYROXINE SODIUM 75 MCG TABLET PO (05:56)
[2023-11-10 06:00] VITALS: BP 139/70; PULSE 65; RESP 20; TEMP 36.7; O2SAT 99
[2023-11-10 08:27] LABS: Glucose Point of Care 68 mg/dl (65-105)
[2023-11-10] MEDS: SODIUM CHLORIDE 1 GM TABLET PO ×3 (09:24→16:52)
[2023-11-10] MEDS: allopurinoL 100 MG TABLET PO (09:24)
[2023-11-10] MEDS: predniSONE 5 MG TABLET PO (09:25)
[2023-11-10] MEDS: SODIUM CHLORIDE 500 MG TABLET PO ×3 (09:25→16:52)
[2023-11-10] MEDS: PANTOPRAZOLE 40 MG TABLET PO ×2 (09:25→16:52)
[2023-11-10] MEDS: LORATADINE 10 MG TABLET PO (09:25)
--- NOTE | 2023-11-10 11:41 | PM.IMPN ---
Progress Note: A&P Assessment and Plan (1) C. difficile colitis: Code(s): A04.72 - Enterocolitis due to Clostridium difficile, not specified as recurrent Status: Acute Assessment and Plan: 11/09/2023: Admit to regular medical floor Patient started on vancomycin p.o. Supportive care 11/10/2023: patient is C diff positive Of note patient originally presented to the hospital on 08/29/2023 when he developed left knee pain and swelling. He went to the OR for arthroscopy/ debridement/ synovectomy on 09/06 and was discharged on 09/11 with a PICC line and IV antibiotics due to MSSA noted in his synovial fluid. After he finished his course of IV Rocephin his PICC line was removed and he was started on Keflex. He was supposed to follow up with an infectious disease doctor on an outpatient basis but it looks like he did not go at that time. On 10/04/23 he presented again to the hospital with hyponatremia was managed conservatively with [facility]phrology [facility]. He was discharged on 10/07/23 and was told finish his course of Keflex. On 10/17/2023 he came back to [facility] and was in acute hypoxic respiratory failure and septic shock with MODS requiring multiple vasopressors, intubation, and and an ICU admission. During that admission he was noted to have diarrhea at that time he was started on Flagyl and cefepime. Nephrology to was again on board as his kidney function was worsening with the possible need of CRRT. He was then transferred to a tertiary care hospital for further management. He came to the hospital yesterday with dehydration and was C diff positive. He was started on vancomycin p.o. while in the ED, will go ahead and discontinue will start patient on Dificid b.i.d. this is a recurrent C diff infection continue to trend labs stool stool cultures are pending will consult Case Management about use of Dificid on an outpatient basis (2) Diarrhea: Code(s): R19.7 - Diarrhea, unspecified Status: Acute Assessment and Plan: 11/09/23: C difficile positive Supportive care 11/10/23: likely due to C diff see above plan care (3) Dehydration: Code(s): E86.0 - Dehydration Status: Acute Assessment and Plan: 11/10/2023: patient received 2 L of normal saline while in the ED dehydration likely due to C diff infection and diarrhea see above plan care (4) Hyponatremia: Code(s): E87.1 - Hypo-osmolality and hyponatremia Status: Acute Assessment and Plan: 11/09/2023: Likely secondary to GI losses Receiving IV fluids 11/10/2023: sodium 125, chloride 92 on admission likely secondary to C diff infection and diarrhea patient received 2 L normal saline while in the ED will continue to trend labs (5) NIESHA (generalized anxiety disorder): Code(s): F41.1 - Generalized anxiety disorder Status: Acute Assessment and Plan: 11/09/23: Patient is on trazodone at nighttime 11/10/23: continue hydroxyzine (6) Type 2 diabetes mellitus: Qualifiers: Diabetes mellitus complication status: without complication Diabetes mellitus care home insulin use: without extermination inspector use Qualified Code(s): E11.9 - Type 2 diabetes mellitus without complications Code(s): E11.9 - Type 2 diabetes mellitus without complications Status: Chronic Assessment and Plan: 11/09/23: Orally controlled with diet 11/10/23: blood sugars ranging 68-121 Accu-Cheks AC and HS low-dose sliding scale insulin ordered hypoglycemic protocol ordered not on any home meds for type 2 diabetes mellitus diet controlled will check a hemoglobin A1c in the morning (7) CKD (chronic kidney disease) stage 3, GFR 30-59 ml/min: Code(s): N18.30 - Chronic kidney disease, stage 3 unspecified Status: Acute Assessment and Plan: 11/09/23: BUN and creatinine at patient's baseline 11/10/23: BUN on admission was 15,
[2023-11-10 12:46] LABS: Glucose Point of Care 121 mg/dl (65-105)
[2023-11-10 13:25] VITALS: O2SAT 98
[2023-11-10 15:40] VITALS: BP 115/68; PULSE 69; RESP 14; TEMP 36.4; O2SAT 98
[2023-11-10 15:49] LABS: Basophils Absolute Auto 0.1 K/mm3 (0.0-0.1); Basophils Percent Auto 0.4 % (0.2-1.2); Eosinophils Absolute Auto 0.1 K/mm3 (0-0.3); Eosinophils Percent Auto 0.4 % (0-4.4); Hematocrit 31.3 % (42.0-52.0); Hemoglobin 10.4 g/dL (14.0-18.0); Immature Granulocyte Absolute 0.55 K/mm3 (0.00-0.031); Immature Granulocyte Percent A 4.2 % (0-0.5); Lymphocytes Percent Auto 5.3 % (18.3-44.2); Mean Corpuscular HGB Conc 33.2 g/dl (32-36); Mean Corpuscular Hemoglobin 29.8 pg (26-34); Mean Corpuscular Volume 89.7 fl (80-100); Monocytes Absolute Auto 0.6 K/mm3 (0.1-0.6); Monocytes Percent Auto 4.6 % (2.6-8.5); Neutrophils Absolute Auto 11.2 K/mm3 (1.3-6.7); Neutrophils Percent Auto 85.1 % (45.5-73.1); Platelet Count Result 171 k/mm3 (150-375); Red Blood Count 3.49 M/mm3 (4.6-6.20); Red Cell Distribution Width 15.8 % (11.5-14.5); White Blood Count 13.2 K/mm3 (4.5-10.0)
[2023-11-10 16:05] LABS: Alanine Aminotransferase 30 U/L (6-50); Albumin Level 3.7 g/dL (3.5-5.1); Alkaline Phosphatase 144 U/L (38-126); Anion Gap 8 mmol/L (8-16); Aspartate Amino Transferase 56 U/L (17-59); Bilirubin,Total 0.6 mg/dL (0.2-1.3); Blood Urea Nitrogen 10 mg/dL (9-20); Calcium 8.8 mg/dL (8.4-10.2); Carbon Dioxide 23 mmol/L (22-30); Chloride 99 mmol/L (98-107); Estimated CRCL calculation 64 ml/min; Estimated Glomerular Filt Rate > 60; Glucose 156 mg/dL (65-110); Magnesium 1.8 mg/dL (1.6-2.3); Potassium 4.2 mmol/L (3.4-5.0); Sodium 130 mmol/L (137-145)
--- NOTE | 2023-11-10 16:29 | PM.TDS ---
Transfer Discharge Sum: Prov Provider Date of admission: 10/17/2023 Primary care physician: Solo Burr MD Admitting clinician: Oskar Buck MD Attending physician on admission: Oskar Buck Consults: 11/10/23 Care Coordination Consult Routine Comment: Will need Difacid Reason for Consult:: Specialty Medications Attending physician on discharge: Lisa Preston Discharging clinician: Lisa Preston Anticipated date of transfer: 10/17/23 Receiving physician/facility: [facility] DS: Admitting Diagnosis Discharge Date 10/17/2023 Admitting Diagnosis Generalized weakness Transfer Discharge Sum: Med Medications Active and Home Medications: Home Medications prednisone 5 mg tablet 5 mg PO DAILY #90 tabs 09/09/20 [Rx Confirmed 11/10/23] allopurinol 100 mg tablet 100 mg PO DAILY #100 tabs 06/22/22 [Rx Confirmed 11/10/23] pantoprazole 40 mg tablet,delayed release 40 mg PO BID #180 tabs 04/16/23 [Rx Confirmed 11/10/23] levothyroxine 75 mcg tablet 75 mcg PO DAILY #30 tabs 04/19/23 [Rx Confirmed 11/10/23] cetirizine 10 mg tablet (Zyrtec) 10 mg PO DAILY 08/23/23 [History Confirmed 11/10/23] fluticasone propionate 50 mcg/actuation nasal spray,suspension 1 spray intranasal PRN PRN Allergy Symptoms 08/23/23 [History Confirmed 11/10/23] multivit,Ca,min-iron 8 mg-folic acid 200 mcg-lycopene 600 mcg tablet (Centrum Men) 1 tablet PO DAILY 08/23/23 [History Confirmed 11/10/23] tizanidine 4 mg capsule 4 mg PO TID PRN muscle spasticity #30 caps 10/02/23 [Rx Confirmed 11/10/23] albuterol sulfate 90 mcg/actuation aerosol inhaler 2 puff inhalation Q4H PRN shortness of breath or wheezing #8.5 grams 11/02/23 [Rx Confirmed 11/10/23] fenofibrate nanocrystallized 145 mg tablet 145 mg PO DAILY 11/06/23 [History Confirmed 11/10/23] hydroxyzine HCl 25 mg tablet 25 mg PO Q8H PRN anxiety 11/06/23 [History Confirmed 11/10/23] lisinopril 40 mg tablet 40 mg PO DAILY 11/06/23 [History Confirmed 11/10/23] melatonin 10 mg capsule 10 mg PO QHS 11/06/23 [History Confirmed 11/10/23] simvastatin 40 mg tablet 40 mg PO DAILY 11/06/23 [History Confirmed 11/10/23] sodium chloride 1,000 mg soluble tablet 1,500 mg PO TID 11/06/23 [History Confirmed 11/10/23] testosterone 10 mg/0.5 gram/actuation transdermal gel pump 3 pump topical DAILY 11/06/23 [History Confirmed 11/10/23] trazodone 100 mg tablet 100 mg PO QHS PRN Insomnia 11/06/23 [History Confirmed 11/10/23] Active Medications Albuterol (Albuterol Sulfate (*Sp) Aerosol 1 Puff) 2 puff INHALATION Q4H PRN PRN Reason: shortness of breath or wheezing Allopurinol (Allopurinol 100 Mg Tablet) 100 mg PO DAILY@0800 [facility] Last Admin: 11/10/23 09:24 Dose: 100 mg Dextrose (Dextrose 50% 25 Gm/50 Ml Syringe) 12.5 gm IV PUSH PRN PRN; Protocol PRN Reason: Hypoglycemia Enoxaparin Sodium (Enoxaparin 40 Mg/0.4 Ml Syringe) 40 mg SUB-Q DAILY [facility] Fidaxomicin (Fidaxomicin 200 Mg Tablet) 200 mg PO Q12HR [facility] Fluticasone Propionate (Fluticasone Propionate 0.05% Na Spr 16 Gm Btl (*Bkc)) 1 spray NASAL Q12HR PRN PRN Reason: Allergy Symptoms Glucagon (Glucagon For Inj 1 Mg Vial) 1 mg IM PRN PRN; Protocol PRN Reason: Hypoglycemia Glucose (Glucose Oral Gel 15 Gm Of Glucse In 37.5 Gm Tube) 15 gm PO PRN PRN; Protocol PRN Reason: Hypoglycemia Hydroxyzine HCl (Hydroxyzine Hcl 25 Mg Tablet) 25 mg PO Q8H PRN PRN Reason: anxiety Dextrose (Dextrose 5% 1,000 Ml) 1,000 mls @ 100 mls/hr IVPB PRN PRN; Protocol PRN Reason: Hypoglycemia Insulin Aspart (Insulin Aspart (*Bkc) 100 Units/Ml) 2 - 5 units SUB-Q TIDWM [facility]; Protocol Levothyroxine Sodium (Levothyroxine Sodium 75 Mcg Tablet) 75 mcg PO DAILY@0630 [facility] Last Admin: 11/10/23 05:56 Dose: 75 mcg Loratadine (Loratadine 10 Mg Tablet) 10 mg PO QAM [facility] Last Admin: 11/10/23 09:25 Dose: 10 mg Melatonin (Melatonin 5 Mg Tablet) 10 mg PO QHS [facility] Pantoprazole Sodium (Pantoprazole 40 Mg Tablet) 40 mg PO BID [facility] Last Admin: 11/10/23 09:25 Dose: 40 mg Prednisone (Prednisone
[2023-11-10 17:29] LABS: Glucose Point of Care 128 mg/dl (65-105)
[2023-11-10 20:14] VITALS: BP 112/68; PULSE 73; RESP 16; TEMP 36.8; O2SAT 98
[2023-11-10] MEDS: MELATONIN 5 MG TABLET 10 MG PO (20:44)
[2023-11-10] MEDS: TIZANIDINE HCL 4 MG TABLET PO (20:44)
[2023-11-10] MEDS: FIDAXOMICIN 200 MG TABLET PO (20:45)
[2023-11-10] MEDS: traZODone HCL 50 MG TABLET 100 MG PO (20:45)
[2023-11-10] MEDS: hydrOXYzine HCL 25 MG TABLET PO (20:45)
[2023-11-10 23:07] LABS: Glucose Point of Care 179 mg/dl (65-105)
[2023-11-11] MEDS: LEVOTHYROXINE SODIUM 75 MCG TABLET PO (05:41)
[2023-11-11 06:00] VITALS: BP 100/60; PULSE 76; RESP 21; O2SAT 100
[2023-11-11 06:08] LABS: Hemoglobin 9.6 g/dL (14.0-18.0); Mean Corpuscular Hemoglobin 29.5 pg (26-34); Mean Corpuscular Volume 92.3 fl (80-100); Mean Platelet Volume 10.5 fl (7.4-10.4); Platelet Count Result 164 k/mm3 (150-375); Red Blood Count 3.25 M/mm3 (4.6-6.20); Red Cell Distribution Width 15.8 % (11.5-14.5); White Blood Count 8.7 K/mm3 (4.5-10.0)
[2023-11-11 06:24] LABS: Hemoglobin A1C 5.4 % (<5.7)
[2023-11-11 06:26] LABS: Alanine Aminotransferase 29 U/L (6-50); Albumin Level 3.3 g/dL (3.5-5.1); Alkaline Phosphatase 125 U/L (38-126); Anion Gap 6 mmol/L (8-16); Aspartate Amino Transferase 38 U/L (17-59); Bilirubin,Total 0.4 mg/dL (0.2-1.3); Blood Urea Nitrogen 10 mg/dL (9-20); Calcium 8.8 mg/dL (8.4-10.2); Carbon Dioxide 25 mmol/L (22-30); Chloride 101 mmol/L (98-107); Estimated CRCL calculation 64 ml/min; Estimated Glomerular Filt Rate > 60; Glucose 106 mg/dL (65-110); Magnesium 1.8 mg/dL (1.6-2.3); Potassium 3.8 mmol/L (3.4-5.0); Sodium 132 mmol/L (137-145)
--- NOTE | 2023-11-11 07:23 | P.PNIM_ITS ---
Progress Note: A&P Assessment and Plan (1) C. difficile colitis: Code(s): A04.72 - Enterocolitis due to Clostridium difficile, not specified as recurrent Status: Acute Assessment and Plan: 11/09/2023: Admit to regular medical floor Patient started on vancomycin p.o. Supportive care 11/10/2023: * patient is C diff positive * Of note patient originally presented to the hospital on 08/29/2023 when he developed left knee pain and swelling. He went to the OR for arthroscopy/ debridement/ synovectomy on 09/06 and was discharged on 09/11 with a PICC line and IV antibiotics due to MSSA noted in his synovial fluid. After he finished his course of IV Rocephin his PICC line was removed and he was started on Keflex. He was supposed to follow up with an infectious disease doctor on an outpatient basis but it looks like he did not go at that time. On 10/04/23 he presented again to the hospital with hyponatremia was managed conservatively with [facility]. He was discharged on 10/07/23 and w as told finish his course of Keflex. On 10/17/2023 he came back to [facility] and was in acute hypoxic respiratory failure and septic shock with MODS requiring multiple vasopressors, intubation, and and an ICU admission. During that admission he was noted to have diarrhea at that time he was started on Flagyl and cefepime. Nephrology to was again on board as his kidney function was worsening with the possible need of CRRT. He was then transferred to a tertiary care hospital for further management. * He came to the hospital yesterday with dehydration and was C diff positive. * He was started on vancomycin p.o. while in the ED, will go ahead and discontinue * will start patient on Dificid b.i.d. this is a recurrent C diff infection * continue to trend labs * stool stool cultures are pending * will consult Case Management about use of Dificid on an outpatient basis 11/11/2023: * no change to current treatment plan (2) Diarrhea: Code(s): R19.7 - Diarrhea, unspecified Status: Acute Assessment and Plan: 11/09/23: C difficile positive Supportive care 11/10/23: * likely due to C diff * see above plan care 11/11/2023: * no change to current treatment (3) Dehydration: Code(s): E86.0 - Dehydration Status: Acute Assessment and Plan: 11/10/2023: * patient received 2 L of normal saline while in the ED * dehydration likely due to C diff infection and diarrhea * see above plan care 11/11/2023: * no change to current treatment plan * patient appears to be euvolemic (4) Hyponatremia: Code(s): E87.1 - Hypo-osmolality and hyponatremia Status: Acute Assessment and Plan: 11/09/2023: Likely secondary to GI losses Receiving IV fluids 11/10/2023: * sodium 125, chloride 92 on admission likely secondary to C diff infection and diarrhea * patient received 2 L normal saline while in the ED * will continue to trend labs 11/11/2023: * sodium up to 132 today, chloride 101 * appears euvolemic (5) NIESHA (generalized anxiety disorder): Code(s): F41.1 - Generalized anxiety disorder Status: Acute Assessment and Plan: 11/09/23: Patient is on trazodone at nighttime 11/10/23: * continue hydroxyzine 11/11/2023: * no change to current treatment plan (6) Type 2 diabetes mellitus: Qualifiers: Diabetes mellitus complication status: without complication Diabetes mellitus termite technician insulin use: without jaja
--- NOTE | 2023-11-11 07:23 | PM.IMPN ---
Progress Note: A&P Assessment and Plan (1) C. difficile colitis: Code(s): A04.72 - Enterocolitis due to Clostridium difficile, not specified as recurrent Status: Acute Assessment and Plan: 11/09/2023: Admit to regular medical floor Patient started on vancomycin p.o. Supportive care 11/10/2023: patient is C diff positive Of note patient originally presented to the hospital on 08/29/2023 when he developed left knee pain and swelling. He went to the OR for arthroscopy/ debridement/ synovectomy on 09/06 and was discharged on 09/11 with a PICC line and IV antibiotics due to MSSA noted in his synovial fluid. After he finished his course of IV Rocephin his PICC line was removed and he was started on Keflex. He was supposed to follow up with an infectious disease doctor on an outpatient basis but it looks like he did not go at that time. On 10/04/23 he presented again to the hospital with hyponatremia was managed conservatively with [facility]. He was discharged on 10/07/23 and was told finish his course of Keflex. On 10/17/2023 he came back to [facility] and was in acute hypoxic respiratory failure and septic shock with MODS requiring multiple vasopressors, intubation, and and an ICU admission. During that admission he was noted to have diarrhea at that time he was started on Flagyl and cefepime. Nephrology to was again on board as his kidney function was worsening with the possible need of CRRT. He was then transferred to a tertiary care hospital for further management. He came to the hospital yesterday with dehydration and was C diff positive. He was started on vancomycin p.o. while in the ED, will go ahead and discontinue will start patient on Dificid b.i.d. this is a recurrent C diff infection continue to trend labs stool stool cultures are pending will consult Case Management about use of Dificid on an outpatient basis 11/11/2023: no change to current treatment plan (2) Diarrhea: Code(s): R19.7 - Diarrhea, unspecified Status: Acute Assessment and Plan: 11/09/23: C difficile positive Supportive care 11/10/23: likely due to C diff see above plan care 11/11/2023: no change to current treatment (3) Dehydration: Code(s): E86.0 - Dehydration Status: Acute Assessment and Plan: 11/10/2023: patient received 2 L of normal saline while in the ED dehydration likely due to C diff infection and diarrhea see above plan care 11/11/2023: no change to current treatment plan patient appears to be euvolemic (4) Hyponatremia: Code(s): E87.1 - Hypo-osmolality and hyponatremia Status: Acute Assessment and Plan: 11/09/2023: Likely secondary to GI losses Receiving IV fluids 11/10/2023: sodium 125, chloride 92 on admission likely secondary to C diff infection and diarrhea patient received 2 L normal saline while in the ED will continue to trend labs 11/11/2023: sodium up to 132 today, chloride 101 appears euvolemic (5) NIESHA (generalized anxiety disorder): Code(s): F41.1 - Generalized anxiety disorder Status: Acute Assessment and Plan: 11/09/23: Patient is on trazodone at nighttime 11/10/23: continue hydroxyzine 11/11/2023: no change to current treatment plan (6) Type 2 diabetes mellitus: Qualifiers: Diabetes mellitus complication status: without complication Diabetes mellitus ad terminal makeup operator insulin use: without ad terminal makeup operator use Qualified Code(s): E11.9 - Type 2 diabetes mellitus without complications Code(s): E11.9 - Type 2 diabetes mellitus without complications Status: Chronic Assessment and Plan: 11/09/23: Orally controlled with diet 11/10/23: blood sugars ranging 68-121 Accu-Cheks AC and HS low-dose sliding scale insulin ordered hypoglycemic protocol ordered not on any home meds for type 2 diabetes mellitus diet con
[2023-11-11 08:00] VITALS: TEMP 35.3
[2023-11-11 08:11] LABS: Glucose Point of Care 82 mg/dl (65-105)
[2023-11-11] MEDS: FIDAXOMICIN 200 MG TABLET PO ×2 (09:15→20:41)
[2023-11-11] MEDS: predniSONE 5 MG TABLET PO (09:15)
[2023-11-11] MEDS: ENOXAPARIN 40 MG/0.4 ML SYRINGE SUB-Q (09:15)
[2023-11-11] MEDS: SODIUM CHLORIDE 1 GM TABLET PO ×3 (09:15→17:03)
[2023-11-11] MEDS: SODIUM CHLORIDE 500 MG TABLET PO ×3 (09:15→17:03)
[2023-11-11] MEDS: allopurinoL 100 MG TABLET PO (09:15)
[2023-11-11] MEDS: LORATADINE 10 MG TABLET PO (09:16)
[2023-11-11] MEDS: PANTOPRAZOLE 40 MG TABLET PO ×2 (09:16→17:03)
[2023-11-11 10:40] LABS: Band Neutrophils Percent 10 % (0-6); Eosinophils Absolute Manual 0.08 K/mm3 (0.02-0.5); Eosinophils Percent Manual 1 % (0-4); Lymphocytes Absolute Manual 0.52 K/mm3 (1.1-4.5); Monocytes Absolute Manual 0.26 K/mm3 (0.1-0.90); Monocytes Percent Manual 3 % (3-9); Neutrophils Absolute Manual 7.83 K/mm3 (1.3-6.7); Neutrophils Percent Manual 80 % (46-73); Platelet Estimate Adequate (Adequate); Schistocytes None Seen (NORMAL); Total Cells Counted 100
[2023-11-11 11:32] LABS: Glucose Point of Care 149 mg/dl (65-105)
[2023-11-11 14:31] VITALS: BP 123/75; PULSE 69; RESP 16; TEMP 36.3; O2SAT 99
[2023-11-11 16:58] LABS: Glucose Point of Care 145 mg/dl (65-105)
[2023-11-11] MEDS: MELATONIN 5 MG TABLET 10 MG PO (20:42)
[2023-11-11] MEDS: TIZANIDINE HCL 4 MG TABLET PO (20:42)
[2023-11-11] MEDS: traZODone HCL 50 MG TABLET 100 MG PO (20:42)
[2023-11-11] MEDS: hydrOXYzine HCL 25 MG TABLET PO (20:42)
[2023-11-11 22:11] VITALS: BP 157/75; PULSE 60; RESP 18; TEMP 36.7; O2SAT 98
[2023-11-11 22:38] LABS: Glucose Point of Care 146 mg/dl (65-105)
[2023-11-12 04:50] VITALS: BP 139/65; PULSE 53; RESP 18; O2SAT 99
[2023-11-12 05:35] LABS: Basophils Absolute Auto 0.1 K/mm3 (0.0-0.1); Basophils Percent Auto 1.1 % (0.2-1.2); Eosinophils Absolute Auto 0.1 K/mm3 (0-0.3); Eosinophils Percent Auto 1.8 % (0-4.4); Hematocrit 29.6 % (42.0-52.0); Hemoglobin 9.6 g/dL (14.0-18.0); Immature Granulocyte Absolute 0.88 K/mm3 (0.00-0.031); Immature Granulocyte Percent A 14.2 % (0-0.5); Lymphocytes Absolute Auto 1.29 K/mm3 (0.9-3.2); Lymphocytes Percent Auto 20.8 % (18.3-44.2); Mean Corpuscular HGB Conc 32.4 g/dl (32-36); Mean Corpuscular Hemoglobin 29.8 pg (26-34); Mean Corpuscular Volume 91.9 fl (80-100); Mean Platelet Volume 10.1 fl (7.4-10.4); Monocytes Absolute Auto 0.4 K/mm3 (0.1-0.6); Neutrophils Absolute Auto 3.5 K/mm3 (1.3-6.7); Neutrophils Percent Auto 56.1 % (45.5-73.1); Platelet Count Result 155 k/mm3 (150-375); Red Blood Count 3.22 M/mm3 (4.6-6.20); Red Cell Distribution Width 15.5 % (11.5-14.5); White Blood Count 6.2 K/mm3 (4.5-10.0)
[2023-11-12 05:50] LABS: Alanine Aminotransferase 32 U/L (6-50); Albumin Level 3.2 g/dL (3.5-5.1); Alkaline Phosphatase 135 U/L (38-126); Anion Gap 4 mmol/L (8-16); Aspartate Amino Transferase 41 U/L (17-59); Bilirubin,Total 0.4 mg/dL (0.2-1.3); Blood Urea Nitrogen 11 mg/dL (9-20); Calcium 8.7 mg/dL (8.4-10.2); Carbon Dioxide 28 mmol/L (22-30); Chloride 103 mmol/L (98-107); Estimated CRCL calculation 70 ml/min; Estimated Glomerular Filt Rate > 60; Glucose 88 mg/dL (65-110); Potassium 4.1 mmol/L (3.4-5.0); Sodium 135 mmol/L (137-145)
[2023-11-12 06:15] LABS: Anisocytosis 1+ (NORMAL); Hypochromasia 1+ (NORMAL); Large Platelets Present; Platelet Estimate Adequate (Adequate); Schistocytes None Seen (NORMAL)
[2023-11-12] MEDS: LEVOTHYROXINE SODIUM 75 MCG TABLET PO (06:52)
[2023-11-12 08:35] LABS: Glucose Point of Care 47 mg/dl (65-105)
[2023-11-12 08:35] LABS: Glucose Point of Care 52 mg/dl (65-105)
--- NOTE | 2023-11-12 08:58 | PM.DS ---
DS: Admitting Diagnosis Discharge Date 11/12/23 Admitting Diagnosis C diff colitis hyponatremia diarrhea generalized anxiety disorder type 2 diabetes mellitus chronic kidney disease DS: Discharge Diagnosis Discharge Diagnosis (1) C. difficile colitis: Code(s): A04.72 - Enterocolitis due to Clostridium difficile, not specified as recurrent Status: Acute (2) Diarrhea: Code(s): R19.7 - Diarrhea, unspecified Status: Acute (3) Dehydration: Code(s): E86.0 - Dehydration Status: Acute (4) Hyponatremia: Code(s): E87.1 - Hypo-osmolality and hyponatremia Status: Acute (5) NIESHA (generalized anxiety disorder): Code(s): F41.1 - Generalized anxiety disorder Status: Acute (6) Type 2 diabetes mellitus: Qualifiers: Diabetes mellitus complication status: without complication Diabetes mellitus senior living insulin use: without intermission coordinator use Qualified Code(s): E11.9 - Type 2 diabetes mellitus without complications Code(s): E11.9 - Type 2 diabetes mellitus without complications Status: Chronic (7) CKD (chronic kidney disease) stage 3, GFR 30-59 ml/min: Code(s): N18.30 - Chronic kidney disease, stage 3 unspecified Status: Acute DS: Summary Hospital Course Reason for hospitalization: C diff colitis hyponatremia diarrhea generalized anxiety disorder type 2 diabetes mellitus chronic kidney disease Hospital Course: Interval history: 11/10/23: This is a 68-year-old male who presented to the hospital on 11/09/2023 with complaints of dehydration and diarrhea.? Workup in hospital includes a chest x-ray which shows mild atelectasis at the lung bases.? He also had a CT of his abdomen and pelvis with contrast which shows adhikari colitis and gallbladder distension.? EKG showing sinus rhythm with a left axis deviation and a right bundle branch block with a rate of 77 and a QTC of 488. Initial labs shown a white blood cell count of 13.1, hemoglobin 10.8, hematocrit 32.9, sodium 125, potassium 4.0, chloride 92, kidney function was normal, blood sugars ranging 119-152, lactic acid 1.4, liver enzymes are normal, lipase was normal at 36.? UA was negative for any bacteria.? He had a respiratory panel done which was negative for influenza a and B, RSV, and COVID.? A C diff specimen was obtained and was positive.? Stool cultures for E coli, salmon Vilma, Campylobacter antigen are pending.? Patient was given 2 L normal saline in the ED and started on oral vancomycin. Of note patient originally presented to the hospital on 08/29/2023 when he developed left knee pain and swelling.? He went to the OR for arthroscopy/ debridement/ synovectomy on 09/06 and was discharged on 09/11 with a PICC line and IV antibiotics due to? MSSA? noted in his synovial fluid.? After he finished his course of IV Rocephin his PICC line was removed and he was started on Keflex. He was supposed to follow up with an infectious disease doctor on an outpatient basis but it looks like he did not go at that time. ? On 10/04/23? he presented again to the hospital with hyponatremia was managed conservatively with Nephrology Services.? He was discharged on 10/07/23? and was told finish his course of Keflex. On? 10/17/2023 he came back to [facility] and was in acute? hypoxic respiratory failure and septic shock with MODS requiring multiple vasopressors, intubation, and and? an? ICU admission. During that admission he was noted to have diarrhea at that time he was started on Flagyl and cefepime. Nephrology to was again on board as his kidney function was worsening with the possible need of CRRT.? He was then transferred to a tertiary care hospital for further management. On examination today patient is alert oriented x3, lying in the bed. Patient denies any fever, chills, nausea, vomiting, abdominal pain, chest pain, shortness a breath, headache. Patient endorses multiple episodes of diarrhea. Labs today revealed
[2023-11-12] MEDS: SODIUM CHLORIDE 500 MG TABLET PO ×2 (09:27→13:08)
[2023-11-12] MEDS: predniSONE 5 MG TABLET PO (09:27)
[2023-11-12] MEDS: allopurinoL 100 MG TABLET PO (09:27)
[2023-11-12] MEDS: SODIUM CHLORIDE 1 GM TABLET PO ×2 (09:27→13:08)
[2023-11-12] MEDS: ENOXAPARIN 40 MG/0.4 ML SYRINGE SUB-Q (09:27)
[2023-11-12] MEDS: LORATADINE 10 MG TABLET PO (09:27)
[2023-11-12] MEDS: PANTOPRAZOLE 40 MG TABLET PO (09:27)
[2023-11-12] MEDS: FIDAXOMICIN 200 MG TABLET PO (09:27)
[2023-11-12 09:37] LABS: Glucose Point of Care 103 mg/dl (65-105)
[2023-11-12 09:37] LABS: Glucose Point of Care 59 mg/dl (65-105)
[2023-11-12 12:32] LABS: Glucose Point of Care 92 mg/dl (65-105)
== END 2023-11-12 14:30 | disposition home or self-care (01) ==
LOC: ANHED 22:32 → ANH3MED 23:54
PROVIDERS: Nurse Practitioner Acute Care; Admitting Provider Internal Medicine; Emergency Provider Physician Assistant; PCP Family Medicine; Visit Provider Internal Medicine
DX: A04.72 Enterocolitis due to Clostridium difficile, not specified as recurrent (principal); E87.1 Hypo-osmolality and hyponatremia; E86.0 Dehydration; I12.9 Hypertensive chronic kidney disease with stage 1 through stage 4 chronic kidney disease, or unspecified chronic kidney disease; E11.22 Type 2 diabetes mellitus with diabetic chronic kidney disease; N18.30 Chronic kidney disease, stage 3 unspecified; E78.5 Hyperlipidemia, unspecified; E03.9 Hypothyroidism, unspecified; F41.1 Generalized anxiety disorder; K21.9 Gastro-esophageal reflux disease without esophagitis; M10.9 Gout, unspecified; Z79.890 Hormone replacement therapy; Z85.72 Personal history of non-Hodgkin lymphomas; Z87.891 Personal history of nicotine dependence; Z20.822 Contact with and (suspected) exposure to COVID-19
CPT/HCPCS: 36415; 71045; 74177; 80053; 81003; 82948; 83036; 83605; 83690; 83735; 85025; 87045; 87427; 87449; 87493; 87637; 93005; 96360; 96361; 96372; 99285; A9270; G0378; J1650; J7030; J7512; Q9967

== ENCOUNTER 2024-07-25 00:45 | Day surgery (SDC) | payer MEDICARE, SELFPAY ==
[2024-07-11 15:48] VITALS: BMI 26.4
[2024-07-25 08:21] VITALS: BP 152/80; PULSE 59; RESP 20; TEMP 35.7; O2SAT 95; BMI 25.4
--- NOTE | 2024-07-25 08:44 | P.PNAN_ITS ---
Anes - Initial Pre Proc Eval Procedure: Operation Date: 07/25/24 09:30 Proposed Procedures p Screening Colonoscopy - Michael Mcgrath MD Date/Time: 07/25/24 08:44 Surgeon: Michael Mcgrath MD Pre Op Diagnosis: hx colon polyps Patient Data Age: 68 Gender: M Height: 1.8 m Weight: 83 kg Last Vital Signs Temp 35.7 C L 07/25/24 08:21 Pulse 59 L 07/25/24 08:21 Resp 20 07/25/24 08:21 BP 152/80 H 07/25/24 08:21 Pulse Ox 95 07/25/24 08:21 O2 Del Method Room Air 07/25/24 08:21 Allergies Allergy/AdvReac Type Severity Reaction Status Date / Time COVID-19 (SARS-CoV-2) AdvReac Unknown FLU Verified 07/25/24 08:17 vaccine, elsy SYMPTOMS Home Medications Medication Instructions Recorded Confirmed Type cetirizine 10 mg tablet (Zyrtec) 10 mg PO DAILY 08/23/23 07/25/24 History fluticasone propionate 50 1 spray intranasal PRN PRN Allergy 08/23/23 07/25/24 History mcg/actuation nasal Symptoms spray,suspension testosterone 10 mg/0.5 3 pump topical DAILY 11/06/23 07/25/24 History gram/actuation transdermal gel pump sitagliptin phosphate 50 mg tablet 50 mg PO DAILY 11/15/23 07/25/24 History (Januvia) lisinopril 40 mg tablet 40 mg PO DAILY #90 tabs 01/10/24 07/25/24 Rx hydroxyzine HCl 25 mg tablet 25 mg PO Q8H PRN anxiety #100 tabs 01/31/24 07/25/24 Rx albuterol sulfate 90 mcg/actuation 2 puff inhalation Q4H PRN 02/07/24 07/25/24 Rx aerosol inhaler shortness of breath or wheezing #8.5 grams levothyroxine 88 mcg tablet 88 mcg PO DAILY 04/24/24 07/25/24 History sildenafil 100 mg tablet 100 mg PO DAILY PRN sexual 04/24/24 07/25/24 Rx activity #30 tabs rosuvastatin 5 mg tablet 5 mg PO DAILY #90 tabs 04/29/24 07/25/24 Rx allopurinol 100 mg tablet 100 mg PO DAILY #100 tabs 05/09/24 07/25/24 Rx trazodone 100 mg tablet 100 mg PO QHS PRN Insomnia #90 tabs 05/16/24 07/25/24 Rx prednisone 10 mg tablet 10 mg PO BID PRN Pain 07/11/24 07/25/24 History tizanidine 4 mg capsule (Zanaflex) 4 mg PO TID PRN muscle spasticity 07/11/24 07/25/24 History pantoprazole 40 mg tablet,delayed 40 mg PO BID #180 tabs 07/23/24 07/25/24 Rx release Patient hx anesthesia problems: none Family hx anesthesia problems: none Results Review: All pre-operative results and documents have been reviewed as part of the pre- operative evaluation. [facility] Past Medical History Medical History (Updated 07/24/24 @ 15:24 by Eddie Pickett DO) Acute meniscal tear of left knee (~06/2023) Chronic neck pain Environmental allergies Erectile dysfunction Fracture, patella (~06/2023) GERD without esophagitis Gout History of Clostridioides difficile colitis (~10/2023) History of non-Hodgkin's lymphoma (2007) History of pituitary tumor (2016) Hyperlipidemia Hypertension Hypogonadism in male Hypopituitarism Hypothyroidism (acquired) Insomnia Seizure Septic arthritis of knee, left (~08/2023) Type 2 diabetes mellitus Surgical History Surgical History History of left knee surgery (~2022) History of repair of right rotator cuff (1999) History of tonsillectomy (1963) Status post arthroscopic partial medial meniscectomy of right knee (08/29/23) Status post tendon repair Repair left quadriceps tendon rupture 12/06. Repair biceps tendon tear. Status post transsphenoidal pituitary resection (01/2017) [place] teeth removed (Unknown) Family History Family History (Updated 05/20/24 @ 09:54 by BOYD Khan) Mother Asthma Father Family history of alcoholism Grandparent Acute myocardial infarction Sibling No problems noted. Other Diabetes mellitus Social History Social History (Updated 05/20/24 @ 09:55 by BOYD Khan) Social History: Surrogate medical decision maker: Katharina Sommer, jami. Code status: Smoking packs per day: 1.5 Smoking cigarettes per day: 30.0 Years smoked: 20 Smoking pack-years: 30.00 Smoking status: Former smoker Tobacco type: cigarettes Second hand tobacco smoke exposure: Yes Smoking end date: 09/17/89 Alcohol intake: current Drinks per week: 10 Alcohol use details: Rarely Substance use: current Substance use type: marijuana Last use: daily Do You Feel Safe in your Home?: Yes Lack of Transportation: No Lack of Food: Never True Current Housing: I Have Housing Concerned About Future Housing: No Difficulty Paying Gas/Electric Bills: No Difficulty Paying for Meds: No Currently Unemployed: No Education: High School Diploma/GED Difficulty w/ Childcare or Family Care: No Living arrangements: with family 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/Education: retired 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 Gender identity (if verbalized by the patient): Male Spiritual care concerns: No Agree to blood products: Yes Anes - Eval Final PreProcedure Day of Procedure 07/25/24 08:44 Patient weight: overweight Heart: regular rate and rhythm Lungs: clear to auscultation Airway: Mallampati scale class II Neurological: alert and oriented Last oral intake: >/= 8 hours ASA classification: III Emergent: no Anesthetic plan: proceed Anesthesia type and monitoring: general GIVS and standard monitoring Results Review: All pre-operative results and documents have been reviewed as part of the pre- operative evaluation. Informed Consent: The patient's anesthetic plan and its attendant risks and benefits were discussed with the patient/family/POA. Questions were solicited and answers provided to the satisfaction of the patient/family/POA.
[2024-07-25] MEDS: LACTATED RINGERS 1,000 ML 150 ML IV CONT (08:52)
[2024-07-25 08:58] LABS: Glucose Point of Care 78 mg/dl (65-105)
--- NOTE | 2024-07-25 09:36 | P.HP_ITS ---
H&P: HPI History of Present Illness Date/Time: 07/25/24 09:36 Chief Complaint: History of colon polyps Narrative: The patient has a history of colonic polyps, the last colonoscopy was approximately 5 years ago. In addition, patient had a recently complicated knee surgery with infection requiring antibiotics. As a consequence, he developed C difficile infection which was resolved. Review of Systems Review of Systems: All systems reviewed & are unremarkable except as noted in HPI and below PMFSH Past Medical History Medical History (Updated 07/25/24 @ 09:38 by Michael Mcgrath MD) Acute meniscal tear of left knee (~06/2023) Chronic neck pain Environmental allergies Erectile dysfunction Fracture, patella (~06/2023) GERD without esophagitis Gout History of Clostridioides difficile colitis (~10/2023) History of non-Hodgkin's lymphoma (2007) History of pituitary tumor (2016) Hyperlipidemia Hypertension Hypogonadism in male Hypopituitarism Hypothyroidism (acquired) Insomnia Seizure Septic arthritis of knee, left (~08/2023) Type 2 diabetes mellitus Surgical History Surgical History History of left knee surgery (~2022) History of repair of right rotator cuff (1999) History of tonsillectomy (1963) Status post arthroscopic partial medial meniscectomy of right knee (08/29/23) Status post tendon repair Repair left quadriceps tendon rupture 12/06. Repair biceps tendon tear. Status post transsphenoidal pituitary resection (01/2017) [place] teeth removed (Unknown) Family History Family History (Updated 05/20/24 @ 09:54 by BOYD Khan) Mother Asthma Father Family history of alcoholism Grandparent Acute myocardial infarction Sibling No problems noted. Other Diabetes mellitus Social History Social History (Updated 05/20/24 @ 09:55 by BOYD Khan) Social History: Surrogate medical decision maker: jami Potter. Code status: Smoking packs per day: 1.5 Smoking cigarettes per day: 30.0 Years smoked: 20 Smoking pack-years: 30.00 Smoking status: Former smoker Tobacco type: cigarettes Second hand tobacco smoke exposure: Yes Smoking end date: 09/17/89 Alcohol intake: current Drinks per week: 10 Alcohol use details: Rarely Substance use: current Substance use type: marijuana Last use: daily Do You Feel Safe in your Home?: Yes Lack of Transportation: No Lack of Food: Never True Current Housing: I Have Housing Concerned About Future Housing: No Difficulty Paying Gas/Electric Bills: No Difficulty Paying for Meds: No Currently Unemployed: No Education: High School Diploma/GED Difficulty w/ Childcare or Family Care: No Living arrangements: with family Occupation/Education: 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 Gender identity (if verbalized by the patient): Male Spiritual care concerns: No Agree to blood products: Yes Meds Home Medications and Allergies Home Medications Medication Instructions Recorded Confirmed Type cetirizine 10 mg tablet (Zyrtec) 10 mg PO DAILY 08/23/23 07/25/24 History fluticasone propionate 50 1 spray intranasal PRN PRN Allergy 08/23/23 07/25/24 History mcg/actuation nasal Symptoms spray,suspension testosterone 10 mg/0.5 3 pump topical DAILY 11/06/23 07/25/24 History gram/actuation transdermal gel pump sitagliptin phosphate 50 mg tablet 50 mg PO DAILY 11/15/23 07/25/24 History (Januvia) lisinopril 40 mg tablet 40 mg PO DAILY #90 tabs 01/10/24 07/25/24 Rx hydroxyzine HCl 25 mg tablet 25 mg PO Q8H PRN anxiety #100 tabs 01/31/24 07/25/24 Rx albuterol sulfate 90 mcg/actuation 2 puff inhalation Q4H PRN 02/07/24 07/25/24 Rx aerosol inhaler shortness of breath or wheezing #8.5 grams levothyroxine 88 mcg tablet 88 mcg PO DAILY 04/24/24 07/25/24 History sildenafil 100 mg tablet 100 mg PO DAILY PRN sexual 04/24/24 07/25/24 Rx activity #30 tabs rosuvastatin 5 mg tablet 5 mg PO DAILY #90 tabs 04/29/24 07/25/24 Rx allopurinol 100 mg tablet 100 mg PO DAILY #100 tabs 05/09/24 07/25/24 Rx trazodone 100 mg tablet 100 mg PO QHS PRN Insomnia #90 tabs 05/16/24 07/25/24 Rx prednisone 10 mg tablet 10 mg PO BID PRN Pain 07/11/24 07/25/24 History tizanidine 4 mg capsule (Zanaflex) 4 mg PO TID PRN muscle spasticity 07/11/24 07/25/24 History pantoprazole 40 mg tablet,delayed 40 mg PO BID #180 tabs 07/23/24 07/25/24 Rx release Allergies Allergy/AdvReac Type Severity Reaction Status Date / Time COVID-19 (SARS-CoV-2) AdvReac Unknown FLU Verified 07/25/24 08:17 vaccine, elsy SYMPTOMS Vital Signs Vital Signs - 24 hr 07/25/24 08:21 Temperature 96.2 F L Pulse Rate 59 L Respiratory Rate 20 Blood Pressure 152/80 H Pulse Oximetry 95 Oxygen Delivery Room Air Exam Const: General: cooperative and healthy appearing Resp: Effort & Inspection: normal respiratory effort and able to speak in complete sentences Auscultation: clear to auscultation bilaterally Cardio: Rate: regular rate Rhythm: regular rhythm GI: Inspection: normal to inspection GI Palp: No No hepatosplenomegaly present Auscultation: normal bowel sounds Rectal Exam: deferred Skin: General skin exam: normal color Psych: Appearance: grossly normal Mental Status: mental status grossly normal Assessment and Plan Assessment and plan (1) History of colonic polyps: Code(s): Z86.0100 - Personal history of colon polyps, unspecified Status: Acute Assessment and Plan: The patient is deemed a good candidate for the procedure. Consent signed. Will proceed.
[2024-07-25 10:04] VITALS: BP 102/65; PULSE 58; RESP 20; O2SAT 97
[2024-07-25 10:14] VITALS: BP 127/79; PULSE 60; RESP 20; O2SAT 99
[2024-07-25 10:24] VITALS: BP 131/86; PULSE 58; RESP 16; O2SAT 99
== END 2024-07-25 10:36 | disposition home or self-care (01) ==
PROVIDERS: PCP Family Medicine; Visit Provider Internal Medicine Gastroenterology
PROC: 0DJD8ZZ Inspection of Lower Intestinal Tract, Via Natural or Artificial Opening Endoscopic (ICD-10-PCS; CPT 45378; principal; 2024-07-25 09:30)
DX: Z12.11 Encounter for screening for malignant neoplasm of colon (principal); D12.0 Benign neoplasm of cecum; D12.3 Benign neoplasm of transverse colon; K57.30 Diverticulosis of large intestine without perforation or abscess without bleeding; I10 Essential (primary) hypertension; E03.9 Hypothyroidism, unspecified; E78.5 Hyperlipidemia, unspecified; E11.9 Type 2 diabetes mellitus without complications; K21.9 Gastro-esophageal reflux disease without esophagitis; Z85.72 Personal history of non-Hodgkin lymphomas; Z79.51 Long term (current) use of inhaled steroids; Z79.84 Long term (current) use of oral hypoglycemic drugs
CPT/HCPCS: 45385; 82948; 88305; J2003; J2704; J7120

== ENCOUNTER 2024-11-07 13:00 | Outpatient (CLI) | payer MEDICARE, SELFPAY ==
--- OUTSIDE RECORDS SUMMARY | 2024-11-07 13:03 | XMS_ITS | Clinical Summary ---
Author Organization [facility] Address [address] [place] [address] Care Team Providers Care Bpm Solution Architect Name Role Phone Solo Burr MD Primary Care Provider Allergies Active Allergy Reactions Criticality Noted Date Comments Hay Fever And Allergy Relief Unknown 014 Medications ascorbic acid, vitamin C, powderIndications :Vitamin C Deficiency Take 1 Dose by mouth daily before breakfast 015 Active lisinopriL (PRINIVIL,ZESTRIL ) 40 mg tabletIndications :hypertension Take 1 tablet (40 mg total) by mouth daily before breakfast Active allopurinol (ZYLOPRIM) 100 mg tabletIndications :prevention of acute gout attack Take 1 tablet (100 mg total) by mouth daily before breakfast [address] (PROTONIX) 40 mg EC tabletIndications :Treatment of Non-Bleeding Gastric Disorder Take 1 tablet (40 mg total) by mouth nightly Active TiZANidine (ZANAFLEX) 4 mg capsule Take 1 capsule (4 mg total) by mouth 3 (three) times a day as needed for muscle spasms 021 Active syringe with needle (BD Luer-Floridalma Syringe) 3 mL 25 gauge x 1 syringeIndication s:Secondary adrenal insufficiency (HCC) Use to inject dexamethasone as directed. 5 Syringe 5 021 Active blood-glucose meter kit One Touch Verio Reflect - Use daily or as directed for monitoring of diabetes 1 kit 021 Active fluticasone propionate (FLONASE) 50 mcg/actuation nasal sprayIndications: Allergic Rhinitis Administer 1 spray into each nostril 2 (two) times a day Active hydrOXYzine (ATARAX) 25 mg tablet Take 1 tablet (25 mg total) by mouth every 8 (eight) hours as needed for anxiety Active sildenafiL (VIAGRA) 100 mg tablet TAKE 1 TABLET BY MOUTH ONCE DAILY NEEDED FOR SEXUAL ACTIVITY. ADMINISTER 30 MIN TO 4 HOURS BEFORE ACTIVITY Active meloxicam (MOBIC) 15 mg tablet Take 1 tablet (15 mg total) by mouth daily 30 tablet Active traZODone (DESYREL) 100 mg tablet Take 1 tablet (100 mg total) by mouth nightly at bedtime. Active SITagliptin phosphate (Januvia) 50 mg tabletIndications :Type 2 diabetes mellitus without complication, without long-term current use of insulin ([facility]/HCC) ([facility]) Take 1 tablet (50 mg total) by mouth daily 90 tablet 3 Active albuterol HFA (PROVENTIL HFA,VENTOLIN HFA,PROAIR HFA) 90 mcg/actuation inhaler Inhale 2 puffs every 4 hours as needed Active cefTRIAXone (ROCEPHIN) 2 gram injection Active cetirizine (ZyrTEC) 10 mg tablet Take 1 tablet (10 mg total) by mouth daily Active glucosamine sulfate 1,000 mg capsule Take 1 tablet by mouth 2 (two) times a day Active levothyroxine (SYNTHROID) 88 mcg tabletIndications :Pituitary adenoma (HCC),Secondary hypothyroidism Take 1 tablet (88 mcg total) by mouth daily 30 tablet 11 024 2024 Active predniSONE (DELTASONE) 5 mg tablet Take 1 tablet (5 mg) by mouth daily before breakfast 90 tablet 3 Active rosuvastatin 5 mg capsule, sprinkle Active rosuvastatin (CRESTOR) 5 mg tablet Take 1 tablet (5 mg total) by mouth daily Active testosterone 20.25 mg/1.25 gram (1.62 %) gel in metered-dose pump Apply 2 Pump topically daily Apply 1 pump on each shoulder daily 75 g 1 025 Active blood glucose diagnostic (OneTouch Ultra Test) stripIndications: Type 2 diabetes mellitus without complication, without long-term current use of insulin ([facility]) ([facility]) USE 1 STRIP TO CHECK GLUCOSE ONCE DAILY DIRECTED 100 each 025 Active lancets (OneTouch Delica Plus Lancet) 33 gauge misc USE 1 TO CHECK GLUCOSE ONCE DAILY DIRECTED 100 each 025 Active lancets (OneTouch Delica Lancets) 33 gauge misc One touch Delica Lancets - Use to test blood glucose daily as directed - E11.9 100 each 1 022 2024 Discontinued blood glucose diagnostic stripIndications: Type 2 diabetes mellitus without complication, without long-term current use of insulin ([facility] ([facility]) One Touch - Use to check blood glucose daily as directed. Dx: E11.9 100 each 1 022 2024 Discontinued Active Problems Problem Noted Date Diagnosed Date Acute respiratory failure 10/26/2023 Hyponatremia 10/26/2023 Bacterial arthritis ([facility]) 10/25/2023 Staphylococcal arthritis of left knee ([facility]) 10/24/2023 Overview (12/24/2023): Patient reports he had left knee longitudinally oriented fracture of lateral aspect of the patella and meniscal tear for which he underwent partial medial meniscectomy of left knee on 08/29/2023 through the [facility] in [facility]. Following this, he developed redness in the superolateral area, along with swelling and tenderness. He was seen by Dr. Christy who had previously done the arthroscopic repair and knee was aspirated on 09/09/23. Op note mentions abundant purulent aspirate which was washed with multiple liters of saline and he was started on Vancomycin and Ceftriaxone along with inpatient admission. PICC line was placed and cultures grew MSSA. Vanc was stopped and he continued on Ceftriaxone 2gm Q24H. Reports he has no prosthesis at the site of surgery nor anywhere else in the body. No blood cultures in the faxed documents but from vitals patient was never septic. He continued to do well on IV Ceftriaxone 2gm Q24H since discharge from OSH. He was referred to ID by his orthopedician for further eval and management. He was seen in ID clinicon 10/10 when he reported continued improvement in symptoms and swelling. He did not have any systemic s/s/o infection. Antibiotics were stopped on 10/11/23 after completing almost 5 weeks of IV Ceftriaxone. Since there was no prosthesis in place, he did not require chronic prophylaxis/suppression. Diagnosis: L knee septic arthritis following arthroscopic repair of meniscus and patellar fracture. Treatment: IV Ceftriaxone 2gm Q24H on OPAT Antibiotic course: 09/09/23 to 10/11/23 Labs reviewed : no s/s/o adverse events, michael Cr and LFT. 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 PLAN - Patient successfully completed 4 weeks of IV Ceftriaxone. From a treatment standpoint this course is adequate for uncomplicated staph septic arthritis without bacteremia and endocarditis. - Patient has no prosthesis, hence no reason for chronic suppression with antibiotics at this time. Staph septic arthritis in the setting of significant residual damage can cause recurrence, and since patient continues to have effusion there is reason to keep a close eye and have low threshold for re-exploration, washout and repeat courses of antibiotics. This could be sterile effusion as a result of the surgery/procedure/trauma as well and per patient, this is what the surgeon thinks. Close follow up to keep track of signs and symptoms following stopping antibiotics. Patient voiced understanding. He will reach out to us if there are new symptoms of fever/chills/night sweats/fatigue/pain/swelling/redness/warmth of the left knee joint. Pyogenic arthritis of knee 10/17/2023 Septic shock 10/17/2023 ARCHANA (acute kidney injury) 04/18/2023 Effusion of left knee 04/06/2022 Rupture, tendon, quadriceps, left, subsequent en counter 11/29/2021 Overview (11/29/2021): Added automatically from request for surgery [id number] Injury of left knee 11/29/2021 Screening PSA (prostate specific antigen) 2019 Type 2 diabetes mellitus 07/16/2018 Assessment & Plan (07/16/2018 3:52 PM CDT): Well controlled, with neuropathy on exam CMP 01/01-->recheck Will check urine microalbumin: Cr ratio normal 07/03, will recheck Will check vitamin B12 since patient on metformin, normal 07/03 HgbA1C 01/02 was 7.0, will recheck -labs ordered: HgbA1C, CMP, vitamin B12, urine microalbumin to creatinine ratio Secondary adrenal insufficiency 07/16/2018 Assessment & Plan (07/16/2018 3:19 PM CDT): ACTH stimulation test abnormal 05/03. will continue prednisone Secondary male hypogonadism 07/16/2018 Assessment & Plan (07/16/2018 3:21 PM CDT): PSA normal 12/16 Level normal 01/02, will repeat CBC 01/02 shows anemia, will repeat -continue current dose of testosterone -labs ordered: Total testosterone, CBC Essential (primary) hypertension 07/16/2018 Overview (07/16/2018): Hypertension - Hypertension (Added by ART Conv) Secondary hypothyroidism 07/16/2018 Overview (11/21/2023): TSH LEVEL WILL NOT BE A RELIABLE INDICATOR OF THYROID HORMONE STATUS SINCE PATIENT HAS CENTRAL/SECONDARY HYPOTHYROIDISM. LEVOTHYROXINE SHOULD NOT BE ADJUSTED BASED ON TSH. IT SHOULD BE ADJUSTED BASED ON FT4 ONLY FOLLOW FREE T4 LEVELS ONLY, GOAL HIGH NORMAL. 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 Will follow FT4. 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 Assessment & Plan (07/16/2018 3:16 PM CDT): MRI 05/04 stable Nuclear sclerotic cataract of both eyes 02/02/20 18 Optic nerve cupping of both eyes 02/01/2018 Vitamin D deficiency 06/05/2017 Assessment & Plan (07/16/2018 3:26 PM CDT): Will check level ? 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/12/2016 Cataract 12/11/2016 Visual field defect 11/29/2016 Intracranial tumor 11/29/2016 [place] 07/28/2016 Actinic keratosis 04/27/2016 Basal cell carcinoma (BCC) of back 01/20/2016 History of malignant neoplasm of skin 01/20/2016 Neoplasm of uncertain behavior 10/14/2015 Marginal zone lymphoma 06/28/2015 Anemia 08/17/2014 Neuropathy, cervical plexus 04/27/2014 Night sweats 03/09/2014 Weight loss 03/09/2014 Lymphoma, non-Hodgkin's 01/16/2014 Fatigue 04/14/2013 Arthralgia of shoulder 09/01/2010 Encounter for preventive health examination 01/15 Hyperlipidemia 05/18/2006 Assessment & Plan (07/16/2018 3:51 PM CDT): LDL 12/01 70, will repeat Continue simvastatin -check fasting lipid profile Encounters Date Type Department Care Team Description 09/30/2024 Telephone [facility] Endocrinology Metabolism and Lipid [address] [facility] 5th [place] [address] [place] [address] Ana Lo RMA Prior Auth (Please PA Androgel 1.62% ) from Last 3 Months Immunizations Immunization Administration Dates Next Due Influenza, Quad, Adjuvantate d, Intramuscular 06/22/2021 Influenza, Quadrivalent, Hig h Dose, Preservative Free, Intrr 06/18/2020 Influenza, Quadrivalent, Spl it, Intramuscular 06/27/2019 Influenza, Quadrivalent, Spl it, Preservative Free, Intramuscular 06/23/2018,07/07/2016 Influenza, Trivalent, IM (MDV) 06/25/2017,2013,07/26/2012 Influenza, Trivalent, Preser vative Free, Intramuscular 07/03/2017,06/17/2016,07/01/2015 Influenza, Unspecified 07/15/2018,2013,03/23/2014,03/09 Pneumococcal Conjugate PCV 13 04/16/2020 Pneumococcal Polysaccharide PPV23 10/11/2021 Tdap 05/25/2021,03/30/2011 ZOSTER LIVE 01/11/2015 ZOSTER Recombinant 06/18/2020,04/16/2020 Surgical History Surgery Date Site/Laterality Comments [place] TONSILLECTOMY PRIMARY/SECONDARY <AGE 12 09/17/1965 - 09/16/1966 Tonsillectomy - 1966 (Added by TW Conv) ROTATOR CUFF REPAIR 09/17/2008 - 09/16/2009 Left Rotator Cuff Repair - (Added by TW Conv) TRANSPHENOIDAL / TRANSNASAL HYPOPHYSECTOMY / RESECTION PITUITARY TUMOR 09/17/2017 - 09/16/2018 COLONOSCOPY 09/17/2017 - 09/16/2018 ESOPHAGEAL DILATION 09/17/1999 - 09/16/2000 reports no issues with dysphagia since Medical History Medical History Date Comments Allergy status to unspecifie d drugs, medicaments and biological substances status History of seasonal allergie s - (Added by TW Conv) Anxiety disorder Anxiety - (Adde d by TW Conv) Personal history of malignant neoplasm cuteaneous marginal zone lymphomas Personal history of other di seases of the nervous system and sense organs History of glaucoma - (Added by TW Conv) Personal history of other en docrine, nutritional and metabolic disease History of diabetes mellitus - (Added by TW Conv) Personal history of irradiation History of radiation therapy - (Added by TW Conv) Personal history of other di seases of the digestive system History of esophageal reflux - (Added by TW Conv) Convulsions (HCC) Seizures - x1 episode (2017) in setting of pituitary adenoma s/p resection Essential (primary) hypertension well controlled Brain tumor (benign) (HCC) pitui tary adenoma s/p resection Ear problems Type 2 diabetes mellitus (HCC) Gastric reflux well controlled HLD (hyperlipidemia) on statin Family History Medical History Relation Name Comments Diabetes Daughter Hypertension Daughter Early Father Heart disease Maternal Grandfather Early Mother Diabetes type II Other Type 2 Diab etes Mellitus - son (Added by TW Conv) Heart attack Other Stroke Other Ovarian cancer Sister Diabetes type II Son 1 Type 2 Diab etes Mellitus - son (Added by TW Conv) Hypertension Son 2 Anesthesia problems Neg Hx Relation Name Status Comments Daughter Father Maternal Grandfather Mother Other Sister Son 1 Son 2 Social History Tobacco Use Types Packs/Day Years Used Date Smoking Tobacco: Former Cigarettes 1.5 15 1 965 - 1979 Smokeless Tobacco: Never Tobacco Cessation:Counseling Given: Not Answered Alcohol Use Standard Drinks/Week Comments Yes 0 (1 standard drink = 0.6 oz pur e alcohol) AUDIT-C Answer Date Recorded Q1: How often do you have a drink containing alc ohol? Monthly or less 04/18/2023 Q2: How many drinks containi ng alcohol do you have on a typical day when you are drinking? 1 or 2 04/18/2023 Q3: How often do you have si x or more drinks on one occasion? Never 04/18/2023 Sex and Gender Information Value Date Recorded Sex Assigned at Not on file Legal Sex Male 3:02 AM GRANTS MANAGER Gender Identity Not on file Sexual Orientation Not on file Obstetrics History Last Filed Vital Signs Vital Sign Reading Time Taken Comments Blood Pressure 137/69 06/11/2024 12:46 PM CDT Pulse 60 06/11/2024 12:46 PM CDT Temperature 36.3 C (97.4 F) 06/11/2024 12:46 PM CDT Respiratory Rate 18 12/24/2023 10:24 AM CDT Oxygen Saturation 98% 12/24/2023 10:24 AM CDT Inhaled Oxygen Concentration - - Weight 85.8 kg (189 lb 3.2 oz) 06/11/2024 12:46 PM CDT Height 179.1 cm (5' 10.5 ) 11/21/2023 1:37 PM CS T Body Mass Index 26.76 11/21/2023 1:37 PM GRANTS MANAGER Plan of Treatment Health Maintenance Due Date Last Done Comments Colon Cancer Screening-Colonoscopy 1954 Depression Screening 1954 Hepatitis C Screening 1954 Dilated Eye Exam 1954 Foot Exam 1954 Hepatitis B Screening 1972 Abdominal Aortic Aneurysm (A AA) Screen 2019 11/23/2016 Well Visit 65+ 2019 Fall Risk Assessment 12/02/2022 12/02/2021 Lipid Panel 04/17/2023 04/17/2022, 06/17, 06/03/2020, Additional history exists Hemoglobin A1C 10/18/2023 04/17/2023, 09/19, 03/22/2022, Additional history exists Albumin Creatinine Ratio, Urine 04/17/2024 04/17/2023, 10/18/2022, 06/27/2021, Additional history exists Covid-19 Vaccine (2023-2 5 season) 2024 08/26/2021, 12/08/2020, 11/10/2020 Influenza Vaccine (#1) 2024 , 06/18/2020, 06/27/2019, Additional history exists eGFR 12/23/2024 12/24/2023, 11/16, 11/21/2023, Additional history exists DTaP/Tdap/Td Vaccine (3 - Td or Tdap) 05/25/2031 05/25/2021, 03/30/2011 Zoster Vaccine Completed 06/18/2020, 03/19, 01/11/2015 Pneumococcal vaccine 65+ Completed 10/11/2021, 03/19 Prostate Cancer Screening-PSA Discontinued , 06/27/2021, 06/03/2020, Additional history exists Procedures Procedure Name Priority Date/Time Associated Diagnosis Comments BASIC METABOLIC PANEL Routine 12/24/2023 12:45 PM CDT Pituitary adenoma (HCC) Hyponatremia HEMOGLOBIN A1C Routine 04/17/2023 Type 2 diabetes mellitus without complication, without long-term current use of insulin (CMS/HCC) (HCC) ALBUMIN CREATININE RATIO, URINE Routine 04/17/2023 Type 2 diabetes mellitus without complication, without long-term current use of insulin ([facility]/HCC) (HCC) LIPID PANEL Routine 04/17/2022 Mixed hyperlipidemia PSA SCREEN Routine 04/17/2022 Secondary male hypogonadism Screening PSA (prostate specific antigen) CT ABDOMEN PELVIS WO CONTRAST Routine 11/23/2016 7:37 AM GRANTS MANAGER from Last 3 Months or Most Recently Relevant to Health Maintenance Results * (ABNORMAL) Basic metabolic panel (12/24/2023 12:45 PM CDT) [facility] Glucose 122(H) 70 - 99 mg/dL [facility] - 01 BUN 25 8 - 27 mg/dL [facility] - 01 Creatinine, Serum 1.78(H) 0.76 - 1.27 mg/dL [facility] - 01 eGFR 41(L) >59 mL/min/1.7 3 [facility] - 01 BUN/creat ratio 14 10 - 24 [facility] - 01 Sodium 136 134 - 144 mmol/L [facility] - 01 Potassium, sr 5.3(H) 3.5 - 5.2 mmol/L [facility] - 01 Chloride 98 96 - 106 mmol/L [facility] - 01 CO2 23 20 - 29 mmol/L [facility] - 01 Calcium 9.9 8.6 - 10.2 mg/dL [facility] - 01 Blood 12/24/2023 12:4 5 PM CDT 12/24/2023 Narrative [facility] - 12/25/2023 10:11 AM CDT Performed at: [facility] [id number] [employer]ash [employer] Truck Driver: Jonas Cruz PhD, Phone: [phone] us May Lawson MD LAB BLOOD ORDERABLES Final Result [facility] - 01 * Albumin Creatinine Ratio, Urine (04/17/2023) Urine us May Lawson MD LAB URINE ORDERABLES Final Result [facility] * Hemoglobin A1c (04/17/2023) Blood specimen (specimen) May Lawson MD LAB BLOOD ORDERABLES Final Result Performing Organization Address [facility] de Phone Number [email or web address] * PSA screen (04/17/2022) Blood specimen (specimen) May Lawson MD LAB BLOOD ORDERABLES Edited Result - Final Performing Organization Address [facility] de Phone Number [facility] * Lipid panel (04/17/2022) Blood specimen (specimen) May Lawson MD LAB BLOOD ORDERABLES Edited Result - Final Performing Organization Address [facility] de Phone Number [email or web address] * CT Abdomen Pelvis WO Contrast (11/23/2016 7:37 AM GRANTS MANAGER) Anatomical Region Laterality Modality Body N/A Computed Tomogra phy 11/23/2016 7:37 AM GRANTS MANAGER Narrative 11/23/2016 9:00 AM GRANTS MANAGER CLIVE ABDI M.D. ABEL CANNON M.D. FINAL REPORT The radiology attending physician has personally reviewed this study, and has reviewed and/or edited this written report and agrees with it. ACC# Date Time Exam [id number] Nov 23, 2016 07:37:[id number] Abd & Pelvis wo cont EXAMINATION: CT OF THE ABDOMEN AND PELVIS WITHOUT CONTRAST HISTORY: 61-year-old man with a sellar mass status post fall. TECHNIQUE: Computed tomographic images of the abdomen and pelvis were obtained without contrast according to standard protocol. FINDINGS: No prior examinations for comparison. A triangular 6 mm pulmonary nodule in the right middle lobe is noted. The liver is normal. Gallbladder contains vicarious excretion of contrast. No intra or extravascular ductal dilatation. Spleen, pancreas, adrenal glands are normal. There is bilateral perinephric stranding. Contrast material within the collecting systems is noted. The bladder is decompressed with a Pelayo catheter in place. No intra abdominal free air or free fluid. No bowel wall thickening or evidence of obstruction. The appendix is normal. Mild atherosclerotic calcifications of the abdominal aorta and its branches. No abdominal or pelvic lymphadenopathy. Bone windows demonstrate no suspicious lytic or blastic osseous lesions. Degenerative changes at L4-L5 noted. IMPRESSION: 1. No evidence of acute traumatic injury in the abdomen or pelvis. 2. Pulmonary nodule in the right lower lobe measuring 6 mm. Recommend followup examination in 6 months if the patient is at high-risk for malignancy. The patient is low risk, recommend followup examination in 12 months. Requested By: PARISH VILLAR M.D. Dictated By: ABEL CANNON M.D. on Nov 23 2016 7:57A This document has been electronically signed by: CLIVE ABDI M.D. on Nov 23 2016 9:00A [id number] Procedure Note Provider, MD [place] - 01/24/2017 Fadumo GONZALEZ M.D. FINAL REPORT The radiology attending physician has personally reviewed this study, and has reviewed and/or edited this written report and agrees with it. ACC# Date Time Exam [id number] Nov 23, 2016 07:37:[id number] Abd & Pelvis wo cont EXAMINATION: CT OF THE ABDOMEN AND PELVIS WITHOUT CONTRAST HISTORY: 61-year-old man with a sellar mass status post fall. TECHNIQUE: Computed tomographic images of the abdomen and pelvis were obtained without contrast according to standard protocol. FINDINGS: No prior examinations for comparison. A triangular 6 mm pulmonary nodule in the right middle lobe is noted. The liver is normal. Gallbladder contains vicarious excretion of contrast. No intra or extravascular ductal dilatation. Spleen, pancreas, adrenal glands are normal. There is bilateral perinephric stranding. Contrast material within the collecting systems is noted. The bladder is decompressed with a Pelayo catheter in place. No intra abdominal free air or free fluid. No bowel wall thickening or evidence of obstruction. The appendix is normal. Mild atherosclerotic calcifications of the abdominal aorta and its branches. No abdominal or pelvic lymphadenopathy. Bone windows demonstrate no suspicious lytic or blastic osseous lesions. Degenerative changes at L4-L5 noted. IMPRESSION: 1. No evidence of acute traumatic injury in the abdomen or pelvis. 2. Pulmonary nodule in the right lower lobe measuring 6 mm. Recommend followup examination in 6 months if the patient is at high-risk for malignancy. The patient is low risk, recommend followup examination in 12 months. Requested By: PARISH VILLAR M.D. Dictated By: ABEL CANNON M.D. on Nov 23 2016 7:57A This document has been electronically signed by: CLIVE ABDI M.D. on Nov 23 2016 9:00A [id number] us Historical Provider MD PRATHER CT PROCEDURES Final R esult from Last 3 Months or Most Recently Relevant to Health Maintenance Insurance [facility] CHOICE PLUS [facility] PPO [facility]NA [facility]IC[facility] GOLD AETNA MEDICARE GOLD Advance Directives For more information, please contact: [phone] Documents on File Type Date Recorded Patient Cnc Technician Expl anation ADVANCE DIRECTIVE 08/23/2018 11:42 AM Care Teams Bpm Solution Architect Relationship Specialty Start Date End Date Solo Burr MD PCP - General 05/18/20
--- OUTSIDE RECORDS SUMMARY | 2024-11-07 13:03 | XMS_ITS | Referral Summary ---
Author Organization [facility] Address [address] [place] [address] Care Team Providers Care Nursing Assistants Teacher Name Role Phone Solo Burr MD Primary Care Provider Encounters Date Type Department Care Team Description 09/30/2024 Telephone [facility] Endocrinology Metabolism and Lipid [address] [facility] Advanced Medicine 5th [place] [address] [place] [address] Ana Lo, RMA Prior Auth (Please PA Androgel 1.62% ) from Last 3 Months Allergies Active Allergy Reactions Criticality Noted Date [...] inject dexamethasone as directed. 5 Syringe 5 Active blood-glucose meter kit One Touch Verio Reflect - Use daily or as directed for monitoring of diabetes 1 kit Active fluticasone propionate (FLONASE) 50 mcg/actuation nasal [...] mg total) by mouth nightly at bedtime. 023 Active SITagliptin phosphate (Januvia) 50 mg tabletIndications :Type 2 diabetes mellitus without complication, without long-term current use of insulin (CMS/HCC) (HCC) Take 1 tablet (50 mg total) by mouth daily 90 tablet 3 024 Active albuterol HFA (PROVENTIL HFA,VENTOLIN HFA,PROAIR HFA) [...] mouth daily before breakfast 90 tablet 3 024 Active rosuvastatin 5 mg capsule, sprinkle Active [...] complication, without long-term current use of insulin ([facility]) ([facility]) USE 1 STRIP TO CHECK GLUCOSE ONCE [...] complication, without long-term current use of insulin ([facility]) ([facility]) One Touch - Use to check blood glucose daily as directed. 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 Following this, he developed redness in [...] (11/29/2021): Added automatically from request for surgery [id number] Injury of left knee 11/29/2021 Screening PSA [...] Plan (07/16/2018 3:21 PM CDT): PSA normal 09/01 Level normal 01/02, will repeat CBC 01/02 shows anemia, will repeat -continue current dose of testosterone -labs ordered: Total testosterone, CBC Essential (primary) hypertension 07/16/2018 Overview (07/16/2018): Hypertension - Hypertension (Added by ART Aguilar) Secondary hypothyroidism 07/16/2018 Overview (11/21/2023): TSH LEVEL [...] PM CDT): # Secondary hypogonadism PSA normal 09/01 Level normal 01/02, will repeat CBC 01/02 [...] Visual field defect 11/29/2016 Intracranial tumor 11/29/2016 Effie 07/28/2016 Actinic keratosis 04/27/2016 Basal cell carcinoma [...] repeat Continue simvastatin -check fasting lipid profile Immunizations Immunization Administration Dates Next Due Influenza, [...] 05/25/2021,03/30/2011 ZOSTER LIVE 01/11/2015 ZOSTER Recombinant 06/18/2020,04/16/2020 Social History Tobacco Use Types Packs/Day Years Used Date Smoking Tobacco: Former Cigarettes 1.5 15 1 255 - 3500 Smokeless Tobacco: Never Tobacco Cessation:Counseling Given: Not [...] on file Legal Sex Male 3:02 AM [employer] Gender Identity Not on file Sexual Orientation Not on file Last Filed Vital Signs Vital Sign Reading [...] Body Mass Index 26.76 11/21/2023 1:37 PM [employer] T[employer]ER Plan of Treatment Not on file Procedures Procedure Name Priority Date/Time Associated Diagnosis Comments BASIC METABOLIC PANEL Routine 12/24/2023 12:45 PM CDT Pituitary adenoma (HCC) Hyponatremia HEMOGLOBIN A1C Routine 04/17/2023 Type 2 diabetes mellitus without complication, without long-term current use of insulin (CMS/HCC) (HCC) ALBUMIN CREATININE RATIO, URINE Routine 04/17/2023 Type 2 diabetes mellitus without complication, without long-term current use of insulin (CMS/HCC) (HCC) LIPID PANEL Routine 04/17/2022 Mixed hyperlipidemia PSA SCREEN Routine 04/17/2022 Secondary male hypogonadism Screening PSA (prostate specific antigen) CT ABDOMEN PELVIS WO CONTRAST Routine 11/23/2016 7:37 AM [employer] TENDER from Last 3 Months or Most Recently Relevant to Health Maintenance Results * (ABNORMAL) Basic metabolic panel (12/24/2023 12:45 PM CDT) Glucose 122(H) 70 - 99 mg/dL [facility] [...] - 12/25/2023 10:11 AM CDT Performed at: [facility] [address] [id number] Battery Vent Plug Inserter: Jonas Cruz PhD, Phone: [phone] May Lawson MD LAB BLOOD ORDERABLES Final Result Performing Organization Address [facility] de Phone Number [facility] - 01 * Albumin Creatinine Ratio, Urine (04/17/2023) Urine May Lawson MD LAB URINE ORDERABLES Final Result Performing Organization Address [facility] de Phone Number [facility] * Hemoglobin A1c (04/17/2023) Blood specimen (specimen) May Lawson MD LAB BLOOD ORDERABLES Final Result Performing Organization Address [facility] de Phone Number [facility] * PSA screen (04/17/2022) Blood specimen (specimen) May Lawson MD LAB BLOOD ORDERABLES Edited Result - Final Performing Organization Address [facility] de Phone Number [facility] * Lipid panel (04/17/2022) Blood specimen (specimen) May Lawson MD LAB BLOOD ORDERABLES Edited Result - Final Performing Organization Address [facility] de Phone Number [facility] * CT Abdomen Pelvis WO Contrast (11/23/2016 7:37 AM [employer]ER) Anatomical Region Laterality Modality Body N/A Computed Tomogra phy 11/23/2016 7:37 AM [employer] T[employer]ER Narrative 11/23/2016 9:00 AM [employer] TENDER CLIVE BALFEFadumo M.D. FINAL REPORT The radiology attending physician has personally reviewed this study, and has reviewed and/or edited this written report and agrees with it. ACC# Date Time Exam [id number] Nov 23, 2016 07:37:[id number] Abd & Pelvis wo cont EXAMINATION: [...] ABDI M.D. on Nov 23 2016 9:00A [id number] Procedure Note Provider, MD Mecca - 01/24/2017 CLIVE ABDI M.D. ABEL CANNON M.D. FINAL REPORT The radiology attending physician has personally reviewed this study, and has reviewed and/or edited this written report and agrees with it. ACC# Date Time Exam [id number] Nov 23, 2016 07:37:[id number] Abd & Pelvis wo cont EXAMINATION: [...] ABDI M.D. 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
--- OUTSIDE RECORDS SUMMARY | 2024-11-07 13:03 | XMS_ITS | Encounter Summary ---
Author Organization [facility] Address [address] [place] [address] Phone Care Team Providers Care Coordinator Of Health Services Name Role Phone Nii Jose MD Primary Care Provider [phone]- [phone] Muna Arce MD Primary Care Provider [phone]- [phone] Solo Burr MD Primary Care Provider Encounter Details Date Type Department Care Team (Late st Contact Info) Description 01/01/2017 Orders Only [facility] ProviderMecca MD [address] [place] [id number] Social History Tobacco Use Types Packs/Day Years Used Date Smoking Tobacco: Never Assessed Sex and Gender Information Value Date Recorded Sex Assigned at Not on file 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 Historical Provider NURSING COMMUNICATION Fin al Result documented in this encounter Visit Diagnoses Not on filedocumented in this encounter Care Teams Coordinator Of Health Services Relationship Specialty Start Date End Date Nii Jose MD [address] [place] [address] PCP - General 12/12/16 05/16/18 Muna Arce MD [address] [place] [address] PCP - General 05/17/18 05/17/20 Solo Burr MD [address] [place] [address] PCP - General 05/18/20 documented as of this encounter
--- OUTSIDE RECORDS SUMMARY | 2024-11-07 13:03 | XMS_ITS | Patient Health Summary ---
Author Organization [facility] Address [address] [place] [address] Care Team Providers Care Line Fixer Name Role Phone Solo Burr MD Primary Care Provider Muna Cardoso MD Unavailable [phone] Note from [facility],non-owned Affiliates and Associated Physician Practices is amultiple site organization consisting of ambulatory clinics and hospital sitesin [place], [place], [place] and [place]. This disclosure is being madepursuant to the Care Everywhere program and may not contain all information available regarding this patient. Last updated 18.[facility] Allergies No known active allergies Medications * Be aware that medications may not be up to date on this document. Alwaysverify current medications with the patient. * predniSONE (Deltasone) 5 MG tablet Take 1 (one) tablet by mouth once daily * allopurinol (Zyloprim) 100 MG tablet Take 1 (one) tablet by mouth once daily * pantoprazole EC (Protonix) 40 MG tablet Take 1 (one) tablet by mouth once daily * levothyroxine (Synthroid) 75 MCG tablet Take 1 (one) tablet by mouth daily before breakfast * SITagliptin (Januvia) 50 MG tablet Take 1 (one) tablet by mouth once daily * ALBUTEROL SULFATE IN Inhale 2 puffs by mouth every 4 hours as needed (SOB or wheezing.) * traZODone (Desyrel) 100 MG tablet Take 1 (one) tablet by mouth at bedtime * sildenafil (Viagra) 100 MG tablet Take 1 (one) tablet by mouth once daily as needed * cetirizine (ZyrTEC) 10 MG tablet Take 1 (one) tablet by mouth once daily * hydrOXYzine HCl (Atarax) 25 MG tablet Take 1 (one) tablet by mouth 3 times daily as needed (anxiety) * HYDROcodone-acetaminophen ([place]) 7.5-325 MG tablet Take 1 (one) tablet by mouth every 4 hours as needed for Pain * tiZANidine (Zanaflex) 4 MG tablet Take 1 (one) tablet by mouth every 8 hours as needed for Muscle Spasms * sodium chloride 1 GM tablet Take 1.5 (one and one-half) tablets by mouth 2 times daily with morning and evening meal * fenofibrate (Lofibra) 160 MG tablet(Started 08/03/2023) Take 1 (one) tablet by mouth once daily * simvastatin (Zocor) 40 MG tablet(Started 06/28/2023) Take 1 (one) tablet by mouth at bedtime * Testosterone 10 MG/ACT (2%)(Started 08/25/2023) Apply 3 Pump to affected area once daily Apply three pumps to each side daily Active Problems Problem Noted Date Diagnosed Date Pyogenic arthritis of knee, due to unspecified organism, unspecified laterality 10/17/2023 Septic shock 10/17/2023 Encounter for central line placement 10/17/2023 Social History Tobacco Use Types Packs/Day Years Used Date Smoking Tobacco: Former Cigarettes Q uit: 10/16/1993 Smokeless Tobacco: Never Tobacco Cessation:Counseling Given: Not Answered AUDIT-C Answer Date Recorded Q1: How often do you have a drink containing alcohol? Patient unable to answer 10/17/2023 Q2: How many drinks containi ng alcohol do you have on a typical day when you are drinking? Patient unable to answer Q3: How often do you have si x or more drinks on one occasion? Patient unable to answer 10/17/2023 Overall Financial Resource Strain (CARDIA) Answe r Date Recorded How hard is it for you to pa y for the very basics like food, housing, medical care, and heating? Not hard at all 10/19/2023 [facility] - Occupational Stress Questionnaire Answer Date Recorded Do you feel stress - tense, restless, nervous, or anxious, or unable to sleep at night because your mind is troubled all the time - these days? To some extent 10/19/2023 Hunger Vital Sign Answer Date Recorded Within the past 12 months, y ou worried that your food would run out before you got the money to buy more. Never true 10/19/19 24 Within the past 12 months, t he food you bought just didn't last and you didn't have money to get more. Never true 10/19/2023 PRAPARE - Transportation Answer Date Re corded In the past 12 months, has l ack of transportation kept you from medical appointments or from getting medications? No 10/2023 In the past 12 months, has l ack of transportation kept you from meetings, work, or from getting things needed for daily living? No 10/19/2023 Housing Stability Vital Sign Answer Alfredo e Recorded In the last 12 months, was t here a time when you were not able to pay the mortgage or rent on time? No 10/19/2023 In the last 12 months, how many places have you lived? 1 10/19/2023 In the last 12 months, was t here a time when you did not have a steady place to sleep or slept in a m[facility]p (including now)? No 10/19/2023 Sex and Gender Information Value Date Recorded Sex Assigned at Not on file Gender Identity Not on file Sexual Orientation Not on file Last Filed Vital Signs Vital Sign Reading Time Taken Comments Blood Pressure 113/68 10/25/2023 4:01 PM [facility]APPER DIPPER Pulse 77 10/25/2023 4:01 PM [facility]PER [facility]IPPER Temperature 36.4 C (97.6 F) 10/25/2023 4:01 PM [facility]IPPER Respiratory Rate 18 10/25/2023 9:26 AM WRAPPER DIPPER Oxygen Saturation 98% 10/25/2023 4:0 1 PM [facility]PER [facility]IPPER Inhaled Oxygen Concentration 21% 10/19/2023 3:25 PM [facility]IPPER Weight 73.4 kg (161 lb 12.8 oz) 10/25/2023 4:00 AM [facility]APPER DIPPER Height 180.3 cm (5' 10.98 ) 10/18/2023 7:00 AM WRAPPER DIPPER per care everywhere Body Mass Index 22.58 10/18/2023 7:00 AM WRAPPER DIPPER Procedures * SARS-COV-2 (COVID-19) FLU A/B RSV PCR RAPID(Performed 11/01/2023) * CBC W/O DIFFERENTIAL(Performed 11/01/2023) * BASIC METABOLIC PANEL (CALCIUM TOTAL)(Performed 11/01/2023) * CBC W/O DIFFERENTIAL(Performed 10/29/2023) * BASIC METABOLIC PANEL (CALCIUM TOTAL)(Performed 10/29/2023) * XR ABDOMEN KUB(Performed 10/28/2023) * TROPONIN-I HIGH SENSITIVE(Performed 10/28/2023) * CT ANGIO CHEST PULM EMBOLISM(Performed 10/27/2023) * TROPONIN-I HIGH SENSITIVE(Performed 10/27/2023) * B-TYPE NATRIURETIC PEPTIDE(Performed 10/27/2023) * BASIC METABOLIC PANEL (CALCIUM TOTAL)(Performed 10/27/2023) * CBC W AUTO DIFFERENTIAL(Performed 10/27/2023) * CARDIAC RHYTHM STRIP ORDER(Performed 10/26/2023) * DIFFERENTIAL MANUAL(Performed 10/26/2023) * COMPREHENSIVE METABOLIC PANEL(Performed 10/26/2023) * CBC W AUTO DIFFERENTIAL(Performed 10/26/2023) * BASIC METABOLIC PANEL (CALCIUM TOTAL)(Performed 10/25/2023) * BASIC METABOLIC PANEL (CALCIUM TOTAL)(Performed 10/25/2023) * GLUCOSE - POINT OF CARE(Performed 10/24/2023) * BASIC METABOLIC PANEL (CALCIUM TOTAL)(Performed 10/24/2023) * GLUCOSE - POINT OF CARE(Performed 10/24/2023) * GLUCOSE - POINT OF CARE(Performed 10/24/2023) * GLUCOSE - POINT OF CARE(Performed 10/24/2023) * CBC W/O DIFFERENTIAL(Performed 10/24/2023) * BASIC METABOLIC PANEL (CALCIUM TOTAL)(Performed 10/24/2023) * TSH REFLEX FREE T4(Performed 10/24/2023) * GLUCOSE - POINT OF CARE(Performed 10/23/2023) * GLUCOSE - POINT OF CARE(Performed 10/23/2023) * UREA NITROGEN URINE RANDOM(Performed 10/23/2023) * OSMOLALITY URINE(Performed 10/23/2023) * SODIUM URINE RANDOM(Performed 10/23/2023) * GLUCOSE - POINT OF CARE(Performed 10/23/2023) * GLUCOSE - POINT OF CARE(Performed 10/23/2023) * GLUCOSE - POINT OF CARE(Performed 10/23/2023) * GLUCOSE - POINT OF CARE(Performed 10/23/2023) * BASIC METABOLIC PANEL (CALCIUM TOTAL)(Performed 10/23/2023) * CBC W/O DIFFERENTIAL(Performed 10/23/2023) * GLUCOSE - POINT OF CARE(Performed 10/23/2023) * GLUCOSE - POINT OF CARE(Performed 10/22/2023) * GLUCOSE - POINT OF CARE(Performed 10/22/2023) * GLUCOSE - POINT OF CARE(Performed 10/22/2023) * GLUCOSE - POINT OF CARE(Performed 10/22/2023) * RENAL FUNCTION PANEL(Performed 10/22/2023) * CBC W/O DIFFERENTIAL(Performed 10/22/2023) * GLUCOSE - POINT OF CARE(Performed 10/21/2023) * GLUCOSE - POINT OF CARE(Performed 10/21/2023) * GLUCOSE - POINT OF CARE(Performed 10/21/2023) * GLUCOSE - POINT OF CARE(Performed 10/21/2023) * GLUCOSE - POINT OF CARE(Performed 10/21/2023) * DIFFERENTIAL MANUAL(Performed 10/21/2023) * MAGNESIUM BLOOD(Performed 10/21/2023) * PHOSPHORUS BLOOD(Performed 10/21/2023) * COMPREHENSIVE METABOLIC PANEL(Performed 10/21/2023) * PT-INR(Performed 10/21/2023) * CBC W AUTO DIFFERENTIAL(Performed 10/21/2023) * GLUCOSE - POINT OF CARE(Performed 10/21/2023) * GLUCOSE - POINT OF CARE(Performed 10/20/2023) * GLUCOSE - POINT OF CARE(Performed 10/20/2023) * GLUCOSE - POINT OF CARE(Performed 10/20/2023) * GLUCOSE - POINT OF CARE(Performed 10/20/2023) * GLUCOSE - POINT OF CARE(Performed 10/20/2023) * MAGNESIUM BLOOD(Performed 10/20/2023) * PHOSPHORUS BLOOD(Performed 10/20/2023) * COMPREHENSIVE METABOLIC PANEL(Performed 10/20/2023) * PT-INR(Performed 10/20/2023) * CBC W AUTO DIFFERENTIAL(Performed 10/20/2023) * GLUCOSE - POINT OF CARE(Performed 10/20/2023) * GLUCOSE - POINT OF CARE(Performed 10/19/2023) * BASIC METABOLIC PANEL (CALCIUM TOTAL)(Performed 10/19/2023) * GLUCOSE - POINT OF CARE(Performed 10/19/2023) * GLUCOSE - POINT OF CARE(Performed 10/19/2023) * GLUCOSE - POINT OF CARE(Performed 10/19/2023) * XR ABDOMEN KUB(Performed 10/19/2023) Performed for Pyogenic arthritis of knee, due to unspecified organism, unspecified laterality (HCC) * GLUCOSE - POINT OF CARE(Performed 10/19/2023) * LACTIC ACID BLOOD(Performed 10/19/2023) * MAGNESIUM BLOOD(Performed 10/19/2023) * PHOSPHORUS BLOOD(Performed 10/19/2023) * COMPREHENSIVE METABOLIC PANEL(Performed 10/19/2023) * PT-INR(Performed 10/19/2023) * CBC W AUTO DIFFERENTIAL(Performed 10/19/2023) * TRIGLYCERIDES BLOOD(Performed 10/19/2023) * GLUCOSE - POINT OF CARE(Performed 10/19/2023) * GLUCOSE - POINT OF CARE(Performed 10/19/2023) * LACTIC ACID BLOOD(Performed 10/18/2023) * GLUCOSE - POINT OF CARE(Performed 10/18/2023) * LACTIC ACID BLOOD(Performed 10/18/2023) * GLUCOSE - POINT OF CARE(Performed 10/18/2023) * GLUCOSE - POINT OF CARE(Performed 10/18/2023) * RENAL FUNCTION PANEL(Performed 10/18/2023) * LACTIC ACID BLOOD(Performed 10/18/2023) * GLUCOSE - POINT OF CARE(Performed 10/18/2023) * GLUCOSE - POINT OF CARE(Performed 10/18/2023) * DIFFERENTIAL MANUAL(Performed 10/18/2023) * PT-INR(Performed 10/18/2023) * HEMOGLOBIN A1C(Performed 10/18/2023) * CBC W AUTO DIFFERENTIAL(Performed 10/18/2023) * PHOSPHORUS BLOOD(Performed 10/18/2023) * COMPREHENSIVE METABOLIC PANEL(Performed 10/18/2023) * MAGNESIUM BLOOD(Performed 10/18/2023) * GLUCOSE - POINT OF CARE(Performed 10/18/2023) * GLUCOSE - POINT OF CARE(Performed 10/17/2023) * E COLI SHIGA-LIKE TOXIN(Performed 10/17/2023) * CULTURE STOOL PANEL(Performed 10/17/2023) * GIARDIA CRYPTOSPORIDIUM ANTIGEN PANEL(Performed 10/17/2023) * CULTURE STOOL+ECOLI SHIGA-LIKE TOXIN (BEAKER)(Performed 10/17/2023) * C DIFFICILE GDH AG + TOXIN A+B(Performed 10/17/2023) * XR CHEST POST PROCEDURE(Performed 10/17/2023) Performed for Encounter for central line placement * GLUCOSE - POINT OF CARE(Performed 10/17/2023) * T4 FREE DIRECT REFLEXED(Performed 10/17/2023) * TSH REFLEX FREE T4(Performed 10/17/2023) * AMMONIA(Performed 10/17/2023) * CULTURE BLOOD(Performed 10/17/2023) * CULTURE BLOOD(Performed 10/17/2023) * URINE MICROSCOPIC ONLY REFLEX TO CULTURE(Performed 10/17/2023) * URINALYSIS REFLEX MICROSCOPIC REFLEX CULTURE(Performed 10/17/2023) * TYPE + SCREEN PANEL(Performed 10/17/2023) * COAGULATION PANEL W D-DIMER(Performed 10/17/2023) * PHOSPHORUS BLOOD(Performed 10/17/2023) * MAGNESIUM BLOOD(Performed 10/17/2023) * LACTIC ACID BLOOD(Performed 10/17/2023) * COMPREHENSIVE METABOLIC PANEL(Performed 10/17/2023) * MRSA DNA PCR(Performed 10/17/2023) * GLUCOSE - POINT OF CARE(Performed 10/17/2023) * XR CHEST POST PROCEDURE(Performed 10/17/2023) Performed for Septic shock (HCC) * BLOOD GASES ARTERIAL(Performed 10/17/2023) Results * SARS-COV-2 (COVID-19) FLU A/B RSV PCR RAPID (11/01/2023 12:59 PM [facility]) COVID-19 PCR Not detected Not detected 11/01/19 7:05 PM [facility] Influenza A PCR Not detected Not detected 11/01/2023 7:05 PM [facility] Influenza B PCR Not detected Not detected 11/01/2023 7:05 PM [facility] RSV PCR Not detected Not detected 11/01/2023 7:05 PM [facility] Microbiology SPECIMEN FROM NASOPHARYNGEAL STRUCTURE / Unknown Collection / Unknown 11/01/2023 12:59 PM [facility]IPPER 11/01/2023 6:19 PM [facility]PER Narrative [facility] - 11/01/2023 7:05 PM [facility]IPPER This nucleic acid amplification assay has been authorized by the Food and Drug administration (FDA) under an Emergency Use Authorization (EUA). This test is only authorized for the duration of time the declaration that circumstances exist justifying the authorization of emergency use of in vitro diagnostic tests for detection of SARS-CoV-2 virus and/or diagnosis of COVID-19 infection under section 564(b)(1) of the Act, 21 U.S.C 360bbb-3 (b)(1), unless the authorization is terminated or revoked sooner. Fact Sheets for this EUA assay are available upon request. Nakia Hutson WILLIAN-CHRISTIAN EDUCATION DIRECTOR LAB - MICROBIOLOGY ORDERABLES [facility] [address] [place] [address] * (ABNORMAL) CBC W/O DIFFERENTIAL (11/01/2023 4:59 AM [facility] DIPPER) Only the most recent of5 resultswithin the time period is included. WBC 5.5 4.0 - 10.7 x10E9/L 11/01/2023 8:48 AM [facility] RBC Count 3.60(L) 4.30 - 5.80 x10E12/L 11/01/2023 8:48 AM [facility] Hemoglobin 10.9(L) 13.3 - 17.5 g/dL 11/01/2023 8:48 AM [facility] Hematocrit 32.5(L) 38.7 - 51.1 % 11/01/2023 8:48 AM [facility] MCV 90.3 80.0 - 98.0 fL 11/01/2023 8:48 AM [facility] MCH 30.3 26.7 - 33.6 pg 11/01/2023 8:48 AM [facility] MCHC 33.5 31.7 - 36.3 g/dL 11/01/2023 8:48 AM [facility] RDW-CV 15.5(H) 11.3 - 14.8 % 11/01/2023 8:48 AM [facility] Platelet Count 264 150 - 420 x10E9/L 11/01/2023 8:48 AM [facility] MPV 11.3 7.8 - 11.4 fL 11/01/2023 8:48 AM [facility] Blood BLOOD SPECIMEN / Unknown 11/01/2023 4:59 AM [facility] 11/01/2023 8:37 AM [facility]PER Rhoda Zabala MD LAB - HEMATOLOGY ORD ERABLES [facility] [address] [place] [address] * (ABNORMAL) BASIC METABOLIC PANEL (CALCIUM TOTAL) (11/01/2023 4:59 AM [facility]IPPER) Only the most recent of9 resultswithin the time period is included. Glucose 111(H) 70 - 105 mg/dL 11/01/2023 9:15 AM [facility] Sodium 136 136 - 145 mmol/L 11/01/2023 9:15 AM [facility] Potassium 4.8 3.5 - 5.1 mmol/L 11/01/2023 9:15 AM [facility] Chloride 101 98 - 107 mmol/L 11/01/2023 9:15 AM [facility] CO2 27 22 - 29 mmol/L 11/01/2023 9:15 AM [facility] Calcium 9.7 8.4 - 10.4 mg/dL 11/01/2023 9:15 AM [facility] Anion Gap 8 6 - 16 mmol/L 11/01/2023 9:15 AM [facility] BUN 18 7 - 26 mg/dL 11/01/2023 9:15 AM [facility] Creatinine 0.99 0.72 - 1.25 mg/dL 11/01/2023 9:15 AM [facility] eGFR by CKD-EPI 82(L) >=90 mL/min/1.7 3 m2 11/01/2023 9:15 AM [facility] Blood BLOOD SPECIMEN / Unknown 11/01/2023 4:59 AM [facility] 11/01/2023 8:37 AM [facility] Rhoda Zabala MD LAB - CHEMISTRY ORDE KALIA [facility] [address] [place] [id number] * XR ABDOMEN KUB (10/28/2023 3:04 PM [facility]IPPER) Only the most recent of2 resultswithin the time period is included. Anatomical Region Laterality Modality Abdomen Radiographic Citlali ging 10/28/2023 5:28 PM [facility]PER Impressions 10/28/2023 5:35 PM [facility]PER IMPRESSION: Unremarkable study. > Interpreting Provider: Keanu Bates MD on 10/28/2023 5:35 PM Narrative 10/28/2023 5:35 PM [facility] PROCEDURE(s): XR ABDOMEN KUB DATE AND TIME OF EXAM(s): 10/28/2023 3:20 PM INDICATION(s): Nausea. COMPARISON(s): Abdominal radiograph dated 10/19/2023. FINDINGS: The visualized lung bases are grossly clear. The hemidiaphragms are unremarkable. No abnormally dilated bowel loops are seen to suggest obstruction. Some excreted contrast material seen within the urinary bladder. The osseous structures are unremarkable. Procedure Note Keanu Bates MD - 10/28/2023 PROCEDURE(s): XR ABDOMEN KUB DATE AND TIME OF EXAM(s): 10/28/2023 3:20 PM INDICATION(s): Nausea. COMPARISON(s): Abdominal radiograph dated 10/19/2023. FINDINGS: The visualized lung bases are grossly clear. The hemidiaphragms are unremarkable. No abnormally dilated bowel loops are seen to suggest obstruction. Some excreted contrast material seen within the urinary bladder. The osseous structures are unremarkable. IMPRESSION: Unremarkable study. > Interpreting Provider: Keanu Bates MD on 10/28/2023 5:35 PM Rhoda Zabala MD DIAGNOSTIC IMAGING O RDERABLES * TROPONIN-I HIGH SENSITIVE (10/28/2023 6:34 AM [facility]IPPER) Only the most recent of2 resultswithin the time period is included. Troponin I High Sensitive 14 <=35 ng/L 10/28/2023 7:50 AM [facility] Blood BLOOD SPECIMEN / Unknown 10/28/2023 6:34 AM [facility] DIPPER 10/28/2023 7:19 AM [facility] Rhoda Zabala MD LAB - CHEMISTRY HARINI MOTTA [facility] Organization Address City/State/ZIP Co de Phone Number [facility] [address] [place] [address] * CT ANGIO CHEST PULM EMBOLISM (10/27/2023 9:27 PM WR[facility]IPPER) Anatomical Region Laterality Modality Chest Computed Tomogra phy 10/28/2023 7:06 AM [facility]PER Impressions 10/28/2023 7:08 AM [facility]PER IMPRESSION: No pulmonary embolism. > Interpreting Provider: Terrance Ahn MD on 10/28/2023 7:08 AM Narrative 10/28/2023 7:[address] angiogram PE Protocol Clinical Indication: Shortness of breath Technique: The pulmonary embolus protocol was utilized. Axial CT images from the lung apices to the lung bases were obtained following Isovue-370, 80 cc intravenous contrast administration. Multiplanar maximum intensity projection reconstructions were created on an independent workstation. Findings: There is no supraclavicular or axillary lymphadenopathy. No mediastinal or hilar lymphadenopathy. Cardiomegaly noted. Question left ventricular hypertrophy. Plaque in the coronary arteries. No thoracic aneurysm or dissection. No pulmonary embolism identified. Lung windows show no airspace disease. The central airways are clear. Bony thorax intact. Limited views of the upper abdomen are unremarkable. Procedure Note Terrance Ahn MD - 10/28/2023 CT angiogram PE Protocol Clinical Indication: Shortness of breath Technique: The pulmonary embolus protocol was utilized. Axial CT images from the lung apices to the lung bases were obtained followingIsovue-370, 80 cc intravenous contrast administration. Multiplanar maximum intensity projection reconstructions were created on an independent workstation. Findings: There is no supraclavicular or axillary lymphadenopathy. No mediastinalor hilar lymphadenopathy. Cardiomegaly noted. Question left ventricular hypertrophy. Plaque in the coronary arteries. No thoracic aneurysm or dissection. No pulmonary embolism identified. Lung windows show noairspace disease. The central airways are clear. Bony thorax intact. Limitedviews of the upper abdomen are unremarkable. IMPRESSION: No pulmonary embolism. > Interpreting Provider: Terrance Ahn MD on 10/28/2023 7:08 AM Rhoda Zabala MD CT ORDERABLES * (ABNORMAL) CBC W AUTO DIFFERENTIAL (10/27/2023 6:09 PM [facility]IPPER) Only the most recent of6 resultswithin the time period is included. WBC 7.8 4.0 - 10.7 x10E9/L 10/27/2023 9:17 PM [facility] RBC Count 3.86(L) 4.30 - 5.80 x10E12/L 10/27/2023 9:17 PM [facility] Hemoglobin 11.9(L) 13.3 - 17.5 g/dL 10/27/2023 9:17 PM [facility] Hematocrit 34.2(L) 38.7 - 51.1 % 10/27/2023 9:17 PM [facility] MCV 88.6 80.0 - 98.0 fL 10/27/2023 9:17 PM [facility] MCH 30.8 26.7 - 33.6 pg 10/27/2023 9:17 PM [facility] MCHC 34.8 31.7 - 36.3 g/dL 10/27/2023 9:17 PM [facility] RDW-CV 14.3 11.3 - 14.8 % 10/27/2023 9:17 PM [facility] Platelet Count 267 150 - 420 x10E9/L 10/27/2023 9:17 PM [facility] MPV 11.6(H) 7.8 - 11.4 fL 10/27/2023 9:17 PM [facility] Neutrophil % 80.1(H) 41.0 - 74.0 % 10/27/2023 9:17 PM [facility] Lymphocyte % 11.4(L) 17.0 - 47.0 % 10/27/2023 9:17 PM [facility] Monocyte % 4.6 3.0 - 11.0 % 10/27/2023 9:17 PM [facility] Eosinophil % 1.0 0.0 - 7.0 % 10/27/2023 9:17 PM [facility] Basophil % 0.8 0.0 - 1.6 % 10/27/2023 9:17 PM [facility] D[facility] Immature Granulocytes % 2.1(H) 0.0 - 1.0 % 10/27/2023 9:17 PM [facility] Neutrophil Absolute 6.23 1.60 - 7.50 x10E9/L 10/27/2023 9:17 PM [facility] Lymphocyte Absolute 0.89(L) 1.00 - 4.40 x10E9/L 10/27/2023 9:17 PM [facility] Monocyte Absolute 0.36 0.15 - 1.00 x10E9/L 10/27/2023 9:17 PM [facility] Eosinophil Absolute 0.08 0.00 - 0.60 x10E9/L 10/27/2023 9:17 PM [facility] Basophil Absolute 0.06 0.00 - 0.13 x10E9/L 10/27/2023 9:17 PM [facility] Blood BLOOD SPECIMEN / Unknown 10/27/2023 6:09 PM [facility]PER DIPPER 10/27/2023 9:13 PM [facility]PER Rhoda Zabala MD LAB - HEMATOLOGY ORD ERABLES Performing Organization Address City/[facility]/ZIP Co de Phone Number [facility] [address] [place], [place] [id number] * B-TYPE NATRIURETIC PEPTIDE (10/27/2023 6:09 PM WRAPPER DIPPER) BNP 74 <=100 pg/mL 10/27/2023 9:38 PM [facility] Blood BLOOD SPECIMEN / Unknown 10/27/2023 6:09 PM WR[facility]PER DIPPER 10/27/2023 9:13 PM [facility] DIPPER Rhoda Zabala MD LAB - CHEMISTRY ORDE RABLES Performing Organization Address [facility]/ZIP Co de Phone Number [facility] [id number] [place] [address] * CARDIAC RHYTHM STRIP ORDER (10/26/2023 6:24 PM [facility]) Narrative 10/26/2023 6:24 PM [facility] Ordered by an unspecified provider. Scanned Document CARDIAC SERVICES ORD ERABLES * (ABNORMAL) DIFFERENTIAL MANUAL (10/26/2023 3:07 AM [facility]) Only the most recent of3 resultswithin the time period is included. [facility] Neutrophil % 66 41 - 74 % 10/26/2023 8:17 AM [facility] Lymphocyte % 22 17 - 47 % 10/26/2023 8:17 AM [facility] Monocyte % 7 3 - 11 % 10/26/2023 8:17 AM [facility] Basophil % 2 0 - 2 % 10/26/2023 8:17 AM [facility] Metamyelocyte % 3(H) 0% % 8:17 AM [facility] Neutrophil Absolute 5.21 1.60 - 7.50 x10E9/L 10/26/2023 8:17 AM [facility] Lymphocyte Absolute 1.74 1.00 - 4.40 x10E9/L 10/26/2023 8:17 AM [facility] Monocyte Absolute 0.55 0.15 - 1.00 x10E9/L 10/26/2023 8:17 AM [facility] Basophil Absolute 0.16(H) 0.00 - 0.13 x10E9/L 10/26/2023 8:17 AM [facility] RBC Morphology REVIEWED 10/26/2023 8:17 AM [facility] Platelet Clumps PRESENT(A) (none) 8:17 AM [facility] Blood BLOOD SPECIMEN / Unknown 10/26/2023 3:07 AM WRAPPER DIPPER 10/26/2023 7:13 AM [facility] Yakov Gu MD LAB - HEMATOLOGY ORD ERABLES [facility] [address] [place] [address] * (ABNORMAL) COMPREHENSIVE METABOLIC PANEL (10/26/2023 3:07 AM WRAPPER DIPPER) Only the most recent of6 resultswithin the time period is included. [facility] Glucose 90 70 - 105 mg/dL 10/26/2023 8:04 AM [facility] Sodium 129(L) 136 - 145 mmol/L 10/26/2023 8:04 AM [facility] Potassium 4.8 3.5 - 5.1 mmol/L 10/26/2023 8:04 AM [facility] Chloride 96(L) 98 - 107 mmol/L 10/26/2023 8:04 AM [facility] CO2 24 22 - 29 mmol/L 10/26/2023 8:04 AM [facility] Calcium 9.2 8.4 - 10.4 mg/dL 10/26/2023 8:04 AM [facility] Anion Gap 9 6 - 16 mmol/L 10/26/2023 8:04 AM [facility] BUN 24 7 - 26 mg/dL 10/26/2023 8:04 AM [facility] Creatinine 1.04 0.72 - 1.25 mg/dL 10/26/2023 8:04 AM [facility] Alkaline Phosphatase 86 40 - 150 U/L 10/26/2023 8:04 AM [facility] ALT 22 0 - 55 U/L 10/26/2023 8:04 AM [facility] AST 27 5 - 34 U/L 10/26/2023 8:04 AM [facility] Protein Total 6.9 6.4 - 8.3 gm/dL 10/26/2023 8:04 AM [facility] Albumin 3.8 3.4 - 5.0 gm/dL 10/26/2023 8:04 AM [facility] Bilirubin Total 0.5 0.2 - 1.2 mg/dL 10/26/2023 8:04 AM [facility] eGFR by CKD-EPI 78(L) >=90 mL/min/1.7 3 m2 10/26/2023 8:04 AM [facility] Blood BLOOD SPECIMEN / Unknown 10/26/2023 3:07 AM WRAPPER DIPPER 10/26/2023 7:13 AM [facility] Yakov Gu MD LAB - CHEMISTRY HARINI MOTTA [facility] Organization Address City/State/ZIP Co de Phone Number [facility] [address] [place] [address] * (ABNORMAL) GLUCOSE - POINT OF CARE (10/24/2023 4:14 PM WRAPPER DIPPER) Only the most recent of43 resultswithin the time period is included. Glucose WB/POC 166(H) 70 - 106 mg/dL 10/24/2023 4:22 PM WRAPPER DIPPER [facility] Specimen Type Cap Fingerstick 2023 4:22 PM WRAPPER DIPPER [facility] Blood BLOOD SPECIMEN / Unknown 10/24/2023 4:14 PM WRAPPER DIPPER 10/24/2023 4:22 PM WRAPPER DIPPER Mara Barry MD LAB - POINT OF CARE ORDERABLES Performing Organization Address [facility] Co de Phone Number [facility] [address] [place] [phone] * TSH REFLEX FREE T4 (10/24/2023 4:13 AM WRAPPER DIPPER) Only the most recent of2 resultswithin the time period is included. Pathologist [facility] TSH 0.613 0.350 - 4.940 uIU/mL 10/24/2023 5:36 AM WRAPPER DIPPER [facility] Blood BLOOD SPECIMEN / Unknown Venipuncture / Unknown 10/24/2023 4:13 AM WRAPPER DIPPER 10/24/2023 4:48 AM WRAPPER DIPPER Chuy Sawyer MD LAB - CHEMISTRY ORDE RABLES Performing Organization Address [facility]/ZIP Co de Phone Number [facility] [address] [place] [phone] * SODIUM URINE RANDOM (10/23/2023 4:25 PM WRAPPER DIPPER) Pathologist [facility] Sodium Urine 190 mmol/L 10/23/2023 5:04 PM WRAPPER DIPPER [facility] Urine URINE SPECIMEN OBTAINED BY CLEAN CATCH PROCEDURE / Unknown Collection / Unknown 10/23/2023 4:25 PM WRAPPER DIPPER 10/23/2023 4:34 PM WRAPPER DIPPER Chuy Sawyer MD LAB - URINE CHEMISTR Y ORDERABLES Performing Organization Address [facility] de Phone Number [facility] [address] [place] [address] * UREA NITROGEN URINE RANDOM (10/23/2023 4:25 PM WRAPPER DIPPER) Urea Nitrogen Urine 737 mg/dL 10/23/2023 5:04 PM WRAPPER DIPPER [facility] Urine URINE SPECIMEN OBTAINED BY CLEAN CATCH PROCEDURE / Unknown Collection / Unknown 10/23/2023 4:25 PM WRAPPER DIPPER 10/23/2023 4:34 PM WRAPPER DIPPER Chuy Sawyer MD LAB - URINE CHEMISTR Y ORDERABLES Performing Organization Address [facility] de Phone Number [facility] [address] [place] [address] * OSMOLALITY URINE (10/23/2023 4:25 PM WRAPPER DIPPER) Osmolality Urine 670 50 - 1,200 mOsm/kg 10/23/2023 4:59 PM WRAPPER DIPPER [facility] Urine URINE SPECIMEN OBTAINED BY CLEAN CATCH PROCEDURE / Unknown Collection / Unknown 10/23/2023 4:25 PM WRAPPER DIPPER 10/23/2023 4:34 PM WRAPPER DIPPER Chuy Sawyer MD LAB - URINE CHEMISTR Y ORDERABLES Performing Organization Address [facility] de Phone Number [facility] [address] [place] [address] * (ABNORMAL) RENAL FUNCTION PANEL (10/22/2023 3:49 AM WRAPPER DIPPER) Only the most recent of2 resultswithin the time period is included. Glucose 91 70 - 105 mg/dL 10/22/2023 5:35 AM WRAPPER DIPPER [facility] Sodium 135(L) 136 - 145 mmol/L 10/22/2023 5:35 AM WRAPPER DIPPER [facility] Potassium 3.9 3.5 - 5.1 mmol/L 10/22/2023 5:35 AM [facility] Chloride 95(L) 98 - 107 mmol/L 10/22/2023 5:35 AM [facility] CO2 31(H) 22 - 29 mmol/L 10/22/2023 5:35 AM [facility] Calcium 8.7 8.4 - 10.4 mg/dL 10/22/2023 5:35 AM [facility] Anion Gap 9 6 - 16 mmol/L 10/22/2023 5:35 AM [facility] BUN 22 7 - 26 mg/dL 10/22/2023 5:35 AM [facility] Creatinine 0.87 0.72 - 1.25 mg/dL 10/22/2023 5:35 AM [facility] Albumin 3.1(L) 3.4 - 5.0 gm/dL 10/22/2023 5:35 AM [facility] Phosphorus 3.5 2.3 - 4.7 mg/dL 10/22/2023 5:35 AM [facility] eGFR by CKD-EPI >90 >=90 mL/min/1.7 3 m2 10/22/2023 5:35 AM [facility] Blood BLOOD SPECIMEN / Unknown Venipuncture / Unknown 10/22/2023 3:49 AM WRAPPER DIPPER 10/22/2023 5:04 AM WRAPPER DIPPER Rohit Arenas MD LAB - CHEMISTRY ORDScar [facility] Organization Address City/State/ZIP Co de Phone Number [facility] [address] [place] [address] * (ABNORMAL) PT-INR (10/21/2023 4:14 AM WRAPPER DIPPER) Only the most recent of4 resultswithin the time period is included. PT 15.6(H) 12.1 - 14.8 sec 10/21/2023 5:01 AM [facility] INR 1.2(H) 0.9 - 1.1 10/21/2023 5:01 AM [facility] Blood BLOOD SPECIMEN / Unknown Venipuncture / Unknown 10/21/2023 4:14 AM WRAPPER DIPPER 10/21/2023 4:31 AM WRAPPER DIPPER Narrative [facility] - 10/21/2023 5:01 AM WRAPPER DIPPER Conventional Warfarin Anticoagulant Therapy: INR Reference Range: 2.0-3.0 Intensive Warfarin Anticoagulant Therapy: INR Reference Range: 2.5-3.5 Jose Roberto Abraham MD LAB - COAGULATION OR DERABLES Performing Organization Address [facility] de Phone Number [facility] [address] [place] [address] [phone] * PHOSPHORUS BLOOD (10/21/2023 4:14 AM WRAPPER DIPPER) Only the most recent of5 resultswithin the time period is included. Phosphorus 2.7 2.3 - 4.7 mg/dL 10/21/2023 5:16 AM WRAPPER DIPPER [facility] Blood BLOOD SPECIMEN / Unknown Venipuncture / Unknown 10/21/2023 4:14 AM WRAPPER DIPPER 10/21/2023 4:31 AM WRAPPER DIPPER Jose Roberto Abraham MD LAB - CHEMISTRY ORDScar MOTTA Performing Organization Address [facility] de Phone Number [facility] [address] [place] [phone] * MAGNESIUM BLOOD (10/21/2023 4:14 AM WRAPPER DIPPER) Only the most recent of5 resultswithin the time period is included. Magnesium 1.9 1.6 - 2.6 mg/dL 10/21/2023 5:12 AM WRAPPER DIPPER [facility] Blood BLOOD SPECIMEN / Unknown Venipuncture / Unknown 10/21/2023 4:14 AM WRAPPER DIPPER 10/21/2023 4:31 AM WRAPPER DIPPER Jose Roberto Abraham MD LAB - CHEMISTRY HARINI MOTTA Performing Organization Address [facility] de Phone Number [facility] [address] [place] [phone] * (ABNORMAL) TRIGLYCERIDES BLOOD (10/19/2023 3:58 AM WRAPPER DIPPER) Triglycerides 215(H) <150 mg/dL 10/19/2023 4:45 AM WRAPPER DIPPER [facility] Blood BLOOD SPECIMEN / Unknown Venipuncture / Unknown 10/19/2023 3:58 AM WRAPPER DIPPER 10/19/2023 4:09 AM WRAPPER DIPPER Jose Roberto Abraham MD LAB - CHEMISTRY ORDScar MOTTA Performing Organization Address [facility] Co de Phone Number [facility] [address] [place] [address] * LACTIC ACID BLOOD (10/19/2023 3:58 AM WRAPPER DIPPER) Only the most recent of5 resultswithin the time period is included. Lactic Acid 0.9 <=2 mmol/L 10/19/2023 4:22 AM [facility] Blood BLOOD SPECIMEN / Unknown Venipuncture / Unknown 10/19/2023 3:58 AM WRAPPER DIPPER 10/19/2023 4:09 AM WRAPPER DIPPER Jose Roberto Abraham MD LAB - CHEMISTRY HARINI MOTTA Performing Organization Address [facility] de Phone Number [facility] [address] [place] [address] * HEMOGLOBIN A1C (10/18/2023 3:15 AM WRAPPER DIPPER) Hemoglobin A1c 5.1 <5.7 % 10/18/2023 4:25 AM WRAPPER DIPPER [facility] Estimated Average Glucose 100 mg/dL 10/18/2023 4:25 AM [facility] Blood BLOOD SPECIMEN / Unknown Venipuncture / Unknown 10/18/2023 3:15 AM WRAPPER DIPPER 10/18/2023 4:05 AM WRAPPER DIPPER Narrative [facility] - 10/18/2023 4:25 AM WRAPPER DIPPER HbA1c Interpretation: Normal: < 5.7% Pre-diabetes: 5.7-6.4% Diabetes: Equal to or greater than 6.5% Test results diagnostic of diabetes should be repeated for confirmation. Treatment target values recommended by ADA and other clinical organizations should be used to evaluate metabolic control in patients. This test should not replace glucose testing for patients with Type 1 diabetes, pediatric patients, or women. Falsely low HbA1c results may be observed in patients with clinical conditions that shorten erythrocyte life span or decrease mean erythrocyte age such as the presence of unstable hemoglobin variants, elevated hemoglobin F level or other causes of hemolytic anemia. HbA1c may not accurately reflect glycemic control when clinical conditions that affect erythrocyte survival are present. Severe Iron deficiency anemia may yield falsely high results. Hemoglobin A1c assay should not be used to diagnose or monitor diabetes in patients with malignancy, recent blood transfusion, chronic kidney or liver disease. This method may yield falsely low results when hemoglobin (HbF) exceeds 5% in the specimen. The Al Alinity assay for the measurement of HbA1c is a National Glycohemoglobin Standardization Program (NGSP) certified method. Jose Roberto Abraham MD LAB - CHEMISTRY HARINI MOTTA Performing Organization Address [facility] Co de Phone Number [facility] [address] [place] [address] * C DIFFICILE GDH AG + TOXIN A+B (10/17/2023 6:46 PM WRAPPER DIPPER) [facility] C difficile GDH antigen & toxin A/B NEGATIVE NEGATIVE 10/17/2023 10:50 PM WRAPPER DIPPER [facility] Stool STOOL SPECIMEN / Unknown Collection / Unknown 10/17/2023 6:46 PM WRAPPER DIPPER 10/17/2023 7:09 PM WRAPPER DIPPER Narrative [facility] - 10/17/2023 10:50 PM WRAPPER DIPPER Negative for toxigenic C. difficile Jose Roberto Abraham MD LAB - MICROBIOLOGY O GRANT Performing Organization Address [facility] de Phone Number [facility] [address] [place] [address], [facility] [phone] * E COLI SHIGA-LIKE TOXIN (10/17/2023 6:46 PM WRAPPER DIPPER) [facility] Unable to test for E. coli Shiga-like toxins due to absence of fecal organisms. Negative 10/18/2023 10:26 AM WRAPPER DIPPER [facility] Stool STOOL SPECIMEN / Unknown Collection / Unknown 10/17/2023 6:46 PM WRAPPER DIPPER 10/17/2023 7:09 PM WRAPPER DIPPER Jhonny Chery MD LAB - MICROBIOLOGY O GRANT Performing Organization Address City/[facility] Co de Phone Number [facility] [address] [place] [address] [phone] * GIARDIA CRYPTOSPORIDIUM ANTIGEN PANEL (10/17/2023 6:46 PM WRAPPER DIPPER) Giardia Antigen Feces Negative Negative 10/18/2023 10:12 AM WRAPPER DIPPER [facility] Cryptosporidium Antigen Feces Negative Negative 10/18/2023 10:12 AM WRAPPER DIPPER [facility] Stool STOOL SPECIMEN / Unknown Collection / Unknown 10/17/2023 6:46 PM WRAPPER DIPPER 10/17/2023 7:09 PM WRAPPER DIPPER Narrative [facility] - 10/18/2023 10:12 AM WRAPPER DIPPER A single Ova and Parasite exam may be insufficient to diagnose an intestinal parasite infection. Additional specimens are recommended if patient remains symptomatic. Jhonny Chery MD LAB - MICROBIOLOGY O GRANT Performing Organization Address City/[facility]/ZIP Co de Phone Number [facility] [address] [place] [address], [facility] [phone] * CULTURE STOOL PANEL (10/17/2023 6:46 PM WRAPPER DIPPER) Culture No growth Salmonella, Shigella, Campylobacter, Escherichia coli O157:h7 or Yersinia REGI 10/19/2023 12:33 PM WRAPPER DIPPER [facility] Stool STOOL SPECIMEN / Unknown Collection / Unknown 10/17/2023 6:46 PM WRAPPER DIPPER 10/17/2023 7:09 PM WRAPPER DIPPER Jhonny Chery MD LAB - MICROBIOLOGY O GRANT Performing Organization Address City/[facility]/ZIP Co de Phone Number [facility] [address] [place] [address], [facility] [phone] * XR CHEST POST CENTRAL LINE (10/17/2023 6:21 PM WRAPPER DIPPER) Only the most recent of2 resultswithin the time period is included. Anatomical Region Laterality Modality Chest Radiographic Citlali ging 10/17/2023 6:36 PM WRAPPER DIPPER Narrative 10/17/2023 6:37 PM WRAPPER DIPPER PROCEDURE(s): XR CHEST 1VW PORTABLE DATE AND TIME OF EXAM(s): 10/17/2023 6:22 PM INDICATION(s): Z45.2: Encounter for adjustment and management of vascular access device. COMPARISON(s): Chest radiograph dated 10/17/2023. FINDINGS: An endotracheal tube terminates between the clavicles and clare. A left subclavian approach and venous catheter demonstrates tip terminating at the cavoatrial junction. A gastric tube terminates in the [id number], well below the diaphragm. The cardiomediastinal silhouette is grossly unremarkable. The lungs are grossly clear. No pneumothorax or pleural effusion is seen. No acute osseous abnormalities are seen. > Interpreting Provider: Keanu Bates MD on 10/17/2023 6:37 PM Procedure Note Keanu Bates MD - 10/18/2023 PROCEDURE(s): XR CHEST 1VW PORTABLE DATE AND TIME OF EXAM(s): 10/17/2023 6:22 PM INDICATION(s): Z45.2: Encounter for adjustment and management of vascular accessdevice. COMPARISON(s): Chest radiograph dated 10/17/2023. FINDINGS: An endotracheal tube terminates between the clavicles andcarina. A left subclavian approach and venous catheter demonstrates tipterminating at the cavoatrial junction. A gastric tube terminates in [id number], well below the diaphragm. The cardiomediastinal silhouette is grossly unremarkable. The lungs are grossly clear. No pneumothorax or pleural effusion is seen. No acute osseous abnormalities are seen. > Interpreting Provider: Keanu Bates MD on 10/17/2023 6:37 PM Jose Roberto Abraham MD DIAGNOSTIC IMAGING O RDERABLES * (ABNORMAL) T4 FREE DIRECT REFLEXED (10/17/2023 5:00 PM WRAPPER DIPPER) T4 Free 0.69(L) 0.70 - 1.50 ng/dL 10/17/2023 6:20 PM WRAPPER DIPPER [facility] Blood BLOOD SPECIMEN / Unknown Venipuncture / Unknown 10/17/2023 5:00 PM WRAPPER DIPPER 10/17/2023 5:13 PM WRAPPER DIPPER Jose Roberto Abraham MD LAB - CHEMISTRY HARINI MOTTA [facility] [address] [place] [address] * (ABNORMAL) AMMONIA (10/17/2023 5:00 PM WRAPPER DIPPER) Ammonia <14(L) 18 - 72 umol/L 10/17/2023 5:27 PM WRAPPER DIPPER [facility] Blood BLOOD SPECIMEN / Unknown Venipuncture / Unknown 10/17/2023 5:00 PM WRAPPER DIPPER 10/17/2023 5:13 PM WRAPPER DIPPER Jose Roberto Abraham MD LAB - CHEMISTRY HARINI KALIA Performing Organization Address [facility] de Phone Number [facility] [address] [place], [place] [phone] * CULTURE BLOOD (10/17/2023 4:47 PM WRAPPER DIPPER) Only the most recent of2 resultswithin the time period is included. Culture No growth day 5 REGI 10/22/2023 9:31 PM WRAPPER DIPPER [facility] Blood PERIPHERAL BLOOD / Unknown Venipuncture / Unknown 10/17/2023 4:47 PM WRAPPER DIPPER 10/17/2023 4:59 PM WRAPPER DIPPER Jose Roberto Abraham MD LAB - MICROBIOLOGY O RDERABLES Performing Organization Address [facility] de Phone Number [facility] [address] [place], [place] [address], [facility] [phone] * (ABNORMAL) URINE MICROSCOPIC ONLY REFLEX TO CULTURE (10/17/2023 4:24 PM WRAPPER DIPPER) Reflex Status Culture not indicated 10/17/2023 4:42 PM WRAPPER DIPPER [facility] RBC UA 0-2 0 - 5 # /hpf 10/17/2023 4:42 PM WRAPPER DIPPER [facility] WBC UA 0-5 0 - 5 # /hpf 10/17/2023 4:42 PM WRAPPER DIPPER [facility] Bacteria UA Trace(A) None Seen 10/17/2023 4:42 PM WRAPPER DIPPER [facility] Squamous Epithelial Cells None Seen 0 - 5 /hpf 10/17/2023 4:42 PM WRAPPER DIPPER [facility] Hyaline Casts 3-5(A) 0 - 2 /LPF 10/17/2023 4:42 PM WRAPPER DIPPER [facility] RBC Casts 3-5(A) None Seen /LPF 10/17/2023 4:42 PM WRAPPER DIPPER [facility] Amorphous Crystals Occasional(A) None seen /hpf 10/17/2023 4:42 PM WRAPPER DIPPER [facility] Urine URINE SPECIMEN OBTAINED VIA INDWELLING URINARY CATHETER / Unknown Collection / Unknown 10/17/2023 4:24 PM WRAPPER DIPPER 10/17/2023 4:31 PM WRAPPER DIPPER Narrative [facility] - 10/17/2023 4:42 PM WRAPPER DIPPER Jose Roberto Abraham MD LAB - URINALYSIS ORD ERABLES [facility] [address] [place] [address] * (ABNORMAL) URINALYSIS REFLEX MICROSCOPIC REFLEX CULTURE (10/17/2023 4:24 PM WRAPPER DIPPER) Color UA Yellow Straw, Yellow 10/17/2023 4:36 PM WRAPPER DIPPER [facility] Clarity UA Slt Cloudy(A) Clear 10/17/2023 4:36 PM WRAPPER DIPPER [facility] Glucose UA Negative Negative 10/17/2023 4:36 PM WRAPPER DIPPER [facility] Bilirubin UA Negative Negative 10/17/2023 4:36 PM WRAPPER DIPPER [facility] Ketone UA Negative Negative 10/17/2023 4:36 PM WRAPPER DIPPER [facility] Specific [place] UA 1.009 1.005 - 1.030 10/17/2023 4:36 PM WRAPPER DIPPER [facility] Blood UA 2+(A) Negative 10/17/2023 4:36 PM WRAPPER DIPPER [facility] pH UA 6.0 5.0 - 8.0 pH 10/17/2023 4:36 PM WRAPPER DIPPER [facility] Protein UA Negative Negative 10/17/2023 4:36 PM WRAPPER DIPPER [facility] Urobilinogen UA Negative Negative mg/dL 10/17/2023 4:36 PM WRAPPER DIPPER [facility] Nitrite UA Negative Negative 10/17/2023 4:36 PM WRAPPER DIPPER [facility] Leukocyte UA Negative Negative 10/17/2023 4:36 PM WRAPPER DIPPER [facility] Urine Microscopy Urine microscopy to follow 10/17/2023 4:36 PM WRAPPER DIPPER [facility] Reflex Status Culture not indicated 10/17/2023 4:36 PM WRAPPER DIPPER [facility] Urine URINE SPECIMEN OBTAINED VIA [employer]WELL[employer] URINARY CATHETER / Unknown Collection / Unknown 10/17/2023 4:24 PM WRAPPER DIPPER 10/17/2023 4:31 PM WRAPPER DIPPER Narrative [facility] - 10/17/2023 4:36 PM WRAPPER DIPPER Jose Roberto Abraham MD LAB - URINALYSIS ORD ERABLES Performing Organization Address City/[facility]/ZIP Co de Phone Number [facility] [id number] [place] [address] * MRSA DNA PCR (10/17/2023 4:17 PM WRAPPER DIPPER) MRSA DNA by PCR Not detected Not detected 10/17/2023 10:26 PM WRAPPER DIPPER [facility] Microbiology SPECIMEN FROM NASAL FOSSAE / Unknown Collection / Unknown 10/17/2023 4:17 PM WRAPPER DIPPER 10/17/2023 4:28 PM WRAPPER DIPPER Narrative [facility] - 10/17/2023 10:26 PM WRAPPER DIPPER Methicillin-resistant Staphylococcus aureus (MRSA) DNA is not detected (presumed not colonized with MRSA). Jose Roberto Abraham MD LAB - MICROBIOLOGY O RDERABLES Performing Organization Address [facility] Co de Phone Number [facility] [address] [place] [address], [facility] [phone] * TYPE + SCREEN PANEL (10/17/2023 4:17 PM WRAPPER DIPPER) ABO Rh O POS 10/17/2023 5:32 PM WRAPPER DIPPER [facility] BLOOD BANK Comment:No history; collect retype. Antibody Screen NEG 5:32 PM WRAPPER DIPPER [facility] BLOOD BANK Blood Bank BLOOD SPECIMEN / Unknown Venipuncture / Unknown 10/17/2023 4:17 PM WRAPPER DIPPER 10/17/2023 4:34 PM WRAPPER DIPPER Jose Roberto Abraham MD LAB - BLOOD BANK ORD ERABLES Performing Organization Address City/[facility]/ZIP Co de Phone Number [facility] BLOOD BANK [address] [id number] [phone] * (ABNORMAL) COAGULATION PANEL W D-DIMER (10/17/2023 4:17 PM [facility]) PT 29.4(H) 12.1 - 14.8 sec 10/17/2023 4:49 PM [facility] LABORATORY INR 2.8(H) 0.9 - 1.1 10/17/2023 4:49 PM [facility] PTT 52.1(H) 23.0 - 38.4 sec 10/17/2023 4:49 PM [facility] Fibrinogen 455(H) 200 - 400 mg/dL 10/17/2023 4:49 PM [facility] D-Dimer 2.06(H) 0.27 - 0.50 ug/mL FEU 10/17/2023 4:49 PM [facility] Platelet Count 224 150 - 420 x10E9/L 10/17/2023 4:49 PM [facility] Blood BLOOD SPECIMEN / Unknown Venipuncture / Unknown 10/17/2023 4:17 PM WRAPPER DIPPER 10/17/2023 4:35 PM WRAPPER DIPPER Narrative [facility] LABOR[facility] - 10/17/2023 4:49 PM [facility] Conventional Warfarin Anticoagulant Therapy INR Reference Range: 2.0-3.0 Intensive Warfarin Anticoagulant Therapy INR Reference Range: 2.5-3.5 Heparin Therapeutic Range for PTT: 69.0 - 110.0 seconds. In the absence of clinical symptoms, a value less than or equal to 0.5 mcg/mL FEU significantly decreases the probability of PE/DVT (negative predictive value >95%). 1 mcg/ml FEU = 1 Fibrinogen Equivalent Unit (approximates 0.5 mcg/mL of D- dimer). IS DIAGNOSTIC SCORING SYSTEM FOR DIC ---- Score 0 1 2 3 Platelet Count (x10^3/uL) > 100 <100 < 50 N/A PT Prolongation above Upper limit of normal 0-3 3-6 > 6 N/A Range (seconds) Fibrinogen (mg/dL) >100 < 100 N/A N/A D-Dimer (mcg/mL FEU) < 0.50 N/A 0.50-5.0 > 5 Calculate Cumulative Score: > or = 5: compatible with overt DIC < 5: suggestive for non-overt DIC N/A = Non applicable Reference: Br. J. Haematol. 145:24-33,2009. Jose Roberto Abraham MD LAB - COAGULATION OR DERABLES [facility] [address] [place], [place] [id number] * (ABNORMAL) BLOOD GASES ARTERIAL (10/17/2023 3:54 PM WRAPPER DIPPER) pH Arterial 7.50(H) 7.35 - 7.45 pH 10/17/2023 4:13 PM WRAPPER DIPPER [facility] RESP [facility]ERAP[facility] pO2 Arterial 94 80 - 100 mmHg 10/17/2023 4:13 PM WRAPPER DIPPER [facility] RESP THERAP[facility] pCO2 Arterial 33(L) 35 - 45 mmHg 10/17/2023 4:13 PM WRAPPER DIPPER [facility] RESP [facility]ERAP[facility] HCO3 Arterial 25.7 22.0 - 26.0 mmol/L 10/17/2023 4:13 PM WRAPPER DIPPER [facility] RESP THERAP[facility] BE Arterial 2.9(H) -2.0 - 2.0 mmol/L 10/17/2023 4:13 PM WRAPPER DIPPER [facility] RESP THERAP[facility] O2 Saturation Arterial 100 90 - 100 % 10/17/2023 4:13 PM WRAPPER DIPPER [facility] RESP THERAPY Chun's Test Yes 10/17/2023 4:13 PM WRAPPER DIPPER [facility]ERAP[facility] Sample Site Right RA 10/17/2023 4:13 PM WRAPPER DIPPER [facility] RES[facility] THERAP[facility] Mode APVcmv 10/17/2023 4:13 PM WRAPPER DIPPER [facility] O2 Device VENT 10/17/2023 4:13 PM WRAPPER DIPPER [facility] RES[facility]ERAP[facility] FI O2 35.0 % 10/17/2023 4:13 PM WRAPPER DIPPER [facility] RES[facility] THERAP[facility] Mechanical Tidal Volume (mL) 450 10/17/2023 4:13 PM WRAPPER DIPPER [facility] RES[facility] THERAP[facility] Mechanical Respiratory Rate (bpm) 16 10/17/2023 4:13 PM WRAPPER DIPPER [facility] RESP THERAP[facility] PEEP (cmH2O) 5 10/17/2023 4:13 PM WRAPPER DIPPER [facility] RESP THERAP[facility] Blood, arterial ARTERIAL BLOOD SPECIMEN / Unknown 10/17/2023 3:54 PM WRAPPER DIPPER 10/17/2023 3:54 PM WRAPPER DIPPER Jose Roberto Abraham MD LAB - BLOOD GASES OR DERABLES [facility] RES[facility]ER[facility] [address] [id number], [facility] [phone] Care Teams Line Fixer Relationship Specialty Start Date End Date Solo Burr MD [address] [place] [address] PCP - General Family Medicine 10/17/23 Muna Cardoso MD [address] [facility] [address] [place] [address] PCP - Attributed-Junior DHILLON 09/17/24
--- OUTSIDE RECORDS SUMMARY | 2024-11-07 13:03 | XMS_ITS | Clinical Summary ---
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 Active cetirizine (ZyrTEC) 10 MG tablet Take 1 tablet (10 mg total) by mouth in the morning. Active albuterol (PROVENTIL HFA) 108 (90 Base) MCG/ACT inhaler Inhale 2 puffs Every 4 hours as needed. for wheezing. Active fenofibrate (TRICOR) 145 MG tablet Take 1 tablet (145 mg total) by mouth in the morning. 30 tablet 11/03/2023 Active allopurinol (ZYLOPRIM) 100 MG tablet Take 1 tablet (100 mg total) by mouth in the morning. 30 tablet 11/03/2023 Active levothyroxine (SYNTHROID) 75 MCG tablet Take 1 tablet (75 mcg total) by mouth Daily at 6am. 30 tablet 11/03/2023 Active melatonin 10 MG tablet Take 10 mg by mouth nightly. 11/02/2023 Active pantoprazole (PROTONIX) 40 MG EC/DR tablet Take 1 tablet (40 mg total) by mouth in the morning and 1 tablet (40 mg total) before bedtime. 60 tablet 11/02/2023 Active predniSONE (DELTASONE) 5 MG tablet Take 1 tablet (5 mg total) by mouth daily with breakfast. 30 tablet 11/03/2023 Active sodium chloride 1 g tablet Take 1.5 tablets (1.5 g total) by mouth in the morning and 1.5 tablets (1.5 g total) at noon and 1.5 tablets (1.5 g total) in the evening. Take with meals. 11/02/2023 Active tiZANidine (ZANAFLEX) 4 MG tablet Take 1 tablet (4 mg total) by mouth every 8 (eight) hours as needed for muscle spasms. 30 tablet 11/02/2023 Active traZODone (DESYREL) 100 MG tablet Take 1 tablet (100 mg total) by mouth nightly as needed for sleep. 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 Following this, he developed redness in [...] grew MSSA. Vanc was stopped and he has continued on Ceftriaxone 2gm Q24H. Reports he has no prosthesis at the site of surgery nor anywhere else in the body. No blood cultures in the faxed documents but from vitals patient was never septic. He has continued to do well on IV Ceftriaxone 2gm Q24H since discharge from OSH. He was referred to ID by his orthopedician for further eval and management. Diagnosis: L knee septic arthritis following arthroscopic repair of meniscus and patellar fracture. Treatment: IV Ceftriaxone 2gm Q24H on OPAT Start date: 09/09/23 Access: PICC line Labs reviewed : no s/s/o adverse events, michael Cr and LFT. 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 PLAN - Patient has successfully completed 4 weeks of IV Ceftriaxone. From a treatment standpoint this course is adequate for uncomplicated staph septic arthritis without bacteremia and endocarditis. - Labs reviewed and without overt s/o drug related adverse events - Patient has no prosthesis, hence no reason for chronic suppression with antibiotics at this time. Staph septic arthritis can be sometimes tricky to cure, especially since his knee joint has significant residual damage, and since patient continues to have effusion there is reason to keep a close eye and have low threshold for re-exploration, washout and repeat courses of antibiotics. This could be sterile effusion as a result of the surgery/procedure/trauma as well and per patient, this is what the surgeon thinks. Close follow up to keep track of signs and symptoms following stopping antibiotics. Knee pyogenic arthritis 10/17/2023 Injury of left knee 11/29/2021 Rupture of quadriceps tendon 11/29/2021 Overview (10/26/2023): Added automatically from request for surgery [id number] Male hypogonadism 07/16/2018 Overview (10/26/2023): Last Assessment & Plan: PSA normal 16 Level normal 01/02, will repeat CBC 01/02 shows anemia, will repeat -continue current dose of testosterone -labs ordered: Total testosterone, CBC Secondary hypothyroidism 07/16/2018 Overview (10/26/2023): Patient has HX of primary hypothyroidism but TSH level likely not reliable. Will follow FT4. 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 Cataract 12/11/2016 Non-Hodgkin's lymphoma (clinical) 01/16/2014 Hyperlipidemia 05/18/2006 Overview (10/26/2023): Last Assessment & Plan: LDL 12/01 70, will repeat Continue simvastatin -check fasting lipid profile Immunizations Immunization Administration Dates Next Due Pfizer SARS-CoV-2 Vaccination 10/25/2023 (Deferred: Offered and declined - declined) Social History Tobacco Use Types Packs/Day Years Used Date Smoking Tobacco: Never Smokeless Tobacco: Never Tobacco Cessation:Counseling Given: No Sex and Gender Information Value Date Recorded Sex Assigned at Male 10/26/2023 1:21 PM EST Legal Sex Male 11:08 AM EST Gender Identity Male 10/26/2023 1:21 PM EST Sexual Orientation Straight 10/26/2023 1: 21 PM EST Last Filed Vital Signs Vital Sign Reading Time Taken Comments Blood Pressure 143/81 11/02/2023 7:27 AM MEDICAL INSURANCE BILLER Pulse 72 11/02/2023 7:27 AM MEDICAL INSURANCE BILLER Temperature 36.6 C (97.8 F) 11/02/2023 7:27 AM MEDICAL INSURANCE BILLER Respiratory Rate 18 11/02/2023 7:27 AM MEDICAL INSURANCE BILLER Oxygen Saturation 97% 11/02/2023 7:27 AM MEDICAL INSURANCE BILLER Inhaled Oxygen Concentration - - Weight 71.7 kg (158 lb) 10/25/2023 9:56 PM MEDICAL INSURANCE BILLER Height 177.8 cm (5' 10 ) 10/25/2023 9:56 PM MEDICAL INSURANCE BILLER Body Mass Index 22.67 10/25/2023 9:56 PM MEDICAL INSURANCE BILLER Plan of Treatment Health Maintenance Due Date Last Done Comments CT Colonography 1954 Colonoscopy 1954 Colorectal Cancer Screening 1954 FIT-DNA (Cologuard) 1954 FIT 1954 FOBT 1954 Sigmoidoscopy 1954 Annual Visit Topic 1955 Ophthalmology Exam 1964 Urine Microalbumin 1964 Hepatitis C Screening 1972 Pneumococcal Vaccine: 65+ Years (1 of 4 - PCV) 2004 DTaP/Tdap/Td Vaccines (3 - T d or Tdap) 11/22/2021 05/25/2021, 03/30/2011 HIB Vaccines Aged Out No longer eligi ble based on patient's age to complete this topic HPV Vaccines Aged Out No longer eligi ble based on patient's age to complete this topic Hepatitis A Vaccines Aged Out No long er eligible based on patient's age to complete this topic Hepatitis B Vaccines Aged Out No long er eligible based on patient's age to complete this topic IPV Vaccines Aged Out No longer eligi ble based on patient's age to complete this topic Meningococcal Vaccine Aged Out No jaja jagdish eligible based on patient's age to complete this topic Advance Directives * Full Resuscitation (Latest Code Status on File) Date Activated Date Inactivated Comments 10/25/2023 10:58 PM 11/02/2023 3:00 PM Question Answer Comments I have discussed this order with the patient or his/her surrogate and have received informed consent. Yes
--- OUTSIDE RECORDS SUMMARY | 2024-11-07 13:03 | XMS_ITS | Clinical Summary ---
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 Name Role Phone Unavailable Primary Care Provider Unavailabl e Social History Tobacco Use Types Packs/Day Years Used Date Smoking Tobacco: Never Assessed Sex and Gender Information Value Date Recorded Sex Assigned at Not on file Legal Sex Male 8:03 PM CDT Gender Identity Not on file Sexual Orientation Not on file Plan of Treatment Health Maintenance Due Date Last Done Comments Colorectal Cancer Screening Colonoscopy (10 Years) 1954 Hepatitis C 1972 DTaP, Tdap and Td Vaccines ( 1 - Tdap) 1973 Zoster Vaccines (1 of 2) 2004 Pneumococcal Vaccine: 65+ Ye ars (1 of 1 - PCV) 2019 COVID-19 Vaccine ( - 2023-2 5 season) 2024 Influenza Adult (#1) 2024 RSV Immunization or 60+ Years (1 - 1-dose 75+ series) 2029 Meningococcal B Vaccine Aged Out No l onger eligible based on patient's age to complete this topic Meningococcal Vaccine Aged Out No jaja jagdish eligible based on patient's age to complete this topic RSV Immunizations Under 20 Months Aged Out No longer eligible based on patient's age to complete this topic
--- OUTSIDE RECORDS SUMMARY | 2024-11-07 13:03 | XMS_ITS | Clinical Summary ---
Author Organization [facility] Address [address] [place] [address] Care Team Providers Care Acute Care Surgeon Name Role Phone Solo Burr MD Primary Care Provider Muna Cardoso MD Unavailable [phone] Source Comments [facility],non-owned Affiliates and Associated Physician Practices is amultiple site organization consisting of ambulatory clinics and hospital sitesin [place], [place], [place] and [place]. This disclosure is being madepursuant to the Care Everywhere program and may not contain all information available regarding this patient. Last updated 18.[facility] Allergies No known active allergies Medications * Be aware that medications may not be up to date on this document. Alwaysverify current medications with the patient. Medication Sig Dispensed Refills Start Date End Date Status predniSONE (Deltasone) 5 MG tablet Take 1 (one) tablet by mouth once daily Active allopurinol (Zyloprim) 100 MG tablet Take 1 (one) tablet by mouth once daily Active pantoprazole EC (Protonix) 40 MG tablet Take 1 (one) tablet by mouth once daily Active levothyroxine (Synthroid) 75 MCG tablet Take 1 (one) tablet by mouth daily before breakfast Active SITagliptin (Januvia) 50 MG tablet Take 1 (one) tablet by mouth once daily Active ALBUTEROL SULFATE IN Inhale 2 puffs by mouth every 4 hours as needed (SOB or wheezing.) Active traZODone (Desyrel) 100 MG tablet Take 1 (one) tablet by mouth at bedtime Active sildenafil (Viagra) 100 MG tablet Take 1 (one) tablet by mouth once daily as needed Active cetirizine (ZyrTEC) 10 MG tablet Take 1 (one) tablet by mouth once daily Active hydrOXYzine HCl (Atarax) 25 MG tablet Take 1 (one) tablet by mouth 3 times daily as needed (anxiety) Active HYDROcodone-acetamino phen ([place]) 7.5-325 MG tablet Take 1 (one) tablet by mouth every 4 hours as needed for Pain Active tiZANidine (Zanaflex) 4 MG tablet Take 1 (one) tablet by mouth every 8 hours as needed for Muscle Spasms Active sodium chloride 1 GM tablet Take 1.5 (one and one-half) tablets by mouth 2 times daily with morning and evening meal Active fenofibrate (Lofibra) 160 MG tablet Take 1 (one) tablet by mouth once daily 08/03/2023 Active simvastatin (Zocor) 40 MG tablet Take 1 (one) tablet by mouth at bedtime 06/28/2023 Active Testosterone 10 MG/ACT (2%) Apply 3 Pump to affected area once daily Apply three pumps to each side daily 08/25/2023 Active Active Problems Problem Noted Date Diagnosed [...] and heating? Not hard at all 10/19/2023 [facility] of Occupat ional [facility] - Occupational Stress Questionnaire Answer Date [...] place to sleep or slept in a group home (including now)? No 10/19/2023 Sex and Gender Information Value Date Recorded Sex Assigned at Not on file Gender Identity Not on file Sexual Orientation Not on file Last Filed Vital Signs Vital Sign Reading Time Taken Comments Blood Pressure 113/68 10/25/2023 4:01 PM CLERK GENERAL Pulse 77 10/25/2023 4:01 PM CLERK GENERAL Temperature 36.4 C (97.6 F) 10/25/2023 4:01 PM CLERK GENERAL Respiratory Rate 18 10/25/2023 9:26 AM CLERK GENERAL Oxygen Saturation 98% 10/25/2023 4:0 1 PM CLERK GENERAL Inhaled Oxygen Concentration 21% 10/19/2023 3:25 PM CLERK GENERAL Weight 73.4 kg (161 lb 12.8 oz) 10/25/2023 4:00 AM CLERK GENERAL Height 180.3 cm (5' 10.98 ) 10/18/2023 7:00 AM CLERK GENERAL per care everywhere Body Mass Index 22.58 10/18/2023 7:00 AM CLERK GENERAL Plan of Treatment Health Maintenance Due Date Last Done Comments COLOGUARD (AGES 45-75) - COLON CA SCREENING 1954 COLON MONITORING 1954 COLONOSCOPY - COLON CA SCREENING 1954 CT COLONOGRAPHY - COLON CA SCREENING 1954 Colorectal Cancer Screening 1954 FIT - COLON CA SCREENING 1954 FLEX SIG - COLON CA SCREENING 1954 HEPATITIS C SCREENING 09/02/1972 DTAP/TDAP/TD VACCINES (1 - Tdap) 1973 PNEUMOCOCCAL VACCINE 50+ (1 of 1 - PCV) 2004 ZOSTER VACCINE (1 of 2) 2004 AAA SCREENING 2019 COVID-19 VACCINE (1 - 2023- season) 2024 INFLUENZA VACCINE (#1) 2024 9, 07/15/2018, 06/23/2018, Additional history exists DEPRESSION SCREENING 09/17/2024 MEDICARE AWV CALENDAR YEAR 2024 Respiratory Syncytial Virus (RSV) Vaccine Pt: or over 60 yrs (1 - 1-dose 75+ series) 2029 HEPATITIS B VACCINE Aged Out No longe r eligible based on patient's age to complete this topic HIB VACCINE Aged Out No longer eligi ble based on patient's age to complete this topic HPV VACCINE Aged Out No longer eligi ble based on patient's age to complete this topic MENINGOCOCCAL (Group B) VACCINE Aged Out No longer eligible based on patient's age to complete this topic MENINGOCOCCAL VACCINE Aged Out No jaja jagdish eligible based on patient's age to complete this topic Advance Directives Documents on File Type Date 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
--- OUTSIDE RECORDS SUMMARY | 2024-11-07 13:03 | XMS_ITS | Referral Summary ---
Author Organization [facility] Address [address] [facility] [place] [address] Care Team Providers Care Metal Painter Name Role Phone Solo Burr MD Primary Care Provider Muna Cardoso MD Unavailable [phone] Source Comments [facility],non-owned Affiliates and Associated Physician Practices is amultiple site organization consisting of ambulatory clinics and hospital sitesin [place], [place], [place] and [place]. This disclosure is being madepursuant to the Care Everywhere program and may not contain all information available regarding this patient. Last updated 18.[facility] Allergies No known active allergies Medications * [...] daily as needed (anxiety) Active HYDROcodone-acetamino phen ([place]) 7.5-325 MG tablet Take 1 (one) tablet [...] and heating? Not hard at all 10/19/2023 [facility] of Occupat ional [facility] - Occupational Stress Questionnaire Answer Date Recorded [...] place to sleep or slept in a long term (including now)? No 10/19/2023 Sex and Gender Information Value Date Recorded Sex Assigned at Not on file Gender Identity Not on file Sexual Orientation Not on file Last Filed Vital Signs Vital Sign Reading Time Taken Comments Blood Pressure 113/68 10/25/2023 4:01 PM ACTUARY Pulse 77 10/25/2023 4:01 PM ACTUARY Temperature 36.4 C (97.6 F) 10/25/2023 4:01 PM ACTUARY Respiratory Rate 18 10/25/2023 9:26 AM ACTUARY Oxygen Saturation 98% 10/25/2023 4:0 1 PM ACTUARY Inhaled Oxygen Concentration 21% 10/19/2023 3:25 PM ACTUARY Weight 73.4 kg (161 lb 12.8 oz) 10/25/2023 4:00 AM ACTUARY Height 180.3 cm (5' 10.98 ) 10/18/2023 7:00 AM ACTUARY per care everywhere Body Mass Index 22.58 10/18/2023 7:00 AM ACTUARY Functional Status Functional Status Response Date of Assess ment Is person deaf or have serious hearing difficult y? No 10/19/2023 Is person blind or have serious difficulty seein g? No 10/19/2023 Does person have serious dif ficulty walking/climbing stairs? No 10/19/2023 Does person have difficulty dressing/bathing? No 10/19/2023 Does person have difficulty doing errands alone? No 10/19/2023 Cognitive Status Response Date of Assessm ent Does person have difficulty concentrating/remembering/making decisions? 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
--- OUTSIDE RECORDS SUMMARY | 2024-11-07 13:03 | XMS_ITS | Encounter Summary ---
Author Organization [facility] Address [address] [place] [address] Phone Care Team Providers Care Joint Setter Name Role Phone Solo Burr MD Primary Care Provider Encounter Details Date Type Department Care Team (Latest Contact Info) Description 12/04/2022 Orders Only [facility] EML Scanning, Provider Social History Tobacco Use Types Packs/Day Years Used Date Smoking Tobacco: Former Cigarettes 1.5 15 1 965 - 1979 Smokeless Tobacco: Never Alcohol Use Standard Drinks/Week Comments Yes 0 (1 standard drink = 0.6 oz pur e alcohol) AUDIT-C Answer Date Recorded Q1: How often do you have a drink containing alc ohol? Monthly or less 11/29/2021 Q2: How many drinks containi ng alcohol do you have on a typical day when you are drinking? 1 or 2 11/29/2021 Q3: How often do you have si x or more drinks on one occasion? 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
--- OUTSIDE RECORDS SUMMARY | 2024-11-07 13:03 | XMS_ITS | Encounter Summary ---
Author Organization [facility] Healthcare Address [address] [place] [address] Care Team Providers Care Physical Therapy Asst Name Role Phone Solo Burr MD Primary Care Provider Encounter Details Date Type Department Care Team (Late st Contact Info) Description 05/20/2020 Telephone [facility] [address] [place] [id number] Miguel Gamboa, RT Social History Tobacco Use Types Packs/Day Years Used Date Smoking Tobacco: Former Cigarettes 1.5 15 Smokeless Tobacco: Never Alcohol Use Standard Drinks/Week Comments No 0 (1 standard drink = 0.6 oz pur e alcohol) Sex and Gender Information Value Date Recorded Sex Assigned at Not on file Legal Sex Male 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
== END 2024-11-07 13:01 | disposition home or self-care (01) ==
LOC: ANHAUDIO 13:00
PROVIDERS: PCP Family Medicine; Visit Provider Family Medicine
DX: H90.3 Sensorineural hearing loss, bilateral (principal)
CPT/HCPCS: 92557; 92567

== ENCOUNTER 2025-02-07 11:20 | Emergency (ER) | payer MEDICARE, SELFPAY ==
--- NOTE | ~2025-02-07 | XR_ITS ---
EXAMINATION: XR ankle LT min 3V DATE: 02/07/2025 11:45 INDICATION: Medial left ankle pain, swelling and erythema. Possible gout. TECHNIQUE: Anteroposterior, oblique, mortise, and lateral views of the left ankle were obtained. COMPARISON: None. FINDINGS: Alignment is normal. No fracture. Joint spaces are well maintained. Small Achilles calcaneal spur an d tiny enthesopathic ossicle at the proximal plantar aponeurosis. No ankle joint effusion. The soft t issues are unremarkable. IMPRESSION: 1. Small plantar calcaneal spur and enthesopathic ossicle. Otherwise unremarkable study with no ankle joint effusion or acute osseous abnormality. Reviewed, dictated and finalized at location A. IMPRESSION: 1. Small plantar calcaneal spur and enthesopathic ossicle. Otherwise unremarkab le study with no ankle joint effusion or acute osseous abnormality.
[2025-02-07 11:31] VITALS: BP 151/72; PULSE 64; RESP 16; TEMP 36.6; O2SAT 100
--- NOTE | 2025-02-07 11:35 | ED.EXTPRO ---
HPI - Extremity Problem General Chief complaint: Extremity Problem,Nontraumatic Stated complaint: Left Foot/Ankle Pain Time Seen by Provider: 02/07/25 11:35 Source: patient Mode of arrival: ambulatory Limitations: no limitations History of Present Illness HPI Narrative: Abel is a 69-year-old male patient presenting to the clinic today with complaints of left medial ankle pain. He reports this has been going on for 3 weeks. Has been taking ibuprofen without relief. Contacted his PCP yesterday was a unable to be evaluated. History of gout the past. No injury to the left ankle. He denies any fevers, chills, body aches. No open wounds. Related Data Home Medications ?Medication ?Instructions ?Recorded ?Confirmed ?Last Taken ?Type cetirizine 10 mg tablet (Zyrtec) 10 mg PO DAILY 08/23/23 10/28/24 07/25/24 History fluticasone propionate 50 1 spray intranasal PRN PRN Allergy 08/23/23 10/28/24 07/25/24 History mcg/actuation nasal Symptoms spray,suspension sitagliptin phosphate 50 mg tablet 50 mg PO DAILY 11/15/23 10/28/24 07/24/24 History (Januvia) levothyroxine 88 mcg tablet 88 mcg PO DAILY 04/24/24 10/28/24 07/25/24 History tizanidine 4 mg capsule (Zanaflex) 4 mg PO TID PRN muscle spasticity 07/11/24 10/28/24 Unknown History prednisone 5 mg tablet 5 mg PO DAILY 10/28/24 10/28/24 Unknown History testosterone 2 pump topical DAILY 10/28/24 10/28/24 Unknown History ketorolac 0.5 % eye drops drp 02/07/25 Unknown History ofloxacin 0.3 % eye drops drp 02/07/25 Unknown History Allergies Allergy/AdvReac Type Severity Reaction Status Date / Time COVID-19 (SARS-CoV-2) AdvReac Unknown FLU Verified 02/07/25 11:24 vaccine, elsy SYMPTOMS Review of Systems Review of Systems: Pertinent positives per HPI. Patient denies any fever, chills, rash, headache, visual changes, dizziness, cough, runny nose, sore throat, shortness of breath, chest pain, palpitations, nausea, vomiting, diarrhea, constipation, abdominal pain, or any urinary issues. [facility] Past Medical History Medical History Perforation of nasal septum Seizure History of Clostridioides difficile colitis (~10/2023) Septic arthritis of knee, left (~08/2023) Acute meniscal tear of left knee (~06/2023) Fracture, patella (~06/2023) Chronic neck pain History of non-Hodgkin's lymphoma (2007) Gout Environmental allergies Erectile dysfunction Insomnia GERD without esophagitis Hypogonadism in male Hypopituitarism Hypothyroidism (acquired) Hyperlipidemia Type 2 diabetes mellitus Hypertension History of pituitary tumor (2016) Surgical History Surgical History History of left knee surgery (~2022) Status post tendon repair Repair left quadriceps tendon rupture 12/06. Repair biceps tendon tear. Status post arthroscopic partial medial meniscectomy of right knee (08/29/23) History of repair of right rotator cuff (1999) Status post transsphenoidal pituitary resection (01/2017) [place] teeth removed (Unknown) History of tonsillectomy (1963) Family History Family History Mother Asthma Father Family history of alcoholism Grandparent Acute myocardial infarction Sibling No problems noted. Other Diabetes mellitus Social History Social History Social History: Surrogate medical decision maker: Katharina Sommer, jami. Code status: Smoking packs per day: 1.5 Smoking cigarettes per day: 30.0 Years smoked: 20 Smoking pack-years: 30.00 Smoking status: Former smoker Tobacco type: cigarettes Second hand tobacco smoke exposure: Yes Smoking end date: 09/17/89 Alcohol intake: current Drinks per week: 10 Alcohol use details: Rarely Substance use: current Substance use type: marijuana Last use: daily Do You Feel Safe in your Home?: Yes Lack of Transportation: No Lack of Food: Never True Current Housing: I Have Housing Concerned About Future Housing: No Difficulty Paying Gas/Electric Bills: No Difficulty Paying for Meds: No Currently Unemployed: No Education: High School Diploma/GED Difficulty w/ Childcare or Family Care: No Living arrangements: with family Occupation/Education: retired 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 There is no relevant family history pertinent to the patient complaint. Exam Narrative: General: Well-developed, well nourished, in no apparent distress Head: Normocephalic, atraumatic. Cardio: Regular rate and rhythm, s1 and s2 normal, no murmur appreciated. Resp: Clear to auscultation bilaterally, no rhonchi, rales, wheezing or rubs. Musculoskeletal: No deformity, mild erythema, swelling, and redness to the left medial ankle, tender to palpation, pain with range of motion and ambulation, limited range of motion due to pain, muscle strength strong and equal, peripheral pulse strong, no cyanosis, normal gait and station Course Course Emergency Course: Portions of this record may have been created with voice recognition software. Level of Care: Express Care Visit Vital Signs Vital signs: Vital Signs Temperature 36.6 C 02/07/25 11:31 Pulse Rate 64 02/07/25 11:31 Respiratory Rate 16 02/07/25 11:31 Blood Pressure 151/72 H 02/07/25 11:31 Pulse Oximetry 100 02/07/25 11:31 Oxygen Delivery Room Air 02/07/25 11:31 Temperature 36.6 C 02/07/25 11:31 Pulse Rate 64 02/07/25 11:31 Respiratory Rate 16 02/07/25 11:31 Blood Pressure 151/72 H 02/07/25 11:31 Pulse Oximetry 100 02/07/25 11:31 Oxygen Delivery Room Air 02/07/25 11:31 Vital signs reviewed MDM - Extremity (Nontraumatic) MDM Narrative Medical decision making narrative: At the time of visit patient is resting comfortably on the exam table. Patient appears to be nontoxic. Diagnostics: X-rays negative for any sign of fracture or malalignment of the left ankle. Plan: I suspect patient has left ankle gouty arthritis. Prescription for colchicine and prednisone was sent to the pharmacy. Supportive measures were discussed with the patient and they voiced understanding discharge instructions and agrees to treatment plan. Return precautions reviewed Differential Diagnosis Differential diagnosis: Likely gout, cellulitis, superficial thrombophlebitis, deep vein thrombosis of lower extremity and other (Tendinitis) Discharge Plan Discharge Clinical Impression: Acute gout of ankle Qualifiers: Gout etiology: unspecified cause Laterality: left Qualified Code(s): M10.9 - Gout, unspecified Patient Disposition: Home Condition: Stable Instructions: Antibiotic Form, Low Purine Diet (ED), Gout (ED) Additional Instructions: Rest, ice, and elevate Tylenol/motrin for pain as discussed. Take colchicine and prednisone as prescribed Keep a tight control in your blood sugar while your taking the prednisone Gradually bear weight Follow up with your PCP if symptoms persist more than 1 week. Patient Language: Albanian Prescriptions: New prednisone 20 mg tablet 40 mg PO DAILY 5 Days Qty: 10 0RF colchicine [Colcrys] 0.6 mg tablet 0.6 mg PO DAILY 1 Days Qty: 1 0RF Rx Instructions: Take 2 tabs (1.2mg) by mouth x 1 dose then 1 hour later take 1 tab (0.6mg) No Action ofloxacin 0.3 % drops ketorolac 0.5 % drops levothyroxine 88 mcg tablet 88 mcg PO DAILY testosterone 20.25 mg/1.25 gram (1.62 %) gel in metered-dose pump 2 pump topical DAILY prednisone 5 mg tablet 5 mg PO DAILY pantoprazole 20 mg tablet,delayed release (DR/EC) 20 mg PO QAM Qty: 90 1RF Januvia 50 mg tablet 50 mg PO DAILY tizanidine [Zanaflex] 4 mg capsule 4 mg PO TID PRN (Reason: muscle spasticity) cetirizine [Zyrtec] 10 mg Tablet 10 mg PO DAILY fluticasone propionate 50 mcg/actuation spray,suspension 1 spray intranasal PRN PRN (Reason: Allergy Symptoms) albuterol sulfate 90 mcg/actuation HFA aerosol inhaler 2 puff inhalation Q4H PRN (Reason: shortness of breath or wheezing) Qty: 8.5 0RF fenofibrate 160 mg tablet 160 mg PO DAILY Qty: 100 3RF trazodone 100 mg tablet 100 mg PO QHS Qty: 90 1RF sildenafil 100 mg tablet 100 mg PO DAILY PRN (Reason: sexual activity) Qty: 30 5RF Rx Instructions: administer 30 minutes to 4 hours before activity allopurinol 100 mg tablet 100 mg PO DAILY Qty: 100 1RF lisinopril 40 mg tablet 40 mg PO DAILY Qty: 90 1RF hydroxyzine HCl 25 mg tablet See Rx Instructions .ROUTE .COMPLEX Qty: 100 0RF Dose Instruction: TAKE 1 TABLET BY MOUTH EVERY 8 HOURS NEEDED FOR ANXIETY Rx Instructions: TAKE 1 TABLET BY MOUTH EVERY 8 HOURS NEEDED FOR ANXIETY rosuvastatin 5 mg tablet 5 mg PO DAILY Qty: 90 1RF Follow-up/Referrals: Adelfo Burr MD [Primary Care Provider] - Time of Disposition: 11:55 Quality NIHSS Nursing Documentation ED NIHSS nursing documentation: reviewed/agree
== END 2025-02-07 12:00 | disposition home or self-care (01) ==
PROVIDERS: Emergency Provider Nurse Practitioner Family; PCP Family Medicine
DX: M10.9 Gout, unspecified (principal); Z87.891 Personal history of nicotine dependence; K21.9 Gastro-esophageal reflux disease without esophagitis; E03.9 Hypothyroidism, unspecified; E78.5 Hyperlipidemia, unspecified; E11.9 Type 2 diabetes mellitus without complications; Z79.84 Long term (current) use of oral hypoglycemic drugs; I10 Essential (primary) hypertension; Z85.72 Personal history of non-Hodgkin lymphomas
CPT/HCPCS: 73610; 99213; G0463

== ENCOUNTER 2025-03-24 14:22 | Outpatient (CLI) | payer MEDICARE, SELFPAY ==
--- NOTE | ~2025-03-24 | US_ITS ---
EXAMINATION: US soft tissue head and neck DATE: 03/24/2025 14:33 INDICATION: Localized swelling, mass or lump at the lateral left neck. TECHNIQUE: Multiple grayscale and Doppler ultrasound images of the lateral left neck at the region of concern were obtained. COMPARISON: None FINDINGS: Normal appearance to the subcutaneous fat and underlying muscles at the region of concern. No patholo gically enlarged lymph nodes, abnormal masses or fluid collections identified. IMPRESSION: 1. No correlate for the reported palpable abnormality at the lateral left neck. Reviewed, dictated and finalized at location A.
--- NOTE | ~2025-03-24 | XR_ITS ---
EXAM/ PROCEDURE: XR shoulder LT min 2V - 03/24/2025 14:28 CDT HISTORY: 69 years old Male with M25.512 - Pain in left shoulder COMPARISON: None available TECHNIQUE: Four view(s) FINDINGS/ IMPRESSION: There are no fractures or dislocations.Joint space narrowing, subchondral sclerosis, subchondral cyst formation and osteophyte formation, compatible with mild osteoarthritis. Reviewed, dictated and finalized at location A.
== END 2025-03-24 14:23 | disposition home or self-care (01) ==
LOC: GOSHIMG 14:22
PROVIDERS: PCP Family Medicine; Visit Provider Family Medicine
DX: M25.512 Pain in left shoulder (principal); G89.29 Other chronic pain; R22.2 Localized swelling, mass and lump, trunk
CPT/HCPCS: 73030; 76536

== ENCOUNTER 2025-04-17 10:40 | Outpatient (CLI) | payer MEDICARE, SELFPAY ==
--- OUTSIDE RECORDS SUMMARY | 2025-04-17 10:45 | XMS_ITS | Clinical Summary ---
Author Organization [facility] Address [address] [place] [address] Care Team Providers Care It Solutions Architect Name Role Phone Solo Burr MD Primary Care Provider Allergies Active Allergy Reactions Criticality Noted Date Comments Hay Fever And Allergy Relief Unknown 014 Medications ascorbic acid, vitamin C, powderIndications: Vitamin C Deficiency Take 1 Dose by mouth daily before breakfast 01/12/20 15 Active lisinopriL (PRINIVIL,ZESTRIL) 40 mg tabletIndications: hypertension Take 1 tablet (40 mg total) by mouth daily before breakfast Active allopurinol (ZYLOPRIM) 100 mg tabletIndications: prevention of acute gout attack Take 1 tablet (100 mg total) by mouth daily before breakfast 05/18/[address] (PROTONIX) 40 mg EC tabletIndications: Treatment of Non-Bleeding Gastric Disorder Take 1 tablet (40 mg total) by mouth nightly Active TiZANidine (ZANAFLEX) 4 mg capsule Take 1 capsule (4 mg total) by mouth 3 (three) times a day as needed for muscle spasms 09/29/19 21 Active syringe with needle (BD Luer-Floridalma Syringe) 3 mL 25 gauge x 1 syringeIndications :Secondary adrenal insufficiency Use to inject dexamethasone as directed. 5 Syringe 5 01/06/20 21 Active blood-glucose meter kit One Touch Verio Reflect - Use daily or as directed for monitoring of diabetes 1 kit 04/12/20 21 Active fluticasone propionate (FLONASE) 50 mcg/actuation nasal sprayIndications:A llergic Rhinitis Administer 1 spray into each nostril 2 (two) times a day 10/26/19 22 Active hydrOXYzine (ATARAX) 25 mg tablet Take 1 tablet (25 mg total) by mouth every 8 (eight) hours as needed for anxiety 10/11/19 22 Active sildenafiL (VIAGRA) 100 mg tablet TAKE 1 TABLET BY MOUTH ONCE DAILY NEEDED FOR SEXUAL ACTIVITY. ADMINISTER 30 MIN TO 4 HOURS BEFORE ACTIVITY 04/11/20 22 Active meloxicam (MOBIC) 15 mg tablet Take 1 tablet (15 mg total) by mouth daily 30 tablet 06/22/20 22 Active traZODone (DESYREL) 100 mg tablet Take 1 tablet (100 mg total) by mouth nightly at bedtime. 10/18/19 23 Active albuterol HFA (PROVENTIL HFA,VENTOLIN HFA,PROAIR HFA) 90 mcg/actuation inhaler Inhale 2 puffs every 4 hours as needed Active cefTRIAXone (ROCEPHIN) 2 gram injection 10/01/19 24 Active cetirizine (ZyrTEC) 10 mg tablet Take 1 tablet (10 mg total) by mouth daily Active glucosamine sulfate 1,000 mg capsule Take 1 tablet by mouth 2 (two) times a day Active rosuvastatin 5 mg capsule, sprinkle 04/29/20 24 Active rosuvastatin (CRESTOR) 5 mg tablet Take 1 tablet (5 mg total) by mouth daily 04/29/20 24 Active blood glucose diagnostic (OneTouch Ultra Test) stripIndications:T ype 2 diabetes mellitus without complication, without long-term current use of insulin (HCC) USE 1 STRIP TO CHECK GLUCOSE ONCE DAILY DIRECTED 100 each 10/15/19 25 Active lancets (OneTouch Delica Plus Lancet) 33 gauge misc USE 1 TO CHECK GLUCOSE ONCE DAILY DIRECTED 100 each 10/15/19 25 Active fenofibrate (TRIGLIDE) 160 mg tablet Take 1 tablet (160 mg total) by mouth daily 10/30/19 25 Active levothyroxine (SYNTHROID) 88 mcg tabletIndications: Pituitary adenoma (HCC),Secondary hypothyroidism Take 1 tablet by mouth once daily 90 tablet 1 01/09/20 25 Active predniSONE (DELTASONE) 5 mg tablet TAKE 1 TABLET BY MOUTH ONCE DAILY BEFORE BREAKFAST 90 tablet 3 01/17/20 25 Active testosterone 20.25 mg/1.25 gram (1.62 %) gel in metered-dose pump Apply one pump to each shoulder every morning. 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 Following this, he developed redness in the [...] (11/29/2021): Added automatically from request for surgery [id number] Injury of left knee 11/29/2021 Screening PSA [...] PM CDT): PSA normal 12/16 Level normal 4/18, will repeat CBC 18 shows anemia, will repeat -continue current dose of testosterone -labs ordered: Total testosterone, CBC Essential (primary) hypertension 07/16/2018 Overview (07/16/2018): Hypertension - Hypertension (Added by TW Conv) Secondary hypothyroidism 07/16/2018 Overview (11/21/2023): TSH [...] Secondary hypogonadism PSA normal 12/16 Level normal /18, will repeat CBC 18 shows anemia, will repeat # Secondary hypothyroidism: [...] Visual field defect 11/29/2016 Intracranial tumor 11/29/2016 [place] 07/28/2016 Actinic keratosis 04/27/2016 Basal cell carcinoma [...] 06/18/2020,04/16/2020 Surgical History Surgery Date Site/Laterality Comments [place] TONSILLECTOMY PRIMARY/SECONDARY <AGE 11 09/17/1965 - 09/16/1966 [...] (primary) hypertension well controlled Brain tumor (benign) pituitary a denoma s/p resection Ear problems Type 2 diabetes mellitus Gastric reflux well controlled HLD (hyperlipidemia) on statin Family History Medical History Relation Name Comments Diabetes Daughter Brandi Quan Hypertension Daughter Brandi Quan Early Father Heart disease Maternal Grandfather Early Mother Diabetes type II Other Type 2 Diab etes Mellitus - son (Added by TW Conv) Heart attack Other Stroke Other Ovarian cancer Sister Diabetes type II Son 1 Type 2 Diab etes Mellitus - son (Added by TW Conv) Hypertension Son 2 Anesthesia problems Neg Hx Relation Name Status Comments Daughter Brandi Quan Father Maternal Grandfather Mother Other Sister Son 1 Son 2 Social History Tobacco Use Types Packs/Day Years Used Date Smoking Tobacco: Former Cigarettes 1.5 15 1 965 - 1980 Smokeless Tobacco: Never Tobacco Cessation:Counseling Given: Not [...] on file 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 Gender Identity Not on file Sexual Orientation Not on file Obstetrics History Last Filed Vital Signs Vital Sign Reading Time Taken Comments Blood Pressure 160/81 12/26/2024 10:23 AM CDT Pulse 64 12/26/2024 10:23 AM CDT Temperature 36.3 C (97.4 F) 06/11/2024 12:46 PM CDT Respiratory Rate 18 12/26/2024 10:23 AM CDT Oxygen Saturation 98% 12/24/2023 10:24 AM CDT Inhaled Oxygen Concentration - - Weight 87.8 kg (193 lb 9.6 oz) 12/26/2024 10:23 AM CDT Height 180.3 cm (5' 11) 12/26/2024 10:23 AM CDT Body Mass Index 27 12/26/2024 10:23 AM CDT Plan of Treatment Health Maintenance Due Date Last Done Comments Colon Cancer Screening-Colonoscopy 1955 Depression Screening 1954 Hepatitis C Screening 1955 Dilated Eye Exam 1954 Foot Exam 1954 Hepatitis B Screening 1972 Abdominal Aortic Aneurysm (A AA) Screen 2019 11/23/2016 Well Visit 65+ 2019 Fall Risk Assessment 12/02/2022 12/02/2021 Lipid Panel 04/17/2023 04/17/2022, 06/17, 06/03/2020, Additional history exists Albumin Creatinine Ratio, Urine 04/17/2024 04/17/2023, 10/18/2022, 06/27/2021, Additional history exists Hemoglobin A1C 04/17/2024 10/18/2023, 0809/2022, 10/16/2022, Additional history exists Covid-19 Vaccine (4 - 2023-2 5 season) 2024 08/26/2021, 12/08/2020, 11/10/2020 eGFR 12/23/2024 12/24/2023, 11/16, 11/21/2023, Additional history exists Influenza Vaccine (#1) 2025 , 06/18/2020, 06/27/2019, Additional history exists DTaP/Tdap/Td Vaccine (3 - [...] complication, without long-term current use of insulin (HCC) ALBUMIN CREATININE RATIO, URINE Routine 04/17/2023 Type 2 diabetes mellitus without complication, without long-term current use of insulin (HCC) LIPID PANEL Routine 04/17/2022 Mixed hyperlipidemia PSA SCREEN Routine 04/17/2022 Secondary male hypogonadism Screening PSA (prostate specific antigen) CT ABDOMEN PELVIS WO CONTRAST Routine 11/23/2016 7:37 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 from Last 3 Months or Most Recently [...] - 12/25/2023 10:11 AM CDT Performed at: [facility] [id number] Image Consultant: Jonas Cruz PhD, Phone: [phone] May Lawson MD LAB BLOOD ORDERABLES Final Result Performing Organization Address [facility] de Phone Number [facility] - 01 * Albumin Creatinine Ratio, Urine (04/17/2023) Urine May Lawson MD LAB URINE ORDERABLES Final Result Performing Organization Address [facility] de Phone Number [facility] * Hemoglobin A1c (04/17/2023) Blood specimen (specimen) May Lawson MD LAB BLOOD ORDERABLES Final Result Performing Organization Address [facility] de Phone Number [facility] * PSA screen (04/17/2022) Blood specimen (specimen) May Lawson MD LAB BLOOD ORDERABLES Edited Result - Final Performing Organization Address [facility] de Phone Number [facility] * Lipid panel (04/17/2022) Blood specimen (specimen) us May Lawson MD LAB BLOOD ORDERABLES Edited Result - Final [facility] * CT Abdomen Pelvis WO Contrast (11/23/2016 7:37 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) Anatomical Region Laterality Modality Body N/A Computed Tomogra phy 11/23/2016 7:37 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 FINAL REPORT The radiology attending physician has personally reviewed this study, and has reviewed and/or edited this written report and agrees with it. ACC# Date Time Exam [id number] Nov 23, 2016 07:37:[id number] Abd & Pelvis wo cont EXAMINATION: [...] ABDI M.D. on Nov 23 2016 9:00A [id number] Procedure Note Provider, MD [place] - 01/24/2017 CLIVE ABDI M.D. ABEL CANNON M.D. FINAL REPORT The radiology attending physician has personally reviewed this study, and has reviewed and/or edited this written report and agrees with it. ACC# Date Time Exam [id number] Nov 23, 2016 07:37:[id number] Abd & Pelvis wo cont EXAMINATION: [...] ABDI M.D. 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
--- OUTSIDE RECORDS SUMMARY | 2025-04-17 10:45 | XMS_ITS | Referral Summary ---
Author Organization [facility] Address [address] [place] [address] Care Team Providers Care Survey Methodologist Name Role Phone Solo Burr MD Primary [...] of left knee on 08/29/2023 through the [facility] in [facility]. 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 Gender Identity Not on file Sexual [...] 12/26/2024 10:23 AM CDT Plan of Treatment Not on file Procedures [...] PELVIS WO CONTRAST Routine 11/23/2016 7:37 AM MEDICAL AFFAIRS MANAGER from Last 3 Months or Most [...] - 12/25/2023 10:11 AM CDT Performed at: [facility] [id number] Training Generalist: Jonas Cruz PhD, Phone: [phone] May Lawson MD LAB BLOOD ORDERABLES Final Result [facility] - 01 * Albumin Creatinine Ratio, Urine (04/17/2023) Urine May Lawson MD LAB URINE ORDERABLES Final Result [facility] * Hemoglobin A1c (04/17/2023) Blood specimen (specimen) May Lawson MD LAB BLOOD ORDERABLES Final Result Performing Organization Address [facility] de Phone Number [facility] * PSA screen (04/17/2022) Blood specimen (specimen) May Lawson MD LAB BLOOD ORDERABLES Edited Result - Final Performing Organization Address [facility] de Phone Number [facility] * Lipid panel (04/17/2022) Blood specimen (specimen) May Lawson MD LAB BLOOD ORDERABLES Edited Result - Final Performing Organization Address [facility] de Phone Number [facility] * CT Abdomen Pelvis WO Contrast (11/23/2016 7:37 AM MEDICAL AFFAIRS MANAGER) Anatomical Region Laterality Modality Body N/A Computed Tomogra phy 11/23/2016 7:37 AM MEDICAL AFFAIRS MANAGER Narrative 11/23/2016 9:00 AM MEDICAL AFFAIRS MANAGER CLIVE ABDI M.D. ABEL CANNON M.D. FINAL REPORT The radiology attending physician has personally reviewed this study, and has reviewed and/or edited this written report and agrees with it. ACC# Date Time Exam [id number] Nov 23, 2016 07:37:[id number] Abd & Pelvis wo cont EXAMINATION: [...] ABDI M.D. on Nov 23 2016 9:00A [id number] Procedure Note Provider, MD Mecca - 01/24/2017 Fadumo GONZALEZ M.D. FINAL REPORT The radiology attending physician has personally reviewed this study, and has reviewed and/or edited this written report and agrees with it. ACC# Date Time Exam [id number] Nov 23, 2016 07:37:[id number] Abd & Pelvis wo cont EXAMINATION: [...] ABDI M.D. on Nov 23 2016 9:00A [id number] Historical Provider MD PRATHER CT PROCEDURES Final R esult from Last 3 Months or Most Recently Relevant to Health Maintenance Insurance [facility] CHOICE PLUS [facility] PPO [facility] HMO/PPO Address: [address] [place] [address] [facility] AETNA MEDICARE GOLD Advance Directives For more information, please contact: [phone] Documents on File Type Date Recorded Patient Associate Professor Of Surgery Expl anation ADVANCE DIRECTIVE 08/23/2018 11:42 AM Care Teams Survey Methodologist Relationship Specialty Start Date End Date Solo Burr MD PCP - General 05/18/20
--- OUTSIDE RECORDS SUMMARY | 2025-04-17 10:46 | XMS_ITS | Clinical Summary ---
Author Organization [facility] Address [address] [place] [address] Care Team Providers Care Link Cutter Name Role Phone Unavailable Primary Care Provider [...] of left knee on 08/29/2023 through the [facility] in [facility]. [...] (10/26/2023): Added automatically from request for surgery [id number] Male hypogonadism 07/16/2018 Overview (10/26/2023): Last Assessment [...] Comments Blood Pressure 143/81 11/02/2023 7:27 AM WOOD CARVING LATHE OPERATOR Pulse 72 11/02/2023 7:27 AM WOOD CARVING LATHE OPERATOR Temperature 36.6 C (97.8 F) 11/02/2023 7:27 AM WOOD CARVING LATHE OPERATOR Respiratory Rate 18 11/02/2023 7:27 AM WOOD CARVING LATHE OPERATOR Oxygen Saturation 97% 11/02/2023 7:27 AM WOOD CARVING LATHE OPERATOR Inhaled Oxygen Concentration - - Weight 71.7 kg (158 lb) 10/25/2023 9:56 PM WOOD CARVING LATHE OPERATOR Height 177.8 cm (5' 10) 10/25/2023 9:56 PM WOOD CARVING LATHE OPERATOR Body Mass Index 22.67 10/25/2023 9:56 PM WOOD CARVING LATHE OPERATOR Plan of Treatment Health Maintenance Due Date Last Done Comments CT Colonography 1954 Colonoscopy 1954 Colorectal Cancer Screening 1954 FIT-DNA (Cologuard) 1954 FIT 1954 FOBT 1954 Hemoglobin A1C 1954 Sigmoidoscopy 1954 Annual Visit Topic 1955 Ophthalmology Exam 1964 Urine Microalbumin 1964 Hepatitis C Screening 1972 Pneumococcal Vaccine: 65+ Years (1 of 2 - PCV) 2004 DTaP/Tdap/Td Vaccines (3 - T d or Tdap) 05/25/2031 05/25/2021, 03/30/2011 HIB Vaccines Aged Out No [...]
--- OUTSIDE RECORDS SUMMARY | 2025-04-17 10:46 | XMS_ITS | Encounter Summary ---
Author Organization [facility] Address [address] [place] [address] Care Team Providers Care Air Traffic Control Operator Name Role Phone Solo Burr MD Primary Care Provider Encounter Details Date Type Department Care Team (Late st Contact Info) Description 05/20/2020 Telephone [facility] [address] [place] [id number] Miguel Gamboa, RT Social History Tobacco Use Types Packs/Day Years Used Date Smoking Tobacco: Former Cigarettes 1.5 15 Smokeless Tobacco: Never Alcohol Use Standard Drinks/Week Comments No 0 (1 standard drink = 0.6 oz pur e alcohol) Sex and Gender Information Value Date Recorded Sex Assigned at Not on file Legal Sex Male 3:02 AM NEGATIVE RETOUCHER Gender Identity Not on file Sexual Orientation Not on file documented as of this encounter Plan of Treatment Not on file documented as of this encounter Visit Diagnoses Not on filedocumented in this encounter Care Teams Air Traffic Control Operator Relationship Specialty Start Date End Date Solo Burr MD PCP - General 05/18/20 documented as of this encounter
--- OUTSIDE RECORDS SUMMARY | 2025-04-17 10:46 | XMS_ITS | Encounter Summary ---
Author Organization [facility] Address [address] [place] [address] Phone Care Team Providers Care Professional Healthcare Representative Name Role Phone Nii Jose MD Primary Care Provider [phone] Muna Arce MD Primary Care Provider [phone]- [phone] Solo Burr MD Primary Care Provider Encounter Details Date Type Department Care Team (Late st Contact Info) Description 01/01/2017 Orders Only [facility] ProviderMecca MD [address] [place] [id number] Social History Tobacco Use Types Packs/Day Years Used Date Smoking Tobacco: Never Assessed Sex and Gender Information Value Date Recorded Sex Assigned at Not on file 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
--- OUTSIDE RECORDS SUMMARY | 2025-04-17 10:46 | XMS_ITS | Encounter Summary ---
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
--- OUTSIDE RECORDS SUMMARY | 2025-04-17 10:46 | XMS_ITS | Clinical Summary ---
Author Organization [facility] Address [facility] [place] [address] Care Team Providers Care Implement Mechanic Name Role Phone Unavailable Primary Care Provider [...] Td Vaccines ( 1 - Tdap) 1973 Pneumococcal Vaccine: 50+ Ye ars (1 of 1 - PCV) 2004 Zoster Vaccines (1 of 2) 2004 COVID-19 Vaccine ( - 2023-2 5 season) 2024 RSV Immunization or 60+ Years (1 [...]
--- OUTSIDE RECORDS SUMMARY | 2025-04-17 10:46 | XMS_ITS | Clinical Summary ---
Author Organization [facility] Address [address] [facility] [place] [address] Care Team Providers Care Supervisor Finish End Name Role Phone Solo Burr MD Primary Care Provider Source Comments [facility],non-owned Affiliates and Associated Physician Practices is amultiple site organization consisting of ambulatory clinics and hospital sitesin [place], [place], [place] and [place]. This disclosure is being madepursuant to the Care Everywhere program and may not contain all information available regarding this patient. Last updated 18.[facility] Allergies No known active allergies Medications * Be aware that medications may not be up to date on this document. Alwaysverify current medications with the patient. predniSONE (Deltasone) 5 MG tablet Take 1 [...] 3 times daily as needed (anxiety) Active HYDROcodone-raymond taminophen (Rhame) 7.5-325 MG tablet Take 1 (one) tablet [...] 1 (one) tablet by mouth once daily 3 Active simvastatin (Zocor) 40 MG tablet Take 1 (one) tablet by mouth at bedtime 3 Active Testosterone 10 MG/ACT (2%) Apply 3 Pump to affected area once daily Apply three pumps to each side daily 3 Active Active Problems Problem Noted Date Diagnosed Date Pyogenic arthritis of knee, due to unspecified organism, unspecified laterality 10/17/2023 Septic shock 10/17/2023 Encounter for central line placement 10/17/2023 Encounters Date Type Department Care Team Description 03/05/2025 Patient Outreach [facility] - Care Coordination [address] [place] [address] Divya Ramírez Outreach Preventive Care from Last 3 Months Immunizations Immunization Administration Dates Next Due INFLUENZA VACCINE, TRIV. (AF LURIA, FLUZONE TRIVALENT; 6MO+) (IIV3) 07/19/2014,07/26/2012 FLU VACCINE QUAD IIV4 SPLIT 0.25 ML IM 06/27/2019 FLU VACCINE TRI IIV3 SPLIT P F IM (FLUVIRIN) 07/03/2017,06/17/2016,07/01/2015 INFLUENZA VACCINE 07/15/2018,,03/23/2014,2013 INFLUENZA VACCINE, QUADR. (F LUZONE; FLULAVAL; FLUARIX; AFLURIA QUADRIVALENT; 6MO+), 0.5 ML (IIV4) 06/23/2018,07/07/2016 Pneumococcal Pcv13 Conj 04/16/2020 TDAP (7yrs+) 03/30/2011 ZOSTER VACCINE, LIVE 01/11/2015 Zoster Hzv Vacc Recombinant Inj Im 04/16/2020 Social History Tobacco Use Types Packs/Day Years [...] heating? Not hard at all 10/19/2023 [facility] of Occupat ional Health - Occupational Stress Questionnaire Answer Date Recorded [...] place to sleep or slept in a intermediate (including now)? No 10/19/2023 Sex and Gender Information Value Date Recorded Sex Assigned at Not on file Legal Sex Male 11:08 AM FIRE PREVENTION INSPECTOR Gender Identity Not on file Sexual Orientation Not on file Last Filed Vital Signs Vital Sign Reading Time Taken Comments Blood Pressure 113/68 10/25/2023 4:01 PM FIRE PREVENTION INSPECTOR Pulse 77 10/25/2023 4:01 PM FIRE PREVENTION INSPECTOR Temperature 36.4 C (97.6 F) 10/25/2023 4:01 PM FIRE PREVENTION INSPECTOR Respiratory Rate 18 10/25/2023 9:26 AM FIRE PREVENTION INSPECTOR Oxygen Saturation 98% 10/25/2023 4:0 1 PM FIRE PREVENTION INSPECTOR Inhaled Oxygen Concentration 21% 10/19/2023 3:25 PM FIRE PREVENTION INSPECTOR Weight 73.4 kg (161 lb 12.8 oz) 10/25/2023 4:00 AM FIRE PREVENTION INSPECTOR Height 180.3 cm (5' 10.98) 10/18/2023 7:00 AM FIRE PREVENTION INSPECTOR per care everywhere Body Mass Index 22.58 10/18/2023 7:00 AM FIRE PREVENTION INSPECTOR Plan of Treatment Health Maintenance Due Date Last Done Comments COLOGUARD (AGES 45-75) - COLON CA SCREENING 1954 COLON MONITORING 1954 COLONOSCOPY - COLON CA SCREENING 1954 CT COLONOGRAPHY - COLON CA SCREENING 1954 Colorectal Cancer Screening 1954 FIT - COLON CA SCREENING 1954 FLEX SIG - COLON CA SCREENING 1954 HEPATITIS C SCREENING 09/02/1972 AAA SCREENING 2019 ZOSTER VACCINE (3 of 3) 06/11/2020 04/16/2020, 01/11 DTAP/TDAP/TD VACCINES (2 - Td or Tdap) 03/30/2021 03/30/2011 PNEUMOCOCCAL VACCINE 50+ (2 of 2 - PCV20 or PCV21) 04/16/2021 04/16/2020 COVID-19 VACCINE (1 - season) 2024 DEPRESSION SCREENING 09/17/2024 MEDICARE AWV CALENDAR YEAR 2024 INFLUENZA VACCINE (#1) 2025 9, 07/15/2018, 06/23/2018, Additional history exists Respiratory Syncytial Virus (RSV) Vaccine Pt: or [...] complete this topic MENINGOCOCCAL (Group B) VACCINE SHARED DECISION-MAKING Aged Out No longer eligible based on patient's age to complete this topic MENINGOCOCCAL GROUPS A/C/Y/W VACCINE Aged Out No longer eligible based on patient's age to complete this topic Insurance [facility] Address: [address] [address] [place] [address] [facility]ICARE [facility] AETNA MEDICARE ADV SELF PAY NO INSURANCE Member Subscriber Plan / Payer (Ef fective for All Dates) Name:Abel Thacker Jr Member ID:Not on file Relation to Subscriber:Not on file Name:ABEL THACKER JR Subscriber ID:Not on file (Home) Address: [address] [place] [id number] Payer ID:Not on file Group ID:Not on file Type:Self Pay Address: [place], [place] Advance Directives Documents on File Type Date Recorded Patient Electronics Research Engineer Expl anation Adv Directive/Living Will/POA 10/26/2023 6:12 PM * Full Code (Latest Code Status on File) Date Activated Date Inactivated Comments 10/17/2023 3:46 PM 10/25/2023 8:04 PM Care Teams Supervisor Finish End Relationship Specialty Start Date End Date Solo Burr MD [address] [facility] [address] [address] PCP - General Family Medicine 10/17/23
[2025-04-17 11:40] LABS: Anion Gap 7 mmol/L (4-12); Blood Urea Nitrogen 23 mg/dL (9-20); Calcium 9.6 mg/dL (8.4-10.2); Carbon Dioxide 29 mmol/L (22-30); Chloride 98 mmol/L (98-107); Estimated Glomerular Filt Rate 42; Glucose 125 mg/dL (65-110); Potassium 4.9 mmol/L (3.4-5.0); Sodium 134 mmol/L (137-145)
== END 2025-04-17 10:41 | disposition home or self-care (01) ==
LOC: ANHLAB 10:42
PROVIDERS: PCP Family Medicine; Visit Provider Nurse Practitioner Family
DX: E87.5 Hyperkalemia (principal)
CPT/HCPCS: 36415; 80048

== ENCOUNTER 2025-06-04 13:00 | Outpatient (RCR) | payer MEDICARE, SELFPAY ==
--- NOTE | 2025-04-23 11:00 | OPREHPOC ---
Outpatient Therapy Plan of Care This is a Multidisciplinary Plan of Care that may contain components documented by all disciplines (PT, OT, and ST.) PT Problem 1 PT Problem #1 Knowledge Deficit PT Goal 1 Goal / Goal Update *independent with HEP Target Visit 8 PT Problem 2 PT Problem #2 Pain PT Goal 1 Goal / Goal Update 1* pt report pain at worst rating of 2/10 2* pt able to lie on L shoulder for 10 minutes Target Visit 8 PT Problem 3 PT Problem #3 Impaired Strength PT Goal 1 Goal / Goal Update increase strength of L shoulder, to improve use of L arm with daily activities of self care and home tasks: 1* active flexion to 160' 2* active abduction to 140' 3* flexion to 90' with 4#hand wt x 5 reps Target Visit 8
--- NOTE | 2025-04-23 11:00 | PTOPEVAL1 ---
Assessment and note entered by Yashira Oconnell, PT Evaluation Information Assessment Status Evaluation ICD-10 Condition Codes (PT) Pain in left shoulder M25.512 Onset December 2024 Subjective Information gradual increase in pain L shoulder, without trauma to arm; R hand dominant; can do everything at home, mostly using his R hand and have more pain afterwards; avoids using his L arm, problems with sleeping-- usually sleep on sides; x ray of L shoulder- joint narrowing, subchondral cyst, osteophyte and mild OA active lifestyle: retired, active, bowls, independent with all self and home tasks; caregiver to - assist with car transfer and showering; uses hand weights for arm exercises and does push ups Reported Pain Level Pain Score 0: Self Report Additional Pain Score Comments pain range in the past week 0-6/10; lateral and posterior shoulder; lateral humerus to elbow increase pain: lie on L side, lifting with L arm decrease pain: rest, ibuprofen, muscle relaxer for sleeping, not using heat, ice- instruct on PRN use 10-15 min sleeping is OK, take sleeping meds Assessment PT Clinical Summary Steven has the diagnosis of L shoulder pain, his non dominant arm. He is able to do everything at home, mainly using his R arm and has pain. Self assessment with Quick DASH rating of 11% limitation in activity. He is active, retired and is caregiver to his , who has memory issues. Pain increases with using his L arm and lie on his L side. With the evaluation: decreased strength/ active motion of L shoulder flexion and abduction motions ; all shoulder motions increase pain; posture with rounded shoulders and trunk. Skilled PT services are indicated for treatment of L shoulder pain/impingement syndrome: modalities for pain and spasms, therapeutic exercises to increase shoulder, scapular strength and posture with education for HEP and posture. Plan of Care Interventions Electrical Stimulation,Hot Pack/Cold Pack,Manual Therapy,Neuro Re-education,Patient/Caregiver Education,Therapeutic Activities,Therapeutic Exercise,Ultrasound,Other Other Interventions taping PT Services Indicated Yes Treatment Frequency and 1-2x/wk for 8 visits Duration These treatments will address the objective and functional deficits as defined above. The patient will be advanced safely and appropriately in order for the patient to progress towards his/her prior level of function. Additional exercises will be introduced and as well as a comprehensive home exercise program upon discharge, if needed, ?to ensure carryover of functional gains achieved in the clinic. This treatment plan has been reviewed and agreement upon by the patient.
--- NOTE | 2025-06-04 13:37 | OPREHPOC ---
Outpatient Therapy Plan of Care This is a Multidisciplinary Plan of Care that may contain components documented by all disciplines (PT, OT, and ST.) PT Problem 1 PT Problem #1 Knowledge Deficit PT Goal 1 Goal / Goal Update *independent with HEP 06-04-25 d/c goal met Target Visit 8 Progress Met PT Problem 2 PT Problem #2 Pain PT Goal 1 Goal / Goal Update 1* pt report pain at worst rating of 2/10 2* pt able to lie on L shoulder for 10 minutes 06-04-25 d/c goal 2 met; #1 pain rating at worst of 5/10 Target Visit 8 Progress Partially Met PT Problem 3 PT Problem #3 Impaired Strength PT Goal 1 Goal / Goal Update increase strength of L shoulder, to improve use of L arm with daily activities of self care and home tasks: 1* active flexion to 160' 2* active abduction to 140' 3* flexion to 90' with 4#hand wt x 5 reps 06-04-25 d/c goal 2 met; #1 is 155'; #3 with 1# weight Target Visit 8 Progress Partially Met
--- NOTE | 2025-06-04 13:38 | PTOPDC ---
Assessment and note entered by Yashira Oconnell, PT Assessment Status Discharge ICD-10 Condition Codes (PT) Pain in left shoulder M25.512 Onset December 2024 Subjective Information still having problems with my shoulder, not doing any better; the steroid med helped then pain came back; to see Dr Bravo Jul 08; have been doing all of the exercises at home; want to be done with therapy and do the exercises on my own, do not think therapy will help any more. Reported Pain Level Pain Score Self Report Additional Pain Score Comments pain range in the past week 0-5/10; posterior shoulder- annoying pain, strain and pulling over shoulder; into L arm to elbow; increase pain: painful arc ~80-110' flexion; abduction motion decrease pain: ibuprofen PRN; is not using heat,ice; is able to sleep through the night; can lie on L side for short time; Assessment PT Clinical Summary Steven has received 8 PT sessions. With today's assessment: reports pain range of 0-5/10- posterior shoulder, radicular into elbow; self assessment with Quick DASH rating of 14% limitation in activity level; is able to lie on L side for a short time, about 20 minutes with sleeping; education for HEP, posture and body mechanics. AROM of L shoulder in standing: flexion 155', abduction 155', IR reaching behind back, fingers to distal scapula; ER- reaching to back of head, palm to back of head; all motions increase pain, flexion and abduction most pain; painful arc of flexion ~ 80 to 110'. Strength of L shoulder: gross flexion and abduction 3+/5 and IR/ER 3+/5. The goals were partially met. Discharge PT services. He is to continue with his HEP. And has appointment with ortho next month. Plan of Care PT Services Indicated No
== END 2025-06-04 17:15 | disposition home or self-care (01) ==
LOC: ANHPT 13:00
PROVIDERS: PCP Family Medicine; Visit Provider Family Medicine
DX: M25.512 Pain in left shoulder (principal); G89.29 Other chronic pain
CPT/HCPCS: 97014; 97110; 97140; 97161; 97530; G0283

== ENCOUNTER 2025-07-31 14:39 | Outpatient (CLI) | payer MEDICARE, SELFPAY ==
--- NOTE | ~2025-07-31 | XR_ITS ---
EXAMINATION: XR chest 2V, 07/31/2025 14:59 ASSISTANT CHIEF OF POLICE HISTORY: Shortness of breath, coughing phleghm x 4 days COMPARISON: No comparisons available. Technique: 2 views obtained. Findings: The lungs are clear, no effusion. No pneumothorax. Heart is normal size. Mediastinal and hilar contours are within normal limits. Bony thorax no acute abnormality. Impression: No acute cardiopulmonary abnormality. Reviewed, dictated and finalized at location P. STANT CHIEF OF POLICE Impression: No acute cardiopulmonary abnormality.
== END 2025-07-31 14:40 | disposition home or self-care (01) ==
LOC: GOSHIMG 14:40
PROVIDERS: PCP Family Medicine; Visit Provider Nurse Practitioner Family
DX: R06.02 Shortness of breath (principal)
CPT/HCPCS: 71046

== ENCOUNTER 2025-07-31 15:07 | Outpatient (CLI) | payer MEDICARE, SELFPAY ==
[2025-07-31 18:16] LABS: Hematocrit 46.8 % (42.0-52.0); Hemoglobin 15.5 g/dL (14.0-18.0); Immature Granulocyte Percent A 0.9 % (0-0.5); Lymphocytes Absolute Auto 0.98 K/mm3 (0.9-3.2); Mean Corpuscular HGB Conc 33.1 g/dl (32-36); Mean Corpuscular Hemoglobin 31.9 pg (26-34); Mean Corpuscular Volume 96.3 fl (80-100); Nucleated Red Blood Cells Absolute Auto 0.000 K/mm3 (0.0-0.012); Nucleated Red Blood Cells Perc 0.0 % (0.0-0.2); Platelet Count Result 182 k/mm3 (150-375); Red Blood Count 4.86 M/mm3 (4.6-6.20); White Blood Count 11.8 K/mm3 (4.5-10.0)
[2025-07-31 18:26] LABS: Alanine Aminotransferase 57 U/L (6-50); Albumin Level 4.8 g/dL (3.5-5.1); Alkaline Phosphatase 55 U/L (38-126); Anion Gap 6 mmol/L (4-12); Aspartate Amino Transferase 77 U/L (17-59); Bilirubin,Total 1.3 mg/dL (0.2-1.3); Blood Urea Nitrogen 20 mg/dL (9-20); Calcium 9.8 mg/dL (8.4-10.2); Carbon Dioxide 30 mmol/L (22-30); Chloride 94 mmol/L (98-107); Estimated Glomerular Filt Rate 42; Glucose 155 mg/dL (65-110); Potassium 5.4 mmol/L (3.4-5.0); Sodium 130 mmol/L (137-145); Total Protein 7.7 g/dL (6.3-8.2)
[2025-07-31 18:49] LABS: Influenza A QL RT-PCR Negative (Negative); Influenza B QL RT-PCR Negative (Negative); SARS-CoV-2 RNA PCR Negative (Negative)
--- OUTSIDE RECORDS SUMMARY | 2025-07-31 19:32 | XMS_ITS | Encounter Summary ---
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
--- OUTSIDE RECORDS SUMMARY | 2025-07-31 19:32 | XMS_ITS | Clinical Summary ---
Author Organization [facility] Address [address] [place] [address] Care Team Providers Care Ballpoint Pen Cartridge Tester Name Role Phone Solo Burr MD Primary [...] gauge x 1 syringeIndication s:Secondary adrenal insufficiency Use to inject dexamethasone as [...] total) by mouth nightly at bedtime. Active albuterol HFA (PROVENTIL HFA,VENTOLIN HFA,PROAIR HFA) 90 mcg/actuation inhaler Inhale 2 puffs every 4 hours as needed Active cefTRIAXone (ROCEPHIN) 2 gram injection Active cetirizine (ZyrTEC) 10 mg tablet Take 1 tablet (10 mg total) by mouth daily Active glucosamine sulfate 1,000 mg capsule Take 1 tablet by mouth 2 (two) times a day Active rosuvastatin 5 mg capsule, sprinkle Active rosuvastatin (CRESTOR) 5 mg tablet Take 1 tablet (5 mg total) by mouth daily Active blood glucose diagnostic (OneTouch Ultra Test) stripIndications: Type 2 diabetes mellitus without complication, without long-term current use of insulin ([facility]) USE 1 STRIP TO CHECK GLUCOSE ONCE DAILY DIRECTED 100 each 025 Active lancets (OneTouch Delica Plus Lancet) 33 gauge misc USE 1 TO CHECK GLUCOSE ONCE DAILY DIRECTED 100 each 025 Active fenofibrate (TRIGLIDE) 160 mg tablet Take 1 tablet (160 mg total) by mouth daily Active predniSONE (DELTASONE) 5 mg tablet TAKE 1 TABLET BY MOUTH ONCE DAILY BEFORE BREAKFAST 90 tablet 3 Active SITagliptin phosphate (Januvia) 50 mg tabletIndications :Type 2 diabetes mellitus without complication, without long-term current use of insulin (HCC) Take 1 tablet (50 mg total) by mouth daily 90 tablet 3 025 Active levothyroxine (SYNTHROID) 88 mcg tabletIndications :Pituitary adenoma (HCC),Secondary hypothyroidism Take 1 tablet by mouth once daily 90 tablet 025 Active testosterone 20.25 mg/1.25 gram (1.62 %) gel in metered-dose pump APPLY ONE PUMP TO EACH SHOULDER EVERY MORNING 75 g 025 Active testosterone 20.25 mg/1.25 gram (1.62 %) gel in metered-dose pump Apply one pump to each shoulder every morning. 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 Following this, he developed redness [...] (11/29/2021): Added automatically from request for surgery [id number] Injury of left knee 11/29/2021 Screening PSA [...] PM CDT): PSA normal 12/16 Level normal /18, will [...] Secondary hypogonadism PSA normal 12/16 Level normal 18, will repeat CBC 18 shows anemia, will [...] Visual field defect 11/29/2016 Intracranial tumor 11/29/2016 [place] 07/28/2016 Actinic keratosis 04/27/2016 Basal cell carcinoma [...] 06/18/2020,04/16/2020 Surgical History Surgery Date Site/Laterality Comments [place] TONSILLECTOMY PRIMARY/SECONDARY <AGE 11 09/17/1965 - 09/16/1966 Tonsillectomy - 1965 (Added by TW Conv) ROTATOR CUFF REPAIR [...] on file Legal Sex Male 3:02 AM TIE BUCKER Gender Identity Not on file Sexual Orientation [...] Assessment 12/02/2022 12/02/2021 Lipid Panel 04/17/2023 04/17/2022, 10/09/2020, 06/03/2020, Additional history exists Albumin Creatinine Ratio, Urine 04/17/2024 04/17/2023, 10/18/2022, 06/27/2021, Additional history exists Hemoglobin A1C 04/17/2024 10/18/2023, 08/0 09/2022, 10/16/2022, Additional history exists eGFR 12/23/2024 12/24/2023, 03/2 09/2023, 11/21/2023, Additional history exists Covid-19 Vaccine (4 - 2024-2 6 season) 2025 08/26/2021, 12/08/2020, 11/10/2020 Influenza Vaccine (#1) 2025 , 06/18/2020, 06/27/2019, [...] PELVIS WO CONTRAST Routine 11/23/2016 7:37 AM TIE BUCKER from Last 3 Months or Most Recently [...] - 12/25/2023 10:11 AM CDT Performed at: - [facility] [id number] State Fire Marshal: Jonas Cruz PhD, Phone: [phone] May Lawson MD LAB BLOOD ORDERABLES Final Result Performing Organization Address [facility] de Phone Number [facility] - 01 * Albumin Creatinine Ratio, Urine (04/17/2023) Urine May Lawson MD LAB URINE ORDERABLES Final Result Performing Organization Address [facility] de Phone Number [facility] * Hemoglobin A1c (04/17/2023) Blood specimen (specimen) May Lawson MD LAB BLOOD ORDERABLES Final Result Performing Organization Address [facility] de Phone Number [facility] * PSA screen (04/17/2022) Blood specimen (specimen) May Lawson MD LAB BLOOD ORDERABLES Edited Result - Final Performing Organization Address [facility] de Phone Number [facility] * Lipid panel (04/17/2022) Blood specimen (specimen) May Lawson MD LAB BLOOD ORDERABLES Edited Result - Final Performing Organization Address [facility] Co de Phone Number [facility] * CT Abdomen Pelvis WO Contrast (11/23/2016 7:37 AM TIE BUCKER) Anatomical Region Laterality Modality Body N/A Computed Tomogra phy 11/23/2016 7:37 AM TIE BUCKER Narrative 11/23/2016 9:00 AM TIE BUCKER CLIVE ABDI M.D. ABEL CANNON M.D. FINAL REPORT The radiology attending physician has personally reviewed this study, and has reviewed and/or edited this written report and agrees with it. ACC# Date Time Exam [id number] Nov 23, 2016 07:37:[id number] Abd & Pelvis wo cont EXAMINATION: [...] ABDI M.D. on Nov 23 2016 9:00A [id number] Procedure Note Provider, MD Mecca - 01/24/2017 Fadumo GONZALEZ M.D. FINAL REPORT The radiology attending physician has personally reviewed this study, and has reviewed and/or edited this written report and agrees with it. ACC# Date Time Exam [id number] Nov 23, 2016 07:37:[id number] Abd & Pelvis wo cont EXAMINATION: [...] ABDI M.D. on Nov 23 2016 9:00A [id number] Historical Provider MD PRATHER CT PROCEDURES Final R esult from Last 3 Months or Most Recently Relevant to Health Maintenance Insurance [facility] CHOICE PLUS FORMERLY [facility] PPO [facility] HMO/PPO Address: [facility] [id number] [place] [address] TNA AETNA [facility] GOLD [facility] AETNA MEDICARE GOLD AETNA MEDICARE GOLD Advance Directives For more information, please contact: [phone] Documents on File Type Date Recorded Patient Terrazzo Laborer Expl anation ADVANCE DIRECTIVE 08/23/2018 11:42 AM Care Teams Ballpoint Pen Cartridge Tester Relationship Specialty Start Date End Date Solo Burr MD PCP - General 05/18/20
--- OUTSIDE RECORDS SUMMARY | 2025-07-31 19:32 | XMS_ITS | Clinical Summary ---
Author Organization [facility] Address [address] [place] [id number] Care Team Providers Care Grinder Set Up Operator Surface Name Role Phone Unavailable Primary Care Provider [...] Vaccines (1 of 2) 2004 COVID-19 Vaccine (1 - 2024-2 6 season) 2025 Influenza Adult (#1) 2025 RSV Immunization or 60+ Years (1 - 1-dose 75+ series) 2029 Hepatitis A Vaccines Aged Out No long er eligible based on patient's age to complete this topic Meningococcal B Vaccine Aged Out No l onger eligible based on patient's age to complete this topic Meningococcal Vaccine Aged Out No jaja jagdish eligible based on patient's age to complete this topic RSV Immunizations Under 20 Months Aged Out No longer eligible based on patient's age to complete this topic
--- OUTSIDE RECORDS SUMMARY | 2025-07-31 19:32 | XMS_ITS | Encounter Summary ---
Author Organization [facility] Address [address] [place] [address] Care Team Providers Care Ore Buyer Name Role Phone Solo Burr MD Primary Care Provider Encounter Details Date Type Department Care Team (Late st Contact Info) Description 05/20/2020 Telephone [facility] [address] [place] [id number] Miguel Gamboa, RT Social History Tobacco Use Types Packs/Day Years Used Date Smoking Tobacco: Former Cigarettes 1.5 15 Smokeless Tobacco: Never Alcohol Use Standard Drinks/Week Comments No 0 (1 standard drink = 0.6 oz pur e alcohol) Sex and Gender Information Value Date Recorded Sex Assigned at Not on file Legal Sex Male 3:02 AM 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
--- OUTSIDE RECORDS SUMMARY | 2025-07-31 19:32 | XMS_ITS | Encounter Summary ---
Author Organization [facility] Address [address] [place] [address] Phone Care Team Providers Care Piercing Mill Operator Name Role Phone Nii Jose MD Primary Care Provider [phone]- [phone] Muna Arce MD Primary Care Provider [phone]- [phone] Solo Burr MD Primary Care Provider Encounter Details Date Type Department Care Team (Late st Contact Info) Description 01/01/2017 Orders Only [facility] ProviderMecca MD [address] [place] [address] Social History Tobacco Use Types Packs/Day Years Used Date Smoking Tobacco: Never Assessed Sex and Gender Information Value Date Recorded Sex Assigned at Not on file Legal Sex Male 3:02 AM BEHAVIOR SPECIALIST Gender Identity Not on file Sexual Orientation [...] on filedocumented in this encounter Care Teams Piercing Mill Operator Relationship Specialty Start Date End Date Nii Jose MD [address] [place] [address] PCP - General 12/12/16 05/16/18 Muna Arce MD [address] [place] [address] PCP - General 05/17/18 05/17/20 Solo Burr MD [address] [place] [address] PCP - General 05/18/20 documented as of this encounter
--- OUTSIDE RECORDS SUMMARY | 2025-07-31 19:32 | XMS_ITS | Clinical Summary ---
Author Organization [facility] Address [address] [place] [address] Care Team Providers Care Proj Mgr Name Role Phone Solo Burr MD Primary Care Provider Source Comments [facility],non-owned Affiliates and Associated Physician Practices is amultiple site organization consisting of ambulatory clinics and hospital sitesin [place], [place], [place] and [place]. This disclosure is being madepursuant to the Care Everywhere program and may not contain all information available regarding this patient. Last updated 18.[facility] Allergies No known active allergies Medications * [...] daily as needed (anxiety) Active HYDROcodone-raymond taminophen ([place]) 7.5-325 MG tablet Take 1 (one) tablet [...] 10/17/2023 Encounter for central line placement 10/17/2023 Immunizations Immunization Administration Dates Next Due INFLUENZA VACCINE, TRIV. (AF LURIA, FLUZONE TRIVALENT; 6MO+) (IIV3) 07/19/2014,07/26/2012 FLU VACCINE QUAD IIV4 SPLIT 0.25 ML IM 06/27/2019 FLU VACCINE TRI IIV3 SPLIT P F IM (FLUVIRIN) 07/03/2017,06/17/2016,07/01/2015 INFLUENZA VACCINE 07/15/2018, 4,03/23/2014,2013 INFLUENZA VACCINE, QUADR. (F LUZONE; FLULAVAL; FLUARIX; AFLURIA QUADRIVALENT; 6MO+), 0.5 ML (IIV4) 06/23/2018,07/07/2016 Pneumococcal Pcv13 Conj 04/16/2020 TDAP (7yrs+) 03/30/2011 ZOSTER VACCINE, LIVE 01/11/2015 Zoster Hzv Vacc Recombinant Inj Im 04/16/2020 Social History Tobacco Use Types Packs/Day Years Used Date Smoking Tobacco: Former Cigarettes 0 Q uit: 10/16/1993 Smokeless Tobacco: Never Tobacco [...] and heating? Not hard at all 10/19/2023 [facility] of Occupat ional Health - Occupational Stress [...] place to sleep or slept in a residential (including now)? No 10/19/2023 Sex and Gender Information Value Date Recorded Sex Assigned at Not on file Legal Sex Male 11:08 AM SUPPORT ARCHITECT Gender Identity Not on file Sexual Orientation Not on file Last Filed Vital Signs Vital Sign Reading Time Taken Comments Blood Pressure 113/68 10/25/2023 4:01 PM SUPPORT ARCHITECT Pulse 77 10/25/2023 4:01 PM SUPPORT ARCHITECT Temperature 36.4 C (97.6 F) 10/25/2023 4:01 PM SUPPORT ARCHITECT Respiratory Rate 18 10/25/2023 9:26 AM SUPPORT ARCHITECT Oxygen Saturation 98% 10/25/2023 4:0 1 PM SUPPORT ARCHITECT Inhaled Oxygen Concentration 21% 10/19/2023 3:25 PM SUPPORT ARCHITECT Weight 73.4 kg (161 lb 12.8 oz) 10/25/2023 4:00 AM SUPPORT ARCHITECT Height 180.3 cm (5' 10.98) 10/18/2023 7:00 AM SUPPORT ARCHITECT per care everywhere Body Mass Index 22.58 10/18/2023 7:00 AM SUPPORT ARCHITECT Plan of Treatment Health Maintenance Due Date [...] 2 - PCV20 or PCV21) 04/16/2021 04/16/2020 DEPRESSION SCREENING 09/17/2024 MEDICARE AWV CALENDAR YEAR 2024 COVID-19 VACCINE ( - season) 2025 INFLUENZA VACCINE (#1) 2025 9, 07/15/2018, 06/23/2018, [...] patient's age to complete this topic Insurance [facility] Address: [address] [address] [place] [address] MEDICARE FOR[facility]LY [facility] Address: [address] [place] [address] AETNA MEDICARE ADV SELF PAY NO INSURANCE Member Subscriber Plan / Payer (Ef fective for All Dates) Name:Abel Thacker Jr Member ID:Not on file Relation to Subscriber:Not on file Name:ABEL THACKER JR Subscriber ID:Not on file (Home) Address: [address] [place] [id number] Payer ID:Not on file Group ID:Not on file Type:Self Pay Address: [place], [place] Advance Directives Documents on File Type Date Recorded Patient Painter Hand Expl anation Adv Directive/Living Will/POA 10/26/2023 6:12 PM * Full Code (Latest Code Status on File) Date Activated Date Inactivated Comments 10/17/2023 3:46 PM 10/25/2023 8:04 PM Care Teams Proj Mgr Relationship Specialty Start Date End Date Solo Burr MD [address] [facility] [address] [id number] PCP - General Family Medicine 10/17/23
== END 2025-07-31 15:08 | disposition home or self-care (01) ==
LOC: ANHGOSHLAB 15:07
PROVIDERS: PCP Family Medicine; Visit Provider Nurse Practitioner Family
DX: R05.9 Cough, unspecified (principal); R06.02 Shortness of breath
CPT/HCPCS: 36415; 80053; 85025; 87636

== ENCOUNTER 2025-08-06 12:50 | Outpatient (CLI) | payer MEDICARE, SELFPAY ==
[2025-08-06 13:55] LABS: Hematocrit 44.5 % (42.0-52.0); Hemoglobin 15.0 g/dL (14.0-18.0); Immature Granulocyte Percent A 3.7 % (0-0.5); Lymphocytes Absolute Auto 1.42 K/mm3 (0.9-3.2); Mean Corpuscular HGB Conc 33.7 g/dl (32-36); Mean Corpuscular Hemoglobin 32.2 pg (26-34); Mean Corpuscular Volume 95.5 fl (80-100); Nucleated Red Blood Cells Absolute Auto 0.000 K/mm3 (0.0-0.012); Nucleated Red Blood Cells Perc 0.0 % (0.0-0.2); Platelet Count Result 190 k/mm3 (150-375); Red Blood Count 4.66 M/mm3 (4.6-6.20); White Blood Count 9.5 K/mm3 (4.5-10.0)
[2025-08-06 14:42] LABS: Alanine Aminotransferase 60 U/L (6-50); Albumin Level 4.9 g/dL (3.5-5.1); Alkaline Phosphatase 47 U/L (38-126); Anion Gap 10 mmol/L (4-12); Aspartate Amino Transferase 95 U/L (17-59); Bilirubin,Total 0.8 mg/dL (0.2-1.3); Blood Urea Nitrogen 27 mg/dL (9-20); Calcium 9.3 mg/dL (8.4-10.2); Carbon Dioxide 28 mmol/L (22-30); Chloride 96 mmol/L (98-107); Estimated Glomerular Filt Rate 45; Glucose 128 mg/dL (65-110); Potassium 4.8 mmol/L (3.4-5.0); Sodium 134 mmol/L (137-145); Total Protein 7.7 g/dL (6.3-8.2)
--- OUTSIDE RECORDS SUMMARY | 2025-08-06 15:19 | XMS_ITS | Encounter Summary ---
Author Organization [facility] Address [address] [place] [address] Care Team Providers Care Collection Technician Name Role Phone Solo Burr MD Primary Care Provider Encounter Details Date Type Department Care Team (Late st Contact Info) Description 05/20/2020 Telephone [facility] [address] [place] [phone] Miguel Gamboa, RT Social History Tobacco Use Types Packs/Day Years Used Date Smoking Tobacco: Former Cigarettes 1.5 15 Smokeless Tobacco: Never Alcohol Use Standard Drinks/Week Comments No 0 (1 standard drink = 0.6 oz pur e alcohol) Sex and Gender Information Value Date Recorded Sex Assigned at Not on file Legal Sex Male 3:02 AM INSTRUMENTATION AND CONTROL TECHNICIAN Gender Identity Not on file Sexual Orientation Not on file documented as of this encounter Plan of Treatment Not on file documented as of this encounter Visit Diagnoses Not on filedocumented in this encounter Care Teams Collection Technician Relationship Specialty Start Date End Date Solo Burr MD PCP - General 05/18/20 documented as of this encounter
--- OUTSIDE RECORDS SUMMARY | 2025-08-06 15:19 | XMS_ITS | Clinical Summary ---
Author Organization [facility] Address [address] [place] [address] Care Team Providers Care Steam Press Operator Name Role Phone Unavailable Primary Care [...] of left knee on 08/29/2023 through the [facility] in [facility]. Following this, he developed redness in [...] (10/26/2023): Added automatically from request for surgery [id number] Male hypogonadism 07/16/2018 Overview (10/26/2023): Last Assessment [...] Comments Blood Pressure 143/81 11/02/2023 7:27 AM MASTER CONTROL TECHNICIAN Pulse 72 11/02/2023 7:27 AM MASTER CONTROL TECHNICIAN Temperature 36.6 C (97.8 F) 11/02/2023 7:27 AM MASTER CONTROL TECHNICIAN Respiratory Rate 18 11/02/2023 7:27 AM MASTER CONTROL TECHNICIAN Oxygen Saturation 97% 11/02/2023 7:27 AM MASTER CONTROL TECHNICIAN Inhaled Oxygen Concentration - - Weight 71.7 kg (158 lb) 10/25/2023 9:56 PM MASTER CONTROL TECHNICIAN Height 177.8 cm (5' 10) 10/25/2023 9:56 PM MASTER CONTROL TECHNICIAN Body Mass Index 22.67 10/25/2023 9:56 PM MASTER CONTROL TECHNICIAN Plan of Treatment Health Maintenance Due Date Last Done Comments CT Colonography 1954 Colonoscopy 1954 Colorectal Cancer Screening 1954 FIT-DNA (Cologuard) 1954 FIT 1954 FOBT 1954 Hemoglobin A1C 1954 Sigmoidoscopy 1954 Annual Visit Topic 1955 Ophthalmology Exam 1964 Urine Microalbumin 1964 Hepatitis C Screening 1972 Pneumococcal Vaccine: 65+ Years (2 of 3 - PCV20 or PCV21) 04/16/2021 04/16/2020 DTaP/Tdap/Td Vaccines (3 - T d or [...]
--- OUTSIDE RECORDS SUMMARY | 2025-08-06 15:19 | XMS_ITS | Clinical Summary ---
Author Organization [facility] Address [address] [place] [address] Care Team Providers Care Coloring Room Worker Name Role Phone Solo Burr MD Primary Care Provider Source Comments [facility],non-owned Affiliates and Associated Physician Practices is amultiple site organization consisting of ambulatory clinics and hospital sitesin [place], [place], [place] and [place]. This disclosure is being madepursuant to the Care Everywhere program and may not contain all information available regarding this patient. Last updated 18.[facility] Allergies No known active allergies Medications * [...] daily as needed (anxiety) Active HYDROcodone-raymond taminophen ([place]) 7.5-325 MG tablet Take 1 (one) tablet [...] and heating? Not hard at all 10/19/2023 [facility] [place] of Occupat ional Health - Occupational Stress [...] place to sleep or slept in a [place] facility (including now)? No 10/19/2023 Sex and Gender Information Value Date Recorded Sex Assigned at Not on file Legal Sex Male 11:08 AM STAINED GLASS INSTALLER Gender Identity Not on file Sexual Orientation Not on file Last Filed Vital Signs Vital Sign Reading Time Taken Comments Blood Pressure 113/68 10/25/2023 4:01 PM STAINED GLASS INSTALLER Pulse 77 10/25/2023 4:01 PM STAINED GLASS INSTALLER Temperature 36.4 C (97.6 F) 10/25/2023 4:01 PM STAINED GLASS INSTALLER Respiratory Rate 18 10/25/2023 9:26 AM STAINED GLASS INSTALLER Oxygen Saturation 98% 10/25/2023 4:0 1 PM STAINED GLASS INSTALLER Inhaled Oxygen Concentration 21% 10/19/2023 3:25 PM STAINED GLASS INSTALLER Weight 73.4 kg (161 lb 12.8 oz) 10/25/2023 4:00 AM STAINED GLASS INSTALLER Height 180.3 cm (5' 10.98) 10/18/2023 7:00 AM STAINED GLASS INSTALLER per care everywhere Body Mass Index 22.58 10/18/2023 7:00 AM STAINED GLASS INSTALLER Plan of Treatment Health Maintenance Due Date [...] patient's age to complete this topic Insurance [facility] MEDICARE [facility] AETNA MEDICARE ADV SELF PAY NO INSURANCE Member Subscriber Plan / Payer (Ef fective for All Dates) Name:Abel Thacker Jr Member ID:Not on file Relation to Subscriber:Not on file Name:ABEL THACKER JR Subscriber ID:Not on file (Home) Address: [address] [place] [phone] Payer ID:Not on file Group ID:Not on file Type:Self Pay Address: [place], [place] Advance Directives Documents on File Type Date Recorded Patient Electrotyper Helper Expl anation Adv Directive/Living Will/POA 10/26/2023 6:12 PM * Full Code (Latest Code Status on File) Date Activated Date Inactivated Comments 10/17/2023 3:46 PM 10/25/2023 8:04 PM Care Teams Coloring Room Worker Relationship Specialty Start Date End Date Solo Burr MD [address] [facility] [address] [phone] PCP - General Family Medicine 10/17/23
--- OUTSIDE RECORDS SUMMARY | 2025-08-06 15:19 | XMS_ITS | Clinical Summary ---
Author Organization [facility] Address [address] [place] [address] Care Team Providers Care Flexible Machining System Machinist Name Role Phone Solo Burr MD Primary [...] complication, without long-term current use of insulin ([facility]) USE 1 STRIP TO CHECK GLUCOSE ONCE [...] 08/29/2023 through the [facility] in [facility]. 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 [place] 07/28/2016 Actinic keratosis 04/27/2016 Basal cell carcinoma [...] 06/18/2020,04/16/2020 Surgical History Surgery Date Site/Laterality Comments NC TONSILLECTOMY PRIMARY/SECONDARY <AGE 11 09/17/1966 - 09/16/1967 [...] on file Legal Sex Male 3:02 AM MANUFACTURING ASSOCIATE Gender Identity Not on file Sexual Orientation [...] PELVIS WO CONTRAST Routine 11/23/2016 7:37 AM MANUFACTURING ASSOCIATE from Last 3 Months or Most Recently [...] 12/25/2023 10:11 AM CDT Performed at: - [facility] [id number] Water Main Inspector: Jonas Cruz PhD, Phone: [phone] May Lawson MD LAB BLOOD ORDERABLES Final Result Performing Organization Address [facility] de Phone Number [facility] - 01 * Albumin Creatinine Ratio, Urine (04/17/2023) Urine May Lawson MD LAB URINE ORDERABLES Final Result Performing Organization Address [facility] de Phone Number [facility] * Hemoglobin A1c (04/17/2023) Blood specimen (specimen) May Lawson MD LAB BLOOD ORDERABLES Final Result Performing Organization Address [facility] de Phone Number [facility] * PSA screen (04/17/2022) Blood specimen (specimen) May Lawson MD LAB BLOOD ORDERABLES Edited Result - Final Performing Organization Address [facility] de Phone Number [facility] * Lipid panel (04/17/2022) Blood specimen (specimen) May Lawson MD LAB BLOOD ORDERABLES Edited Result - Final Performing Organization Address [facility] Co de Phone Number [facility] * CT Abdomen Pelvis WO Contrast (11/23/2016 7:37 AM MANUFACTURING ASSOCIATE) Anatomical Region Laterality Modality Body N/A Computed Tomogra phy 11/23/2016 7:37 AM MANUFACTURING ASSOCIATE Narrative 11/23/2016 9:00 AM MANUFACTURING ASSOCIATE CLIVE ABDI M.D. ABEL CANNON M.D. FINAL REPORT The radiology attending physician has personally reviewed this study, and has reviewed and/or edited this written report and agrees with it. ACC# Date Time Exam [id number] Nov 23, 2016 07:37:[id number] Abd & Pelvis wo cont EXAMINATION: [...] ABDI M.D. on Nov 23 2016 9:00A [id number] Procedure Note Provider, MD Mecca - 01/24/2017 Fadumo GONZALEZ M.D. FINAL REPORT The radiology attending physician has personally reviewed this study, and has reviewed and/or edited this written report and agrees with it. ACC# Date Time Exam [id number] Nov 23, 2016 07:37:[id number] Abd & Pelvis wo cont EXAMINATION: [...] ABDI M.D. on Nov 23 2016 9:00A [id number] Historical Provider MD PRATHER CT PROCEDURES Final R esult from Last 3 Months or Most Recently Relevant to Health Maintenance Insurance [facility] CHOICE PLUS [facility] PPO TNA AETNA [facility] GOLD [facility] AETNA MEDICARE GOLD AETNA MEDICARE GOLD Advance Directives For more information, please contact: [phone] Documents on File Type Date Recorded Patient Tonsorial Artist Expl anation ADVANCE DIRECTIVE 08/23/2018 11:42 AM Care Teams Flexible Machining System Machinist Relationship Specialty Start Date End Date Solo Burr MD PCP - General 05/18/20
--- OUTSIDE RECORDS SUMMARY | 2025-08-06 15:19 | XMS_ITS | Clinical Summary ---
Author Organization [facility] Address [address] [place] [id number] Care Team Providers Care Associate Professor Of Management Name Role Phone Unavailable Primary Care Provider [...]
--- OUTSIDE RECORDS SUMMARY | 2025-08-06 15:19 | XMS_ITS | Encounter Summary ---
Author Organization [facility] Address [address] [facility] [place] [address] Phone Care Team Providers Care Data Systems Analyst Name Role Phone Solo Burr MD Primary [...] on file Legal Sex Male 3:02 AM SPA DIRECTOR/FINANCE Gender Identity Not on file Sexual Orientation [...] on filedocumented in this encounter Care Teams Data Systems Analyst Relationship Specialty Start Date End Date Solo Burr MD PCP - General 05/18/20 documented as of this encounter
--- OUTSIDE RECORDS SUMMARY | 2025-08-06 15:19 | XMS_ITS | Encounter Summary ---
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 Name Role Phone Nii Jose MD Primary Care Provider [phone]- [phone] Muna Arce MD Primary Care Provider +1- [phone] Solo Burr MD Primary Care Provider Encounter Details Date Type Department Care Team (Late st Contact Info) Description 01/01/2017 Orders Only [facility] ProviderMecca MD [address] [place] [id number] Social History Tobacco Use Types Packs/Day Years Used Date Smoking Tobacco: Never Assessed Sex and Gender Information Value Date Recorded Sex Assigned at Not on file 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
== END 2025-08-06 12:51 | disposition home or self-care (01) ==
PROVIDERS: PCP Family Medicine; Visit Provider Nurse Practitioner Family
DX: J40 Bronchitis, not specified as acute or chronic (principal); I10 Essential (primary) hypertension; E87.1 Hypo-osmolality and hyponatremia; E87.5 Hyperkalemia; R79.89 Other specified abnormal findings of blood chemistry; R74.8 Abnormal levels of other serum enzymes
CPT/HCPCS: 36415; 80053; 85025